=== PATIENT | male | born 1960 | race Caucasian/White ===

== ENCOUNTER → 2016-05-20 | Outpatient (CLI) | payer BC ==
[~2016-05-20] MED LIST: BUPIVACAINE HCL 0.25% 30 ML VIAL As Ordered ONE; ISOVUE-M 300 61% 15ML VIAL (Q9967) As Ordered ONE; LIDOCAINE 1% SDV INJ 30 ML VIAL As Ordered ONE; TRIAMCINOLONE ACETONIDE SUSP 40 MG/ML VIAL (J3301) As Ordered ONE; diazePAM 5 MG TAB As Ordered ONE; oxyCODONE 5MG TAB As Ordered ONE
--- NOTE | 2016-05-21 08:59 | REP ---
Partial SI joint series: Three views. History: Bilateral SI joint injection for pain. 50 seconds of fluoroscopy time is reported. Findings: A sequence of three fluoroscopically obtained intraprocedural spot radiographs of the SI joints document needle position and contrast injection associated with SI joint injection procedure. Signed by Waldo Merchant MD 05/21/2016 10:22 A
--- NOTE | 2016-05-24 23:37 | ECWPNPC ---
PATIENT NAME: MOON LUCAS : 1960 GENDER: MALE VISIT DATE: 05/20/2016 DISCHARGE DATE: 05/20/16 1614 VISIT LOCKED DATE TIME: PHYSICIAN: CHAIM RAI RESOURCE: CHAIM RAI REASON FOR APPOINTMENT 1. LFBT AND/OR SIJ HISTORY OF PRESENT ILLNESS HISTORY OF PRESENT ILLNESS: PAIN THE PATIENT DESCRIBES THE PAIN... FALL RISK SCREENING: SCREENING :NO FALLS IN THE PAST YEAR CURRENT MEDICATIONS TAKING LISINOPRIL 5 MG TABLET 1 TAB(S) ORALLY ONCE A DAY, NOTES: 05-19-162099 TAKING ATENOLOL 25 MG TABLET 1 TABLET ORALLY ONCE A DAY, NOTES: 05-19-162099 TAKING LIPITOR 20 MG TABLET 1 TABLET ORALLY ONCE A DAY, NOTES: 05-19-162099 TAKING ASPIRIN 81 MG TABLET 1 TABLET ORALLY ONCE A DAY, NOTES: 05-19-162099 TAKING FLONASE 50 MCG/ACT SUSPENSION 1 PUFF IN EACH NOSTRIL NASALLY ONCE A DAY, NOTES: 05-13-162099 TAKING VICODIN HP 10-300 MG TABLET 1 TABLET ORALLY DAILY NEEDED, NOTES: 05-20-16 11:30 TAKING DELSYM 30 MG/5ML LIQUID EXTENDED RELEASE 10 ML NEEDED ORALLY EVERY 12 HRS, NOTES: 2099 NOT-TAKING IBUPROFEN 800 MG TABLET 1 TABLET ORALLY TWO TIMES A DAY NOT-TAKING TESSALON 200 MG CAPSULE 1 CAPSULE ORALLY EVERY 8 HOURS NEEDED FOR FOR COUGH NOT-TAKING IBU-200 200 MG TABLET 2-3 TABS ORALLY EVERY 6 HRS NOT-TAKING AZITHROMYCIN 500 MG TABLET 1 TABLET ORALLY ONCE A DAY MEDICATION LIST REVIEWED AND RECONCILED WITH THE PATIENT PAST MEDICAL HISTORY 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 RADICULAR PAIN-JANUARY 2010 MRI MULTILEVEL DJD, GRADE 1 DEGENERATIVE ANTEROLISTHESIS L4/L5, 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 WITH LEFT GREATER THAN RIGHT NEUROFORAMINAL NARROWING HYPERTENSION 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 DECEMBER 2005 OBESITY, MORBID HYPERHOMOCYSTINEMIA, MILD-12/2003-12.6 (4.3-11.4) IMPAIRED FASTING GLUCOSE HYPERLIPIDEMIA 2B VENOUS INSUFFICIENCY BILATERAL LOWER EXTREMITIES ALLERGIES TETRACYCLINE HCL: NAUSEA/VOMITING: ALLERGY HORSE SERUM: NAUSEA/VOMITING: ALLERGY SURGICAL HISTORY RIGHT KNEE /MENISCUS 2014 SOCIAL HISTORY GENERAL: TOBACCO USE ARE YOU A:NONSMOKER LEARNING BARRIERS / SPECIAL NEEDS ORIENTED TO PLAN OF CARE: PATIENT, PAIN MANAGEMENT PATIENT, ORIENTED TO PLAN OF CARE: PATIENT, PAIN MANAGEMENT PATIENT. NEW PATIENT PAIN DIARY TODAY'S VISITNOTES FROM 0-10, WHAT LEVEL IS YOUR PAIN TODAY?0 PAIN CLINIC PFS, CLERGY, PUBLIC HEALTH REFERRALS PFS REFERRAL NEEDED?NO CLERGY REFERRAL NEEDED?NO PUBLIC HEALTH REFERRAL NEEDED?NO WAS THE PROVIDER NOTIFIED OF ANY PERTINENT INFO?NO PFS REFERRAL NEEDED?NO CLERGY REFERRAL NEEDED?NO PUBLIC HEALTH REFERRAL NEEDED?NO WAS THE PROVIDER NOTIFIED OF ANY PERTINENT INFO?NO REVIEW OF SYSTEMS CONSTITUTIONAL: ANY CHANGE IN YOUR MEDICAL CONDITION? NO . CHILLS NO . FEVER NO . INFECTION: DO YOU HAVE NEW INFECTIONS? NO . DO YOU HAVE HISTORY OF MRSA? NO . MUSCULOSKELETAL: ANY NEW PATTERNS OF PAIN OR NUMBNESS? NO . GASTROENTEROLOGY: ANY NEW CHANGE IN BOWEL CONTROL? NO . GENITOURINARY: ANY NEW CHANGE IN BLADDER CONTROL? NO . IS THERE A CHANCE YOU COULD BE ? NO . HEMATOLOGY/LYMPH: DO YOU TAKE ANY BLOOD THINNERS? (FOR EXAMPLE- COUMADIN, PLAVIX, AGGRENOX, PLATEL, PRADAXA, OR XARELTO) NO . WHEN WAS YOUR LAST DOSE? DATE: TIME: . NEUROLOGY: HAVE YOU FALLEN IN THE PAST 6 MONTHS? YES . ANY NEW EXTREMITY NUMBNESS OR WEAKNESS? NO . CARDIOLOGY: DO YOU HAVE A PACEMAKER OR DEFIBRILLATOR? NO . RESPIRATORY: HAVE YOU BEEN SICK IN THE PAST WEEK? NO . FEVER NO . FLU LIKE SYMPTOMS? NO . COUGH NO . INTEGUMENTARY: DO YOU HAVE ANY RASHES OR OPEN SORES? NO . ALLERGIC/IMMUNO: ARE YOU ALLERGIC TO SHELLFISH OR IV DYE? NO . ANY NEW ALLERGIES? NO . PSYCHIATRIC: DO YOU HAVE THOUGHTS OF HURTING YOURSELF OR SOMEONE ELSE? NO . ARE YOU ABUSED, NEGLECTED, OR IN AN UNSAFE ENVIRONMENT? NO . ENDOCRINOLOGY: ARE YOU DIABETIC? NO . OTHER: DO YOU NEED ANY PRESCRIPTIONS? NO . IF YES, PLEASE LIST: ____ . ANY NEW PROBLEMS WITH YOUR MEDICATIONS? NO . WHEN DID YOU LAST EAT? ____05-19-16=1900 . WHEN DID YOU LAST DRINK? ____1145 05-20-16 . WHAT DID YOU LAST DRINK? ____ . NAME OF PERSON DRIVING YOU HOME? ____ . DO YOU HAVE ANY OTHER QUESTIONS OR CONCERNS NO . REVIEWED BY: PROVIDER: . VITAL SIGNS WT 288 LBS, HT 68 IN, BMI 43.79 INDEX, BP 135/90 MM HG, HR 70 /MIN, RR 16 /MIN, TEMP 96.0 F, OXYGEN SAT % 94, NA INITIALS TL 1402, REVIEWED BY: KG. ASSESSMENTS SACROILIITIS, NOT ELSEWHERE CLASSIFIED - M46.1 (PRIMARY) TREATMENT OTHERS START HYDROCODONE-ACETAMINOPHEN TABLET, 10-325 MG, 1 TABLET NEEDED, ORALLY, EVERY 8 HRS PRN FOR PAIN MDD3, 15 DAYS, 42, REFILLS 0 PROCEDURES PN SI PRE PROCEDURE DIAGNOSIS SACROILIITIS, SACROILIAC JOINT DYSFUNCTION POST PROCEDURE DIAGNOSIS SACROILIITIS, SACROILIAC JOINT DYSFUNCTION PROCEDURE BILATERAL SACROILIAC JOINT BLOCK SURGEON DR. CHAIM RAI BOILER/CHILLER TECHNICIAN NONE ANESTHESIA LOCAL PRE PROCEDURE NOTE PATIENT WITH HISTORY OF CHRONIC LOW BACK PAIN. I EVALUATED THE PATIENT AND REVIEWED THE CHART. I WENT OVER THE RISKS, ALTERNATIVES, AND BENEFITS ASSOCIATED WITH THIS PROCEDURE. THE PATIENT WOULD LIKE TO PROCEED AND GAVE CONSENT TO PERFORM THE PROCEDURE. THE PATIENT DENIES UNEXPLAINABLE WEIGHT LOSS, FEVER, CHILLS, OR NEW CHANGES IN URINARY OR BOWEL CONTROL DESCRIPTION OF PROCEDURE THE PATIENT WAS BROUGHT TO THE PROCEDURE ROOM AND PLACED IN THE PRONE POSITION. THE LUMBOSACRAL AREA WAS CLEANED WITH CHLORAPREP SOLUTION AND DRAPED ASEPTICALLY. THE PROCEDURE WAS DONE UNDER STERILE CONDITIONS. I CHECKED LATERALITY AND THE LEVEL WHERE THE PROCEDURE WAS GOING TO BE PERFORMED WITH THE PATIENT AND THE SUPPORTING STAFF AT THE MOMENT OF THE TIME OUT IN THE PROCEDURE ROOM. UNDER FLUOROSCOPIC GUIDANCE, TARGET POINT WAS SELECTED AT THE LOWER BORDER OF THE RIGHT AND LEFT SACROILIAC JOINT. TARGET POINT WAS SELECTED AFTER MEDIAL ROTATION AND TILT OF THE MAGNIFIER OF THE C-ARM. LIDOCAINE WAS USED TO NUMB THE SKIN AND SUBCUTANEOUS TISSUE BELOW IT. A SPINAL NEEDLE, 22-GAUGE, WAS ADVANCED UNDER FLUOROSCOPIC GUIDANCE AND FOLLOWING PATIENT FEEDBACK UNTIL THE TARGET AREA WAS TOUCHED. THE POSITION OF THE NEEDLE WAS VERIFIED WITH AP AND LATERAL VIEWS. AFTER PROPER POSITION OF THE NEEDLE WAS ACHIEVED, ISOVUE M DYE 30%, 0.25 ML, WAS INJECTED SHOWING SPREAD OF THE DYE. THEN, A SOLUTION OF 20 MG OF KENALOG WAS INJECTED IN RIGHT JOINT WITH 3 ML OF BUPIVACAINE 0.125%. THERE WAS NO EVIDENCE OF BLOOD, PARESTHESIA OR CEREBROSPINAL FLUID DURING THE PROCEDURE. THE PATIENT WAS SENT TO THE RECOVERY ROOM. THE PATIENT WAS MOVING THE EXTREMITIES AND DOING WELL. THERE WAS NO COMPLICATION DURING THE PROCEDURE. FLUOROSCOPY TIME WAS 50 SECONDS POST PROCEDURE NOTE THE PATIENT WILL BE SEEN IN A FOLLOW UP IN THE NEXT FEW WEEKS. INSTRUCTIONS WERE GIVEN, QUESTIONS WERE ANSWERED, AND THE PATIENT EXPRESSED UNDERSTANDING AND AGREED WITH THE PLAN. I, ABUNDIO HERNANDEZ, DOCUMENTED THE ABOVE INFORMATION ACTING A SCRIBE FOR DR. RAI. I, DR. RAI, HAVE REVIEWED THE ABOVE DOCUMENT, SCRIBED BY ABUNDIO HERNANDEZ, AND I VERIFY THAT IT IS ACCURATE DIAGNOSTIC IMAGING [facility] FLUORO GUIDANCE (PAIN)[id number] PREVENTIVE MEDICINE PAIN CLINIC TEACHING: PROCEDURE TEACHING POST SACROILIAC JOINT INJECTIONS INSTRUCTIONS REVIEWED WITH PT. VERBALIZED UNDERSTANDING.. PROCEDURE CODES 18908 INJECT SACROILIAC JOINT 6045F RADXPS IN END [id number] PXD FOLLOW UP 3 WEEKS ELECTRONICALLY SIGNED BY CHAIM RAI MD ON 05/24/2016 AT 10:55 PM EST DISCLAIMER : THIS IS A VISIT SUMMARY EXTRACTED FROM THE [employer] CHART. IT IS NOT A COPY OF THE [employer] PROGRESS NOTE. MTDD
== END ==
LOC: M PAIN 14:00
PROVIDERS: ATTEND Anesthesiology
DX: G89.29 Other chronic pain (principal); M46.1 Sacroiliitis, not elsewhere classified; M53.88 Other specified dorsopathies, sacral and sacrococcygeal region; M51.36 Other intervertebral disc degeneration, lumbar region; I10 Essential (primary) hypertension; E66.9 Obesity, unspecified; Z68.41 Body mass index [BMI] 40.0-44.9, adult; R73.01 Impaired fasting glucose; E78.5 Hyperlipidemia, unspecified; Z88.1 Allergy status to other antibiotic agents; Z88.7 Allergy status to serum and vaccine; Z79.891 Long term (current) use of opiate analgesic; Z79.899 Other long term (current) drug therapy; Z79.82 Long term (current) use of aspirin
CPT/HCPCS: G0260; J3301; Q9967

== ENCOUNTER → 2016-06-15 | Outpatient (CLI) | payer BC ==
--- NOTE | 2016-06-17 00:32 | ECWPNPC ---
PATIENT NAME: MOON LUCAS : 1960 GENDER: MALE VISIT DATE: 06/15/2016 DISCHARGE DATE: 06/15/16 1637 VISIT LOCKED DATE TIME: PHYSICIAN: CHAIM RAI RESOURCE: CHAIM RAI REASON FOR APPOINTMENT 1. LOW BACK PAIN HISTORY OF PRESENT ILLNESS HISTORY OF PRESENT ILLNESS: PAIN THE PATIENT DESCRIBES THE PAIN... 55 YEAR OLD MALE PATIENT WITH HISTORY OF CHRONIC LOW BACK PAIN. PATIENT DESCRIBES THE PAIN ACHING, SORE WITH THE PAIN COMING AND GOING WITH A PAIN SCORE OF 3/10. PATIENT RECEIVED A SACROILIAC JOINT BLOCK ON 05/20/16 AND STATES THAT HIS PAIN WENT FROM A 8 TO A 3 FOR ROUGHLY 4 WEEKS AND STATES HE IS STILL GETTING PAIN RELIEF. PATIENT HAS USED 4 VICODIN'S IN THE LAST MONTH AND STATES HE PREFERS NOT TO USE THEM UNLESS THE PAIN IS VERY SEVERE. HOWEVER, PATIENT IS USING IBUPROFEN TO AID IN PAIN RELIEF. MR. LUCAS STATES THAT ANY ACTIVITY INCREASES THE PAIN IN HIS LOWER BACK AND AT THIS TIME THE INJECTIONS AND IBUPROFEN HELP TO RELIEVE THE PAIN. PATIENT DENIES UNEXPLAINABLE WEIGHT LOSS, FEVER, CHILLS, NEW CHANGES ON HIS URINARY OR BOWEL CONTROL. FALL RISK SCREENING: SCREENING :NO FALLS IN THE PAST YEAR CURRENT MEDICATIONS TAKING LISINOPRIL 5 MG TABLET 1 TAB(S) ORALLY ONCE A DAY TAKING ATENOLOL 25 MG TABLET 1 TABLET ORALLY ONCE A DAY TAKING LIPITOR 20 MG TABLET 1 TABLET ORALLY ONCE A DAY TAKING ASPIRIN 81 MG TABLET 1 TABLET ORALLY ONCE A DAY TAKING HYDROCODONE-ACETAMINOPHEN 10-325 MG TABLET 1 TABLET NEEDED ORALLY EVERY 8 HRS PRN FOR PAIN MDD3 NOT-TAKING FLONASE 50 MCG/ACT SUSPENSION 1 PUFF IN EACH NOSTRIL NASALLY ONCE A DAY, NOTES: 05-13-162099 NOT-TAKING VICODIN HP 10-300 MG TABLET 1 TABLET ORALLY DAILY NEEDED, NOTES: 05-20-16 11:30 NOT-TAKING DELSYM 30 MG/5ML LIQUID EXTENDED RELEASE 10 ML NEEDED ORALLY EVERY 12 HRS, NOTES: 2099 NOT-TAKING IBUPROFEN 800 MG TABLET 1 TABLET ORALLY TWO TIMES A DAY NOT-TAKING TESSALON 200 MG CAPSULE 1 CAPSULE ORALLY EVERY 8 HOURS NEEDED FOR FOR COUGH NOT-TAKING IBU-200 200 MG TABLET 2-3 TABS ORALLY EVERY 6 HRS NOT-TAKING AZITHROMYCIN 500 MG TABLET 1 TABLET ORALLY ONCE A DAY MEDICATION LIST REVIEWED AND RECONCILED WITH THE PATIENT PAST MEDICAL HISTORY 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 RADICULAR PAIN-JANUARY 2010 MRI MULTILEVEL DJD, GRADE 1 DEGENERATIVE ANTEROLISTHESIS L4/L5, 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 WITH LEFT GREATER THAN RIGHT NEUROFORAMINAL NARROWING HYPERTENSION 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 DECEMBER 2005 OBESITY, MORBID HYPERHOMOCYSTINEMIA, MILD-12/2003-12.6 (4.3-11.4) IMPAIRED FASTING GLUCOSE HYPERLIPIDEMIA 2B VENOUS INSUFFICIENCY BILATERAL LOWER EXTREMITIES ALLERGIES TETRACYCLINE HCL: NAUSEA/VOMITING: ALLERGY HORSE SERUM: NAUSEA/VOMITING: ALLERGY SURGICAL HISTORY RIGHT KNEE /MENISCUS 2015 TONSILLECTOMY 1972 REPAIR LEFT 2ND FINGER 05/1973 FAMILY HISTORY NO FAMILY HISTORY DOCUMENTED. SOCIAL HISTORY GENERAL: TOBACCO USE ARE YOU A:NONSMOKER ALCOHOL SCREENING DID YOU HAVE A DRINK CONTAINING ALCOHOL IN THE PAST YEAR?YES HOW OFTEN DID YOU HAVE SIX OR MORE DRINKS ON ONE OCCASION IN THE PAST YEAR?NEVER (0 POINTS) HOW MANY DRINKS DID YOU HAVE ON A TYPICAL DAY WHEN YOU WERE DRINKING IN THE PAST YEAR?1 OR 2 (0 POINTS) HOW OFTEN DID YOU HAVE A DRINK CONTAINING ALCOHOL IN THE PAST YEAR?TWO TO THREE TIMES PER WEEK (3 POINTS) POINTS3 INTERPRETATIONNEGATIVE RECREATIONAL DRUG USE DRUG USE?YES MARIJUANA HOW OFTEN AND HOW MUCH? 2 TO 3 TIMES A WEEK CAFFEINE CAFFEINE USE?YES HOW OFTEN AND HOW MUCH? 2 CUPS A DAY LEARNING BARRIERS / SPECIAL NEEDS ORIENTED TO PLAN OF CARE: PATIENT, PAIN MANAGEMENT PATIENT, ORIENTED TO PLAN OF CARE: PATIENT, PAIN MANAGEMENT PATIENT. PSYCHOLOGICAL HX TREATMENT NO . NEW PATIENT PAIN DIARY TODAY'S VISITNOTES FROM 0-10, WHAT LEVEL IS YOUR PAIN TODAY?0 PAIN CLINIC PFS, CLERGY, PUBLIC HEALTH REFERRALS PFS REFERRAL NEEDED?NO CLERGY REFERRAL NEEDED?NO PUBLIC HEALTH REFERRAL NEEDED?NO WAS THE PROVIDER NOTIFIED OF ANY PERTINENT INFO?NO PFS REFERRAL NEEDED?NO CLERGY REFERRAL NEEDED?NO PUBLIC HEALTH REFERRAL NEEDED?NO WAS THE PROVIDER NOTIFIED OF ANY PERTINENT INFO?NO PATIENT: ____. ADVANCED DIRECTIVES HEALTH CARE PROXY?YES JUAN LUCAS [phone] DO YOU HAVE A DNR?YES DOES NOT HAVE A COPY WITH LIVING WILL?YES SHARA LUCAS POWER OF COOKING SHOW HOST?NO SHARA LUCAS HOSPITALIZATION/MAJOR DIAGNOSTIC PROCEDURE SURGERY RELATED REVIEW OF SYSTEMS CONSTITUTIONAL: ANY CHANGE IN YOUR MEDICAL CONDITION? YES . CHILLS NO . FEVER NO . INFECTION: DO YOU HAVE NEW INFECTIONS? NO . DO YOU HAVE HISTORY OF MRSA? NO . MUSCULOSKELETAL: ANY NEW PATTERNS OF PAIN OR NUMBNESS? YES, INJECTION SITE PAIN WHEN HYPEREXTENDS BACK . GASTROENTEROLOGY: ANY NEW CHANGE IN BOWEL CONTROL? NO . GENITOURINARY: ANY NEW CHANGE IN BLADDER CONTROL? NO . IS THERE A CHANCE YOU COULD BE ? NO . HEMATOLOGY/LYMPH: DO YOU TAKE ANY BLOOD THINNERS? (FOR EXAMPLE- COUMADIN, PLAVIX, AGGRENOX, PLATEL, PRADAXA, OR XARELTO) YES . WHEN WAS YOUR LAST DOSE? DATE: TIME: . NEUROLOGY: HAVE YOU FALLEN IN THE PAST 6 MONTHS? NO . ANY NEW EXTREMITY NUMBNESS OR WEAKNESS? NO . CARDIOLOGY: DO YOU HAVE A PACEMAKER OR DEFIBRILLATOR? NO . RESPIRATORY: HAVE YOU BEEN SICK IN THE PAST WEEK? NO . FEVER NO . FLU LIKE SYMPTOMS? NO . COUGH NO . INTEGUMENTARY: DO YOU HAVE ANY RASHES OR OPEN SORES? NO . ALLERGIC/IMMUNO: ARE YOU ALLERGIC TO SHELLFISH OR IV DYE? NO . ANY NEW ALLERGIES? NO . PSYCHIATRIC: DO YOU HAVE THOUGHTS OF HURTING YOURSELF OR SOMEONE ELSE? NO . ARE YOU ABUSED, NEGLECTED, OR IN AN UNSAFE ENVIRONMENT? NO . ENDOCRINOLOGY: ARE YOU DIABETIC? NO . OTHER: DO YOU NEED ANY PRESCRIPTIONS? NO . IF YES, PLEASE LIST: ____ . ANY NEW PROBLEMS WITH YOUR MEDICATIONS? NO . WHEN DID YOU LAST EAT? ____ . WHEN DID YOU LAST DRINK? ____ . WHAT DID YOU LAST DRINK? ____ . NAME OF PERSON DRIVING YOU HOME? ____ . DO YOU HAVE ANY OTHER QUESTIONS OR CONCERNS NO . REVIEWED BY: PROVIDER: CHAIM RAI MD . VITAL SIGNS WT 287.9 LBS, HT 68 IN, BMI 43.77 INDEX, BP 150/93 MM HG, HR 94 /MIN, RR 16 /MIN, TEMP 97.8 F, OXYGEN SAT % 92%, NA INITIALS SC 15:26, REVIEWED BY: MARIO. EXAMINATION : PATIENT IS ALERT O X 3 AND COOPERATIVE. PATIENT AMBULATES WITH AN ANTALGIC GAIT. PATIENT HAS BALANCE PROBLEMS DUE TO THE HEEL. PATIENT IS ABLE TO EXTEND BACK AT 20 DEGREES AND FLEX BACK AT 50 DEGREES WITH DIFFICULTIES. PATIENT'S RIGHT LEG IS WEAKER AT EXTENSION AND FLEXION. MRI OF THE LUMBAR SPINE DONE ON 03-19-2016 SHOWS A DIFFUSE DISC BULGE AT L1-L2 WITH MINIMAL THECAL SAC COMPRESSION. SEVERE CENTRAL CANAL STENOSIS AT L4-L5, WITH A COMPRESSION OF THE RIGHT L4 NERVE IN THE NEURAL FORAMEN. DIFFUSE DISC BULGE AT L5-S1 WHICH ABUTS THE THECAL SAC AND S1 NERVES WITH A COMPRESSION OF THE L5 NERVES IN THE NEURAL FORAMINA. ASSESSMENTS SACROILIITIS, NOT ELSEWHERE CLASSIFIED - M46.1 (PRIMARY) SPONDYLOSIS WITHOUT MYELOPATHY OR RADICULOPATHY, LUMBAR REGION - M47.816 SPONDYLOSIS WITHOUT MYELOPATHY OR RADICULOPATHY, LUMBOSACRAL REGION - M47.817 TREATMENT SACROILIITIS, NOT ELSEWHERE CLASSIFIED NOTES: WE DISCUSSED SEVERAL ISSUES WITH MR. LUCAS'S PAIN MANAGEMENT CASE. PATIENT WILL CONTINUE WITH THE SAME MEDICATION REGIME BEFORE. PATIENT HAS BEEN USING THE VICODIN NEEDED AND I ENCOURAGED THE PATIENT TO KEEP USING NEEDED. PATIENT DENIES ABUSE OF ANY MEDICATION, DENIES USE OF ILLEGAL SUBSTANCES, AND IS USING THE MEDICATION FOR PAIN MANAGEMENT. PATIENT RECEIVED A SACROILIAC JOINT INJECTION WHICH HE REPORTS AN 80% REDUCTION IN PAIN SINCE THE INJECTION. AT THIS TIME THE PATIENT IS DOING VERY WELL AND STATES HE DOES NOT NEED INTERVENTIONS AT THIS TIME. PATIENT WAS ADVISED TO CALL NEEDED AND HE WOULD BE ACCOMMODATED IN 3 BUSINESS DAYS. INSTRUCTIONS WERE GIVEN, QUESTIONS WERE ANSWERED, PATIENT REPORTS UNDERSTANDING AND AGREES WITH THE PLAN. I, ABUNDIO HERNANDEZ, DOCUMENTED THE ABOVE INFORMATION ACTING A SCRIBE FOR DR. RAI. I HAVE REVIEWED THE ABOVE DOCUMENT, WRITTEN BY ABUNDIO SWARTZ AND I VERIFY THAT IT IS ACCURATE. PROCEDURE CODES FA211 ESTABILISHED PATIENT [facility] CHARGE [id number] DOC MEDS VERIFIED W/PT OR RE G8730 PAIN ASSESS POS TOOL F/U PLAN DOC FOLLOW UP CALL NEEDED ELECTRONICALLY SIGNED BY CHAIM RAI MD ON 06/16/2016 AT 09:41 AM EST DISCLAIMER : THIS IS A VISIT SUMMARY EXTRACTED FROM THE [employer] CHART. IT IS NOT A COPY OF THE [employer] PROGRESS NOTE. MTDD
== END ==
LOC: M PAIN 15:20
PROVIDERS: ATTEND Anesthesiology
DX: Z09 Encounter for follow-up examination after completed treatment for conditions other than malignant neoplasm (principal); G89.29 Other chronic pain; M46.1 Sacroiliitis, not elsewhere classified; M47.816 Spondylosis without myelopathy or radiculopathy, lumbar region; M47.817 Spondylosis without myelopathy or radiculopathy, lumbosacral region; M51.16 Intervertebral disc disorders with radiculopathy, lumbar region; M51.17 Intervertebral disc disorders with radiculopathy, lumbosacral region; I10 Essential (primary) hypertension; E66.9 Obesity, unspecified; Z68.41 Body mass index [BMI] 40.0-44.9, adult; E78.5 Hyperlipidemia, unspecified; Z88.1 Allergy status to other antibiotic agents; Z88.7 Allergy status to serum and vaccine; Z79.01 Long term (current) use of anticoagulants; Z79.82 Long term (current) use of aspirin; Z79.891 Long term (current) use of opiate analgesic; Z79.899 Other long term (current) drug therapy; Z86.79 Personal history of other diseases of the circulatory system

== ENCOUNTER → 2016-07-10 | Outpatient (CLI) | payer BC ==
--- NOTE | 2016-07-10 18:56 | REP ---
FLUOROSCOPIC GUIDANCE: REASON: Sacroiliac pain. Four images were obtained in absentia using a portable C-ARM device. There is a needle in the right and left sacroiliac joint with contrast material seen opacifying the joint region. Fluoroscopic time was 23 seconds. Signed by Capo Duncan DO 07/10/2016 07:05 P
--- NOTE | 2016-07-18 23:16 | ECWPNPC ---
PATIENT NAME: MOON LUCAS : 1960 GENDER: MALE VISIT DATE: 07/10/2016 DISCHARGE DATE: 07/10/161757 VISIT LOCKED DATE TIME: PHYSICIAN: CHAIM RAI RESOURCE: CHAIM RAI REASON FOR APPOINTMENT 1. SIJ HISTORY OF PRESENT ILLNESS HISTORY OF PRESENT ILLNESS: PAIN THE PATIENT DESCRIBES THE PAIN... FALL RISK SCREENING: SCREENING :NO FALLS IN THE PAST YEAR CURRENT MEDICATIONS TAKING LISINOPRIL 5 MG TABLET 1 TAB(S) ORALLY ONCE A DAY, NOTES: 07-09-162099 TAKING ATENOLOL 25 MG TABLET 1 TABLET ORALLY ONCE A DAY, NOTES: 07-09-162099 TAKING LIPITOR 20 MG TABLET 1 TABLET ORALLY ONCE A DAY, NOTES: 07-09-162099 TAKING ASPIRIN 81 MG TABLET 1 TABLET ORALLY ONCE A DAY, NOTES: 07-09-162099 TAKING HYDROCODONE-ACETAMINOPHEN 10-325 MG TABLET 1 TABLET NEEDED ORALLY EVERY 8 HRS PRN FOR PAIN MDD3, NOTES: 07-10-16 0800 NOT-TAKING FLONASE 50 MCG/ACT SUSPENSION 1 PUFF IN EACH NOSTRIL NASALLY ONCE A DAY, NOTES: 05-13-162099 NOT-TAKING VICODIN HP 10-300 MG TABLET 1 TABLET ORALLY DAILY NEEDED, NOTES: 05-20-16 11:30 NOT-TAKING DELSYM 30 MG/5ML LIQUID EXTENDED RELEASE 10 ML NEEDED ORALLY EVERY 12 HRS, NOTES: 2099 NOT-TAKING IBUPROFEN 800 MG TABLET 1 TABLET ORALLY TWO TIMES A DAY NOT-TAKING TESSALON 200 MG CAPSULE 1 CAPSULE ORALLY EVERY 8 HOURS NEEDED FOR FOR COUGH NOT-TAKING IBU-200 200 MG TABLET 2-3 TABS ORALLY EVERY 6 HRS NOT-TAKING AZITHROMYCIN 500 MG TABLET 1 TABLET ORALLY ONCE A DAY MEDICATION LIST REVIEWED AND RECONCILED WITH THE PATIENT PAST MEDICAL HISTORY 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 RADICULAR PAIN-JANUARY 2010 MRI MULTILEVEL DJD, GRADE 1 DEGENERATIVE ANTEROLISTHESIS L4/L5, 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 WITH LEFT GREATER THAN RIGHT NEUROFORAMINAL NARROWING HYPERTENSION 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 DECEMBER 2005 OBESITY, MORBID HYPERHOMOCYSTINEMIA, MILD-12/2003-12.6 (4.3-11.4) IMPAIRED FASTING GLUCOSE HYPERLIPIDEMIA 2B VENOUS INSUFFICIENCY BILATERAL LOWER EXTREMITIES ALLERGIES TETRACYCLINE HCL: NAUSEA/VOMITING: ALLERGY HORSE SERUM: NAUSEA/VOMITING: ALLERGY SURGICAL HISTORY RIGHT KNEE /MENISCUS 2015 TONSILLECTOMY 1972 REPAIR LEFT 2ND FINGER 05/1973 SOCIAL HISTORY GENERAL: TOBACCO USE ARE YOU A:NONSMOKER LEARNING BARRIERS / SPECIAL NEEDS ORIENTED TO PLAN OF CARE: PATIENT, PAIN MANAGEMENT PATIENT, ORIENTED TO PLAN OF CARE: PATIENT, PAIN MANAGEMENT PATIENT. NEW PATIENT PAIN DIARY TODAY'S VISITNOTES FROM 0-10, WHAT LEVEL IS YOUR PAIN TODAY?0 PAIN CLINIC PFS, CLERGY, PUBLIC HEALTH REFERRALS PFS REFERRAL NEEDED?NO CLERGY REFERRAL NEEDED?NO PUBLIC HEALTH REFERRAL NEEDED?NO WAS THE PROVIDER NOTIFIED OF ANY PERTINENT INFO?NO PFS REFERRAL NEEDED?NO CLERGY REFERRAL NEEDED?NO PUBLIC HEALTH REFERRAL NEEDED?NO WAS THE PROVIDER NOTIFIED OF ANY PERTINENT INFO?NO HOSPITALIZATION/MAJOR DIAGNOSTIC PROCEDURE SURGERY RELATED REVIEW OF SYSTEMS CONSTITUTIONAL: ANY CHANGE IN YOUR MEDICAL CONDITION? NO . CHILLS NO . FEVER NO . INFECTION: DO YOU HAVE NEW INFECTIONS? NO . DO YOU HAVE HISTORY OF MRSA? NO . MUSCULOSKELETAL: ANY NEW PATTERNS OF PAIN OR NUMBNESS? NO . GASTROENTEROLOGY: ANY NEW CHANGE IN BOWEL CONTROL? NO . GENITOURINARY: ANY NEW CHANGE IN BLADDER CONTROL? NO . IS THERE A CHANCE YOU COULD BE ? NO . HEMATOLOGY/LYMPH: DO YOU TAKE ANY BLOOD THINNERS? (FOR EXAMPLE- COUMADIN, PLAVIX, AGGRENOX, PLATEL, PRADAXA, OR XARELTO) NO . WHEN WAS YOUR LAST DOSE? DATE: TIME: . NEUROLOGY: HAVE YOU FALLEN IN THE PAST 6 MONTHS? NO . ANY NEW EXTREMITY NUMBNESS OR WEAKNESS? NO . CARDIOLOGY: DO YOU HAVE A PACEMAKER OR DEFIBRILLATOR? NO . RESPIRATORY: HAVE YOU BEEN SICK IN THE PAST WEEK? NO . FEVER NO . FLU LIKE SYMPTOMS? NO . COUGH NO . INTEGUMENTARY: DO YOU HAVE ANY RASHES OR OPEN SORES? NO . ALLERGIC/IMMUNO: ARE YOU ALLERGIC TO SHELLFISH OR IV DYE? NO . ANY NEW ALLERGIES? NO . PSYCHIATRIC: DO YOU HAVE THOUGHTS OF HURTING YOURSELF OR SOMEONE ELSE? NO . ARE YOU ABUSED, NEGLECTED, OR IN AN UNSAFE ENVIRONMENT? NO . ENDOCRINOLOGY: ARE YOU DIABETIC? NO . OTHER: DO YOU NEED ANY PRESCRIPTIONS? NO . IF YES, PLEASE LIST: ____ . ANY NEW PROBLEMS WITH YOUR MEDICATIONS? NO . WHEN DID YOU LAST EAT? ____1900 3-9-17 . WHEN DID YOU LAST DRINK? ____1300 TODAY 07-10-16 . WHAT DID YOU LAST DRINK? ____TEA . NAME OF PERSON DRIVING YOU HOME? ____JUAN LUCAS . DO YOU HAVE ANY OTHER QUESTIONS OR CONCERNS NO . REVIEWED BY: PROVIDER: . VITAL SIGNS WT 287.9 LBS, HT 68 IN, BMI 43.77 INDEX, BP 132/91 MM HG, HR 66 /MIN, RR 16 /MIN, TEMP 96.8 F, OXYGEN SAT % 95, SAFE IN ENV? (Y/N) YES, NA INITIALS TL 1605, REVIEWED BY: KG. ASSESSMENTS SACROILIITIS, NOT ELSEWHERE CLASSIFIED - M46.1 (PRIMARY) TREATMENT OTHERS REFILL HYDROCODONE-ACETAMINOPHEN TABLET, 10-325 MG, 1 TABLET NEEDED, ORALLY, EVERY 8 HRS PRN FOR PAIN MDD3, 30 DAY(S), 80, REFILLS 0, NOTES: 07-10-16 0800 PROCEDURES PN SI PRE PROCEDURE DIAGNOSIS SACROILIITIS, SACROILIAC JOINT DYSFUNCTION POST PROCEDURE DIAGNOSIS SACROILIITIS, SACROILIAC JOINT DYSFUNCTION PROCEDURE ., BILATERAL SACROILIAC JOINT BLOCK SURGEON DR. CHAIM RAI CRTS NONE ANESTHESIA LOCAL PRE PROCEDURE NOTE PATIENT WITH HISTORY OF CHRONIC LOW BACK PAIN. I EVALUATED THE PATIENT AND REVIEWED THE CHART. I WENT OVER THE RISKS, ALTERNATIVES, AND BENEFITS ASSOCIATED WITH THIS PROCEDURE. THE PATIENT WOULD LIKE TO PROCEED AND GAVE CONSENT TO PERFORM THE PROCEDURE. THE PATIENT DENIES UNEXPLAINABLE WEIGHT LOSS, FEVER, CHILLS, OR NEW CHANGES IN URINARY OR BOWEL CONTROL DESCRIPTION OF PROCEDURE THE PATIENT WAS BROUGHT TO THE PROCEDURE ROOM AND PLACED IN THE PRONE POSITION. THE LUMBOSACRAL AREA WAS CLEANED WITH CHLORAPREP SOLUTION AND DRAPED ASEPTICALLY. THE PROCEDURE WAS DONE UNDER STERILE CONDITIONS. I CHECKED LATERALITY AND THE LEVEL WHERE THE PROCEDURE WAS GOING TO BE PERFORMED WITH THE PATIENT AND THE SUPPORTING STAFF AT THE MOMENT OF THE TIME OUT IN THE PROCEDURE ROOM. UNDER FLUOROSCOPIC GUIDANCE, TARGET POINT WAS SELECTED AT THE LOWER BORDER OF THE RIGHT AND LEFT SACROILIAC JOINT. TARGET POINT WAS SELECTED AFTER MEDIAL ROTATION AND TILT OF THE MAGNIFIER OF THE C-ARM. LIDOCAINE WAS USED TO NUMB THE SKIN AND SUBCUTANEOUS TISSUE BELOW IT. A SPINAL NEEDLE, 22-GAUGE, WAS ADVANCED UNDER FLUOROSCOPIC GUIDANCE AND FOLLOWING PATIENT FEEDBACK UNTIL THE TARGET AREA WAS TOUCHED. THE POSITION OF THE NEEDLE WAS VERIFIED WITH AP AND LATERAL VIEWS. AFTER PROPER POSITION OF THE NEEDLE WAS ACHIEVED, ISOVUE M DYE 30%, 0.25 ML, WAS INJECTED SHOWING SPREAD OF THE DYE. THEN, A SOLUTION OF 20 MG OF KENALOG WAS INJECTED IN RIGHT JOINT WITH 3 ML OF BUPIVACAINE 0.125%. THERE WAS NO EVIDENCE OF BLOOD, PARESTHESIA OR CEREBROSPINAL FLUID DURING THE PROCEDURE. THE PATIENT WAS SENT TO THE RECOVERY ROOM. THE PATIENT WAS MOVING THE EXTREMITIES AND DOING WELL. THERE WAS NO COMPLICATION DURING THE PROCEDURE. FLUOROSCOPY TIME WAS 23 SECONDS POST PROCEDURE NOTE THE PATIENT WILL BE SEEN IN A FOLLOW UP IN THE NEXT FEW WEEKS. INSTRUCTIONS WERE GIVEN, QUESTIONS WERE ANSWERED, AND THE PATIENT EXPRESSED UNDERSTANDING AND AGREED WITH THE PLAN. INSTRUCTIONS WERE GIVEN, QUESTIONS WERE ANSWERED, PATIENT REPORTS UNDERSTANDING AND AGREES WITH THE PLAN. I, CHUNG GLOVER, DOCUMENTED THE ABOVE INFORMATION ACTING A SCRIBE FOR DR. RAI. I HAVE REVIEWED THE ABOVE DOCUMENT, WRITTEN BY CHUNG GLOVER SCRIBE AND I VERIFY THAT IT IS ACCURATE. [facility] FLUORO GUIDANCE (PAIN)[id number] PROCEDURE CODES 54747 INJECT SACROILIAC JOINT 6045F RADXPS IN END [id number] PXD DISPOSITION & COMMUNICATION FOLLOW UP 3 WEEKS ELECTRONICALLY SIGNED BY CHAIM RAI MD ON 07/18/2016 AT 08:48 PM EDT DISCLAIMER : THIS IS A VISIT SUMMARY EXTRACTED FROM THE [employer] CHART. IT IS NOT A COPY OF THE [employer] PROGRESS NOTE. MTDD
== END ==
LOC: M PAIN 15:00
PROVIDERS: ATTEND Anesthesiology
DX: G89.29 Other chronic pain (principal); M46.1 Sacroiliitis, not elsewhere classified; M54.5 Low back pain; Z79.891 Long term (current) use of opiate analgesic; Z79.899 Other long term (current) drug therapy; Z79.82 Long term (current) use of aspirin; I10 Essential (primary) hypertension; E78.5 Hyperlipidemia, unspecified; Z88.1 Allergy status to other antibiotic agents; Z88.8 Allergy status to other drugs, medicaments and biological substances
CPT/HCPCS: G0260; J3301; Q9967

== ENCOUNTER → 2016-09-14 | Outpatient (CLI) | payer BC ==
--- NOTE | 2016-09-22 00:58 | ECWPNPC ---
PATIENT NAME: MOON LUCAS : 1960 GENDER: MALE VISIT DATE: 09/14/2016 DISCHARGE DATE: 09/14/16 1621 VISIT LOCKED DATE TIME: PHYSICIAN: CHAIM RAI RESOURCE: CHAIM RAI REASON FOR APPOINTMENT 1. LOW BACK PAIN HISTORY OF PRESENT ILLNESS HISTORY OF PRESENT ILLNESS: PAIN THE PATIENT DESCRIBES THE PAIN... 55 YEAR OLD MALE PATIENT WITH HISTORY OF CHRONIC LOW BACK PAIN. PATIENT DESCRIBES THE PAIN ACHING, SORE WITH THE PAIN COMING AND GOING WITH A PAIN SCORE OF 5/10. PATIENT RECEIVED A SACROILIAC JOINT BLOCK ON 07/10/16 AND STATES THAT HIS PAIN DECREASED BUT IT SLOWLY STARTING TO RETURN. PATIENT HAS USED 4 VICODIN'S IN THE LAST MONTH AND STATES HE PREFERS NOT TO USE THEM UNLESS THE PAIN IS VERY SEVERE. HOWEVER, PATIENT IS USING IBUPROFEN TO AID IN PAIN RELIEF. MR. LUCAS STATES THAT ANY ACTIVITY INCREASES THE PAIN IN HIS LOWER BACK AND AT THIS TIME THE INJECTIONS AND IBUPROFEN HELP TO RELIEVE THE PAIN. PATIENT DENIES UNEXPLAINABLE WEIGHT LOSS, FEVER, CHILLS, NEW CHANGES ON HIS URINARY OR BOWEL CONTROL. FALL RISK SCREENING: SCREENING :NO FALLS IN THE PAST YEAR CURRENT MEDICATIONS TAKING LISINOPRIL 5 MG TABLET 1 TAB(S) ORALLY ONCE A DAY TAKING ATENOLOL 25 MG TABLET 1 TABLET ORALLY ONCE A DAY TAKING LIPITOR 20 MG TABLET 1 TABLET ORALLY ONCE A DAY TAKING ASPIRIN 81 MG TABLET 1 TABLET ORALLY ONCE A DAY TAKING HYDROCODONE-ACETAMINOPHEN 10-325 MG TABLET 1 TABLET NEEDED ORALLY EVERY 8 HRS PRN FOR PAIN MDD3 TAKING IBUPROFEN 200 MG TABLET 3 TABLET ORALLY TWO TO THREE TIMES A DAY NOT-TAKING FLONASE 50 MCG/ACT SUSPENSION 1 PUFF IN EACH NOSTRIL NASALLY ONCE A DAY, NOTES: 05-13-162099 NOT-TAKING VICODIN HP 10-300 MG TABLET 1 TABLET ORALLY DAILY NEEDED, NOTES: 05-20-16 11:30 NOT-TAKING DELSYM 30 MG/5ML LIQUID EXTENDED RELEASE 10 ML NEEDED ORALLY EVERY 12 HRS, NOTES: 2099 NOT-TAKING TESSALON 200 MG CAPSULE 1 CAPSULE ORALLY EVERY 8 HOURS NEEDED FOR FOR COUGH NOT-TAKING IBU-200 200 MG TABLET 2-3 TABS ORALLY EVERY 6 HRS NOT-TAKING AZITHROMYCIN 500 MG TABLET 1 TABLET ORALLY ONCE A DAY MEDICATION LIST REVIEWED AND RECONCILED WITH THE PATIENT PAST MEDICAL HISTORY 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 RADICULAR PAIN-JANUARY 2010 MRI MULTILEVEL DJD, GRADE 1 DEGENERATIVE ANTEROLISTHESIS L4/L5, 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 WITH LEFT GREATER THAN RIGHT NEUROFORAMINAL NARROWING HYPERTENSION 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 DECEMBER 2005 OBESITY, MORBID HYPERHOMOCYSTINEMIA, MILD-12/2003-12.6 (4.3-11.4) IMPAIRED FASTING GLUCOSE HYPERLIPIDEMIA 2B VENOUS INSUFFICIENCY BILATERAL LOWER EXTREMITIES ALLERGIES TETRACYCLINE HCL: NAUSEA/VOMITING: ALLERGY HORSE SERUM: NAUSEA/VOMITING: ALLERGY SURGICAL HISTORY RIGHT KNEE /MENISCUS 2014 TONSILLECTOMY 1972 REPAIR LEFT 2ND FINGER 05/1973 FAMILY HISTORY NO FAMILY HISTORY DOCUMENTED. SOCIAL HISTORY GENERAL: TOBACCO USE ARE YOU A:NONSMOKER LEARNING BARRIERS / SPECIAL NEEDS ORIENTED TO PLAN OF CARE: PATIENT, PAIN MANAGEMENT PATIENT, ORIENTED TO PLAN OF CARE: PATIENT, PAIN MANAGEMENT PATIENT. NEW PATIENT PAIN DIARY TODAY'S VISITNOTES FROM 0-10, WHAT LEVEL IS YOUR PAIN TODAY?0 PAIN CLINIC PFS, CLERGY, PUBLIC HEALTH REFERRALS PFS REFERRAL NEEDED?NO CLERGY REFERRAL NEEDED?NO PUBLIC HEALTH REFERRAL NEEDED?NO WAS THE PROVIDER NOTIFIED OF ANY PERTINENT INFO?NO PFS REFERRAL NEEDED?NO CLERGY REFERRAL NEEDED?NO PUBLIC HEALTH REFERRAL NEEDED?NO WAS THE PROVIDER NOTIFIED OF ANY PERTINENT INFO?NO HOSPITALIZATION/MAJOR DIAGNOSTIC PROCEDURE SURGERY RELATED REVIEW OF SYSTEMS CONSTITUTIONAL: ANY CHANGE IN YOUR MEDICAL CONDITION? YES, PAIN IS GETTING WORSE . CHILLS NO . FEVER NO . INFECTION: DO YOU HAVE NEW INFECTIONS? NO . DO YOU HAVE HISTORY OF MRSA? NO . MUSCULOSKELETAL: ANY NEW PATTERNS OF PAIN OR NUMBNESS? NO . GASTROENTEROLOGY: ANY NEW CHANGE IN BOWEL CONTROL? NO . GENITOURINARY: ANY NEW CHANGE IN BLADDER CONTROL? NO . IS THERE A CHANCE YOU COULD BE ? NO . HEMATOLOGY/LYMPH: DO YOU TAKE ANY BLOOD THINNERS? (FOR EXAMPLE- COUMADIN, PLAVIX, AGGRENOX, PLATEL, PRADAXA, OR XARELTO) NO . WHEN WAS YOUR LAST DOSE? DATE: TIME: . NEUROLOGY: HAVE YOU FALLEN IN THE PAST 6 MONTHS? NO . ANY NEW EXTREMITY NUMBNESS OR WEAKNESS? NO . CARDIOLOGY: DO YOU HAVE A PACEMAKER OR DEFIBRILLATOR? NO . RESPIRATORY: HAVE YOU BEEN SICK IN THE PAST WEEK? NO . FEVER NO . FLU LIKE SYMPTOMS? NO . COUGH NO . INTEGUMENTARY: DO YOU HAVE ANY RASHES OR OPEN SORES? NO . ALLERGIC/IMMUNO: ARE YOU ALLERGIC TO SHELLFISH OR IV DYE? NO . ANY NEW ALLERGIES? NO . PSYCHIATRIC: DO YOU HAVE THOUGHTS OF HURTING YOURSELF OR SOMEONE ELSE? NO . ARE YOU ABUSED, NEGLECTED, OR IN AN UNSAFE ENVIRONMENT? NO . ENDOCRINOLOGY: ARE YOU DIABETIC? NO . OTHER: DO YOU NEED ANY PRESCRIPTIONS? YES . IF YES, PLEASE LIST: PAIN MEDS . ANY NEW PROBLEMS WITH YOUR MEDICATIONS? NO . WHEN DID YOU LAST EAT? ____ . WHEN DID YOU LAST DRINK? ____ . WHAT DID YOU LAST DRINK? ____ . NAME OF PERSON DRIVING YOU HOME? ____ . DO YOU HAVE ANY OTHER QUESTIONS OR CONCERNS YES, MORE INJECTIONS DUE TO INCREASE IN PAIN . REVIEWED BY: PROVIDER: CHAIM RAI MD . VITAL SIGNS WT 299.2 LBS, HT 68 IN, BMI 45.49 INDEX, BP 152/92 MM HG, HR 65 /MIN, RR 20 /MIN, TEMP 96.0 F, OXYGEN SAT % 93%, NA INITIALS TL 1459, REVIEWED BY: CS. EXAMINATION : PATIENT IS ALERT O X 3 AND COOPERATIVE. PATIENT AMBULATES WITH AN ANTALGIC GAIT. PATIENT HAS BALANCE PROBLEMS DUE TO THE HEEL. PATIENT IS ABLE TO EXTEND BACK AT 20 DEGREES AND FLEX BACK AT 50 DEGREES WITH DIFFICULTIES. PATIENT'S RIGHT LEG IS WEAKER AT EXTENSION AND FLEXION. MRI OF THE LUMBAR SPINE DONE ON 03-19-2016 SHOWS A DIFFUSE DISC BULGE AT L1-L2 WITH MINIMAL THECAL SAC COMPRESSION. SEVERE CENTRAL CANAL STENOSIS AT L4-L5, WITH A COMPRESSION OF THE RIGHT L4 NERVE IN THE NEURAL FORAMEN. DIFFUSE DISC BULGE AT L5-S1 WHICH ABUTS THE THECAL SAC AND S1 NERVES WITH A COMPRESSION OF THE L5 NERVES IN THE NEURAL FORAMINA. ASSESSMENTS SACROILIITIS, NOT ELSEWHERE CLASSIFIED - M46.1 (PRIMARY) INTERVERTEBRAL DISC DISORDERS WITH RADICULOPATHY, LUMBAR REGION - M51.16 INTERVERTEBRAL DISC DISORDERS WITH RADICULOPATHY, LUMBOSACRAL REGION - M51.17 TREATMENT SACROILIITIS, NOT ELSEWHERE CLASSIFIED NOTES: WE DISCUSSED SEVERAL ISSUES WITH MR. LUCAS'S PAIN MANAGEMENT CASE. AT THIS TIME THE PATIENT WILL CONTINUE WITH THE SAME MEDICATION REGIME BEFORE BUT WILL START USING GABAPENTIN DAILY FOR THE PAIN HE FEELS DOWN THE LEGS. PATIENT RECEIVED A SACROILIAC JOINT INJECTION ON 07/10/2016 AND REPORTS HAVING RELIEF FROM PAIN FOR A FEW WEEKS BUT THE PREVIOUS INJECTION LASTED LONGER. WE DISCUSSED MOVING FORWARD WITH A LUMBAR EPIDURAL DUE TO THE PAIN THE PATIENT IS FEELING DOWN THE LEGS. WE DISCUSSED THE RISKS, BENENFITS, AND ALTNERATIVES OF THE INJECTION AND THE PATIENT WOULD LIKE TO PROCEED. INSTRUCTIONS WERE GIVEN, QUESTIONS WERE ANSWERED, PATIENT REPORTS UNDERSTANDING AND AGREES WITH THE PLAN. I, ABUNDIO HERNANDEZ, DOCUMENTED THE ABOVE INFORMATION ACTING A SCRIBE FOR DR. RAI. I HAVE REVIEWED THE ABOVE DOCUMENT, WRITTEN BY ABUNDIO SNYDERIBDavid AND I VERIFY THAT IT IS ACCURATE. OTHERS REFILL HYDROCODONE-ACETAMINOPHEN TABLET, 10-325 MG, 1 TABLET NEEDED, ORALLY, EVERY 8 HRS PRN FOR PAIN MDD3, 30 DAY(S), 80, REFILLS 0 START GABAPENTIN CAPSULE, 300 MG, 1 CAPSULE, ORALLY FOR PAIN, BEFORE BEDTIME, 30 DAY(S), 30, REFILLS 1 NOTES: LUMBAR EPIDURAL INJECTION: RECOVERY AT HOME MATERIAL WAS PRINTED,LUMBAR EPIDURAL INJECTION: YOUR PROCEDURE MATERIAL WAS PRINTED,WHAT IS LUMBAR EPIDURAL INJECTION? MATERIAL WAS PRINTED. PREVENTIVE MEDICINE PAIN CLINIC TEACHING: PROCEDURE TEACHING PRINTED INSTRUCTIONS GIVEN TO AND REVIEWED WITH PT. ALONG WITH PRE-PROCEDURE INSTRUCTIONS, PT VERBALIZED UNDERSTANDING OF BOTH. AD. PROCEDURE CODES FA211 ESTABILISHED PATIENT [facility] FACILITY CHARGE G8427 DOC MEDS VERIFIED W/PT OR RE G8730 PAIN ASSESS POS TOOL F/U PLAN DOC DISPOSITION & COMMUNICATION FOLLOW UP LESI AFTER APPROVAL ELECTRONICALLY SIGNED BY CHAIM RAI MD ON 09/21/2016 AT 06:59 PM EDT DISCLAIMER : THIS IS A VISIT SUMMARY EXTRACTED FROM THE [employer] CHART. IT IS NOT A COPY OF THE [employer] PROGRESS NOTE. MTDD
== END ==
LOC: M PAIN 15:00
PROVIDERS: ATTEND Anesthesiology
DX: M46.1 Sacroiliitis, not elsewhere classified (principal); M51.16 Intervertebral disc disorders with radiculopathy, lumbar region; M51.17 Intervertebral disc disorders with radiculopathy, lumbosacral region; M54.5 Low back pain; G89.29 Other chronic pain; Z79.82 Long term (current) use of aspirin; Z79.891 Long term (current) use of opiate analgesic; Z79.899 Other long term (current) drug therapy; I10 Essential (primary) hypertension; M47.816 Spondylosis without myelopathy or radiculopathy, lumbar region; M47.817 Spondylosis without myelopathy or radiculopathy, lumbosacral region; Z88.7 Allergy status to serum and vaccine; Z88.1 Allergy status to other antibiotic agents

== ENCOUNTER → 2016-09-23 | Outpatient (CLI) | payer BC ==
[~2016-09-23] MED LIST changes: -BUPIVACAINE HCL 0.25% 30 ML VIAL As Ordered ONE; -TRIAMCINOLONE ACETONIDE SUSP 40 MG/ML VIAL (J3301) As Ordered ONE; +methylPREDNISolone SUSP 40 MG/ML (DEPO-medrol) VIAL (J1030) As Ordered ONE
--- NOTE | 2016-09-23 16:43 | REP ---
Partial lumbar spine series: Two views: History: Lumbar epidural steroid injection for pain. 11 seconds of fluoroscopy time is reported. Findings: A sequence of 3 fluoroscopically obtained last image hold spot radiographs of the lumbar spine document needle position and contrast injection associated with lumbar spine injection procedure. Signed by Waldo Merchant MD 09/24/2016 08:59 A
--- NOTE | 2016-09-28 23:06 | ECWPNPC ---
PATIENT NAME: MOON LUCAS : 1960 GENDER: MALE VISIT DATE: 09/23/2016 DISCHARGE DATE: 09/23/16 1636 VISIT LOCKED DATE TIME: PHYSICIAN: CHAIM RAI RESOURCE: CHAIM RAI REASON FOR APPOINTMENT 1. LESI HISTORY OF PRESENT ILLNESS HISTORY OF PRESENT ILLNESS: PAIN THE PATIENT DESCRIBES THE PAIN... FALL RISK SCREENING: SCREENING :NO FALLS IN THE PAST YEAR CURRENT MEDICATIONS TAKING HYDROCODONE-ACETAMINOPHEN 10-325 MG TABLET 1 TABLET NEEDED ORALLY EVERY 8 HRS PRN FOR PAIN MDD3, NOTES: 09-22-16 2:30 PM TAKING LISINOPRIL 5 MG TABLET 1 TAB(S) ORALLY ONCE A DAY, NOTES: 09-22-162114 TAKING ATENOLOL 25 MG TABLET 1 TABLET ORALLY ONCE A DAY, NOTES: 09-22-162114 TAKING LIPITOR 20 MG TABLET 1 TABLET ORALLY ONCE A DAY, NOTES: 09-22-162114 TAKING ASPIRIN 81 MG TABLET 1 TABLET ORALLY ONCE A DAY, NOTES: 09-22-162114 TAKING IBUPROFEN 200 MG TABLET 3 TABLET ORALLY TWO TO THREE TIMES A DAY, NOTES: 09-22-16 4:35 NOT-TAKING GABAPENTIN 300 MG CAPSULE 1 CAPSULE ORALLY FOR PAIN BEFORE BEDTIME, NOTES: NOT TAKING DISCONTINUED FLONASE 50 MCG/ACT SUSPENSION 1 PUFF IN EACH NOSTRIL NASALLY ONCE A DAY, NOTES: 05-13-16 2100 DISCONTINUED VICODIN HP 10-300 MG TABLET 1 TABLET ORALLY DAILY NEEDED, NOTES: 05-20-16 11:30 DISCONTINUED DELSYM 30 MG/5ML LIQUID EXTENDED RELEASE 10 ML NEEDED ORALLY EVERY 12 HRS, NOTES: 2099 DISCONTINUED TESSALON 200 MG CAPSULE 1 CAPSULE ORALLY EVERY 8 HOURS NEEDED FOR FOR COUGH DISCONTINUED IBU-200 200 MG TABLET 2-3 TABS ORALLY EVERY 6 HRS DISCONTINUED AZITHROMYCIN 500 MG TABLET 1 TABLET ORALLY ONCE A DAY MEDICATION LIST REVIEWED AND RECONCILED WITH THE PATIENT PAST MEDICAL HISTORY 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 RADICULAR PAIN-JANUARY 2010 MRI MULTILEVEL DJD, GRADE 1 DEGENERATIVE ANTEROLISTHESIS L4/L5, 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 WITH LEFT GREATER THAN RIGHT NEUROFORAMINAL NARROWING HYPERTENSION 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 DECEMBER 2005 OBESITY, MORBID HYPERHOMOCYSTINEMIA, MILD-12/2003-12.6 (4.3-11.4) IMPAIRED FASTING GLUCOSE HYPERLIPIDEMIA 2B VENOUS INSUFFICIENCY BILATERAL LOWER EXTREMITIES ALLERGIES TETRACYCLINE HCL: NAUSEA/VOMITING: ALLERGY HORSE SERUM: NAUSEA/VOMITING: ALLERGY REVIEW OF SYSTEMS CONSTITUTIONAL: ANY CHANGE IN YOUR MEDICAL CONDITION? NO . CHILLS NO . FEVER NO . INFECTION: DO YOU HAVE NEW INFECTIONS? NO . DO YOU HAVE HISTORY OF MRSA? NO . MUSCULOSKELETAL: ANY NEW PATTERNS OF PAIN OR NUMBNESS? YES, MORE PAINFUL FOOT NERUOPATHY . GASTROENTEROLOGY: ANY NEW CHANGE IN BOWEL CONTROL? NO . GENITOURINARY: ANY NEW CHANGE IN BLADDER CONTROL? NO . IS THERE A CHANCE YOU COULD BE ? NO . HEMATOLOGY/LYMPH: DO YOU TAKE ANY BLOOD THINNERS? (FOR EXAMPLE- COUMADIN, PLAVIX, AGGRENOX, PLATEL, PRADAXA, OR XARELTO) NO . WHEN WAS YOUR LAST DOSE? DATE: TIME: . NEUROLOGY: HAVE YOU FALLEN IN THE PAST 6 MONTHS? NO . ANY NEW EXTREMITY NUMBNESS OR WEAKNESS? NO . CARDIOLOGY: DO YOU HAVE A PACEMAKER OR DEFIBRILLATOR? NO . RESPIRATORY: HAVE YOU BEEN SICK IN THE PAST WEEK? NO . FEVER NO . FLU LIKE SYMPTOMS? NO . COUGH NO . INTEGUMENTARY: DO YOU HAVE ANY RASHES OR OPEN SORES? NO . ALLERGIC/IMMUNO: ARE YOU ALLERGIC TO SHELLFISH OR IV DYE? NO . ANY NEW ALLERGIES? NO . PSYCHIATRIC: DO YOU HAVE THOUGHTS OF HURTING YOURSELF OR SOMEONE ELSE? NO . ARE YOU ABUSED, NEGLECTED, OR IN AN UNSAFE ENVIRONMENT? NO . ENDOCRINOLOGY: ARE YOU DIABETIC? NO . OTHER: DO YOU NEED ANY PRESCRIPTIONS? NO . IF YES, PLEASE LIST: ____ . ANY NEW PROBLEMS WITH YOUR MEDICATIONS? NO . WHEN DID YOU LAST EAT? 09-22-16 EVENING . WHEN DID YOU LAST DRINK? 09-23-16 1000 . WHAT DID YOU LAST DRINK? WATER . NAME OF PERSON DRIVING YOU HOME? SPOUSE . DO YOU HAVE ANY OTHER QUESTIONS OR CONCERNS YES, DID NOT START THE NEW MED- GABAPENTIN WAS CONCERNED ABOUT WARNINGS FOR MAY CAUSE IDEATIONS OF SUICIDE . REVIEWED BY: PROVIDER: . VITAL SIGNS WT 298.0 LBS, HT 68 IN, BMI 45.31 INDEX, BP 154/96 MM HG, HR 55 /MIN, RR 18 /MIN, TEMP 98.2 F, OXYGEN SAT % 95%, NA INITIALS TL 1150, REVIEWED BY: CM. ASSESSMENTS INTERVERTEBRAL DISC DISORDERS WITH RADICULOPATHY, LUMBOSACRAL REGION - M51.17 (PRIMARY) PROCEDURES PRE PROCEDURE DIAGNOSIS LUMBOSACRAL DISC DISORDER WITH RADICULOPATHY, LUMBOSACRAL RADICULOPATHY POST PROCEDURE DIAGNOSIS LUMBOSACRAL DISC DISORDER WITH RADICULOPATHY , LUMBOSACRAL RADICULOPATHY PROCEDURE L5-S1 LUMBAR EPIDURAL STEROID INJECTION UNDER FLUOROSCOPIC GUIDANCE SURGEON DR. CHAIM RAI HOSPITALITY INTERNSHIP NONE ANESTHESIA LOCAL PRE PROCEDURE NOTE THE PATIENT HAS A HISTORY OF CHRONIC LOW BACK PAIN. I EVALUATE THE PATIENT AND REVIEWED THE CHART. I WENT OVER THE RISKS, ALTERNATIVES, AND BENEFITS ASSOCIATED WITH THIS PROCEDURE. THE PATIENT WOULD LIKE TO PROCEED AND GIVE CONSENT TO PERFORMED THE PROCEDURE. THE PATIENT DENIES UNEXPLAINABLE WEIGHT LOSS, FEVER, CHILLS, OR NEW CHANGES IN URINARY OR BOWEL CONTROL. DESCRIPTION OF PROCEDURE THE PATIENT WAS BROUGHT TO THE PROCEDURE ROOM AND PLACED IN THE PRONE POSITION. THE LUMBOSACRAL AREA WAS CLEANED WITH BETADINE SOLUTION AND DRAPED ASEPTICALLY. THE PROCEDURE WAS DONE UNDER STERILE CONDITIONS. I CHECKED LATERALITY AND THE LEVEL WHERE THE PROCEDURE WAS GOING TO BE PERFORMED WITH THE PATIENT AND THE SUPPORTING STAFF AT THE MOMENT OF THE TIME OUT IN THE PROCEDURE ROOM. UNDER FLUOROSCOPIC GUIDANCE, THE TARGET POINT WAS SELECTED AT THE INTERLAMINAR LEVEL OF L5-S1. LIDOCAINE WAS USED TO NUMB THE SKIN AND THE SUBCUTANEOUS TISSUE BELOW IT. EPIDURAL TUOHY NEEDLE, 17-GAUGE, WAS ADVANCED UNDER FLUOROSCOPIC GUIDANCE AND FOLLOWING PATIENT FEEDBACK UNTIL THE EPIDURAL SPACE WAS REACHED, 7 CM DEEP INTO THE SKIN BY THE LOSS OF RESISTANCE TECHNIQUE. ISOVUE M DYE 30%, 0.25 ML, WAS INJECTED SHOWING ADEQUATE SPREAD OF THE DYE. THEN, A SOLUTION OF 3 ML OF NORMAL SALINE WITH DEPO-MEDROL 60 MG WAS INJECTED SLOWLY FOLLOWING PATIENT FEEDBACK. THERE WAS NO EVIDENCE OF BLOOD, PARESTHESIA OR CEREBROSPINAL FLUID DURING THE PROCEDURE. THE PATIENT WAS SENT TO THE RECOVERY ROOM. THE PATIENT WAS MOVING THE EXTREMITIES AND DOING WELL. THERE WAS NO COMPLICATION DURING THE PROCEDURE. FLUOROSCOPY TIME WAS 11 SECONDS. POST PROCEDURE NOTE THE PATIENT WILL BE SEEN IN A FOLLOW UP IN THE NEXT FEW WEEKS. INSTRUCTIONS WERE GIVEN, QUESTIONS WERE ANSWERED, AND THE PATIENT EXPRESSED UNDERSTANDING AND AGREES WITH THE PLAN. I, CHUNG GLOVER, DOCUMENTED THE ABOVE INFORMATION ACTING A SCRIBE FOR DR. RAI. I HAVE REVIEWED THE ABOVE DOCUMENT, WRITTEN BY CHUNG SWARTZ AND I VERIFY THAT IT IS ACCURATE DIAGNOSTIC IMAGING [facility] FLUORO GUIDE SPINE INJECTION (PAIN)[id number] PROCEDURE CODES 39611 LUMBAR/SACRAL W/ IMAGING 6045F RADXPS IN END [id number] PXD DISPOSITION & COMMUNICATION FOLLOW UP 3 WEEKS ELECTRONICALLY SIGNED BY CHAIM RAI MD ON 09/28/2016 AT 11:23 AM EDT DISCLAIMER : THIS IS A VISIT SUMMARY EXTRACTED FROM THE [employer] CHART. IT IS NOT A COPY OF THE [employer] PROGRESS NOTE. MTDD
== END ==
LOC: M PAIN 11:40
PROVIDERS: ATTEND Anesthesiology
DX: G89.29 Other chronic pain (principal); M51.17 Intervertebral disc disorders with radiculopathy, lumbosacral region; M54.5 Low back pain; Z79.891 Long term (current) use of opiate analgesic; Z79.899 Other long term (current) drug therapy; Z79.82 Long term (current) use of aspirin; Z88.1 Allergy status to other antibiotic agents; Z88.7 Allergy status to serum and vaccine
CPT/HCPCS: 62323; J1030; Q9967

== ENCOUNTER → 2016-10-21 | Outpatient (CLI) | payer BC ==
--- NOTE | 2016-11-03 23:41 | ECWPNPC ---
PATIENT NAME: MOON LUCAS : 1960 GENDER: MALE VISIT DATE: 10/21/2016 DISCHARGE DATE: 10/21/16 1623 VISIT LOCKED DATE TIME: PHYSICIAN: CHAIM RAI RESOURCE: CHAIM RAI REASON FOR APPOINTMENT 1. POST LE HISTORY OF PRESENT ILLNESS HISTORY OF PRESENT ILLNESS: PAIN THE PATIENT DESCRIBES THE PAIN... 55 YEAR OLD MALE PATIENT WITH HISTORY OF CHRONIC LOW BACK PAIN. PATIENT DESCRIBES THE PAIN ACHING, SORE, SHOOTING, AND IT COMES AND GOES WITH A PAIN SCORE OF 2/10 ON TODAY'S VISIT. PATIENT RECEIVED A L5-S1 LESI ON 09/23/2016 AND STATES THAT HE HAS OVER 50 PERCENT OF PAIN RELIEF WITH INCREASED FUNCTIONALITY AND MOBILITY. PATIENT REPORTS THAT HE IS ABLE TO SLEEP BETTER SINCE THE INJECTION, BUT HE IS STILL WAKING UP AT NIGHT DUE TO THE PAIN. PATIENT REPORT OF RADIATING PAIN DOWN HIS RIGHT LEG STOPPING AT THE RIGHT KNEE. PATIENT REPORTS THAT HE STOPPED TAKING GABAPENTIN HE DID NOT LIKE HOW IT MADE HIM FEEL. PATIENT DENIES UNEXPLAINABLE WEIGHT LOSS, FEVER, CHILLS, NEW CHANGES ON HIS URINARY OR BOWEL CONTROL. FALL RISK SCREENING: SCREENING :NO FALLS IN THE PAST YEAR CURRENT MEDICATIONS TAKING HYDROCODONE-ACETAMINOPHEN 10-325 MG TABLET 1 TABLET NEEDED ORALLY EVERY 8 HRS PRN FOR PAIN MDD3 TAKING LISINOPRIL 5 MG TABLET 1 TAB(S) ORALLY ONCE A DAY TAKING ATENOLOL 25 MG TABLET 1 TABLET ORALLY ONCE A DAY TAKING LIPITOR 20 MG TABLET 1 TABLET ORALLY ONCE A DAY TAKING ASPIRIN 81 MG TABLET 1 TABLET ORALLY ONCE A DAY TAKING IBUPROFEN 200 MG TABLET 3 TABLET ORALLY TWO TO THREE TIMES A DAY NOT-TAKING GABAPENTIN 300 MG CAPSULE 1 CAPSULE ORALLY FOR PAIN BEFORE BEDTIME, NOTES: NOT TAKING MEDICATION LIST REVIEWED AND RECONCILED WITH THE PATIENT PAST MEDICAL HISTORY 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 RADICULAR PAIN-JANUARY 2010 MRI MULTILEVEL DJD, GRADE 1 DEGENERATIVE ANTEROLISTHESIS L4/L5, 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 WITH LEFT GREATER THAN RIGHT NEUROFORAMINAL NARROWING HYPERTENSION 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 DECEMBER 2005 OBESITY, MORBID HYPERHOMOCYSTINEMIA, MILD-12/2003-12.6 (4.3-11.4) IMPAIRED FASTING GLUCOSE HYPERLIPIDEMIA 2B VENOUS INSUFFICIENCY BILATERAL LOWER EXTREMITIES ALLERGIES TETRACYCLINE HCL: NAUSEA/VOMITING: ALLERGY HORSE SERUM: NAUSEA/VOMITING: ALLERGY SURGICAL HISTORY NO SURGICAL HISTORY DOCUMENTED. FAMILY HISTORY NO FAMILY HISTORY DOCUMENTED. SOCIAL HISTORY GENERAL: TOBACCO USE ARE YOU A:NONSMOKER LEARNING BARRIERS / SPECIAL NEEDS ORIENTED TO PLAN OF CARE: PATIENT, PAIN MANAGEMENT PATIENT, ORIENTED TO PLAN OF CARE: PATIENT, PAIN MANAGEMENT PATIENT. NEW PATIENT PAIN DIARY TODAY'S VISITNOTES FROM 0-10, WHAT LEVEL IS YOUR PAIN TODAY?0 PAIN CLINIC PFS, CLERGY, PUBLIC HEALTH REFERRALS PFS REFERRAL NEEDED?NO CLERGY REFERRAL NEEDED?NO PUBLIC HEALTH REFERRAL NEEDED?NO WAS THE PROVIDER NOTIFIED OF ANY PERTINENT INFO?NO PFS REFERRAL NEEDED?NO CLERGY REFERRAL NEEDED?NO PUBLIC HEALTH REFERRAL NEEDED?NO WAS THE PROVIDER NOTIFIED OF ANY PERTINENT INFO?NO HOSPITALIZATION/MAJOR DIAGNOSTIC PROCEDURE SURGERY RELATED REVIEW OF SYSTEMS REVIEWED BY: PROVIDER: . CONSTITUTIONAL: ANY CHANGE IN YOUR MEDICAL CONDITION? NO . CHILLS NO . FEVER NO . INFECTION: DO YOU HAVE NEW INFECTIONS? NO . DO YOU HAVE HISTORY OF MRSA? NO . MUSCULOSKELETAL: ANY NEW PATTERNS OF PAIN OR NUMBNESS? NO . GASTROENTEROLOGY: ANY NEW CHANGE IN BOWEL CONTROL? NO . GENITOURINARY: ANY NEW CHANGE IN BLADDER CONTROL? NO . IS THERE A CHANCE YOU COULD BE ? NO . HEMATOLOGY/LYMPH: DO YOU TAKE ANY BLOOD THINNERS? (FOR EXAMPLE- COUMADIN, PLAVIX, AGGRENOX, PLATEL, PRADAXA, OR XARELTO) NO . WHEN WAS YOUR LAST DOSE? DATE: TIME: . NEUROLOGY: HAVE YOU FALLEN IN THE PAST 6 MONTHS? NO . ANY NEW EXTREMITY NUMBNESS OR WEAKNESS? NO . CARDIOLOGY: DO YOU HAVE A PACEMAKER OR DEFIBRILLATOR? NO . RESPIRATORY: HAVE YOU BEEN SICK IN THE PAST WEEK? NO . FEVER NO . FLU LIKE SYMPTOMS? NO . COUGH NO . INTEGUMENTARY: DO YOU HAVE ANY RASHES OR OPEN SORES? NO . ALLERGIC/IMMUNO: ARE YOU ALLERGIC TO SHELLFISH OR IV DYE? NO . ANY NEW ALLERGIES? NO . PSYCHIATRIC: DO YOU HAVE THOUGHTS OF HURTING YOURSELF OR SOMEONE ELSE? NO . ARE YOU ABUSED, NEGLECTED, OR IN AN UNSAFE ENVIRONMENT? NO . ENDOCRINOLOGY: ARE YOU DIABETIC? NO . OTHER: DO YOU NEED ANY PRESCRIPTIONS? NO . IF YES, PLEASE LIST: ____ . ANY NEW PROBLEMS WITH YOUR MEDICATIONS? NO . WHEN DID YOU LAST EAT? ____ . WHEN DID YOU LAST DRINK? ____ . WHAT DID YOU LAST DRINK? ____ . NAME OF PERSON DRIVING YOU HOME? ____ . DO YOU HAVE ANY OTHER QUESTIONS OR CONCERNS NO . VITAL SIGNS WT 296.8 LBS, HT 68 IN, BMI 45.12 INDEX, BP 145/89 MM HG, HR 70 /MIN, RR 18 /MIN, TEMP 98.8 F, OXYGEN SAT % 93%, NA INITIALS SC 14:54. EXAMINATION : PATIENT IS ALERT O X 3 AND COOPERATIVE. THERE IS SOME TENDERNESS IN THE LOW BACK. ASSESSMENTS LOW BACK PAIN - M54.5 (PRIMARY) TREATMENT LOW BACK PAIN NOTES: WE DISCUSSED SEVERAL ISSUES WITH MR. LUCAS'S PAIN MANAGEMENT CASE. AT THIS TIME I WILL HAVE THE PATIENT START ON ZANAFLEX FOR THE MUSCLE SPASMS. I DISCUSSED WITH THE PATIENT THAT I WOULD LIKE HIM TO TRY GABAPENTIN AGAIN BUT THIS TIME AT A LOWER DOSAGE. PATIENT WILL RECEIVED A REFILL OF IBUPROFEN TODAY. THE PATIENT AT THIS TIME IS DOING RELATIVELY WELL. I WILL HAVE THE PATIENT FOLLOW UP WITH ME IN ONE MONTH. , INSTRUCTIONS WERE GIVEN, QUESTIONS WERE ANSWERED, PATIENT REPORTS UNDERSTANDING AND AGREES WITH THE PLAN. I, CHUNG GLOVER, DOCUMENTED THE ABOVE INFORMATION ACTING A SCRIBE FOR DR. RAI. I HAVE REVIEWED THE ABOVE DOCUMENT, WRITTEN BY CHUNG GLOVER SCRIBDavid AND I VERIFY THAT IT IS ACCURATE. OTHERS START ZANAFLEX CAPSULE, 2 MG, 1 CAPSULE NEEDED, ORALLY, BEFORE BEDTIME MAY REPEAT IN 4 HRS MDD2, 30 DAY(S), 60, REFILLS 1 START GABAPENTIN CAPSULE, 100 MG, DIRECTED, ORALLY, THREE TIMES DAILY, 30 DAY(S), 50, REFILLS 1 CONTINUE HYDROCODONE-ACETAMINOPHEN TABLET, 10-325 MG, 1 TABLET NEEDED, ORALLY, EVERY 8 HRS PRN FOR PAIN MDD3, 30 DAY(S), 60, REFILLS 0 REFILL IBUPROFEN TABLET, 800 MG, 1 TAB, ORALLY, EVERY 6 HOURS NEEDED FOR PAIN MDD3, 30 DAY(S), 50, REFILLS 2 PROCEDURE CODES FA211 ESTABILISHED PATIENT [facility] CHARGE G8730 PAIN ASSESS POS TOOL F/U PLAN DOC G8427 DOC MEDS VERIFIED W/PT OR RE DISPOSITION & COMMUNICATION FOLLOW UP 4 WEEKS ELECTRONICALLY SIGNED BY CHAIM RAI MD ON 11/03/2016 AT 09:35 PM EDT DISCLAIMER : THIS IS A VISIT SUMMARY EXTRACTED FROM THE [employer] CHART. IT IS NOT A COPY OF THE [employer] PROGRESS NOTE. KAMILLA
== END ==
LOC: M PAIN 15:00
PROVIDERS: ATTEND Anesthesiology
DX: G89.29 Other chronic pain (principal); M51.16 Intervertebral disc disorders with radiculopathy, lumbar region; I10 Essential (primary) hypertension; E66.01 Morbid (severe) obesity due to excess calories; E78.5 Hyperlipidemia, unspecified; E72.11 Homocystinuria; R73.01 Impaired fasting glucose; I87.2 Venous insufficiency (chronic) (peripheral); Z79.891 Long term (current) use of opiate analgesic; Z79.899 Other long term (current) drug therapy; Z88.1 Allergy status to other antibiotic agents; Z91.048 Other nonmedicinal substance allergy status; Z68.42 Body mass index [BMI] 45.0-49.9, adult

== ENCOUNTER → 2016-11-24 | Outpatient (CLI) | payer BC ==
--- NOTE | 2016-12-10 00:39 | ECWPNPC ---
PATIENT NAME: MOON LUCAS : 1960 GENDER: MALE VISIT DATE: 11/24/2016 DISCHARGE DATE: 11/24/16 1522 VISIT LOCKED DATE TIME: PHYSICIAN: CHAIM RAI RESOURCE: CHAIM RAI REASON FOR APPOINTMENT 1. BACK PAIN HISTORY OF PRESENT ILLNESS HISTORY OF PRESENT ILLNESS: PAIN THE PATIENT DESCRIBES THE PAIN... 55 YEAR OLD MALE PATIENT WITH HISTORY OF CHRONIC LOW BACK PAIN. PATIENT DESCRIBES THE PAIN ACHING, SORE, SHOOTING, AND IT COMES AND GOES WITH A PAIN SCORE OF 6/10 ON TODAY'S VISIT. PATIENT RECEIVED A L5-S1 LESI ON 09/23/2016 AND STATES THAT HE HAS OVER 50 PERCENT OF PAIN RELIEF WITH INCREASED FUNCTIONALITY AND MOBILITY FOR EVER 6 WEEKS. PATIENT REPORTS OF RADIATING PAIN DOWN HIS RIGHT LEG STOPPING AT THE RIGHT KNEE. PATIENT REPORTS THAT HE STOPPED TAKING GABAPENTIN HE DID NOT LIKE HOW IT MADE HIM FEEL. CURRENTLY THE PATIENT IS USING OXYCODONE AND IBUPROFEN AND STATES THAT THE MEDICATION KEEPS HIM MOBILE AND FUNCTIONAL. PATIENT DENIES UNEXPLAINABLE WEIGHT LOSS, FEVER, CHILLS, NEW CHANGES ON HIS URINARY OR BOWEL CONTROL. FALL RISK SCREENING: SCREENING :NO FALLS IN THE PAST YEAR CURRENT MEDICATIONS TAKING ZANAFLEX 2 MG CAPSULE 1 CAPSULE NEEDED ORALLY BEFORE BEDTIME MAY REPEAT IN 4 HRS MDD2 TAKING GABAPENTIN 100 MG CAPSULE DIRECTED ORALLY THREE TIMES DAILY TAKING HYDROCODONE-ACETAMINOPHEN 10-325 MG TABLET 1 TABLET NEEDED ORALLY EVERY 8 HRS PRN FOR PAIN MDD3 TAKING IBUPROFEN 800 MG TABLET 1 TAB ORALLY EVERY 6 HOURS NEEDED FOR PAIN MDD3 TAKING LISINOPRIL 5 MG TABLET 1 TAB(S) ORALLY ONCE A DAY TAKING ATENOLOL 25 MG TABLET 1 TABLET ORALLY ONCE A DAY TAKING LIPITOR 20 MG TABLET 1 TABLET ORALLY ONCE A DAY TAKING ASPIRIN 81 MG TABLET 1 TABLET ORALLY ONCE A DAY NOT-TAKING GABAPENTIN 300 MG CAPSULE 1 CAPSULE ORALLY FOR PAIN BEFORE BEDTIME, NOTES: NOT TAKING MEDICATION LIST REVIEWED AND RECONCILED WITH THE PATIENT PAST MEDICAL HISTORY 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 RADICULAR PAIN-JANUARY 2010 MRI MULTILEVEL DJD, GRADE 1 DEGENERATIVE ANTEROLISTHESIS L4/L5, 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 WITH LEFT GREATER THAN RIGHT NEUROFORAMINAL NARROWING HYPERTENSION 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 DECEMBER 2005 OBESITY, MORBID HYPERHOMOCYSTINEMIA, MILD-12/2003-12.6 (4.3-11.4) IMPAIRED FASTING GLUCOSE HYPERLIPIDEMIA 2B VENOUS INSUFFICIENCY BILATERAL LOWER EXTREMITIES ALLERGIES TETRACYCLINE HCL: NAUSEA/VOMITING: ALLERGY HORSE SERUM: NAUSEA/VOMITING: ALLERGY SURGICAL HISTORY NO SURGICAL HISTORY DOCUMENTED. FAMILY HISTORY NO FAMILY HISTORY DOCUMENTED. SOCIAL HISTORY GENERAL: TOBACCO USE ARE YOU A:NONSMOKER LEARNING BARRIERS / SPECIAL NEEDS ORIENTED TO PLAN OF CARE: PATIENT, PAIN MANAGEMENT PATIENT, ORIENTED TO PLAN OF CARE: PATIENT, PAIN MANAGEMENT PATIENT. NEW PATIENT PAIN DIARY TODAY'S VISITNOTES FROM 0-10, WHAT LEVEL IS YOUR PAIN TODAY?0 PAIN CLINIC PFS, CLERGY, PUBLIC HEALTH REFERRALS PFS REFERRAL NEEDED?NO CLERGY REFERRAL NEEDED?NO PUBLIC HEALTH REFERRAL NEEDED?NO WAS THE PROVIDER NOTIFIED OF ANY PERTINENT INFO?NO PFS REFERRAL NEEDED?NO CLERGY REFERRAL NEEDED?NO PUBLIC HEALTH REFERRAL NEEDED?NO WAS THE PROVIDER NOTIFIED OF ANY PERTINENT INFO?NO HOSPITALIZATION/MAJOR DIAGNOSTIC PROCEDURE SURGERY RELATED REVIEW OF SYSTEMS REVIEWED BY: PROVIDER: CHAIM RAI MD . CONSTITUTIONAL: ANY CHANGE IN YOUR MEDICAL CONDITION? NO . CHILLS NO . FEVER NO . INFECTION: DO YOU HAVE NEW INFECTIONS? NO . DO YOU HAVE HISTORY OF MRSA? NO . MUSCULOSKELETAL: ANY NEW PATTERNS OF PAIN OR NUMBNESS? NO . GASTROENTEROLOGY: ANY NEW CHANGE IN BOWEL CONTROL? NO . GENITOURINARY: ANY NEW CHANGE IN BLADDER CONTROL? NO . IS THERE A CHANCE YOU COULD BE ? NO . HEMATOLOGY/LYMPH: DO YOU TAKE ANY BLOOD THINNERS? (FOR EXAMPLE- COUMADIN, PLAVIX, AGGRENOX, PLATEL, PRADAXA, OR XARELTO) NO . WHEN WAS YOUR LAST DOSE? DATE: TIME: . NEUROLOGY: HAVE YOU FALLEN IN THE PAST 6 MONTHS? NO . ANY NEW EXTREMITY NUMBNESS OR WEAKNESS? NO . CARDIOLOGY: DO YOU HAVE A PACEMAKER OR DEFIBRILLATOR? NO . RESPIRATORY: HAVE YOU BEEN SICK IN THE PAST WEEK? NO . FEVER NO . FLU LIKE SYMPTOMS? NO . COUGH NO . INTEGUMENTARY: DO YOU HAVE ANY RASHES OR OPEN SORES? NO . ALLERGIC/IMMUNO: ARE YOU ALLERGIC TO SHELLFISH OR IV DYE? NO . ANY NEW ALLERGIES? NO . PSYCHIATRIC: DO YOU HAVE THOUGHTS OF HURTING YOURSELF OR SOMEONE ELSE? NO . ARE YOU ABUSED, NEGLECTED, OR IN AN UNSAFE ENVIRONMENT? NO . ENDOCRINOLOGY: ARE YOU DIABETIC? NO . OTHER: DO YOU NEED ANY PRESCRIPTIONS? YES . IF YES, PLEASE LIST: HYDROCODONE . ANY NEW PROBLEMS WITH YOUR MEDICATIONS? NO . WHEN DID YOU LAST EAT? ____ . WHEN DID YOU LAST DRINK? ____ . WHAT DID YOU LAST DRINK? ____ . NAME OF PERSON DRIVING YOU HOME? ____ . DO YOU HAVE ANY OTHER QUESTIONS OR CONCERNS NO . VITAL SIGNS WT 293 LBS, HT 68 IN, BMI 44.55 INDEX, BP 142/57 MM HG, HR 62 /MIN, RR 20 /MIN, OXYGEN SAT % 94, REVIEWED BY: NL. EXAMINATION : PATIENT IS ALERT O X 3 AND COOPERATIVE. THERE IS SOME TENDERNESS IN THE LOW BACK. MRI DONE ON 03/19/16 SHOWS MULTIPLE DISC BULGES, CANAL STENOSIS, AND FACET ATROPHY. ASSESSMENTS SACROILIITIS, NOT ELSEWHERE CLASSIFIED - M46.1 (PRIMARY) INTERVERTEBRAL DISC DISORDERS WITH RADICULOPATHY, LUMBAR REGION - M51.16 INTERVERTEBRAL DISC DISORDERS WITH RADICULOPATHY, LUMBOSACRAL REGION - M51.17 TREATMENT SACROILIITIS, NOT ELSEWHERE CLASSIFIED NOTES: WE DISCUSSED SEVERAL ISSUES WITH MR. LUCAS'S PAIN MANAGEMENT CASE. AT THIS TIME THE PATIENT WILL CONTINUE WITH THE SAME MEDICATION REGIME BEFORE. PATIENT IS USING ZANAFLEX FOR BOBBY MUSCLE SPASMS, GABAPENTIN FOR THE NEUROPATHIC PAIN, HYDROCODONE FOR THE SOMATIC PAIN AND IBUPROFEN FOR THE INFLAMMATION. PATIENT DENIES ABUSE OF ANY MEDICATION, DENIES USE OF ILLEGAL SUBSTANCES, AND STATES HE IS ONLY USING THE MEDICATION FOR PAIN MANAGEMENT. PATIENT REPORTS DOING WELL FROM THE PREVIOUS LUMBAR EPIDURAL WITH OVER 6 WEEKS OF OVER 50% RELIEF OF PAIN AND INCREASED MOBILITY AND FUNCTIONALITY. HOWEVER, THE PAIN IS STARTING TO RETURN AND THE PATIENT WOULD LIKE TO PROCEED WITH ANOTHER INJECTION. WE DISCUSSED THE RISKS, BENENFITS, AND ALTNERATIVES OF THE LUMBAR EPIDURAL AND THE PATIENT WOULD LIKE TO PROCEED AT THIS TIME. INSTRUCTIONS WERE GIVEN, QUESTIONS WERE ANSWERED, PATIENT REPORTS UNDERSTANDING AND AGREES WITH THE PLAN. I, ABUNDIO HERNANDEZ, DOCUMENTED THE ABOVE INFORMATION ACTING A SCRIBE FOR DR. RAI. I HAVE REVIEWED THE ABOVE DOCUMENT, WRITTEN BY ABUNDIO SWARTZ AND I VERIFY THAT IT IS ACCURATE. OTHERS REFILL ZANAFLEX CAPSULE, 2 MG, 1 CAPSULE NEEDED, ORALLY, BEFORE BEDTIME MAY REPEAT IN 4 HRS MDD2, 30 DAY(S), 60, REFILLS 1 REFILL GABAPENTIN CAPSULE, 100 MG, DIRECTED, ORALLY, THREE TIMES DAILY, 30 DAY(S), 50, REFILLS 1 REFILL HYDROCODONE-ACETAMINOPHEN TABLET, 10-325 MG, 1 TABLET NEEDED, ORALLY, EVERY 8 HRS PRN FOR PAIN MDD3, 30 DAY(S), 90, REFILLS 0 REFILL IBUPROFEN TABLET, 800 MG, 1 TAB, ORALLY, EVERY 6 HOURS NEEDED FOR PAIN MDD3, 30 DAY(S), 50, REFILLS 2 PREVENTIVE MEDICINE DISCUSSED PREPROCEDURE CARE AND PT VERBALIZED UNDERSTANDING OF THIS. PROCEDURE CODES FA211 ESTABILISHED PATIENT [facility] CHARGE G8427 DOC MEDS VERIFIED W/PT OR RE G8730 PAIN ASSESS POS TOOL F/U PLAN DOC DISPOSITION & COMMUNICATION FOLLOW UP LESI AFTER APPROVAL ELECTRONICALLY SIGNED BY CHAIM RAI MD ON 12/08/2016 AT 11:14 PM EDT DISCLAIMER : THIS IS A VISIT SUMMARY EXTRACTED FROM THE [employer] CHART. IT IS NOT A COPY OF THE [employer] PROGRESS NOTE. JEROMED
== END ==
LOC: M PAIN 14:40
PROVIDERS: ATTEND Anesthesiology
DX: G89.29 Other chronic pain (principal); M46.1 Sacroiliitis, not elsewhere classified; M51.16 Intervertebral disc disorders with radiculopathy, lumbar region; M51.17 Intervertebral disc disorders with radiculopathy, lumbosacral region; I10 Essential (primary) hypertension; Z88.1 Allergy status to other antibiotic agents; Z88.7 Allergy status to serum and vaccine; Z79.82 Long term (current) use of aspirin; Z79.899 Other long term (current) drug therapy

== ENCOUNTER → 2016-12-10 | Outpatient (CLI) | payer BC ==
--- NOTE | 2016-12-10 19:22 | REP ---
FLUOROSCOPIC GUIDED SPINAL INJECTION: The films were reviewed with Dr. Tanner. The patient has a history of lumbar spondylolisthesis and low back pain. The portable C-Arm is provided in the OR for Dr. Mabry for fluoroscopic guidance. One intraoperative fluoroscopic spot film was obtained for needle placement verification for lumbar epidural injection. The film is on the PACs system and is available for review. 10 seconds of fluoroscopy time was utilized for this procedure. Reviewed by GILLIAN Coles 12/11/2016 05:14 PEdited and Signed by Zeeshan Tanner MD 12/11/2016 05:19 P
--- NOTE | 2016-12-20 23:59 | ECWPNPC ---
PATIENT NAME: MOON LUCAS : 1960 GENDER: MALE VISIT DATE: 12/10/2016 DISCHARGE DATE: 12/10/16 0000 VISIT LOCKED DATE TIME: PHYSICIAN: CHAIM RAI RESOURCE: CHAIM RAI REASON FOR APPOINTMENT 1. LESI HISTORY OF PRESENT ILLNESS HISTORY OF PRESENT ILLNESS: PAIN THE PATIENT DESCRIBES THE PAIN... FALL RISK SCREENING: SCREENING :NO FALLS IN THE PAST YEAR CURRENT MEDICATIONS TAKING ZANAFLEX 2 MG CAPSULE 1 CAPSULE NEEDED ORALLY BEFORE BEDTIME MAY REPEAT IN 4 HRS MDD2, NOTES: 12-09-162029 TAKING GABAPENTIN 100 MG CAPSULE DIRECTED ORALLY THREE TIMES DAILY, NOTES: 12-09-162029 TAKING HYDROCODONE-ACETAMINOPHEN 10-325 MG TABLET 1 TABLET NEEDED ORALLY EVERY 8 HRS PRN FOR PAIN MDD3, NOTES: 12-09-162029 TAKING IBUPROFEN 800 MG TABLET 1 TAB ORALLY EVERY 6 HOURS NEEDED FOR PAIN MDD3, NOTES: 12-10-16699 TAKING LISINOPRIL 5 MG TABLET 1 TAB(S) ORALLY ONCE A DAY, NOTES: 12-09-161999 TAKING ATENOLOL 25 MG TABLET 1 TABLET ORALLY ONCE A DAY, NOTES: 12-09-161999 TAKING LIPITOR 20 MG TABLET 1 TABLET ORALLY ONCE A DAY, NOTES: 12-09-161999 TAKING ASPIRIN 81 MG TABLET 1 TABLET ORALLY ONCE A DAY, NOTES: 12-09-161999 NOT-TAKING GABAPENTIN 300 MG CAPSULE 1 CAPSULE ORALLY FOR PAIN BEFORE BEDTIME, NOTES: NOT TAKING MEDICATION LIST REVIEWED AND RECONCILED WITH THE PATIENT PAST MEDICAL HISTORY 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 RADICULAR PAIN-JANUARY 2010 MRI MULTILEVEL DJD, GRADE 1 DEGENERATIVE ANTEROLISTHESIS L4/L5, 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 WITH LEFT GREATER THAN RIGHT NEUROFORAMINAL NARROWING HYPERTENSION 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 DECEMBER 2005 OBESITY, MORBID HYPERHOMOCYSTINEMIA, MILD-12/2003-12.6 (4.3-11.4) IMPAIRED FASTING GLUCOSE HYPERLIPIDEMIA 2B VENOUS INSUFFICIENCY BILATERAL LOWER EXTREMITIES ALLERGIES TETRACYCLINE HCL: NAUSEA/VOMITING: ALLERGY HORSE SERUM: NAUSEA/VOMITING: ALLERGY SURGICAL HISTORY NO SURGICAL HISTORY DOCUMENTED. HOSPITALIZATION/MAJOR DIAGNOSTIC PROCEDURE SURGERY RELATED REVIEW OF SYSTEMS REVIEWED BY: PROVIDER: . CONSTITUTIONAL: ANY CHANGE IN YOUR MEDICAL CONDITION? NO . CHILLS NO . FEVER NO . INFECTION: DO YOU HAVE NEW INFECTIONS? NO . DO YOU HAVE HISTORY OF MRSA? NO . MUSCULOSKELETAL: ANY NEW PATTERNS OF PAIN OR NUMBNESS? YES, RIGHT KNEE . GASTROENTEROLOGY: ANY NEW CHANGE IN BOWEL CONTROL? NO . GENITOURINARY: ANY NEW CHANGE IN BLADDER CONTROL? NO . IS THERE A CHANCE YOU COULD BE ? NO . HEMATOLOGY/LYMPH: DO YOU TAKE ANY BLOOD THINNERS? (FOR EXAMPLE- COUMADIN, PLAVIX, AGGRENOX, PLATEL, PRADAXA, OR XARELTO) NO . WHEN WAS YOUR LAST DOSE? DATE: TIME: . NEUROLOGY: HAVE YOU FALLEN IN THE PAST 6 MONTHS? NO . ANY NEW EXTREMITY NUMBNESS OR WEAKNESS? NO . CARDIOLOGY: DO YOU HAVE A PACEMAKER OR DEFIBRILLATOR? NO . RESPIRATORY: HAVE YOU BEEN SICK IN THE PAST WEEK? NO . FEVER NO . FLU LIKE SYMPTOMS? NO . COUGH NO . INTEGUMENTARY: DO YOU HAVE ANY RASHES OR OPEN SORES? NO . ALLERGIC/IMMUNO: ARE YOU ALLERGIC TO SHELLFISH OR IV DYE? NO . ANY NEW ALLERGIES? NO . PSYCHIATRIC: DO YOU HAVE THOUGHTS OF HURTING YOURSELF OR SOMEONE ELSE? NO . ARE YOU ABUSED, NEGLECTED, OR IN AN UNSAFE ENVIRONMENT? NO . ENDOCRINOLOGY: ARE YOU DIABETIC? NO . OTHER: DO YOU NEED ANY PRESCRIPTIONS? NO . IF YES, PLEASE LIST: ____ . ANY NEW PROBLEMS WITH YOUR MEDICATIONS? NO . WHEN DID YOU LAST EAT? 12-09-16 7:30 PM . WHEN DID YOU LAST DRINK? 12-10-16 0300 . WHAT DID YOU LAST DRINK? WATER . NAME OF PERSON DRIVING YOU HOME? JUAN LUCAS . DO YOU HAVE ANY OTHER QUESTIONS OR CONCERNS NO . VITAL SIGNS WT 284 LBS, HT 68 IN, BMI 43.18 INDEX, BP 151/92 MM HG, HR 63 /MIN, RR 18 /MIN, TEMP 98.4 F, OXYGEN SAT % 92%, NA INITIALS AW 0841, REVIEWED BY: CM. ASSESSMENTS INTERVERTEBRAL DISC DISORDERS WITH RADICULOPATHY, LUMBAR REGION - M51.16 (PRIMARY) PROCEDURES PRE PROCEDURE DIAGNOSIS LUMBAR DISC DISORDER WITH RADICULOPATHY POST PROCEDURE DIAGNOSIS LUMBAR DISC DISORDER WITH RADICULOPATHY PROCEDURE LUMBAR EPIDURAL STEROID INJECTION UNDER FLUOROSCOPIC GUIDANCE SURGEON DR. CHAIM RAI BROADBAND ENGINEER NONE ANESTHESIA LOCAL PRE PROCEDURE NOTE THE PATIENT HAS A HISTORY OF CHRONIC LOW BACK PAIN. I EVALUATE THE PATIENT AND REVIEWED THE CHART. I WENT OVER THE RISKS, ALTERNATIVES, AND BENEFITS ASSOCIATED WITH THIS PROCEDURE. THE PATIENT WOULD LIKE TO PROCEED AND GIVE CONSENT TO PERFORMED THE PROCEDURE. THE PATIENT DENIES UNEXPLAINABLE WEIGHT LOSS, FEVER, CHILLS, OR NEW CHANGES IN URINARY OR BOWEL CONTROL. DESCRIPTION OF PROCEDURE THE PATIENT WAS BROUGHT TO THE PROCEDURE ROOM AND PLACED IN THE PRONE POSITION. THE LUMBOSACRAL AREA WAS CLEANED WITH BETADINE SOLUTION AND DRAPED ASEPTICALLY. THE PROCEDURE WAS DONE UNDER STERILE CONDITIONS. I CHECKED LATERALITY AND THE LEVEL WHERE THE PROCEDURE WAS GOING TO BE PERFORMED WITH THE PATIENT AND THE SUPPORTING STAFF AT THE MOMENT OF THE TIME OUT IN THE PROCEDURE ROOM. UNDER FLUOROSCOPIC GUIDANCE, THE TARGET POINT WAS SELECTED AT THE INTERLAMINAR LEVEL OF L4-L5. LIDOCAINE WAS USED TO NUMB THE SKIN AND THE SUBCUTANEOUS TISSUE BELOW IT. EPIDURAL TUOHY NEEDLE, 17-GAUGE, WAS ADVANCED UNDER FLUOROSCOPIC GUIDANCE AND FOLLOWING PATIENT FEEDBACK UNTIL THE EPIDURAL SPACE WAS REACHED, 7 CM DEEP INTO THE SKIN BY THE LOSS OF RESISTANCE TECHNIQUE. ISOVUE M DYE 30%, 0.25 ML, WAS INJECTED SHOWING ADEQUATE SPREAD OF THE DYE. THEN, A SOLUTION OF 3 ML OF NORMAL SALINE WITH DEPO-MEDROL 60 MG WAS INJECTED SLOWLY FOLLOWING PATIENT FEEDBACK. THERE WAS NO EVIDENCE OF BLOOD, PARESTHESIA OR CEREBROSPINAL FLUID DURING THE PROCEDURE. THE PATIENT WAS SENT TO THE RECOVERY ROOM. THE PATIENT WAS MOVING THE EXTREMITIES AND DOING WELL. THERE WAS NO COMPLICATION DURING THE PROCEDURE. FLUOROSCOPY TIME WAS 10 SECONDS. POST PROCEDURE NOTE THE PATIENT WILL BE SEEN IN A FOLLOW UP IN THE NEXT FEW WEEKS. INSTRUCTIONS WERE GIVEN, QUESTIONS WERE ANSWERED, AND THE PATIENT EXPRESSED UNDERSTANDING AND AGREES WITH THE PLAN. I, ABUNDIO HERNANDEZ, DOCUMENTED THE ABOVE INFORMATION ACTING A SCRIBE FOR DR. RAI. I HAVE REVIEWED THE ABOVE DOCUMENT, WRITTEN BY ABUNDIO SNYDERIBDavid AND I VERIFY THAT IT IS ACCURATE DIAGNOSTIC IMAGING [facility] FLUORO GUIDE SPINE INJECTION (PAIN)[id number] PROCEDURE CODES 69659 LUMBAR/SACRAL W/ IMAGING 6045F RADXPS IN END [id number] PXD DISPOSITION & COMMUNICATION FOLLOW UP 3 WEEKS ELECTRONICALLY SIGNED BY CHAIM RAI MD ON 12/20/2016 AT 07:11 PM EDT DISCLAIMER : THIS IS A VISIT SUMMARY EXTRACTED FROM THE [employer] CHART. IT IS NOT A COPY OF THE [employer] PROGRESS NOTE. MTDD
== END ==
LOC: M PAIN 08:30
PROVIDERS: ATTEND Anesthesiology
DX: G89.29 Other chronic pain (principal); M51.16 Intervertebral disc disorders with radiculopathy, lumbar region; M54.5 Low back pain; I10 Essential (primary) hypertension; E78.5 Hyperlipidemia, unspecified; Z88.1 Allergy status to other antibiotic agents; Z88.7 Allergy status to serum and vaccine; Z79.899 Other long term (current) drug therapy
CPT/HCPCS: 62323; J1030; Q9967

== ENCOUNTER → 2017-01-29 | Outpatient (CLI) | payer BC ==
--- NOTE | 2017-02-10 01:49 | ECWPNPC ---
PATIENT NAME: MOON LUCAS : 1960 GENDER: MALE VISIT DATE: 01/29/2017 DISCHARGE DATE: 01/29/17 1020 VISIT LOCKED DATE TIME: PHYSICIAN: CHAIM RAI RESOURCE: CHAIM RAI REASON FOR APPOINTMENT 1. LOW BACK HISTORY OF PRESENT ILLNESS HISTORY OF PRESENT ILLNESS: PAIN THE PATIENT DESCRIBES THE PAIN... 55 YEAR OLD MALE PATIENT WITH HISTORY OF CHRONIC LOW BACK PAIN. PATIENT DESCRIBES THE PAIN ACHING, SORE, SHOOTING, AND IT COMES AND GOES WITH A PAIN SCORE OF 4/10 ON TODAY'S VISIT. PATIENT RECEIVED A L5-S1 LESI ON 09/23/2016 AND STATES THAT HE STILL RECEIVING A BENENFITS FROM THE INJECTION AT THIS TIME. PATIENT REPORTS OF RADIATING PAIN DOWN HIS RIGHT LEG STOPPING AT THE RIGHT KNEE. PATIENT REPORTS THAT HE STOPPED TAKING GABAPENTIN HE DID NOT LIKE HOW IT MADE HIM FEEL. CURRENTLY THE PATIENT IS USING OXYCODONE AND IBUPROFEN AND STATES THAT THE MEDICATION KEEPS HIM MOBILE AND FUNCTIONAL. PATIENT DENIES UNEXPLAINABLE WEIGHT LOSS, FEVER, CHILLS, NEW CHANGES ON HIS URINARY OR BOWEL CONTROL. FALL RISK SCREENING: SCREENING :NO FALLS IN THE PAST YEAR CURRENT MEDICATIONS TAKING ZANAFLEX 2 MG CAPSULE 1 CAPSULE NEEDED ORALLY BEFORE BEDTIME MAY REPEAT IN 4 HRS MDD2 TAKING GABAPENTIN 100 MG CAPSULE DIRECTED ORALLY THREE TIMES DAILY TAKING HYDROCODONE-ACETAMINOPHEN 10-325 MG TABLET 1 TABLET NEEDED ORALLY EVERY 8 HRS PRN FOR PAIN MDD3 TAKING IBUPROFEN 800 MG TABLET 1 TAB ORALLY EVERY 6 HOURS NEEDED FOR PAIN MDD3 TAKING LISINOPRIL 5 MG TABLET 1 TAB(S) ORALLY ONCE A DAY TAKING ATENOLOL 25 MG TABLET 1 TABLET ORALLY ONCE A DAY TAKING LIPITOR 20 MG TABLET 1 TABLET ORALLY ONCE A DAY TAKING ASPIRIN 81 MG TABLET 1 TABLET ORALLY ONCE A DAY UNKNOWN GABAPENTIN 300 MG CAPSULE 1 CAPSULE ORALLY FOR PAIN BEFORE BEDTIME, NOTES: NOT TAKING MEDICATION LIST REVIEWED AND RECONCILED WITH THE PATIENT PAST MEDICAL HISTORY 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 RADICULAR PAIN-JANUARY 2010 MRI MULTILEVEL DJD, GRADE 1 DEGENERATIVE ANTEROLISTHESIS L4/L5, 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 WITH LEFT GREATER THAN RIGHT NEUROFORAMINAL NARROWING HYPERTENSION 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 DECEMBER 2005 OBESITY, MORBID HYPERHOMOCYSTINEMIA, MILD-12/2003-12.6 (4.3-11.4) IMPAIRED FASTING GLUCOSE HYPERLIPIDEMIA 2B VENOUS INSUFFICIENCY BILATERAL LOWER EXTREMITIES ALLERGIES TETRACYCLINE HCL: NAUSEA/VOMITING: ALLERGY HORSE SERUM: NAUSEA/VOMITING: ALLERGY SURGICAL HISTORY RIGHT MENISCUS REPAIR TONSILLECTOMY SOCIAL HISTORY GENERAL: TOBACCO USE ARE YOU A:NONSMOKER LEARNING BARRIERS / SPECIAL NEEDS ORIENTED TO PLAN OF CARE: PATIENT, PAIN MANAGEMENT PATIENT, ORIENTED TO PLAN OF CARE: PATIENT, PAIN MANAGEMENT PATIENT. NEW PATIENT PAIN DIARY TODAY'S VISITNOTES FROM 0-10, WHAT LEVEL IS YOUR PAIN TODAY?0 PAIN CLINIC PFS, CLERGY, PUBLIC HEALTH REFERRALS PFS REFERRAL NEEDED?NO CLERGY REFERRAL NEEDED?NO PUBLIC HEALTH REFERRAL NEEDED?NO WAS THE PROVIDER NOTIFIED OF ANY PERTINENT INFO?NO HAS THE PATIENT BEEN EDUCATED REGARDING HIS/HER PLAN OF CARE?YES HAS THE PATIENT BEEN EDUCATED REGARDING PAIN, THE RISK FOR PAIN, THE IMPORTANCE OF EFFECTIVE PAIN MANAGEMENT, AND THE PAIN ASSESSMENT PROCESS?YES HOSPITALIZATION/MAJOR DIAGNOSTIC PROCEDURE SURGERY RELATED REVIEW OF SYSTEMS REVIEWED BY: PROVIDER: CHAIM RAI MD . CONSTITUTIONAL: ANY CHANGE IN YOUR MEDICAL CONDITION? NO . CHILLS NO . FEVER NO . INFECTION: DO YOU HAVE NEW INFECTIONS? NO . DO YOU HAVE HISTORY OF MRSA? NO . MUSCULOSKELETAL: ANY NEW PATTERNS OF PAIN OR NUMBNESS? NO . GASTROENTEROLOGY: ANY NEW CHANGE IN BOWEL CONTROL? NO . GENITOURINARY: ANY NEW CHANGE IN BLADDER CONTROL? NO . IS THERE A CHANCE YOU COULD BE ? NO . HEMATOLOGY/LYMPH: DO YOU TAKE ANY BLOOD THINNERS? (FOR EXAMPLE- COUMADIN, PLAVIX, AGGRENOX, PLATEL, PRADAXA, OR XARELTO) NO . WHEN WAS YOUR LAST DOSE? DATE: TIME: . NEUROLOGY: HAVE YOU FALLEN IN THE PAST 6 MONTHS? NO . ANY NEW EXTREMITY NUMBNESS OR WEAKNESS? NO . CARDIOLOGY: DO YOU HAVE A PACEMAKER OR DEFIBRILLATOR? NO . RESPIRATORY: HAVE YOU BEEN SICK IN THE PAST WEEK? NO . FEVER NO . FLU LIKE SYMPTOMS? NO . COUGH NO . INTEGUMENTARY: DO YOU HAVE ANY RASHES OR OPEN SORES? NO . ALLERGIC/IMMUNO: ARE YOU ALLERGIC TO SHELLFISH OR IV DYE? YES, SHELLFISH, LIMPETS . ANY NEW ALLERGIES? NO . PSYCHIATRIC: DO YOU HAVE THOUGHTS OF HURTING YOURSELF OR SOMEONE ELSE? NO . ARE YOU ABUSED, NEGLECTED, OR IN AN UNSAFE ENVIRONMENT? NO . ENDOCRINOLOGY: ARE YOU DIABETIC? NO . OTHER: DO YOU NEED ANY PRESCRIPTIONS? NO . IF YES, PLEASE LIST: ____ . ANY NEW PROBLEMS WITH YOUR MEDICATIONS? NO . WHEN DID YOU LAST EAT? ____ . WHEN DID YOU LAST DRINK? ____ . WHAT DID YOU LAST DRINK? ____ . NAME OF PERSON DRIVING YOU HOME? ____ . DO YOU HAVE ANY OTHER QUESTIONS OR CONCERNS NO . VITAL SIGNS WT 295 LBS, HT 68 IN, BMI 44.85 INDEX, BP 137/91 MM HG, HR 83 /MIN, RR 16 /MIN, TEMP 97.3 F, OXYGEN SAT % 92, REVIEWED BY: EM. EXAMINATION : PATIENT IS ALERT O X 3 AND COOPERATIVE. THERE IS SOME TENDERNESS IN THE LOW BACK. MRI DONE ON 03/19/16 SHOWS MULTIPLE DISC BULGES, CANAL STENOSIS, AND FACET ATROPHY. 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 LUCAS'S PAIN MANAGEMENT CASE. AT THIS TIME THE PATIENT WILL CONTINUE WITH THE SAME MEDICATION REGIME BEFORE. PATIENT IS USING ZANAFLEX FOR THE MUSCLE SPASMS, GABAPENTIN FOR THE NEUROPATHIC PAIN, HYDROCODONE FOR THE SOMATIC PAIN AND IBUPROFEN FOR THE INFLAMMATION. MR. LUCAS WILL USE THE GABAPENTIN AT NIGHT ONLY DUE TO IT MAKE HIM FEEL SLEEPY. PATIENT DENIES ABUSE OF ANY MEDICATION, DENIES USE OF ILLEGAL SUBSTANCES, AND STATES HE IS ONLY USING THE MEDICATION FOR PAIN MANAGEMENT. MR. LUCAS REPORTS USING LESS MEDICATION DUE TO THE INJECTION DONE ON 09/23/16. PATIENT REPORTS WALKING A LOT TO STAY LIMBER. AT THIS TIME THE PATIENT REPORTS NOT NEEDING ANY INTERVENTIONS AND WILL FOLLOW UP IN 2 MONTHS. INSTRUCTIONS WERE GIVEN, QUESTIONS WERE ANSWERED, PATIENT REPORTS UNDERSTANDING AND AGREES WITH THE PLAN. I, ABUNDIO HERNANDEZ, DOCUMENTED THE ABOVE INFORMATION ACTING A SCRIBE FOR DR. RAI. I HAVE REVIEWED THE ABOVE DOCUMENT, WRITTEN BY ABUNDIO SWARTZ AND I VERIFY THAT IT IS ACCURATE. PROCEDURE CODES FA211 ESTABILISHED PATIENT [facility] FACILITY CHARGE Z0131 DOC MEDS VERIFIED W/PT OR RE B1066 PAIN ASSESS POS TOOL F/U PLAN DOC DISPOSITION & COMMUNICATION FOLLOW UP 2 MONTHS ELECTRONICALLY SIGNED BY CHAIM RAI MD ON 02/08/2017 AT 05:19 PM EDT DISCLAIMER : THIS IS A VISIT SUMMARY EXTRACTED FROM THE [employer] CHART. IT IS NOT A COPY OF THE [employer] PROGRESS NOTE. KAMILLA
== END ==
LOC: M PAIN 09:00
PROVIDERS: ATTEND Anesthesiology
DX: M96.1 Postlaminectomy syndrome, not elsewhere classified (principal); M51.16 Intervertebral disc disorders with radiculopathy, lumbar region; M51.17 Intervertebral disc disorders with radiculopathy, lumbosacral region; G89.29 Other chronic pain; I10 Essential (primary) hypertension; E78.5 Hyperlipidemia, unspecified; Z79.82 Long term (current) use of aspirin; Z79.891 Long term (current) use of opiate analgesic; Z79.899 Other long term (current) drug therapy; Z88.1 Allergy status to other antibiotic agents; Z88.7 Allergy status to serum and vaccine

== ENCOUNTER → 2017-02-26 | Outpatient (CLI) | payer BC ==
--- NOTE | 2017-03-15 00:01 | ECWPNPC ---
PATIENT NAME: MOON LUCAS : 1960 GENDER: MALE VISIT DATE: 02/26/2017 DISCHARGE DATE: 02/26/17 1037 VISIT LOCKED DATE TIME: PHYSICIAN: CHAIM RAI RESOURCE: CHAIM RAI REASON FOR APPOINTMENT 1. LOW BACK PAIN HISTORY OF PRESENT ILLNESS HISTORY OF PRESENT ILLNESS: PAIN THE PATIENT DESCRIBES THE PAIN... 55 YEAR OLD MALE PATIENT WITH HISTORY OF CHRONIC LOW BACK PAIN. PATIENT DESCRIBES THE PAIN ACHING, SORE, SHOOTING, AND IT COMES AND GOES WITH A PAIN SCORE OF 4/10 ON TODAY'S VISIT. PATIENT RECEIVED A L5-S1 LESI ON 12/10/16 AND STATES THAT THE PAIN IS STARTING TO RETURN. PATIENT REPORTS OF RADIATING PAIN DOWN HIS RIGHT LEG STOPPING AT THE RIGHT KNEE. CURRENTLY THE PATIENT IS USING OXYCODONE AND IBUPROFEN AND STATES THAT THE MEDICATION KEEPS HIM MOBILE AND FUNCTIONAL. PATIENT DENIES UNEXPLAINABLE WEIGHT LOSS, FEVER, CHILLS, NEW CHANGES ON HIS URINARY OR BOWEL CONTROL. FALL RISK SCREENING: SCREENING :NO FALLS IN THE PAST YEAR CURRENT MEDICATIONS TAKING ZANAFLEX 2 MG CAPSULE 1 CAPSULE NEEDED ORALLY BEFORE BEDTIME MAY REPEAT IN 4 HRS MDD2, NOTES: DOESNT TAKE MUCH TAKING GABAPENTIN 100 MG CAPSULE DIRECTED ORALLY THREE TIMES DAILY TAKING HYDROCODONE-ACETAMINOPHEN 10-325 MG TABLET 1 TABLET NEEDED ORALLY EVERY 8 HRS PRN FOR PAIN MDD3 TAKING IBUPROFEN 800 MG TABLET 1 TAB ORALLY EVERY 6 HOURS NEEDED FOR PAIN MDD3 TAKING LISINOPRIL 5 MG TABLET 1 TAB(S) ORALLY ONCE A DAY TAKING ATENOLOL 25 MG TABLET 1 TABLET ORALLY ONCE A DAY TAKING LIPITOR 20 MG TABLET 1 TABLET ORALLY ONCE A DAY TAKING ASPIRIN 81 MG TABLET 1 TABLET ORALLY ONCE A DAY UNKNOWN GABAPENTIN 300 MG CAPSULE 1 CAPSULE ORALLY FOR PAIN BEFORE BEDTIME, NOTES: NOT TAKING MEDICATION LIST REVIEWED AND RECONCILED WITH THE PATIENT PAST MEDICAL HISTORY 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 RADICULAR PAIN-JANUARY 2010 MRI MULTILEVEL DJD, GRADE 1 DEGENERATIVE ANTEROLISTHESIS L4/L5, 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 WITH LEFT GREATER THAN RIGHT NEUROFORAMINAL NARROWING HYPERTENSION 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 DECEMBER 2005 OBESITY, MORBID HYPERHOMOCYSTINEMIA, MILD-12/2003-12.6 (4.3-11.4) IMPAIRED FASTING GLUCOSE HYPERLIPIDEMIA 2B VENOUS INSUFFICIENCY BILATERAL LOWER EXTREMITIES ALLERGIES TETRACYCLINE HCL: NAUSEA/VOMITING: ALLERGY HORSE SERUM: NAUSEA/VOMITING: ALLERGY REVIEW OF SYSTEMS REVIEWED BY: PROVIDER: CHAIM RAI MD . CONSTITUTIONAL: ANY CHANGE IN YOUR MEDICAL CONDITION? NO . CHILLS NO . FEVER NO . INFECTION: DO YOU HAVE NEW INFECTIONS? NO . DO YOU HAVE HISTORY OF MRSA? NO . MUSCULOSKELETAL: ANY NEW PATTERNS OF PAIN OR NUMBNESS? NO . GASTROENTEROLOGY: ANY NEW CHANGE IN BOWEL CONTROL? NO . GENITOURINARY: ANY NEW CHANGE IN BLADDER CONTROL? NO . IS THERE A CHANCE YOU COULD BE ? NO . HEMATOLOGY/LYMPH: DO YOU TAKE ANY BLOOD THINNERS? (FOR EXAMPLE- COUMADIN, PLAVIX, AGGRENOX, PLATEL, PRADAXA, OR XARELTO) NO . WHEN WAS YOUR LAST DOSE? DATE: TIME: . NEUROLOGY: HAVE YOU FALLEN IN THE PAST 6 MONTHS? NO . ANY NEW EXTREMITY NUMBNESS OR WEAKNESS? NO . CARDIOLOGY: DO YOU HAVE A PACEMAKER OR DEFIBRILLATOR? NO . RESPIRATORY: HAVE YOU BEEN SICK IN THE PAST WEEK? NO . FEVER NO . FLU LIKE SYMPTOMS? NO . COUGH NO . INTEGUMENTARY: DO YOU HAVE ANY RASHES OR OPEN SORES? NO . ALLERGIC/IMMUNO: ARE YOU ALLERGIC TO SHELLFISH OR IV DYE? NO . ANY NEW ALLERGIES? NO . PSYCHIATRIC: DO YOU HAVE THOUGHTS OF HURTING YOURSELF OR SOMEONE ELSE? NO . ARE YOU ABUSED, NEGLECTED, OR IN AN UNSAFE ENVIRONMENT? NO . ENDOCRINOLOGY: ARE YOU DIABETIC? NO . OTHER: DO YOU NEED ANY PRESCRIPTIONS? YES . IF YES, PLEASE LIST: ____ . ANY NEW PROBLEMS WITH YOUR MEDICATIONS? NO . WHEN DID YOU LAST EAT? ____ . WHEN DID YOU LAST DRINK? ____ . WHAT DID YOU LAST DRINK? ____ . NAME OF PERSON DRIVING YOU HOME? ____ . DO YOU HAVE ANY OTHER QUESTIONS OR CONCERNS NO . VITAL SIGNS WT 290 LBS, HT 68 IN, BMI 44.09 INDEX, BP 116/69 MM HG, HR 72 /MIN, RR 18 /MIN, TEMP 97.1 F, OXYGEN SAT % 92%, NA INITIALS SC 09:28, REVIEWED BY: RAMOS. EXAMINATION : PATIENT IS ALERT O X 3 AND COOPERATIVE. THERE IS SOME TENDERNESS IN THE LOW BACK. MRI DONE ON 03/19/16 SHOWS MULTIPLE DISC BULGES, CANAL STENOSIS, AND FACET ATROPHY. ASSESSMENTS INTERVERTEBRAL DISC DISORDER WITH RADICULOPATHY OF LUMBAR REGION - M51.16 (PRIMARY) INTERVERTEBRAL DISC DISORDER WITH RADICULOPATHY OF LUMBOSACRAL REGION - M51.17 SACROILIITIS, NOT ELSEWHERE CLASSIFIED - M46.1 TREATMENT INTERVERTEBRAL DISC DISORDER WITH RADICULOPATHY OF LUMBAR REGION NOTES: WE DISCUSSED SEVERAL ISSUES WITH MR. LUCAS'S PAIN MANAGEMENT CASE. AT THIS TIME THE PATIENT WILL CONTINUE WITH THE SAME MEDICATION REGIME BEFORE. PATIENT IS USING ZANAFLEX FOR THE MUSCLE SPASMS, HYDROCODONE FOR THE SOMATIC PAIN AND IBUPROFEN FOR THE INFLAMMATION. MR. LUCAS WILL USE THE GABAPENTIN AT NIGHT ONLY DUE TO IT MAKE HIM FEEL SLEEPY. PATIENT DENIES ABUSE OF ANY MEDICATION, DENIES USE OF ILLEGAL SUBSTANCES, AND STATES HE IS ONLY USING THE MEDICATION FOR PAIN MANAGEMENT. AFTER VIEWING THE MRI AND DUE TO THE RADICULAR PAIN I WOULD LIKE TO PROCEED WITH A LUMBAR EPIDURAL. WE DISCUSSED THE RISKS, BENENFITS, AND ALTNERATIVES OF THE INJECTION AND THE PATIENT WOULD LIKE TO PROCEED AT THIS TIME. I, ABUNDIO HERNANDEZ, DOCUMENTED THE ABOVE INFORMATION ACTING A SCRIBE FOR DR. RAI. I HAVE REVIEWED THE ABOVE DOCUMENT, WRITTEN BY ABUNDIO SNYDERIBDavid AND I VERIFY THAT IT IS ACCURATE. PROCEDURE CODES FA211 ESTABILISHED PATIENT [facility] FACILITY CHARGE G8427 DOC MEDS VERIFIED W/PT OR RE G8730 PAIN ASSESS POS TOOL F/U PLAN DOC DISPOSITION & COMMUNICATION FOLLOW UP LESI AFTER APPROVAL ELECTRONICALLY SIGNED BY CHAIM RAI MD ON 03/14/2017 AT 09:11 PM EST DISCLAIMER : THIS IS A VISIT SUMMARY EXTRACTED FROM THE [employer] CHART. IT IS NOT A COPY OF THE [employer] PROGRESS NOTE. MTDD
== END ==
LOC: M PAIN 09:30
PROVIDERS: ATTEND Anesthesiology
DX: M51.16 Intervertebral disc disorders with radiculopathy, lumbar region (principal); M51.17 Intervertebral disc disorders with radiculopathy, lumbosacral region; M46.1 Sacroiliitis, not elsewhere classified; M54.5 Low back pain; G89.29 Other chronic pain; I10 Essential (primary) hypertension; E78.5 Hyperlipidemia, unspecified; Z79.82 Long term (current) use of aspirin; Z79.891 Long term (current) use of opiate analgesic; Z79.899 Other long term (current) drug therapy; Z88.1 Allergy status to other antibiotic agents; Z88.7 Allergy status to serum and vaccine

== ENCOUNTER → 2017-03-15 | Outpatient (CLI) | payer BC ==
--- NOTE | 2017-03-15 17:30 | REP ---
C-ARM VIEWS: LUMBAR SPINE: CLINICAL HISTORY: Pain. Four C-ARM views lumbosacral region are performed during injection by Dr. Mabry. Needle was seen at the L5 level. 21 seconds of fluoroscopy time was utilized. Signed by Zeeshan Tanner MD 03/16/2017 01:20 P
--- NOTE | 2017-03-31 01:00 | ECWPNPC ---
PATIENT NAME: MOON LUCAS : 1960 GENDER: MALE VISIT DATE: 03/15/2017 DISCHARGE DATE: 03/15/17 1020 VISIT LOCKED DATE TIME: PHYSICIAN: CHAIM RAI RESOURCE: CHAIM RAI REASON FOR APPOINTMENT 1. LESI HISTORY OF PRESENT ILLNESS HISTORY OF PRESENT ILLNESS: PAIN THE PATIENT DESCRIBES THE PAIN... FALL RISK SCREENING: SCREENING :NO FALLS IN THE PAST YEAR CURRENT MEDICATIONS TAKING ZANAFLEX 2 MG CAPSULE 1 CAPSULE NEEDED ORALLY BEFORE BEDTIME MAY REPEAT IN 4 HRS MDD2, NOTES: DOESNT TAKE MUCH TAKING GABAPENTIN 100 MG CAPSULE DIRECTED ORALLY THREE TIMES DAILY, NOTES: 03-14-172099 TAKING HYDROCODONE-ACETAMINOPHEN 10-325 MG TABLET 1 TABLET NEEDED ORALLY EVERY 8 HRS PRN FOR PAIN MDD3, NOTES: 03-15-17 0700 TAKING IBUPROFEN 800 MG TABLET 1 TAB ORALLY EVERY 6 HOURS NEEDED FOR PAIN MDD3, NOTES: 03-14-172099 TAKING LISINOPRIL 5 MG TABLET 1 TAB(S) ORALLY ONCE A DAY, NOTES: 03-14-172099 TAKING ATENOLOL 25 MG TABLET 1 TABLET ORALLY ONCE A DAY, NOTES: 03-14-172099 TAKING LIPITOR 20 MG TABLET 1 TABLET ORALLY ONCE A DAY, NOTES: 03-14-172099 TAKING ASPIRIN 81 MG TABLET 1 TABLET ORALLY ONCE A DAY, NOTES: 03-14-172099 UNKNOWN GABAPENTIN 300 MG CAPSULE 1 CAPSULE ORALLY FOR PAIN BEFORE BEDTIME, NOTES: NOT TAKING MEDICATION LIST REVIEWED AND RECONCILED WITH THE PATIENT PAST MEDICAL HISTORY 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 RADICULAR PAIN-JANUARY 2010 MRI MULTILEVEL DJD, GRADE 1 DEGENERATIVE ANTEROLISTHESIS L4/L5, 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 WITH LEFT GREATER THAN RIGHT NEUROFORAMINAL NARROWING HYPERTENSION 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 DECEMBER 2005 OBESITY, MORBID HYPERHOMOCYSTINEMIA, MILD-12/2003-12.6 (4.3-11.4) IMPAIRED FASTING GLUCOSE HYPERLIPIDEMIA 2B VENOUS INSUFFICIENCY BILATERAL LOWER EXTREMITIES ALLERGIES TETRACYCLINE HCL: NAUSEA/VOMITING: ALLERGY HORSE SERUM: NAUSEA/VOMITING: ALLERGY REVIEW OF SYSTEMS REVIEWED BY: PROVIDER: . CONSTITUTIONAL: ANY CHANGE IN YOUR MEDICAL CONDITION? NO . CHILLS NO . FEVER NO . INFECTION: DO YOU HAVE NEW INFECTIONS? NO . DO YOU HAVE HISTORY OF MRSA? NO . MUSCULOSKELETAL: ANY NEW PATTERNS OF PAIN OR NUMBNESS? NO . GASTROENTEROLOGY: ANY NEW CHANGE IN BOWEL CONTROL? NO . GENITOURINARY: ANY NEW CHANGE IN BLADDER CONTROL? NO . IS THERE A CHANCE YOU COULD BE ? NO . HEMATOLOGY/LYMPH: DO YOU TAKE ANY BLOOD THINNERS? (FOR EXAMPLE- COUMADIN, PLAVIX, AGGRENOX, PLATEL, PRADAXA, OR XARELTO) NO . WHEN WAS YOUR LAST DOSE? DATE: TIME: . NEUROLOGY: HAVE YOU FALLEN IN THE PAST 6 MONTHS? NO . ANY NEW EXTREMITY NUMBNESS OR WEAKNESS? NO . CARDIOLOGY: DO YOU HAVE A PACEMAKER OR DEFIBRILLATOR? NO . RESPIRATORY: HAVE YOU BEEN SICK IN THE PAST WEEK? NO . FEVER NO . FLU LIKE SYMPTOMS? NO . COUGH NO . INTEGUMENTARY: DO YOU HAVE ANY RASHES OR OPEN SORES? NO . ALLERGIC/IMMUNO: ARE YOU ALLERGIC TO SHELLFISH OR IV DYE? NO . ANY NEW ALLERGIES? NO . PSYCHIATRIC: DO YOU HAVE THOUGHTS OF HURTING YOURSELF OR SOMEONE ELSE? NO . ARE YOU ABUSED, NEGLECTED, OR IN AN UNSAFE ENVIRONMENT? NO . ENDOCRINOLOGY: ARE YOU DIABETIC? NO . OTHER: DO YOU NEED ANY PRESCRIPTIONS? YES HYUDROCODONE . IF YES, PLEASE LIST: ____ . ANY NEW PROBLEMS WITH YOUR MEDICATIONS? NO . WHEN DID YOU LAST EAT? ____7 PM LAST NIGHT . WHEN DID YOU LAST DRINK? ____ . WHAT DID YOU LAST DRINK? ____TEA, . NAME OF PERSON DRIVING YOU HOME? ____ . DO YOU HAVE ANY OTHER QUESTIONS OR CONCERNS NO . VITAL SIGNS WT 294.0 LBS, HT 68 IN, BMI 44.70 INDEX, BP 127/89 MM HG, HR 68 /MIN, RR 18 /MIN, TEMP 96.0 F, OXYGEN SAT % 94%, NA INITIALS TL 0850. ASSESSMENTS INTERVERTEBRAL DISC DISORDER WITH RADICULOPATHY OF LUMBAR REGION - M51.16 (PRIMARY) PROCEDURES PRE PROCEDURE DIAGNOSIS LUMBAR DISC DISORDER WITH RADICULOPATHY POST PROCEDURE DIAGNOSIS LUMBAR DISC DISORDER WITH RADICULOPATHY PROCEDURE LUMBAR EPIDURAL STEROID INJECTION UNDER FLUOROSCOPIC GUIDANCE SURGEON DR. CHAIM RAI MANAGER [employer] NONE ANESTHESIA LOCAL PRE PROCEDURE NOTE THE PATIENT HAS A HISTORY OF CHRONIC LOW BACK PAIN. I EVALUATE THE PATIENT AND REVIEWED THE CHART. I WENT OVER THE RISKS, ALTERNATIVES, AND BENEFITS ASSOCIATED WITH THIS PROCEDURE. THE PATIENT WOULD LIKE TO PROCEED AND GIVE CONSENT TO PERFORMED THE PROCEDURE. THE PATIENT DENIES UNEXPLAINABLE WEIGHT LOSS, FEVER, CHILLS, OR NEW CHANGES IN URINARY OR BOWEL CONTROL. DESCRIPTION OF PROCEDURE THE PATIENT WAS BROUGHT TO THE PROCEDURE ROOM AND PLACED IN THE PRONE POSITION. THE LUMBOSACRAL AREA WAS CLEANED WITH BETADINE SOLUTION AND DRAPED ASEPTICALLY. THE PROCEDURE WAS DONE UNDER STERILE CONDITIONS. I CHECKED LATERALITY AND THE LEVEL WHERE THE PROCEDURE WAS GOING TO BE PERFORMED WITH THE PATIENT AND THE SUPPORTING STAFF AT THE MOMENT OF THE TIME OUT IN THE PROCEDURE ROOM. UNDER FLUOROSCOPIC GUIDANCE, THE TARGET POINT WAS SELECTED AT THE INTERLAMINAR LEVEL OF L4-L5. LIDOCAINE WAS USED TO NUMB THE SKIN AND THE SUBCUTANEOUS TISSUE BELOW IT. EPIDURAL TUOHY NEEDLE, 17-GAUGE, WAS ADVANCED UNDER FLUOROSCOPIC GUIDANCE AND FOLLOWING PATIENT FEEDBACK UNTIL THE EPIDURAL SPACE WAS REACHED, 7 CM DEEP INTO THE SKIN BY THE LOSS OF RESISTANCE TECHNIQUE. ISOVUE M DYE 30%, 0.25 ML, WAS INJECTED SHOWING ADEQUATE SPREAD OF THE DYE. THEN, A SOLUTION OF 3 ML OF NORMAL SALINE WITH DEPO-MEDROL 60 MG WAS INJECTED SLOWLY FOLLOWING PATIENT FEEDBACK. THERE WAS NO EVIDENCE OF BLOOD, PARESTHESIA OR CEREBROSPINAL FLUID DURING THE PROCEDURE. THE PATIENT WAS SENT TO THE RECOVERY ROOM. THE PATIENT WAS MOVING THE EXTREMITIES AND DOING WELL. THERE WAS NO COMPLICATION DURING THE PROCEDURE. FLUOROSCOPY TIME WAS 21 SECONDS. POST PROCEDURE NOTE THE PATIENT WILL BE SEEN IN A FOLLOW UP IN THE NEXT FEW WEEKS. INSTRUCTIONS WERE GIVEN, QUESTIONS WERE ANSWERED, AND THE PATIENT EXPRESSED UNDERSTANDING AND AGREES WITH THE PLAN. I, ABUNDIO HERNANDEZ, DOCUMENTED THE ABOVE INFORMATION ACTING A SCRIBE FOR DR. RAI. I HAVE REVIEWED THE ABOVE DOCUMENT, WRITTEN BY ABUNDIO SWARTZ AND I VERIFY THAT IT IS ACCURATE DIAGNOSTIC IMAGING [facility] FLUORO GUIDE SPINE INJECTION (PAIN)[id number] PROCEDURE CODES 75850 LUMBAR/SACRAL W/ IMAGING 6045F RADXPS IN END [id number] PXD DISPOSITION & COMMUNICATION FOLLOW UP 2 WEEKS ELECTRONICALLY SIGNED BY CHAIM RAI MD ON 03/29/2017 AT 11:03 AM EST DISCLAIMER : THIS IS A VISIT SUMMARY EXTRACTED FROM THE [employer] CHART. IT IS NOT A COPY OF THE [employer] PROGRESS NOTE. KAMILLA
== END ==
LOC: M PAIN 08:30
PROVIDERS: ATTEND Anesthesiology
DX: G89.29 Other chronic pain (principal); M51.16 Intervertebral disc disorders with radiculopathy, lumbar region; I10 Essential (primary) hypertension; E66.01 Morbid (severe) obesity due to excess calories; R73.01 Impaired fasting glucose; E78.5 Hyperlipidemia, unspecified; I87.2 Venous insufficiency (chronic) (peripheral); Z79.891 Long term (current) use of opiate analgesic; Z79.82 Long term (current) use of aspirin; Z79.899 Other long term (current) drug therapy; Z88.8 Allergy status to other drugs, medicaments and biological substances; Z91.048 Other nonmedicinal substance allergy status; Z68.41 Body mass index [BMI] 40.0-44.9, adult
CPT/HCPCS: 62323; J1030; Q9967

== ENCOUNTER → 2017-05-11 | Outpatient (CLI) | payer BC | LOC: M PAIN 11:30 | DX: M51.16 Intervertebral disc disorders with radiculopathy, lumbar region (principal); G89.29 Other chronic pain; I10 Essential (primary) hypertension; E78.5 Hyperlipidemia, unspecified; Z79.891 Long term (current) use of opiate analgesic; Z79.82 Long term (current) use of aspirin; Z79.899 Other long term (current) drug therapy; Z88.8 Allergy status to other drugs, medicaments and biological substances | CPT/HCPCS: G0463 ==

== ENCOUNTER → 2017-05-12 | Outpatient (CLI) | payer BC ==
[~2017-05-12] MED LIST changes: +ISOVUE-M 300 61% 15ML VIAL (Q9967) As Ordered; -ISOVUE-M 300 61% 15ML VIAL (Q9967) As Ordered ONE; +LIDOCAINE 1% SDV INJ 30 ML VIAL As Ordered; -LIDOCAINE 1% SDV INJ 30 ML VIAL As Ordered ONE; +diazePAM 5 MG TAB As Ordered; -diazePAM 5 MG TAB As Ordered ONE; +methylPREDNISolone SUSP 40 MG/ML (DEPO-medrol) VIAL (J1030) As Ordered; -methylPREDNISolone SUSP 40 MG/ML (DEPO-medrol) VIAL (J1030) As Ordered ONE; +oxyCODONE 5MG TAB As Ordered; -oxyCODONE 5MG TAB As Ordered ONE
== END ==
LOC: M PAIN 14:45
DX: G89.29 Other chronic pain (principal); M51.16 Intervertebral disc disorders with radiculopathy, lumbar region; I10 Essential (primary) hypertension; E66.01 Morbid (severe) obesity due to excess calories; Z68.41 Body mass index [BMI] 40.0-44.9, adult; E72.11 Homocystinuria; E78.5 Hyperlipidemia, unspecified; Z88.1 Allergy status to other antibiotic agents; Z88.7 Allergy status to serum and vaccine; Z79.82 Long term (current) use of aspirin; Z79.899 Other long term (current) drug therapy; Z86.79 Personal history of other diseases of the circulatory system
CPT/HCPCS: J1030

== ENCOUNTER → 2017-08-12 | Outpatient (CLI) | payer BC | LOC: M PAIN 08:30 | DX: G89.29 Other chronic pain (principal); M51.16 Intervertebral disc disorders with radiculopathy, lumbar region; I10 Essential (primary) hypertension; E66.01 Morbid (severe) obesity due to excess calories; R73.01 Impaired fasting glucose; E78.5 Hyperlipidemia, unspecified; Z79.82 Long term (current) use of aspirin; Z79.899 Other long term (current) drug therapy; Z88.1 Allergy status to other antibiotic agents; Z88.7 Allergy status to serum and vaccine; Z86.718 Personal history of other venous thrombosis and embolism | CPT/HCPCS: J1030 ==

== ENCOUNTER → 2017-08-30 | Outpatient (CLI) | payer BC | LOC: M PAIN 10:15 | DX: M51.16 Intervertebral disc disorders with radiculopathy, lumbar region (principal); I10 Essential (primary) hypertension; G93.89 Other specified disorders of brain; E72.11 Homocystinuria; R73.01 Impaired fasting glucose; I87.9 Disorder of vein, unspecified; E66.01 Morbid (severe) obesity due to excess calories; Z68.41 Body mass index [BMI] 40.0-44.9, adult; Z79.82 Long term (current) use of aspirin; Z79.899 Other long term (current) drug therapy; Z88.1 Allergy status to other antibiotic agents; Z88.7 Allergy status to serum and vaccine | CPT/HCPCS: G0463 ==

== ENCOUNTER → 2017-10-20 | Outpatient (CLI) | payer BC | LOC: M PAIN 09:15 | DX: G89.29 Other chronic pain (principal); M51.16 Intervertebral disc disorders with radiculopathy, lumbar region; I10 Essential (primary) hypertension; E66.01 Morbid (severe) obesity due to excess calories; R73.01 Impaired fasting glucose; E78.5 Hyperlipidemia, unspecified; I87.2 Venous insufficiency (chronic) (peripheral); Z79.82 Long term (current) use of aspirin; Z79.891 Long term (current) use of opiate analgesic; Z79.899 Other long term (current) drug therapy; Z88.1 Allergy status to other antibiotic agents; Z91.048 Other nonmedicinal substance allergy status; Z68.43 Body mass index [BMI] 50.0-59.9, adult | CPT/HCPCS: G0463 ==

== ENCOUNTER → 2017-11-11 | Outpatient (CLI) | payer BC | LOC: M PAIN 08:30 | DX: G89.29 Other chronic pain (principal); M51.16 Intervertebral disc disorders with radiculopathy, lumbar region; I10 Essential (primary) hypertension; E66.01 Morbid (severe) obesity due to excess calories; R73.01 Impaired fasting glucose; E78.5 Hyperlipidemia, unspecified; I87.2 Venous insufficiency (chronic) (peripheral); Z79.82 Long term (current) use of aspirin; Z79.891 Long term (current) use of opiate analgesic; Z79.899 Other long term (current) drug therapy; Z88.1 Allergy status to other antibiotic agents; Z88.8 Allergy status to other drugs, medicaments and biological substances | CPT/HCPCS: J1030 ==

== ENCOUNTER → 2017-12-10 | Outpatient (CLI) | payer BC | LOC: M PAIN 14:30 | DX: M51.16 Intervertebral disc disorders with radiculopathy, lumbar region (principal); I10 Essential (primary) hypertension; R73.01 Impaired fasting glucose; E78.5 Hyperlipidemia, unspecified; I87.2 Venous insufficiency (chronic) (peripheral); Z79.82 Long term (current) use of aspirin; Z79.891 Long term (current) use of opiate analgesic; Z79.899 Other long term (current) drug therapy; Z88.1 Allergy status to other antibiotic agents; Z88.8 Allergy status to other drugs, medicaments and biological substances | CPT/HCPCS: G0463 ==

== ENCOUNTER → 2017-12-20 | Outpatient (CLI) | payer BC | LOC: M WUC 13:57 | DX: K42.9 Umbilical hernia without obstruction or gangrene (principal); R10.84 Generalized abdominal pain; R19.7 Diarrhea, unspecified ==

== ENCOUNTER → 2017-12-20 | Outpatient (CLI) | payer BC ==
[~2017-12-20] MED LIST changes: +GASTROGRAFIN SOLUTION 30ML (Q9963) As Ordered; +ISOVUE-370 76% 100ML VIAL (Q9967) As Ordered; -ISOVUE-M 300 61% 15ML VIAL (Q9967) As Ordered; -LIDOCAINE 1% SDV INJ 30 ML VIAL As Ordered; -diazePAM 5 MG TAB As Ordered; -methylPREDNISolone SUSP 40 MG/ML (DEPO-medrol) VIAL (J1030) As Ordered; -oxyCODONE 5MG TAB As Ordered
[2017-12-20 15:46] LABS: BASO % 0.4 % (0.0-1.0); EOS # 0.1 10^3/uL (0.0-0.50); EOS % 1.8 % (0.0-3.0); HEMATOCRIT 50.5 % (42.0-52.0); HEMOGLOBIN 16.3 g/dl (13.5-17.5); IMMATURE GRANULOCYTE % 0.6 % (0-3.0); LYMPH # 1.8 10^3/uL (1.5-4.5); LYMPH % 22.7 % (24.0-44.0); MEAN CORPUSCULAR HEMOGLOBIN 30.4 pg (27.0-33.0); MEAN CORPUSCULAR HGB CONC 32.3 g/dl (32.0-36.5); MONO # 0.7 10^3/uL (0.0-0.8); MONO % 9.2 % (0.0-5.0); NEUTROPHILS % 65.3 % (36.0-66.0); PLATELET COUNT, AUTOMATED 197 10^3/uL (150-450); RED BLOOD COUNT 5.37 10^6/uL (4.30-6.10); RED CELL DISTRIBUTION WIDTH 13.2 % (11.5-14.5); WHITE BLOOD COUNT 7.7 10^3/uL (4.0-10.0)
[2017-12-20 16:08] LABS: ALBUMIN 3.6 GM/DL (3.2-5.2); ALBUMIN/GLOBULIN RATIO 1.06 (1.00-1.93); ALKALINE PHOSPHATASE 77 U/L (45-117); ALT/SGPT 43 U/L (12-78); ANION GAP 8 MEQ/L (8-16); AST/SGOT 24 U/L (7-37); BILIRUBIN,TOTAL 0.4 MG/DL (0.2-1.0); BLOOD UREA NITROGEN 25 MG/DL (7-18); CARBON DIOXIDE LEVEL 30 MEQ/L (21-32); CHLORIDE LEVEL 103 MEQ/L (98-107); CREATININE FOR GFR 1.09 MG/DL (0.70-1.30); GLOMERULAR FILTRATION RATE > 60.0 (>56); GLUCOSE, FASTING 87 MG/DL (70-100); LIPASE 188 U/L (73-393); POTASSIUM SERUM 4.6 MEQ/L (3.5-5.1); SODIUM LEVEL 141 MEQ/L (136-145)
== END ==
LOC: M LAB 15:14
DX: K42.9 Umbilical hernia without obstruction or gangrene (principal); R10.84 Generalized abdominal pain; R19.7 Diarrhea, unspecified
CPT/HCPCS: Q9963

== ENCOUNTER → 2017-12-22 | Outpatient (REF) | payer BC | LOC: M LAB REF 08:00 | DX: R19.7 Diarrhea, unspecified (principal) ==

== ENCOUNTER → 2018-01-14 | Outpatient (CLI) | payer BC | LOC: M PAIN 10:00 | DX: M51.16 Intervertebral disc disorders with radiculopathy, lumbar region (principal); I10 Essential (primary) hypertension; R73.01 Impaired fasting glucose; E78.5 Hyperlipidemia, unspecified; Z79.82 Long term (current) use of aspirin; Z79.899 Other long term (current) drug therapy; Z88.1 Allergy status to other antibiotic agents; Z88.7 Allergy status to serum and vaccine; Z86.79 Personal history of other diseases of the circulatory system | CPT/HCPCS: G0463 ==

== ENCOUNTER → 2018-02-21 | Outpatient (CLI) | payer BC ==
[~2018-02-21] MED LIST changes: -GASTROGRAFIN SOLUTION 30ML (Q9963) As Ordered; -ISOVUE-370 76% 100ML VIAL (Q9967) As Ordered; +ISOVUE-M 300 61% 15ML VIAL (Q9967) As Ordered; +LIDOCAINE 1% SDV INJ 30 ML VIAL As Ordered; +diazePAM 5 MG TAB As Ordered; +methylPREDNISolone SUSP 40 MG/ML (DEPO-medrol) VIAL (J1030) As Ordered; +oxyCODONE 5MG TAB As Ordered
== END ==
LOC: M PAIN 08:30
DX: G89.29 Other chronic pain (principal); M51.16 Intervertebral disc disorders with radiculopathy, lumbar region; M48.061 Spinal stenosis, lumbar region without neurogenic claudication; I10 Essential (primary) hypertension; R73.01 Impaired fasting glucose; E78.5 Hyperlipidemia, unspecified; E66.01 Morbid (severe) obesity due to excess calories; Z68.41 Body mass index [BMI] 40.0-44.9, adult; Z79.82 Long term (current) use of aspirin; Z79.899 Other long term (current) drug therapy; Z88.1 Allergy status to other antibiotic agents; Z88.7 Allergy status to serum and vaccine; Z86.79 Personal history of other diseases of the circulatory system
CPT/HCPCS: J1030

== ENCOUNTER 2018-03-28 17:34 | Emergency (ER) | payer SELFPAY, BC ==
[2018-03-28 18:40] LABS: BASO % 0.3 % (0.0-1.0); EOS # 0.1 10^3/uL (0.0-0.50); EOS % 1.1 % (0.0-3.0); HEMATOCRIT 50.4 % (42.0-52.0); HEMOGLOBIN 16.6 g/dl (13.5-17.5); IMMATURE GRANULOCYTE % 0.6 % (0-3.0); LYMPH # 1.6 10^3/uL (1.5-4.5); MEAN CORPUSCULAR HEMOGLOBIN 30.8 pg (27.0-33.0); MEAN CORPUSCULAR HGB CONC 32.9 g/dl (32.0-36.5); MEAN CORPUSCULAR VOLUME 93.5 fl (80.0-96.0); MONO # 0.7 10^3/uL (0.0-0.8); MONO % 7.4 % (0.0-5.0); NEUTROPHILS # 6.4 10^3/uL (1.8-7.7); NEUTROPHILS % 72.6 % (36.0-66.0); PLATELET COUNT, AUTOMATED 223 10^3/uL (150-450); RED BLOOD COUNT 5.39 10^6/uL (4.30-6.10); RED CELL DISTRIBUTION WIDTH 13.1 % (11.5-14.5); WHITE BLOOD COUNT 8.9 10^3/uL (4.0-10.0)
[2018-03-28 18:50] LABS: INR 0.87; PROTHROMBIN TIME 11.9 SECONDS (12.1-14.4)
[2018-03-28 19:09] LABS: ANION GAP 5 MEQ/L (8-16); BLOOD UREA NITROGEN 25 MG/DL (7-18); C REACTIVE PROTEIN QUANTITATIV 0.85 MG/DL (0.00-0.30); CALCIUM LEVEL 8.5 MG/DL (8.5-10.1); CARBON DIOXIDE LEVEL 30 MEQ/L (21-32); CHLORIDE LEVEL 105 MEQ/L (98-107); CREATININE FOR GFR 1.02 MG/DL (0.70-1.30); GLOMERULAR FILTRATION RATE > 60.0 (>56); GLUCOSE, FASTING 85 MG/DL (70-100); POTASSIUM SERUM 4.5 MEQ/L (3.5-5.1); SODIUM LEVEL 140 MEQ/L (136-145)
[2018-03-28 19:10] LABS: ERYTHROCYTE SEDIMENTATION RATE 6 mm/hr (0-20)
== END 2018-03-28 21:58 | disposition home or self-care (01) ==
LOC: M ED 17:34
DX: S51.001A Unspecified open wound of right elbow, initial encounter (principal); X58.XXXA Exposure to other specified factors, initial encounter; Y92.89 Other specified places as the place of occurrence of the external cause; I10 Essential (primary) hypertension; Z79.899 Other long term (current) drug therapy; Z79.82 Long term (current) use of aspirin; Z88.1 Allergy status to other antibiotic agents
CPT/HCPCS: 73070

== ENCOUNTER → 2018-03-30 | Outpatient (REF) | payer BC ==
[2018-03-30 17:49] LABS: BASO % 0.5 % (0.0-1.0); EOS # 0.2 10^3/uL (0.0-0.50); EOS % 1.7 % (0.0-3.0); HEMATOCRIT 49.8 % (42.0-52.0); HEMOGLOBIN 15.9 g/dl (13.5-17.5); IMMATURE GRANULOCYTE % 0.6 % (0-3.0); LYMPH # 1.7 10^3/uL (1.5-4.5); MEAN CORPUSCULAR HEMOGLOBIN 30.2 pg (27.0-33.0); MEAN CORPUSCULAR HGB CONC 31.9 g/dl (32.0-36.5); MEAN CORPUSCULAR VOLUME 94.7 fl (80.0-96.0); MONO # 0.8 10^3/uL (0.0-0.8); MONO % 8.8 % (0.0-5.0); NEUTROPHILS # 5.9 10^3/uL (1.8-7.7); NEUTROPHILS % 68.4 % (36.0-66.0); PLATELET COUNT, AUTOMATED 233 10^3/uL (150-450); RED BLOOD COUNT 5.26 10^6/uL (4.30-6.10); WHITE BLOOD COUNT 8.7 10^3/uL (4.0-10.0)
[2018-03-30 17:54] LABS: C REACTIVE PROTEIN QUANTITATIV 0.48 MG/DL (0.00-0.30)
[2018-03-30 19:26] LABS: ERYTHROCYTE SEDIMENTATION RATE 2 mm/hr (0-20)
== END ==
LOC: M LABDRAW1 17:08
DX: M70.21 Olecranon bursitis, right elbow (principal)
CPT/HCPCS: 86140

== ENCOUNTER → 2018-05-05 | Outpatient (CLI) | payer BC ==
[~2018-05-05] MED LIST changes: +ASPI1TAB15 PO; +ATEN25TA PO; +ATOR1TAB21 PO; +GABA-1171 PO; +HYDR-4517 PO; +IBUP1TAB7 PO; -ISOVUE-M 300 61% 15ML VIAL (Q9967) As Ordered; -LIDOCAINE 1% SDV INJ 30 ML VIAL As Ordered; +LISI-542 PO; -diazePAM 5 MG TAB As Ordered; -methylPREDNISolone SUSP 40 MG/ML (DEPO-medrol) VIAL (J1030) As Ordered; -oxyCODONE 5MG TAB As Ordered
--- NOTE | 2018-05-25 02:14 | ECWPNPC ---
PATIENT NAME: MOON LUCAS : 1960 GENDER: MALE VISIT DATE: 05/05/2018 DISCHARGE DATE: 05/05/18 1202 VISIT LOCKED DATE TIME: PHYSICIAN: SWETHA LAWSON RESOURCE: SWETHA LAWSON REASON FOR APPOINTMENT 1. BACK HISTORY OF PRESENT ILLNESS HISTORY OF PRESENT ILLNESS: HERE FOR POST PROCEDURE F/U.HAD LESI L4/5 ON 02/21/18.STATES HE WAS DOING WELL .FELL ONE MONTH AGO AND PAIN BEGAN TO RETURN.RATING PAIN VAS 3-5/10.PAIN IS CENTRAL LOW BACK WITH RADIATION INTO THIGHS BILAT. PAIN THE PATIENT DESCRIBES THE PAIN... FALL RISK SCREENING: SCREENING :NO FALLS IN THE PAST YEAR CURRENT MEDICATIONS TAKING LISINOPRIL 5 MG TABLET 1 TAB(S) ORALLY ONCE A DAY, NOTES: 02/20/18 TAKING ATENOLOL 25 MG TABLET 1 TABLET ORALLY ONCE A DAY, NOTES: 02/20/18 TAKING LIPITOR 20 MG TABLET 1 TABLET ORALLY ONCE A DAY, NOTES: 02/20/18 TAKING ASPIRIN 81 MG TABLET 1 TABLET ORALLY ONCE A DAY, NOTES: 02/20/18 TAKING HYDROCODONE-ACETAMINOPHEN 10-325 MG TABLET 1 TABLET NEEDED ORALLY EVERY 8 HRS PRN FOR PAIN MDD3, NOTES: 1 1/2 TABS 11/11 0630 TAKING VITAMIN D (ERGOCALCIFEROL) 68237 UNIT CAPSULE 1 CAPSULE ORALLY MONTHLY, NOTES: 3 WEEKS TAKING IBUPROFEN 800 MG TABLET 1 TAB ORALLY Q6H PRN, NOTES: 0630 TAKING GABAPENTIN 100 MG CAPSULE DIRECTED ORALLY THREE TIMES DAILY, NOTES: 0630 MEDICATION LIST REVIEWED AND RECONCILED WITH THE PATIENT PAST MEDICAL HISTORY 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 RADICULAR PAIN-JANUARY 2010 MRI MULTILEVEL DJD, GRADE 1 DEGENERATIVE ANTEROLISTHESIS L4/L5, 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 WITH LEFT GREATER THAN RIGHT NEUROFORAMINAL NARROWING HYPERTENSION 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 DECEMBER 2005 OBESITY, MORBID HYPERHOMOCYSTINEMIA, MILD-12/2003-12.6 (4.3-11.4) IMPAIRED FASTING GLUCOSE HYPERLIPIDEMIA 2B VENOUS INSUFFICIENCY BILATERAL LOWER EXTREMITIES ALLERGIES TETRACYCLINE HCL: NAUSEA/VOMITING: ALLERGY HORSE SERUM: NAUSEA/VOMITING: ALLERGY SURGICAL HISTORY RIGHT MENISCUS REPAIR TONSILLECTOMY HERNIATED UMBILICAL SURGERY JAN 2018 FAMILY HISTORY FATHER: , DIAGNOSED WITH HEART DISEASE, STROKE MOTHER: , DIAGNOSED WITH CANCER 3 SON(S) , 1 DAUGHTER(S) - HEALTHY. MOM--UTERINE CA. SOCIAL HISTORY GENERAL: TOBACCO USE ARE YOU A: NONSMOKER . ALCOHOL SCREENING DID YOU HAVE A DRINK CONTAINING ALCOHOL IN THE PAST YEAR?YES HOW OFTEN DID YOU HAVE A DRINK CONTAINING ALCOHOL IN THE PAST YEAR?TWO TO FOUR TIMES A MONTH (2 POINTS) HOW MANY DRINKS DID YOU HAVE ON A TYPICAL DAY WHEN YOU WERE DRINKING IN THE PAST YEAR?1 OR 2 (0 POINTS) HOW OFTEN DID YOU HAVE SIX OR MORE DRINKS ON ONE OCCASION IN THE PAST YEAR?NEVER (0 POINTS) POINTS2 INTERPRETATIONNEGATIVE RECREATIONAL DRUG USE DRUG USE?YES HOW OFTEN AND HOW MUCH? OCC. MARIJUANA CAFFEINE CAFFEINE USE?YES HOW OFTEN AND HOW MUCH? 2 CUPS/DAY ISLAM [id number] EVANGELICAL LANGUAGE LANGUAGES SPOKEN:DIVEHI LEARNING BARRIERS / SPECIAL NEEDS BARRIERS TO LEARNING?NO HEARING IMPAIRED?NO NO HEARING AIDS. 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 DIET: REGULAR. EXERCISE: WALKS. MARITAL STATUS: . OTHERS AT HOME: SPOUSE. FEMALE 6 MONTH RISK ASSESSMENT FOR STD SPOUSE. NEW PATIENT PAIN DIARY FROM 0-10, WHAT LEVEL IS YOUR PAIN TODAY?7 PAIN CLINIC PFS, CLERGY, PUBLIC HEALTH REFERRALS PFS REFERRAL NEEDED?NO CLERGY REFERRAL NEEDED?NO PUBLIC HEALTH REFERRAL NEEDED?NO WAS THE PROVIDER NOTIFIED OF ANY PERTINENT INFO?NO N/A HAS THE PATIENT BEEN EDUCATED REGARDING HIS/HER PLAN OF CARE?YES HAS THE PATIENT BEEN EDUCATED REGARDING PAIN, THE RISK FOR PAIN, THE IMPORTANCE OF EFFECTIVE PAIN MANAGEMENT, AND THE PAIN ASSESSMENT PROCESS?YES HOUSING: OWNS HOME. ADVANCE DIRECTIVE ADVANCE DIRECTIVE DISCUSSED WITH PATIENT:YES 11/11/17 PT STATES HE HAS HCP. POA, AND LIVING WILL [id number] [phone] REVIEWED 05/05/18 1135 LAS. HOSPITALIZATION/MAJOR DIAGNOSTIC PROCEDURE SURGERY RELATED REVIEW OF SYSTEMS REVIEWED BY: PROVIDER: SWETHA JENSEN . CONSTITUTIONAL: ANY CHANGE IN YOUR MEDICAL CONDITION? YES PT BEING TREATED FOR A MICRO FRACTURE OF RIGHT HUMERUS. . CHILLS NO . FEVER NO . INFECTION: DO YOU HAVE NEW INFECTIONS? NO . DO YOU HAVE HISTORY OF MRSA? NO . MUSCULOSKELETAL: ANY NEW PATTERNS OF PAIN OR NUMBNESS? PT REPORTS IF HE HOLDS HIS HEAD IN A CERTAIN WAY, HE GET NUMBNESS/TINGLING ON LEFT SIDE OF NECK/ LEFT CLAVICULAR AREA. THIS IS A REPRODUCABLE EVENT. . GASTROENTEROLOGY: ANY NEW CHANGE IN BOWEL CONTROL? NO . GENITOURINARY: ANY NEW CHANGE IN BLADDER CONTROL? NO . IS THERE A CHANCE YOU COULD BE ? NO . HEMATOLOGY/LYMPH: DO YOU TAKE ANY BLOOD THINNERS? (FOR EXAMPLE- COUMADIN, PLAVIX, AGGRENOX, PLATEL, PRADAXA, OR XARELTO) NO . WHEN WAS YOUR LAST DOSE? DATE: TIME: . NEUROLOGY: HAVE YOU FALLEN IN THE PAST 6 MONTHS? YES PT FELL OFF THE BACK OF A TRAILER, SLIPPED IN THE RAIN AND SUSTAINED A MICRO FRACTURE OF RIGHT ARM. FEELS THAT THIS MADE HIS LESI L4-L5 LESS EFFECTIVE . ANY NEW EXTREMITY NUMBNESS OR WEAKNESS? NO . CARDIOLOGY: DO YOU HAVE A PACEMAKER OR DEFIBRILLATOR? NO . RESPIRATORY: HAVE YOU BEEN SICK IN THE PAST WEEK? NO . FEVER NO . FLU LIKE SYMPTOMS? NO . COUGH NO . INTEGUMENTARY: DO YOU HAVE ANY RASHES OR OPEN SORES? NO . ALLERGIC/IMMUNO: ARE YOU ALLERGIC TO SHELLFISH OR IV DYE? NO . ANY NEW ALLERGIES? NO . PSYCHIATRIC: DO YOU HAVE THOUGHTS OF HURTING YOURSELF OR SOMEONE ELSE? NO . ARE YOU ABUSED, NEGLECTED, OR IN AN UNSAFE ENVIRONMENT? NO . ENDOCRINOLOGY: ARE YOU DIABETIC? NO . OTHER: DO YOU NEED ANY PRESCRIPTIONS? NO . IF YES, PLEASE LIST: ____ . ANY NEW PROBLEMS WITH YOUR MEDICATIONS? NO . WHEN DID YOU LAST EAT? ____ . WHEN DID YOU LAST DRINK? ____ . WHAT DID YOU LAST DRINK? ____ . NAME OF PERSON DRIVING YOU HOME? ____ . DO YOU HAVE ANY OTHER QUESTIONS OR CONCERNS NO . VITAL SIGNS WT 291.2 LBS, HT 68 IN, BMI 44.27 INDEX, BP 148/94 MM HG, HR 67 /MIN, RR 18 /MIN, TEMP 97.1 F, OXYGEN SAT % 95%, SAFE IN ENV? (Y/N) YES, NA INITIALS SC 11:17, REVIEWED BY: LATISHA. EXAMINATION GENERAL EXAMINATION: GENERAL APPEARANCE:AWAKE,ALERT ,PLEAASANT . PSYCHAFFECT NORMAL . LUNGS:LUNG HEBERT ARE CLEAR TO AUSCULTATION BILATERALLY. GOOD MOVEMENT OF AIR . HEART:S1, S2 IN A REGULAR RATE AND RHYTHM. NO SIGNIFICANT MURMURS, RUBS OR GALLOPS NOTED . LUMBAR SACRAL SPINEPALPATION: + FOR PAIN OVER L/S SPINE. + FOR PAIN OVER L/S PARASPINALS . NEUROLOGIC EXAM:NORMAL SENSATION LIGHT TOUCH BILAT. LOWER EXTREMITIES . ASSESSMENTS INTERVERTEBRAL LUMBAR DISC DISORDER WITH MYELOPATHY, LUMBAR REGION - 722.73 (PRIMARY) SPONDYLOSIS WITHOUT MYELOPATHY OR RADICULOPATHY, LUMBOSACRAL REGION - M47.817 TREATMENT INTERVERTEBRAL LUMBAR DISC DISORDER WITH MYELOPATHY, LUMBAR REGION NOTES: L4/5 INTRALAMINAR LESI. PROCEDURE CODES FA211 ESTABILISHED PATIENT [facility] CHARGE DISPOSITION & COMMUNICATION FOLLOW UP POST (REASON: L4/5 INTRALAMINAR LESI) ELECTRONICALLY SIGNED BY MIKEY TELLO ON 05/24/2018 AT 04:19 PM EST DISCLAIMER : THIS IS A VISIT SUMMARY EXTRACTED FROM THE [facility] CHART. IT IS NOT A COPY OF THE [facility] PROGRESS NOTE. KAMILLA
== END ==
LOC: M PAIN 08:30
PROVIDERS: ATTEND Nurse Practitioner Family
DX: M47.817 Spondylosis without myelopathy or radiculopathy, lumbosacral region (principal); I10 Essential (primary) hypertension; E66.01 Morbid (severe) obesity due to excess calories; Z68.41 Body mass index [BMI] 40.0-44.9, adult; Z79.82 Long term (current) use of aspirin; Z79.899 Other long term (current) drug therapy; Z88.1 Allergy status to other antibiotic agents; Z88.7 Allergy status to serum and vaccine; Z86.39 Personal history of other endocrine, nutritional and metabolic disease; Z86.79 Personal history of other diseases of the circulatory system

== ENCOUNTER → 2018-05-12 | Outpatient (CLI) | payer BC ==
[~2018-05-12] MED LIST changes: +ISOVUE-M 300 61% 15ML VIAL (Q9967) As Ordered ONE; +LIDOCAINE 1% SDV INJ 30 ML VIAL As Ordered ONE; +diazePAM 5 MG TAB As Ordered ONE; +methylPREDNISolone SUSP 40 MG/ML (DEPO-medrol) VIAL (J1030) As Ordered ONE; +oxyCODONE 5MG TAB As Ordered ONE
--- NOTE | 2018-05-12 10:57 | REP ---
Partial lumbar spine series: Two views . History: Injection procedure for pain. 10 seconds of fluoroscopy time is reported. Findings: A sequence of two fluoroscopically obtained last image hold procedural spot radiographs of the lumbar spine document needle position and contrast injection associated with injection procedure. Electronically Signed by Waldo Merchant MD 05/12/2018 10:49 A
--- NOTE | 2018-05-31 00:58 | ECWPNPC ---
PATIENT NAME: MOON LUCAS : 1960 GENDER: MALE VISIT DATE: 05/12/2018 DISCHARGE DATE: 05/12/18 1119 VISIT LOCKED DATE TIME: PHYSICIAN: CHAIM RAI MD RESOURCE: CHAIM RAI MD REASON FOR APPOINTMENT 1. LESI BOOKED PER DR Olsen HISTORY OF PRESENT ILLNESS HISTORY OF PRESENT ILLNESS: PAIN THE PATIENT DESCRIBES THE PAIN... FALL RISK SCREENING: SCREENING :NO FALLS IN THE PAST YEAR CURRENT MEDICATIONS TAKING LISINOPRIL 5 MG TABLET 1 TAB(S) ORALLY ONCE A DAY, NOTES: 05/11/172099 TAKING ATENOLOL 25 MG TABLET 1 TABLET ORALLY ONCE A DAY, NOTES: 05/11/172099 TAKING LIPITOR 20 MG TABLET 1 TABLET ORALLY ONCE A DAY, NOTES: 05/11/172099 TAKING ASPIRIN 81 MG TABLET 1 TABLET ORALLY ONCE A DAY, NOTES: 05/11/172099 TAKING HYDROCODONE-ACETAMINOPHEN 10-325 MG TABLET 1 TABLET NEEDED ORALLY EVERY 8 HRS PRN FOR PAIN MDD3, NOTES: 05/11/17 190 TAKING VITAMIN D (ERGOCALCIFEROL) 54387 UNIT CAPSULE 1 CAPSULE ORALLY MONTHLY, NOTES: 05/01/18 TAKING IBUPROFEN 800 MG TABLET 1 TAB ORALLY Q6H PRN, NOTES: 06 TAKING GABAPENTIN 100 MG CAPSULE DIRECTED ORALLY THREE TIMES DAILY, NOTES: 629 TAKING SALONPAS 4% 1 PATCH DAILY NEEDED MEDICATION LIST REVIEWED AND RECONCILED WITH THE PATIENT PAST MEDICAL HISTORY 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 RADICULAR PAIN-JANUARY 2010 MRI MULTILEVEL DJD, GRADE 1 DEGENERATIVE ANTEROLISTHESIS L4/L5, 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 WITH LEFT GREATER THAN RIGHT NEUROFORAMINAL NARROWING HYPERTENSION 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 DECEMBER 2005 OBESITY, MORBID HYPERHOMOCYSTINEMIA, MILD-12/2003-12.6 (4.3-11.4) IMPAIRED FASTING GLUCOSE HYPERLIPIDEMIA 2B VENOUS INSUFFICIENCY BILATERAL LOWER EXTREMITIES TORN ROTATOR CUFF ALLERGIES TETRACYCLINE HCL: NAUSEA/VOMITING: ALLERGY HORSE SERUM: NAUSEA/VOMITING: ALLERGY SURGICAL HISTORY RIGHT MENISCUS REPAIR TONSILLECTOMY HERNIATED UMBILICAL SURGERY JAN 2018 FAMILY HISTORY FATHER: , DIAGNOSED WITH HEART DISEASE, STROKE MOTHER: , DIAGNOSED WITH CANCER 3 SON(S) , 1 DAUGHTER(S) - HEALTHY. MOM--UTERINE CA. SOCIAL HISTORY GENERAL: TOBACCO USE ARE YOU A: NONSMOKER . ALCOHOL SCREENING DID YOU HAVE A DRINK CONTAINING ALCOHOL IN THE PAST YEAR?YES HOW OFTEN DID YOU HAVE A DRINK CONTAINING ALCOHOL IN THE PAST YEAR?TWO TO FOUR TIMES A MONTH (2 POINTS) HOW MANY DRINKS DID YOU HAVE ON A TYPICAL DAY WHEN YOU WERE DRINKING IN THE PAST YEAR?1 OR 2 (0 POINTS) HOW OFTEN DID YOU HAVE SIX OR MORE DRINKS ON ONE OCCASION IN THE PAST YEAR?NEVER (0 POINTS) POINTS2 INTERPRETATIONNEGATIVE RECREATIONAL DRUG USE DRUG USE?YES HOW OFTEN AND HOW MUCH? OCC. MARIJUANA CAFFEINE CAFFEINE USE?YES HOW OFTEN AND HOW MUCH? 2 CUPS/DAY CONFUCIANISM [id number] YAZIDI LANGUAGE LANGUAGES SPOKEN:MOHAWK LEARNING BARRIERS / SPECIAL NEEDS BARRIERS TO LEARNING?NO HEARING IMPAIRED?NO NO HEARING AIDS. 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 DIET: REGULAR. EXERCISE: WALKS. MARITAL STATUS: . OTHERS AT HOME: SPOUSE. FEMALE 6 MONTH RISK ASSESSMENT FOR STD SPOUSE. NEW PATIENT PAIN DIARY FROM 0-10, WHAT LEVEL IS YOUR PAIN TODAY?7 PAIN CLINIC PFS, CLERGY, PUBLIC HEALTH REFERRALS PFS REFERRAL NEEDED?NO CLERGY REFERRAL NEEDED?NO PUBLIC HEALTH REFERRAL NEEDED?NO WAS THE PROVIDER NOTIFIED OF ANY PERTINENT INFO?NO N/A HAS THE PATIENT BEEN EDUCATED REGARDING HIS/HER PLAN OF CARE?YES HAS THE PATIENT BEEN EDUCATED REGARDING PAIN, THE RISK FOR PAIN, THE IMPORTANCE OF EFFECTIVE PAIN MANAGEMENT, AND THE PAIN ASSESSMENT PROCESS?YES HOUSING: OWNS HOME. ADVANCE DIRECTIVE ADVANCE DIRECTIVE DISCUSSED WITH PATIENT:YES 11/11/17 PT STATES HE HAS HCP. POA, AND LIVING WILL [id number] [phone] REVIEWED 05/05/18 1135 LASREVIEWED WITH PATIENT 05/12 18 8610 JS. HOSPITALIZATION/MAJOR DIAGNOSTIC PROCEDURE SURGERY RELATED REVIEW OF SYSTEMS REVIEWED BY: PROVIDER: . CONSTITUTIONAL: ANY CHANGE IN YOUR MEDICAL CONDITION? NO . CHILLS NO . FEVER NO . INFECTION: DO YOU HAVE NEW INFECTIONS? NO . DO YOU HAVE HISTORY OF MRSA? NO . MUSCULOSKELETAL: ANY NEW PATTERNS OF PAIN OR NUMBNESS? NO . GASTROENTEROLOGY: ANY NEW CHANGE IN BOWEL CONTROL? NO . GENITOURINARY: ANY NEW CHANGE IN BLADDER CONTROL? NO . IS THERE A CHANCE YOU COULD BE ? NO . HEMATOLOGY/LYMPH: DO YOU TAKE ANY BLOOD THINNERS? (FOR EXAMPLE- COUMADIN, PLAVIX, AGGRENOX, PLATEL, PRADAXA, OR XARELTO) NO . WHEN WAS YOUR LAST DOSE? DATE: TIME: . NEUROLOGY: HAVE YOU FALLEN IN THE PAST 6 MONTHS? NO . ANY NEW EXTREMITY NUMBNESS OR WEAKNESS? NO . CARDIOLOGY: DO YOU HAVE A PACEMAKER OR DEFIBRILLATOR? NO . RESPIRATORY: HAVE YOU BEEN SICK IN THE PAST WEEK? NO . FEVER NO . FLU LIKE SYMPTOMS? NO . COUGH NO . INTEGUMENTARY: DO YOU HAVE ANY RASHES OR OPEN SORES? NO . ALLERGIC/IMMUNO: ARE YOU ALLERGIC TO SHELLFISH OR IV DYE? NO . ANY NEW ALLERGIES? NO . PSYCHIATRIC: DO YOU HAVE THOUGHTS OF HURTING YOURSELF OR SOMEONE ELSE? NO . ARE YOU ABUSED, NEGLECTED, OR IN AN UNSAFE ENVIRONMENT? NO . ENDOCRINOLOGY: ARE YOU DIABETIC? NO . OTHER: DO YOU NEED ANY PRESCRIPTIONS? NO . IF YES, PLEASE LIST: ____ . ANY NEW PROBLEMS WITH YOUR MEDICATIONS? NO . WHEN DID YOU LAST EAT? ____05/11/18 2030 . WHEN DID YOU LAST DRINK? ____05/12/18 0630 . WHAT DID YOU LAST DRINK? ____WATER . NAME OF PERSON DRIVING YOU HOME? ____JUAN LUCAS . DO YOU HAVE ANY OTHER QUESTIONS OR CONCERNS NO . VITAL SIGNS WT 298 LBS, HT 68 IN, BMI 45.31 INDEX, BP 147/94 MM HG, HR 64 /MIN, RR 18 /MIN, TEMP 96.8 F, OXYGEN SAT % 95%, SAFE IN ENV? (Y/N) YES, NA INITIALS SC 09:00, REVIEWED BY: JS. ASSESSMENTS SPINAL STENOSIS OF LUMBAR REGION, UNSPECIFIED WHETHER NEUROGENIC CLAUDICATION PRESENT - M48.061 (PRIMARY) INTERVERTEBRAL DISC DISORDER WITH RADICULOPATHY OF LUMBAR REGION - M51.16 PROCEDURES PRE PROCEDURE DIAGNOSIS LUMBAR DISC DISORDER WITH RADICULOPATHY, LUMBAR SPINAL STENOSIS POST PROCEDURE DIAGNOSIS LUMBAR DISC DISORDER WITH RADICULOPATHY , LUMBAR SPINAL STENOSIS PROCEDURE LUMBAR EPIDURAL STEROID INJECTION UNDER FLUOROSCOPIC GUIDANCE SURGEON DR. CHAIM RAI PLYWOOD FACTORY WORKER NONE ANESTHESIA LOCAL PRE PROCEDURE NOTE THE PATIENT HAS A HISTORY OF CHRONIC LOW BACK PAIN. I EVALUATE THE PATIENT AND REVIEWED THE CHART. I WENT OVER THE RISKS, ALTERNATIVES, AND BENEFITS ASSOCIATED WITH THIS PROCEDURE. THE PATIENT WOULD LIKE TO PROCEED AND GIVE CONSENT TO PERFORMED THE PROCEDURE. THE PATIENT DENIES UNEXPLAINABLE WEIGHT LOSS, FEVER, CHILLS, OR NEW CHANGES IN URINARY OR BOWEL CONTROL. DESCRIPTION OF PROCEDURE THE PATIENT WAS BROUGHT TO THE PROCEDURE ROOM AND PLACED IN THE PRONE POSITION. THE LUMBOSACRAL AREA WAS CLEANED WITH BETADINE SOLUTION AND DRAPED ASEPTICALLY. THE PROCEDURE WAS DONE UNDER STERILE CONDITIONS. I CHECKED LATERALITY AND THE LEVEL WHERE THE PROCEDURE WAS GOING TO BE PERFORMED WITH THE PATIENT AND THE SUPPORTING STAFF AT THE MOMENT OF THE TIME OUT IN THE PROCEDURE ROOM. UNDER FLUOROSCOPIC GUIDANCE, THE TARGET POINT WAS SELECTED AT THE INTERLAMINAR LEVEL OF L4-L5. LIDOCAINE WAS USED TO NUMB THE SKIN AND THE SUBCUTANEOUS TISSUE BELOW IT. EPIDURAL TUOHY NEEDLE, 17-GAUGE, WAS ADVANCED UNDER FLUOROSCOPIC GUIDANCE AND FOLLOWING PATIENT FEEDBACK UNTIL THE EPIDURAL SPACE WAS REACHED, 7 CM DEEP INTO THE SKIN BY THE LOSS OF RESISTANCE TECHNIQUE. ISOVUE M DYE 30%, 0.25 ML, WAS INJECTED SHOWING ADEQUATE SPREAD OF THE DYE. THEN, A SOLUTION OF 3 ML OF NORMAL SALINE WITH DEPO-MEDROL 60 MG WAS INJECTED SLOWLY FOLLOWING PATIENT FEEDBACK. THERE WAS NO EVIDENCE OF BLOOD, PARESTHESIA OR CEREBROSPINAL FLUID DURING THE PROCEDURE. THE PATIENT WAS SENT TO THE RECOVERY ROOM. THE PATIENT WAS MOVING THE EXTREMITIES AND DOING WELL. THERE WAS NO COMPLICATION DURING THE PROCEDURE. FLUOROSCOPY TIME WAS 10 SECONDS. POST PROCEDURE NOTE THE PATIENT WILL BE SEEN IN A FOLLOW UP IN THE NEXT FEW WEEKS. INSTRUCTIONS WERE GIVEN, QUESTIONS WERE ANSWERED, AND THE PATIENT EXPRESSED UNDERSTANDING AND AGREES WITH THE PLAN. I, RALPH HERNDON, DOCUMENTED THE ABOVE INFORMATION ACTING A SCRIBE FOR DR. RAI. I HAVE REVIEWED THE ABOVE DOCUMENT, WRITTEN BY RALPH SNYDERIBDavid AND I VERIFY THAT IT IS ACCURATE. DIAGNOSTIC IMAGING [facility] FLUORO GUIDE SPINE INJECTION (PAIN)[id number] PROCEDURE CODES 6045F RADXPS IN END [id number] PXD [id number] LUMBAR/SACRAL W/ IMAGING DISPOSITION & COMMUNICATION FOLLOW UP 2 WEEKS ELECTRONICALLY SIGNED BY CHAIM RAI MD, MD ON 05/30/2018 AT 11:32 AM EST DISCLAIMER : THIS IS A VISIT SUMMARY EXTRACTED FROM THE [facility] CHART. IT IS NOT A COPY OF THE [facility] PROGRESS NOTE. MTDD
== END ==
LOC: M PAIN 08:45
PROVIDERS: ATTEND Anesthesiology
DX: G89.29 Other chronic pain (principal); M48.061 Spinal stenosis, lumbar region without neurogenic claudication; M51.16 Intervertebral disc disorders with radiculopathy, lumbar region; I10 Essential (primary) hypertension; E78.5 Hyperlipidemia, unspecified; E66.01 Morbid (severe) obesity due to excess calories; Z68.42 Body mass index [BMI] 45.0-49.9, adult; Z79.82 Long term (current) use of aspirin; Z79.899 Other long term (current) drug therapy; Z88.1 Allergy status to other antibiotic agents; Z88.7 Allergy status to serum and vaccine; Z86.79 Personal history of other diseases of the circulatory system
CPT/HCPCS: 62323; J1030; Q9967

== ENCOUNTER → 2018-08-08 | Outpatient (CLI) | payer BC ==
[~2018-08-08] MED LIST changes: -ISOVUE-M 300 61% 15ML VIAL (Q9967) As Ordered ONE; -LIDOCAINE 1% SDV INJ 30 ML VIAL As Ordered ONE; -diazePAM 5 MG TAB As Ordered ONE; -methylPREDNISolone SUSP 40 MG/ML (DEPO-medrol) VIAL (J1030) As Ordered ONE; -oxyCODONE 5MG TAB As Ordered ONE
--- NOTE | 2018-08-13 00:37 | ECWPNPC ---
PATIENT NAME: MOON LUCAS : 1960 GENDER: MALE VISIT DATE: 08/08/2018 DISCHARGE DATE: 08/08/18 1019 VISIT LOCKED DATE TIME: PHYSICIAN: SWETHA LAWSON RESOURCE: WSETHA LAWSON REASON FOR APPOINTMENT 1. POST PROC HISTORY OF PRESENT ILLNESS HISTORY OF PRESENT ILLNESS: HERE FOR POST PROCEDURE F/U.HAD LESI L4/5 ON 05/12/18.STATES HE DID WELL POST PROCEDURE WITH MARKED REDUCTION IN PAIN AND IMPROVED ABILITY TO FUNTION.PAIN HAS GRADUALLY RETURNED TO BASELINE.RATING PAIN VAS 3/10.PAIN IS CENTRAL LOW BACK WITH RADIATION INTO THIGHS BILAT. PAIN THE PATIENT DESCRIBES THE PAIN... THE PATIENT DESCRIBES THE PAIN... FALL RISK SCREENING: SCREENING :NO FALLS REPORTED IN THE LAST YEAR CURRENT MEDICATIONS TAKING LISINOPRIL 5 MG TABLET 1 TAB(S) ORALLY ONCE A DAY TAKING ATENOLOL 25 MG TABLET 1 TABLET ORALLY ONCE A DAY TAKING LIPITOR 20 MG TABLET 1 TABLET ORALLY ONCE A DAY TAKING ASPIRIN 81 MG TABLET 1 TABLET ORALLY ONCE A DAY TAKING HYDROCODONE-ACETAMINOPHEN 10-325 MG TABLET 1 TABLET NEEDED ORALLY EVERY 8 HRS PRN FOR PAIN MDD3 TAKING VITAMIN D (ERGOCALCIFEROL) 38627 UNIT CAPSULE 1 CAPSULE ORALLY MONTHLY TAKING IBUPROFEN 800 MG TABLET 1 TAB ORALLY Q6H PRN TAKING GABAPENTIN 100 MG CAPSULE DIRECTED ORALLY THREE TIMES DAILY TAKING SALONPAS 4% 1 PATCH DAILY NEEDED MEDICATION LIST REVIEWED AND RECONCILED WITH THE PATIENT PAST MEDICAL HISTORY 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 RADICULAR PAIN-JANUARY 2010 MRI MULTILEVEL DJD, GRADE 1 DEGENERATIVE ANTEROLISTHESIS L4/L5, 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 WITH LEFT GREATER THAN RIGHT NEUROFORAMINAL NARROWING HYPERTENSION 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 MOM--UTERINE CA. SOCIAL HISTORY GENERAL: TOBACCO USE ARE YOU A: NONSMOKER . LATEX QUESTIONNAIRE LATEX ALLERGY : HAVE YOU EVER DEVELOPED ANY TYPE OF REACTION AFTER HANDLING LATEX PRODUCTS SUCH RUBBER GLOVES, CONDOMS, DIAPHRAGMS, BALLOONS, SOCKS, OR UNDERWEAR?NO LATEX ALLERGY : HAVE YOU EVER DEVELOPED ANY TYPE OF REACTION DURING OR AFTER DENTAL APPOINTMENT, VAGINAL/RECTAL EXAMINATION, SURGICAL PROCEDURE, OR ANY OTHER EXPOSURE?NO LATEX RISK : HAVE YOU EVER HAD ANY DIFFICULTY BREATHING OR HIVES AFTER EATING OR HANDLING ANY FRUITS, OR VEGETABLES; SUCH KIWI, BANANAS, STONE FRUITS, OR CHESTNUTSNO LATEX RISK : DO YOU HAVE A PREVIOUS PERSONAL HISTORY OF MORE THAN NINE SURGERIES, SPINA BIFIDA, OR REPEATED CATHERTIZATIONS? NO LATEX RISK : ARE YOU FREQUENTLY EXPOSED TO LATEX PRODUCTS IN YOUR OCCUPATION?NO DATE ASKED : 08/08/2018 ALCOHOL SCREENING DID YOU HAVE A DRINK CONTAINING ALCOHOL IN THE PAST YEAR?YES HOW OFTEN DID YOU HAVE A DRINK CONTAINING ALCOHOL IN THE PAST YEAR?TWO TO FOUR TIMES A MONTH (2 POINTS) HOW MANY DRINKS DID YOU HAVE ON A TYPICAL DAY WHEN YOU WERE DRINKING IN THE PAST YEAR?1 OR 2 (0 POINTS) HOW OFTEN DID YOU HAVE SIX OR MORE DRINKS ON ONE OCCASION IN THE PAST YEAR?NEVER (0 POINTS) POINTS2 INTERPRETATIONNEGATIVE RECREATIONAL DRUG USE DRUG USE?YES HOW OFTEN AND HOW MUCH? OCC. MARIJUANA CAFFEINE CAFFEINE USE?YES HOW OFTEN AND HOW MUCH? 2 CUPS/DAY MUSLIM [id number] ORTHODOXY LANGUAGE LANGUAGES SPOKEN:SERBIAN LEARNING BARRIERS / SPECIAL NEEDS BARRIERS TO LEARNING?NO HEARING IMPAIRED?NO NO HEARING AIDS. 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 DIET: REGULAR. EXERCISE: WALKS. MARITAL STATUS: . OTHERS AT HOME: SPOUSE. FEMALE 6 MONTH RISK ASSESSMENT FOR STD SPOUSE. NEW PATIENT PAIN DIARY FROM 0-10, WHAT LEVEL IS YOUR PAIN TODAY?7 PAIN CLINIC PFS, CLERGY, PUBLIC HEALTH REFERRALS PFS REFERRAL NEEDED?NO CLERGY REFERRAL NEEDED?NO PUBLIC HEALTH REFERRAL NEEDED?NO WAS THE PROVIDER NOTIFIED OF ANY PERTINENT INFO?NO N/A HAS THE PATIENT BEEN EDUCATED REGARDING HIS/HER PLAN OF CARE?YES HAS THE PATIENT BEEN EDUCATED REGARDING PAIN, THE RISK FOR PAIN, THE IMPORTANCE OF EFFECTIVE PAIN MANAGEMENT, AND THE PAIN ASSESSMENT PROCESS?YES HOUSING: OWNS HOME. ADVANCE DIRECTIVE ADVANCE DIRECTIVE DISCUSSED WITH PATIENT:YES 11/11/17 PT STATES HE HAS HCP. POA, AND LIVING WILL [id number] [phone] REVIEWED 05/05/18 3296 LASREVIEWED WITH PATIENT 05/12 18 1167 JS. HOSPITALIZATION/MAJOR DIAGNOSTIC PROCEDURE SURGERY RELATED REVIEW OF SYSTEMS REVIEWED BY: PROVIDER: SWETHA JENSEN . CONSTITUTIONAL: ANY CHANGE IN YOUR MEDICAL CONDITION? NO . CHILLS NO . FEVER NO . INFECTION: DO YOU HAVE NEW INFECTIONS? NO . DO YOU HAVE HISTORY OF MRSA? NO . MUSCULOSKELETAL: ANY NEW PATTERNS OF PAIN OR NUMBNESS? YES, LIFTED SUITCASE IN [place] READY FOR SHOTS NOW . GASTROENTEROLOGY: ANY NEW CHANGE IN BOWEL CONTROL? NO . GENITOURINARY: ANY NEW CHANGE IN BLADDER CONTROL? NO . IS THERE A CHANCE YOU COULD BE ? NO . HEMATOLOGY/LYMPH: DO YOU TAKE ANY BLOOD THINNERS? (FOR EXAMPLE- COUMADIN, PLAVIX, AGGRENOX, PLATEL, PRADAXA, OR XARELTO) NO . WHEN WAS YOUR LAST DOSE? DATE: TIME: . NEUROLOGY: HAVE YOU FALLEN IN THE PAST 12 MONTHS? NO . ANY NEW EXTREMITY NUMBNESS OR WEAKNESS? NO . CARDIOLOGY: DO YOU HAVE A PACEMAKER OR DEFIBRILLATOR? NO . RESPIRATORY: HAVE YOU BEEN SICK IN THE PAST WEEK? NO . FEVER NO . FLU LIKE SYMPTOMS? NO . COUGH NO . INTEGUMENTARY: DO YOU HAVE ANY RASHES OR OPEN SORES? NO . ALLERGIC/IMMUNO: ARE YOU ALLERGIC TO IV DYE? NO . ANY NEW ALLERGIES? NO . PSYCHIATRIC: DO YOU HAVE THOUGHTS OF HURTING YOURSELF OR SOMEONE ELSE? NO . ARE YOU ABUSED, NEGLECTED, OR IN AN UNSAFE ENVIRONMENT? NO . ENDOCRINOLOGY: ARE YOU DIABETIC? NO . OTHER: DO YOU NEED ANY PRESCRIPTIONS? NO . IF YES, PLEASE LIST: ____ . ANY NEW PROBLEMS WITH YOUR MEDICATIONS? NO . WHEN DID YOU LAST EAT? ____ . WHEN DID YOU LAST DRINK? ____ . WHAT DID YOU LAST DRINK? ____ . NAME OF PERSON DRIVING YOU HOME? ____ . DO YOU HAVE ANY OTHER QUESTIONS OR CONCERNS NO . VITAL SIGNS WT 299.2 LBS, HT 68 IN, BMI 45.49 INDEX, BP 160/85 MM HG, HR 67 /MIN, RR 18 /MIN, TEMP 98.2 F, OXYGEN SAT % 98%, NA INITIALS SC 09:24, REVIEWED BY: NL. EXAMINATION GENERAL EXAMINATION: GENERAL APPEARANCE: AWAKE,ALERT ,PLEAASANT . PSYCH AFFECT NORMAL . LUNGS: LUNG HEBERT ARE CLEAR TO AUSCULTATION BILATERALLY. GOOD MOVEMENT OF AIR . HEART: S1, S2 IN A REGULAR RATE AND RHYTHM. NO SIGNIFICANT MURMURS, RUBS OR GALLOPS NOTED . LUMBAR SACRAL SPINE PALPATION: + FOR PAIN OVER L/S SPINE. + FOR PAIN OVER L/S PARASPINALS SLE +45 DEGREES BILAT . NEUROLOGIC EXAM: NORMAL SENSATION LIGHT TOUCH BILAT. LOWER EXTREMITIES . DIAGNOSTIC TESTS REVIEWED MRI L/S SPINE-2016. ASSESSMENTS INTERVERTEBRAL LUMBAR DISC DISORDER WITH MYELOPATHY, LUMBAR REGION - 722.73 (PRIMARY) SPONDYLOSIS WITHOUT MYELOPATHY OR RADICULOPATHY, LUMBOSACRAL REGION - M47.817 TREATMENT INTERVERTEBRAL LUMBAR DISC DISORDER WITH MYELOPATHY, LUMBAR REGION NOTES: L4/5 INTRALAMINAR LESI. PREVENTIVE MEDICINE PAIN CLINIC TEACHING: THE PATIENT HAS BEEN EDUCATED REGARDING HIS/HER PLAN OF CARE :YES (PLEASE DOCUMENT ADDTIONAL DETAILS IN THE FREE TEXT NOTES SECTION) THE PATIENT HAS BEEN EDUCATED REGARDING PAIN, THE RISK FOR PAIN, THE IMPORTANCE OF EFFECTIVE PAIN MANAGEMENT, AND THE PAIN ASSESSMENT PROCESS. :YES (PLEASE DOCUMENT ADDITIONAL DETAILS UNDER THE FREE TEXT NOTES SECTION) REVIEWED PRE PROCEDURE CARE WITH PT EXPRESSING UNDERSTANDING OF ALL. PROCEDURE CODES FA211 ESTABILISHED PATIENT [facility] CHARGE DISPOSITION & COMMUNICATION FOLLOW UP POST (REASON: L4/5 INTRALAMINAR LESI) ELECTRONICALLY SIGNED BY MIKEY TELLO ON 08/12/2018 AT 03:48 PM EDT DISCLAIMER : THIS IS A VISIT SUMMARY EXTRACTED FROM THE [employer] CHART. IT IS NOT A COPY OF THE [employer] PROGRESS NOTE. KAMILLA
== END ==
LOC: M PAIN 09:00
PROVIDERS: ATTEND Nurse Practitioner Family
DX: M47.817 Spondylosis without myelopathy or radiculopathy, lumbosacral region (principal); I10 Essential (primary) hypertension; R73.01 Impaired fasting glucose; E78.5 Hyperlipidemia, unspecified; E66.01 Morbid (severe) obesity due to excess calories; Z68.42 Body mass index [BMI] 45.0-49.9, adult; Z79.82 Long term (current) use of aspirin; Z88.6 Allergy status to analgesic agent; Z79.899 Other long term (current) drug therapy; Z88.7 Allergy status to serum and vaccine; Z88.1 Allergy status to other antibiotic agents; Z86.79 Personal history of other diseases of the circulatory system

== ENCOUNTER → 2018-09-13 | Outpatient (CLI) | payer BC ==
[~2018-09-13] MED LIST changes: +ISOVUE-M 300 61% 15ML VIAL (Q9967) As Ordered ONE; +LIDOCAINE 1% SDV INJ 30 ML VIAL As Ordered ONE; +diazePAM 5 MG TAB As Ordered ONE; +methylPREDNISolone SUSP 40 MG/ML (DEPO-medrol) VIAL (J1030) As Ordered ONE; +oxyCODONE 5MG TAB As Ordered ONE
--- NOTE | 2018-09-13 12:34 | REP ---
Partial lumbar spine series: Two views . History: Injection procedure for pain. 14 seconds of fluoroscopy time is reported. Findings: A sequence of two fluoroscopically obtained last image hold procedural spot radiographs of the lumbar spine document needle position and contrast injection associated with injection procedure. Electronically Signed by Waldo Merchant MD 09/13/2018 12:25 P
--- NOTE | 2018-09-24 23:30 | ECWPNPC ---
PATIENT NAME: MOON LUCAS : 1960 GENDER: MALE VISIT DATE: 09/13/2018 DISCHARGE DATE: 09/13/18 1128 VISIT LOCKED DATE TIME: PHYSICIAN: CHAIM RAI MD RESOURCE: CHAIM RAI MD REASON FOR APPOINTMENT 1. LESI HISTORY OF PRESENT ILLNESS HISTORY OF PRESENT ILLNESS: PAIN THE PATIENT DESCRIBES THE PAIN... FALL RISK SCREENING: SCREENING :NO FALLS REPORTED IN THE LAST YEAR CURRENT MEDICATIONS TAKING LISINOPRIL 5 MG TABLET 1 TAB(S) ORALLY ONCE A DAY, NOTES: 09/12/18@2100 TAKING ATENOLOL 25 MG TABLET 1 TABLET ORALLY ONCE A DAY, NOTES: 09/12/18@2099 TAKING LIPITOR 20 MG TABLET 1 TABLET ORALLY ONCE A DAY, NOTES: 09/12/18@2099 TAKING ASPIRIN 81 MG TABLET 1 TABLET ORALLY ONCE A DAY, NOTES: 09/12/18@2099 TAKING HYDROCODONE-ACETAMINOPHEN 10-325 MG TABLET 1 TABLET NEEDED ORALLY EVERY 8 HRS PRN FOR PAIN MDD3, NOTES: 0630 TAKING IBUPROFEN 800 MG TABLET 1 TAB ORALLY Q6H PRN, NOTES: 0630 TAKING GABAPENTIN 100 MG CAPSULE DIRECTED ORALLY THREE TIMES DAILY, NOTES: 09/06/18@2100 TAKING SALONPAS 4% 1 PATCH DAILY NEEDED, NOTES: 09/12/18@1100 NOT-TAKING VITAMIN D (ERGOCALCIFEROL) 81540 UNIT CAPSULE 1 CAPSULE ORALLY MONTHLY MEDICATION LIST REVIEWED AND RECONCILED WITH THE PATIENT PAST MEDICAL HISTORY 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 RADICULAR PAIN-JANUARY 2010 MRI MULTILEVEL DJD, GRADE 1 DEGENERATIVE ANTEROLISTHESIS L4/L5, 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 WITH LEFT GREATER THAN RIGHT NEUROFORAMINAL NARROWING HYPERTENSION 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 MOM--UTERINE CA. SOCIAL HISTORY GENERAL: TOBACCO USE ARE YOU A: NONSMOKER. OTHERS AT HOME: SPOUSE. HOUSING: OWNS HOME. DIET: REGULAR. LANGUAGE LANGUAGES SPOKEN:PASHTO DOMESTIC VIOLENCE DO YOU FEEL SAFE IN YOUR ENVIRONMENT?YES NEW PATIENT PAIN DIARY FROM 0-10, WHAT LEVEL IS YOUR PAIN TODAY?7 RECREATIONAL DRUG USE DRUG USE?YES HOW OFTEN AND HOW MUCH? OCC. MARIJUANA EXERCISE: WALKS. LEARNING BARRIERS / SPECIAL NEEDS BARRIERS TO LEARNING?NO HEARING IMPAIRED?NO NO HEARING AIDS. CAN'T HEAR HIGH FREQUENCY TONES VISION IMPAIRED?YES :CORRECTIVE LENSES COGNITIVELY IMPAIRED?NO READINESS TO LEARN?YES LEARNING PREFERENCES?NO LEARNING CAPABILITIES PRESENT?YES EMOTIONAL BARRIERS?NO SPECIAL DEVICES?YES :CANE OCCASSIONALLY GAS DESULFURIZER NEEDED?NO PAIN CLINIC PFS, CLERGY, PUBLIC HEALTH REFERRALS PFS REFERRAL NEEDED?NO CLERGY REFERRAL NEEDED?NO PUBLIC HEALTH REFERRAL NEEDED?NO WAS THE PROVIDER NOTIFIED OF ANY PERTINENT INFO?NO N/A HAS THE PATIENT BEEN EDUCATED REGARDING HIS/HER PLAN OF CARE?YES HAS THE PATIENT BEEN EDUCATED REGARDING PAIN, THE RISK FOR PAIN, THE IMPORTANCE OF EFFECTIVE PAIN MANAGEMENT, AND THE PAIN ASSESSMENT PROCESS?YES LATEX QUESTIONNAIRE LATEX ALLERGY : HAVE YOU EVER DEVELOPED ANY TYPE OF REACTION AFTER HANDLING LATEX PRODUCTS SUCH RUBBER GLOVES, CONDOMS, DIAPHRAGMS, BALLOONS, SOCKS, OR UNDERWEAR?NO LATEX ALLERGY : HAVE YOU EVER DEVELOPED ANY TYPE OF REACTION DURING OR AFTER DENTAL APPOINTMENT, VAGINAL/RECTAL EXAMINATION, SURGICAL PROCEDURE, OR ANY OTHER EXPOSURE?NO LATEX RISK : HAVE YOU EVER HAD ANY DIFFICULTY BREATHING OR HIVES AFTER EATING OR HANDLING ANY FRUITS, OR VEGETABLES; SUCH KIWI, BANANAS, STONE FRUITS, OR CHESTNUTSNO LATEX RISK : DO YOU HAVE A PREVIOUS PERSONAL HISTORY OF MORE THAN NINE SURGERIES, SPINA BIFIDA, OR REPEATED CATHERTIZATIONS? NO LATEX RISK : ARE YOU FREQUENTLY EXPOSED TO LATEX PRODUCTS IN YOUR OCCUPATION?NO DATE ASKED : 09/13/2018 CAFFEINE CAFFEINE USE?YES HOW OFTEN AND HOW MUCH? 2 CUPS/DAY ADVANCE DIRECTIVE ADVANCE DIRECTIVE DISCUSSED WITH PATIENT:YES 11/11/17 PT STATES HE HAS HCP. POA, AND LIVING WILL [id number] [phone] HOAHAOISM [id number] JAIN MARITAL STATUS: . FEMALE 6 MONTH RISK ASSESSMENT FOR STD SPOUSE. ALCOHOL SCREENING DID YOU HAVE A DRINK CONTAINING ALCOHOL IN THE PAST YEAR?YES HOW OFTEN DID YOU HAVE A DRINK CONTAINING ALCOHOL IN THE PAST YEAR?TWO TO FOUR TIMES A MONTH (2 POINTS) HOW MANY DRINKS DID YOU HAVE ON A TYPICAL DAY WHEN YOU WERE DRINKING IN THE PAST YEAR?1 OR 2 (0 POINTS) HOW OFTEN DID YOU HAVE SIX OR MORE DRINKS ON ONE OCCASION IN THE PAST YEAR?NEVER (0 POINTS) POINTS2 INTERPRETATIONNEGATIVE OCCUPATION: RETIRED. REVIEWED 05/05/18 1139 LASREVIEWED WITH PATIENT 05/12 18 8439 JS. HOSPITALIZATION/MAJOR DIAGNOSTIC PROCEDURE SURGERY RELATED REVIEW OF SYSTEMS REVIEWED BY: PROVIDER: . CONSTITUTIONAL: ANY CHANGE IN YOUR MEDICAL CONDITION? NO . CHILLS NO . FEVER NO . INFECTION: DO YOU HAVE NEW INFECTIONS? NO . DO YOU HAVE HISTORY OF MRSA? NO . MUSCULOSKELETAL: ANY NEW PATTERNS OF PAIN OR NUMBNESS? NO . GASTROENTEROLOGY: ANY NEW CHANGE IN BOWEL CONTROL? NO . GENITOURINARY: ANY NEW CHANGE IN BLADDER CONTROL? NO . IS THERE A CHANCE YOU COULD BE ? NO . HEMATOLOGY/LYMPH: DO YOU TAKE ANY BLOOD THINNERS? (FOR EXAMPLE- COUMADIN, PLAVIX, AGGRENOX, PLATEL, PRADAXA, OR XARELTO) NO . WHEN WAS YOUR LAST DOSE? DATE: TIME: . NEUROLOGY: HAVE YOU FALLEN IN THE PAST 12 MONTHS? YES . ANY NEW EXTREMITY NUMBNESS OR WEAKNESS? NO . CARDIOLOGY: DO YOU HAVE A PACEMAKER OR DEFIBRILLATOR? NO . RESPIRATORY: HAVE YOU BEEN SICK IN THE PAST WEEK? NO . FEVER NO . FLU LIKE SYMPTOMS? NO . COUGH NO . INTEGUMENTARY: DO YOU HAVE ANY RASHES OR OPEN SORES? NO . ALLERGIC/IMMUNO: ARE YOU ALLERGIC TO IV DYE? NO . ANY NEW ALLERGIES? NO . PSYCHIATRIC: DO YOU HAVE THOUGHTS OF HURTING YOURSELF OR SOMEONE ELSE? NO . ARE YOU ABUSED, NEGLECTED, OR IN AN UNSAFE ENVIRONMENT? NO . ENDOCRINOLOGY: ARE YOU DIABETIC? NO . OTHER: DO YOU NEED ANY PRESCRIPTIONS? NO . IF YES, PLEASE LIST: ____ . ANY NEW PROBLEMS WITH YOUR MEDICATIONS? NO . WHEN DID YOU LAST EAT? ____09/14/18 . WHEN DID YOU LAST DRINK? ____09/14/18 . WHAT DID YOU LAST DRINK? ____WATER . NAME OF PERSON DRIVING YOU HOME? ____CYNTHIA . DO YOU HAVE ANY OTHER QUESTIONS OR CONCERNS NO . VITAL SIGNS WT 300.0 LBS, HT 68 IN, BMI 45.61 INDEX, BP 145/92 MM HG, HR 60 /MIN, RR 18 /MIN, TEMP 97.4 F, OXYGEN SAT % 92%, SAFE IN ENV? (Y/N) YES, NA INITIALS TX 08:48, REVIEWED BY: JUAN. 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 CHAIM RAI LABEL STITCHER NONE ANESTHESIA LOCAL PRE PROCEDURE NOTE THE PATIENT HAS A HISTORY OF CHRONIC LOW BACK PAIN. I EVALUATE THE PATIENT AND REVIEWED THE CHART. I WENT OVER THE RISKS, ALTERNATIVES, AND BENEFITS ASSOCIATED WITH THIS PROCEDURE. THE PATIENT WOULD LIKE TO PROCEED AND GIVE CONSENT TO PERFORMED THE PROCEDURE. THE PATIENT DENIES UNEXPLAINABLE WEIGHT LOSS, FEVER, CHILLS, OR NEW CHANGES IN URINARY OR BOWEL CONTROL. DESCRIPTION OF PROCEDURE THE PATIENT WAS BROUGHT TO THE PROCEDURE ROOM AND PLACED IN THE PRONE POSITION. THE LUMBOSACRAL AREA WAS CLEANED WITH BETADINE SOLUTION AND DRAPED ASEPTICALLY. THE PROCEDURE WAS DONE UNDER STERILE CONDITIONS. I CHECKED LATERALITY AND THE LEVEL WHERE THE PROCEDURE WAS GOING TO BE PERFORMED WITH THE PATIENT AND THE SUPPORTING STAFF AT THE MOMENT OF THE TIME OUT IN THE PROCEDURE ROOM. UNDER FLUOROSCOPIC GUIDANCE, THE TARGET POINT WAS SELECTED AT THE INTERLAMINAR LEVEL OF L4-L5. LIDOCAINE WAS USED TO NUMB THE SKIN AND THE SUBCUTANEOUS TISSUE BELOW IT. EPIDURAL TUOHY NEEDLE, 17-GAUGE, WAS ADVANCED UNDER FLUOROSCOPIC GUIDANCE AND FOLLOWING PATIENT FEEDBACK UNTIL THE EPIDURAL SPACE WAS REACHED, 7 CM DEEP INTO THE SKIN BY THE LOSS OF RESISTANCE TECHNIQUE. ISOVUE M DYE 30%, 0.25 ML, WAS INJECTED SHOWING ADEQUATE SPREAD OF THE DYE. THEN, A SOLUTION OF 3 ML OF NORMAL SALINE WITH DEPO-MEDROL 60 MG WAS INJECTED SLOWLY FOLLOWING PATIENT FEEDBACK. THERE WAS NO EVIDENCE OF BLOOD, PARESTHESIA OR CEREBROSPINAL FLUID DURING THE PROCEDURE. THE PATIENT WAS SENT TO THE RECOVERY ROOM. THE PATIENT WAS MOVING THE EXTREMITIES AND DOING WELL. THERE WAS NO COMPLICATION DURING THE PROCEDURE. FLUOROSCOPY TIME WAS 14 SECONDS. POST PROCEDURE NOTE THE PATIENT WILL BE SEEN IN A FOLLOW UP IN THE NEXT FEW WEEKS. INSTRUCTIONS WERE GIVEN, QUESTIONS WERE ANSWERED, AND THE PATIENT EXPRESSED UNDERSTANDING AND AGREES WITH THE PLAN. I, RALPH HERNDON, DOCUMENTED THE ABOVE INFORMATION ACTING A SCRIBE FOR DR. RAI. I HAVE REVIEWED THE ABOVE DOCUMENT, WRITTEN BY RALPH SNYDERIBDavid AND I VERIFY THAT IT IS ACCURATE. DIAGNOSTIC IMAGING [facility] FLUORO GUIDE SPINE INJECTION (PAIN)[id number] PROCEDURE CODES 6045F RADXPS IN END [id number] PXD [id number] LUMBAR/SACRAL W/ IMAGING DISPOSITION & COMMUNICATION FOLLOW UP 2 WEEKS ELECTRONICALLY SIGNED BY CHAIM RAI MD, MD ON 09/24/2018 AT 05:08 PM EDT DISCLAIMER : THIS IS A VISIT SUMMARY EXTRACTED FROM THE [employer] CHART. IT IS NOT A COPY OF THE [employer] PROGRESS NOTE. KAMILLA
== END ==
LOC: M PAIN 08:30
PROVIDERS: ATTEND Anesthesiology
DX: G89.29 Other chronic pain (principal); M51.16 Intervertebral disc disorders with radiculopathy, lumbar region; M48.061 Spinal stenosis, lumbar region without neurogenic claudication; I10 Essential (primary) hypertension; R73.01 Impaired fasting glucose; E78.5 Hyperlipidemia, unspecified; E66.01 Morbid (severe) obesity due to excess calories; Z68.42 Body mass index [BMI] 45.0-49.9, adult; Z79.82 Long term (current) use of aspirin; Z79.899 Other long term (current) drug therapy; Z88.7 Allergy status to serum and vaccine; Z88.8 Allergy status to other drugs, medicaments and biological substances; Z86.79 Personal history of other diseases of the circulatory system
CPT/HCPCS: 62323; J1030; Q9967

== ENCOUNTER → 2018-10-05 | Outpatient (CLI) | payer BC ==
[~2018-10-05] MED LIST changes: -ISOVUE-M 300 61% 15ML VIAL (Q9967) As Ordered ONE; -LIDOCAINE 1% SDV INJ 30 ML VIAL As Ordered ONE; -diazePAM 5 MG TAB As Ordered ONE; -methylPREDNISolone SUSP 40 MG/ML (DEPO-medrol) VIAL (J1030) As Ordered ONE; -oxyCODONE 5MG TAB As Ordered ONE
--- NOTE | 2018-10-06 00:37 | ECWPNPC ---
PATIENT NAME: MOON LUCAS : 1960 GENDER: MALE VISIT DATE: 10/05/2018 DISCHARGE DATE: 10/05/18 1012 VISIT LOCKED DATE TIME: PHYSICIAN: SWETHA LAWSON RESOURCE: SWETHA LAWSON REASON FOR APPOINTMENT 1. POST PROC HISTORY OF PRESENT ILLNESS HISTORY OF PRESENT ILLNESS: HERE FOR POST PROCEDURE F/U.HAD LESI L4/5 ON 09/13/18.STATES HE DID WELL POST PROCEDURE WITH MARKED REDUCTION IN RIGHT LBP BUT LEFT LBP HAS PERSISTED. COMPLAINING OF INCREASE IN PAIN GOING UP AND DOWN STAIRS.RATING PAIN VAS 3/10. PAIN THE PATIENT DESCRIBES THE PAIN... THE PATIENT DESCRIBES THE PAIN... THE PATIENT DESCRIBES THE PAIN... FALL RISK SCREENING: SCREENING :NO FALLS REPORTED IN THE LAST YEAR CURRENT MEDICATIONS TAKING LISINOPRIL 5 MG TABLET 1 TAB(S) ORALLY ONCE A DAY TAKING ATENOLOL 25 MG TABLET 1 TABLET ORALLY ONCE A DAY TAKING LIPITOR 20 MG TABLET 1 TABLET ORALLY ONCE A DAY TAKING ASPIRIN 81 MG TABLET 1 TABLET ORALLY ONCE A DAY TAKING HYDROCODONE-ACETAMINOPHEN 10-325 MG TABLET 1 TABLET NEEDED ORALLY EVERY 8 HRS PRN FOR PAIN MDD3 TAKING IBUPROFEN 800 MG TABLET 1 TAB ORALLY Q6H PRN TAKING GABAPENTIN 100 MG CAPSULE DIRECTED ORALLY THREE TIMES DAILY TAKING SALONPAS 4% 1 PATCH DAILY NEEDED NOT-TAKING VITAMIN D (ERGOCALCIFEROL) 41926 UNIT CAPSULE 1 CAPSULE ORALLY MONTHLY MEDICATION LIST REVIEWED AND RECONCILED WITH THE PATIENT PAST MEDICAL HISTORY 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 RADICULAR PAIN-JANUARY 2010 MRI MULTILEVEL DJD, GRADE 1 DEGENERATIVE ANTEROLISTHESIS L4/L5, 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 WITH LEFT GREATER THAN RIGHT NEUROFORAMINAL NARROWING HYPERTENSION 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 MOM--UTERINE CA. SOCIAL HISTORY GENERAL: TOBACCO USE ARE YOU A: NONSMOKER. OTHERS AT HOME: SPOUSE. HOUSING: OWNS HOME. DIET: REGULAR. LANGUAGE LANGUAGES SPOKEN:LIBYAN DOMESTIC VIOLENCE DO YOU FEEL SAFE IN YOUR ENVIRONMENT?YES NEW PATIENT PAIN DIARY FROM 0-10, WHAT LEVEL IS YOUR PAIN TODAY?7 RECREATIONAL DRUG USE DRUG USE?YES HOW OFTEN AND HOW MUCH? OCC. MARIJUANA EXERCISE: WALKS. LEARNING BARRIERS / SPECIAL NEEDS BARRIERS TO LEARNING?NO HEARING IMPAIRED?NO NO HEARING AIDS. 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 NEEDED?NO PAIN CLINIC PFS, CLERGY, PUBLIC HEALTH REFERRALS PFS REFERRAL NEEDED?NO CLERGY REFERRAL NEEDED?NO PUBLIC HEALTH REFERRAL NEEDED?NO WAS THE PROVIDER NOTIFIED OF ANY PERTINENT INFO?NO N/A HAS THE PATIENT BEEN EDUCATED REGARDING HIS/HER PLAN OF CARE?YES HAS THE PATIENT BEEN EDUCATED REGARDING PAIN, THE RISK FOR PAIN, THE IMPORTANCE OF EFFECTIVE PAIN MANAGEMENT, AND THE PAIN ASSESSMENT PROCESS?YES LATEX QUESTIONNAIRE LATEX ALLERGY : HAVE YOU EVER DEVELOPED ANY TYPE OF REACTION AFTER HANDLING LATEX PRODUCTS SUCH RUBBER GLOVES, CONDOMS, DIAPHRAGMS, BALLOONS, SOCKS, OR UNDERWEAR?NO LATEX ALLERGY : HAVE YOU EVER DEVELOPED ANY TYPE OF REACTION DURING OR AFTER DENTAL APPOINTMENT, VAGINAL/RECTAL EXAMINATION, SURGICAL PROCEDURE, OR ANY OTHER EXPOSURE?NO LATEX RISK : HAVE YOU EVER HAD ANY DIFFICULTY BREATHING OR HIVES AFTER EATING OR HANDLING ANY FRUITS, OR VEGETABLES; SUCH KIWI, BANANAS, STONE FRUITS, OR CHESTNUTSNO LATEX RISK : DO YOU HAVE A PREVIOUS PERSONAL HISTORY OF MORE THAN NINE SURGERIES, SPINA BIFIDA, OR REPEATED CATHERTIZATIONS? NO LATEX RISK : ARE YOU FREQUENTLY EXPOSED TO LATEX PRODUCTS IN YOUR OCCUPATION?NO DATE ASKED : 09/13/2018 CAFFEINE CAFFEINE USE?YES HOW OFTEN AND HOW MUCH? 2 CUPS/DAY ADVANCE DIRECTIVE ADVANCE DIRECTIVE DISCUSSED WITH PATIENT:YES 10/05/18 PT STATES HE HAS HCP. POA, AND LIVING WILL [id number] [phone] GNOSTICIST [id number] YAZDANISM MARITAL STATUS: . FEMALE 6 MONTH RISK ASSESSMENT FOR STD SPOUSE. ALCOHOL SCREENING DID YOU HAVE A DRINK CONTAINING ALCOHOL IN THE PAST YEAR?YES HOW OFTEN DID YOU HAVE A DRINK CONTAINING ALCOHOL IN THE PAST YEAR?TWO TO FOUR TIMES A MONTH (2 POINTS) HOW MANY DRINKS DID YOU HAVE ON A TYPICAL DAY WHEN YOU WERE DRINKING IN THE PAST YEAR?1 OR 2 (0 POINTS) HOW OFTEN DID YOU HAVE SIX OR MORE DRINKS ON ONE OCCASION IN THE PAST YEAR?NEVER (0 POINTS) POINTS2 INTERPRETATIONNEGATIVE OCCUPATION: RETIRED. REVIEWED 05/05/18 1135 LASREVIEWED WITH PATIENT 05/1244 JS REVIEWED WITH PT 10/05/18 1040 BV. HOSPITALIZATION/MAJOR DIAGNOSTIC PROCEDURE SURGERY RELATED REVIEW OF SYSTEMS REVIEWED BY: PROVIDER: SWETHA JENSEN . CONSTITUTIONAL: ANY CHANGE IN YOUR MEDICAL CONDITION? NO . CHILLS NO . FEVER NO . INFECTION: DO YOU HAVE NEW INFECTIONS? NO . DO YOU HAVE HISTORY OF MRSA? NO . MUSCULOSKELETAL: ANY NEW PATTERNS OF PAIN OR NUMBNESS? NO . GASTROENTEROLOGY: ANY NEW CHANGE IN BOWEL CONTROL? NO . GENITOURINARY: ANY NEW CHANGE IN BLADDER CONTROL? NO . IS THERE A CHANCE YOU COULD BE ? NO . HEMATOLOGY/LYMPH: DO YOU TAKE ANY BLOOD THINNERS? (FOR EXAMPLE- COUMADIN, PLAVIX, AGGRENOX, PLATEL, PRADAXA, OR XARELTO) NO . WHEN WAS YOUR LAST DOSE? DATE: TIME: . NEUROLOGY: HAVE YOU FALLEN IN THE PAST 12 MONTHS? NO . ANY NEW EXTREMITY NUMBNESS OR WEAKNESS? NO . CARDIOLOGY: DO YOU HAVE A PACEMAKER OR DEFIBRILLATOR? NO . RESPIRATORY: HAVE YOU BEEN SICK IN THE PAST WEEK? NO . FEVER NO . FLU LIKE SYMPTOMS? NO . COUGH NO . INTEGUMENTARY: DO YOU HAVE ANY RASHES OR OPEN SORES? NO . ALLERGIC/IMMUNO: ARE YOU ALLERGIC TO IV DYE? NO . ANY NEW ALLERGIES? NO . PSYCHIATRIC: DO YOU HAVE THOUGHTS OF HURTING YOURSELF OR SOMEONE ELSE? NO . ARE YOU ABUSED, NEGLECTED, OR IN AN UNSAFE ENVIRONMENT? NO . ENDOCRINOLOGY: ARE YOU DIABETIC? NO . OTHER: DO YOU NEED ANY PRESCRIPTIONS? NO . IF YES, PLEASE LIST: ____ . ANY NEW PROBLEMS WITH YOUR MEDICATIONS? NO . WHEN DID YOU LAST EAT? ____ . WHEN DID YOU LAST DRINK? ____ . WHAT DID YOU LAST DRINK? ____ . NAME OF PERSON DRIVING YOU HOME? ____ . DO YOU HAVE ANY OTHER QUESTIONS OR CONCERNS NO . VITAL SIGNS WT 296.4 LBS, HT 68 IN, BMI 45.06 INDEX, BP 106/58 MM HG, HR 66 /MIN, RR 18 /MIN, TEMP 97.7 F, OXYGEN SAT % 95, NA INITIALS MP 0927, REVIEWED BY: BV. EXAMINATION GENERAL EXAMINATION: GENERAL APPEARANCE: ALERT,NO DISTRESS . PSYCH AFFECT NORMAL . LUNGS: LUNG SOUNDS ARE CLEAR . HEART: HEART RATE REGULAR . MUSCULOSKELETAL: MST 5/5 BILAT. LOWER EXTREMITIES . LUMBAR SACRAL SPINETENDERNESS LEFT SIJ =POSITIVE COMPRESSION TEST.POSITIVE JENNIFER TESTING LEFT LEG ,PALPATION: + FOR PAIN OVER L/S SPINE. + FOR PAIN OVER L/S PARSPINALS. DIAGNOSTIC TESTS REVIEWEDMRI L/S SPINE-03/2016. ASSESSMENTS SACROILIITIS, NOT ELSEWHERE CLASSIFIED - M46.1 (PRIMARY) INTERVERTEBRAL DISC DISORDERS WITH RADICULOPATHY, LUMBOSACRAL REGION - M51.17 TREATMENT SACROILIITIS, NOT ELSEWHERE CLASSIFIED NOTES: LEFT SIJ EUSEBIO/L4/5 LESI MID DECEMBER. PROCEDURE CODES FA211 ESTABILISHED PATIENT [facility] CHARGE DISPOSITION & COMMUNICATION FOLLOW UP POST AFTER BOTH (REASON: LEFT SIJ EUSEBIO/L4/5 LESI MID DECEMBER) ELECTRONICALLY SIGNED BY MIKEY TELLO ON 10/05/2018 AT 11:43 AM EDT DISCLAIMER : THIS IS A VISIT SUMMARY EXTRACTED FROM THE [employer] CHART. IT IS NOT A COPY OF THE [employer] PROGRESS NOTE. KAMILLA
== END ==
LOC: M PAIN 09:15
PROVIDERS: ATTEND Nurse Practitioner Family
DX: M46.1 Sacroiliitis, not elsewhere classified (principal); M51.17 Intervertebral disc disorders with radiculopathy, lumbosacral region; I10 Essential (primary) hypertension; R73.02 Impaired glucose tolerance (oral); E78.5 Hyperlipidemia, unspecified; Z88.1 Allergy status to other antibiotic agents; Z88.7 Allergy status to serum and vaccine; E66.01 Morbid (severe) obesity due to excess calories; Z68.42 Body mass index [BMI] 45.0-49.9, adult; Z79.82 Long term (current) use of aspirin; Z79.899 Other long term (current) drug therapy

== ENCOUNTER → 2018-10-06 | Outpatient (CLI) | payer BC ==
[~2018-10-06] MED LIST changes: +BUPIVACAINE HCL 0.25% 30 ML VIAL As Ordered ONE; +ISOVUE-M 300 61% 15ML VIAL (Q9967) As Ordered ONE; +LIDOCAINE 1% SDV INJ 30 ML VIAL As Ordered ONE; +TRIAMCINOLONE ACETONIDE SUSP 40 MG/ML VIAL (J3301) As Ordered ONE; +diazePAM 5 MG TAB As Ordered ONE; +oxyCODONE 5MG TAB As Ordered ONE
--- NOTE | 2018-10-07 09:05 | REP ---
Fluoro guidance The images were reviewed with Dr. tanner. The patient has a history of pain. The portable C-arm was provided in the OR for Dr. Antwan Corona for fluoroscopic guidance. Three intraoperative last image hold fluoro spot films were obtained for needle placement verification for left SI joint injection. The films are on the PACS system and are available for review. 7 seconds of fluoroscopy time was utilized for this procedure. Reviewed by GILLIAN Coles 10/06/2018 04:14 P Electronically Signed by Zeeshan Tanner MD 10/07/2018 08:57 A
--- NOTE | 2018-10-16 23:17 | ECWPNPC ---
PATIENT NAME: MOON LUCAS : 1960 GENDER: MALE VISIT DATE: 10/06/2018 DISCHARGE DATE: 10/06/18 1105 VISIT LOCKED DATE TIME: PHYSICIAN: CHAIM RAI MD RESOURCE: CHAIM RAI MD REASON FOR APPOINTMENT 1. LEFT SIJ HISTORY OF PRESENT ILLNESS HISTORY OF PRESENT ILLNESS: PAIN THE PATIENT DESCRIBES THE PAIN... FALL RISK SCREENING: SCREENING :NO FALLS REPORTED IN THE LAST YEAR CURRENT MEDICATIONS TAKING LISINOPRIL 5 MG TABLET 1 TAB(S) ORALLY ONCE A DAY, NOTES: 10/05/182099 TAKING ATENOLOL 25 MG TABLET 1 TABLET ORALLY ONCE A DAY, NOTES: 10/05/182099 TAKING LIPITOR 20 MG TABLET 1 TABLET ORALLY ONCE A DAY, NOTES: 10/05/182099 TAKING ASPIRIN 81 MG TABLET 1 TABLET ORALLY ONCE A DAY, NOTES: 10/05/182099 TAKING HYDROCODONE-ACETAMINOPHEN 10-325 MG TABLET 1 TABLET NEEDED ORALLY EVERY 8 HRS PRN FOR PAIN MDD3, NOTES: 10/03/18 PM TAKING IBUPROFEN 800 MG TABLET 1 TAB ORALLY Q6H PRN, NOTES: 10/06/18 0700 TAKING GABAPENTIN 100 MG CAPSULE DIRECTED ORALLY THREE TIMES DAILY, NOTES: 10/05/182099 TAKING SALONPAS 4% 1 PATCH DAILY NEEDED, NOTES: 10/05/18 NOT-TAKING VITAMIN D (ERGOCALCIFEROL) 97305 UNIT CAPSULE 1 CAPSULE ORALLY MONTHLY MEDICATION LIST REVIEWED AND RECONCILED WITH THE PATIENT PAST MEDICAL HISTORY 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 RADICULAR PAIN-JANUARY 2010 MRI MULTILEVEL DJD, GRADE 1 DEGENERATIVE ANTEROLISTHESIS L4/L5, 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 WITH LEFT GREATER THAN RIGHT NEUROFORAMINAL NARROWING HYPERTENSION 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 MOM--UTERINE CA. SOCIAL HISTORY GENERAL: TOBACCO USE ARE YOU A: NONSMOKER. OTHERS AT HOME: SPOUSE. HOUSING: OWNS HOME. DIET: REGULAR. LANGUAGE LANGUAGES SPOKEN:UPPER [place]BIAN DOMESTIC VIOLENCE DO YOU FEEL SAFE IN YOUR ENVIRONMENT?YES NEW PATIENT PAIN DIARY FROM 0-10, WHAT LEVEL IS YOUR PAIN TODAY?7 RECREATIONAL DRUG USE DRUG USE?YES HOW OFTEN AND HOW MUCH? OCC. MARIJUANA EXERCISE: WALKS. LEARNING BARRIERS / SPECIAL NEEDS BARRIERS TO LEARNING?NO HEARING IMPAIRED?NO NO HEARING AIDS. 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 NEEDED?NO PAIN CLINIC PFS, CLERGY, PUBLIC HEALTH REFERRALS PFS REFERRAL NEEDED?NO CLERGY REFERRAL NEEDED?NO PUBLIC HEALTH REFERRAL NEEDED?NO WAS THE PROVIDER NOTIFIED OF ANY PERTINENT INFO?NO N/A HAS THE PATIENT BEEN EDUCATED REGARDING HIS/HER PLAN OF CARE?YES HAS THE PATIENT BEEN EDUCATED REGARDING PAIN, THE RISK FOR PAIN, THE IMPORTANCE OF EFFECTIVE PAIN MANAGEMENT, AND THE PAIN ASSESSMENT PROCESS?YES LATEX QUESTIONNAIRE LATEX ALLERGY : HAVE YOU EVER DEVELOPED ANY TYPE OF REACTION AFTER HANDLING LATEX PRODUCTS SUCH RUBBER GLOVES, CONDOMS, DIAPHRAGMS, BALLOONS, SOCKS, OR UNDERWEAR?NO LATEX ALLERGY : HAVE YOU EVER DEVELOPED ANY TYPE OF REACTION DURING OR AFTER DENTAL APPOINTMENT, VAGINAL/RECTAL EXAMINATION, SURGICAL PROCEDURE, OR ANY OTHER EXPOSURE?NO LATEX RISK : HAVE YOU EVER HAD ANY DIFFICULTY BREATHING OR HIVES AFTER EATING OR HANDLING ANY FRUITS, OR VEGETABLES; SUCH KIWI, BANANAS, STONE FRUITS, OR CHESTNUTSNO LATEX RISK : DO YOU HAVE A PREVIOUS PERSONAL HISTORY OF MORE THAN NINE SURGERIES, SPINA BIFIDA, OR REPEATED CATHERTIZATIONS? NO LATEX RISK : ARE YOU FREQUENTLY EXPOSED TO LATEX PRODUCTS IN YOUR OCCUPATION?NO DATE ASKED : 09/13/2018 CAFFEINE CAFFEINE USE?YES HOW OFTEN AND HOW MUCH? 2 CUPS/DAY ADVANCE DIRECTIVE ADVANCE DIRECTIVE DISCUSSED WITH PATIENT:YES 10/05/18 PT STATES HE HAS HCP. POA, AND LIVING WILL [id number] [phone] [employer] [id number] CHRISTIANITY MARITAL STATUS: . FEMALE 5 MONTH RISK ASSESSMENT FOR STD SPOUSE. ALCOHOL SCREENING DID YOU HAVE A DRINK CONTAINING ALCOHOL IN THE PAST YEAR?YES HOW OFTEN DID YOU HAVE A DRINK CONTAINING ALCOHOL IN THE PAST YEAR?TWO TO FOUR TIMES A MONTH (2 POINTS) HOW MANY DRINKS DID YOU HAVE ON A TYPICAL DAY WHEN YOU WERE DRINKING IN THE PAST YEAR?1 OR 2 (0 POINTS) HOW OFTEN DID YOU HAVE SIX OR MORE DRINKS ON ONE OCCASION IN THE PAST YEAR?NEVER (0 POINTS) POINTS2 INTERPRETATIONNEGATIVE OCCUPATION: RETIRED. REVIEWED 05/05/18 1135 LASREVIEWED WITH PATIENT 05/1215 JS REVIEWED WITH PT 10/05/18 0945 BVREVIEWED WITH PT 10/06/18 0951 BV. HOSPITALIZATION/MAJOR DIAGNOSTIC PROCEDURE SURGERY RELATED REVIEW OF SYSTEMS REVIEWED BY: PROVIDER: . CONSTITUTIONAL: ANY CHANGE IN YOUR MEDICAL CONDITION? NO . CHILLS NO . FEVER NO . INFECTION: DO YOU HAVE NEW INFECTIONS? NO . DO YOU HAVE HISTORY OF MRSA? NO . MUSCULOSKELETAL: ANY NEW PATTERNS OF PAIN OR NUMBNESS? NO . GASTROENTEROLOGY: ANY NEW CHANGE IN BOWEL CONTROL? NO . GENITOURINARY: ANY NEW CHANGE IN BLADDER CONTROL? NO . IS THERE A CHANCE YOU COULD BE ? NO . HEMATOLOGY/LYMPH: DO YOU TAKE ANY BLOOD THINNERS? (FOR EXAMPLE- COUMADIN, PLAVIX, AGGRENOX, PLATEL, PRADAXA, OR XARELTO) NO . WHEN WAS YOUR LAST DOSE? DATE: TIME: . NEUROLOGY: HAVE YOU FALLEN IN THE PAST 12 MONTHS? NO . ANY NEW EXTREMITY NUMBNESS OR WEAKNESS? NO . CARDIOLOGY: DO YOU HAVE A PACEMAKER OR DEFIBRILLATOR? NO . RESPIRATORY: HAVE YOU BEEN SICK IN THE PAST WEEK? NO . FEVER NO . FLU LIKE SYMPTOMS? NO . COUGH NO . INTEGUMENTARY: DO YOU HAVE ANY RASHES OR OPEN SORES? NO . ALLERGIC/IMMUNO: ARE YOU ALLERGIC TO IV DYE? NO . ANY NEW ALLERGIES? NO . PSYCHIATRIC: DO YOU HAVE THOUGHTS OF HURTING YOURSELF OR SOMEONE ELSE? NO . ARE YOU ABUSED, NEGLECTED, OR IN AN UNSAFE ENVIRONMENT? NO . ENDOCRINOLOGY: ARE YOU DIABETIC? NO . OTHER: DO YOU NEED ANY PRESCRIPTIONS? NO . IF YES, PLEASE LIST: ____ . ANY NEW PROBLEMS WITH YOUR MEDICATIONS? NO . WHEN DID YOU LAST EAT? 10/05/181914 . WHEN DID YOU LAST DRINK? 10/05/18 2100 . WHAT DID YOU LAST DRINK? WATER . NAME OF PERSON DRIVING YOU HOME? JUAN LUCAS . DO YOU HAVE ANY OTHER QUESTIONS OR CONCERNS NO . VITAL SIGNS WT 294.6 LBS, HT 68 IN, BMI 44.79 INDEX, BP 148/91 MM HG, HR 61 /MIN, RR 18 /MIN, TEMP 97.8 F, OXYGEN SAT % 90%, NA INITIALS SC 09:29, REVIEWED BY: BV. ASSESSMENTS SACROILIITIS, NOT ELSEWHERE CLASSIFIED - M46.1 (PRIMARY) PROCEDURES PN SI PRE PROCEDURE DIAGNOSIS SACROILIITIS, SACROILIAC JOINT DYSFUNCTION POST PROCEDURE DIAGNOSIS SACROILIITIS, SACROILIAC JOINT DYSFUNCTION PROCEDURE LEFT SACROILIAC JOINT BLOCK SURGEON DR. CHAIM RAI CIGAR BRANDER NONE ANESTHESIA LOCAL PRE PROCEDURE NOTE PATIENT WITH HISTORY OF CHRONIC LOW BACK PAIN. I EVALUATED THE PATIENT AND REVIEWED THE CHART. I WENT OVER THE RISKS, ALTERNATIVES, AND BENEFITS ASSOCIATED WITH THIS PROCEDURE. THE PATIENT WOULD LIKE TO PROCEED AND GAVE CONSENT TO PERFORM THE PROCEDURE. THE PATIENT DENIES UNEXPLAINABLE WEIGHT LOSS, FEVER, CHILLS, OR NEW CHANGES IN URINARY OR BOWEL CONTROL DESCRIPTION OF PROCEDURE THE PATIENT WAS BROUGHT TO THE PROCEDURE ROOM AND PLACED IN THE PRONE POSITION. THE LUMBOSACRAL AREA WAS CLEANED WITH CHLORAPREP SOLUTION AND DRAPED ASEPTICALLY. THE PROCEDURE WAS DONE UNDER STERILE CONDITIONS. I CHECKED LATERALITY AND THE LEVEL WHERE THE PROCEDURE WAS GOING TO BE PERFORMED WITH THE PATIENT AND THE SUPPORTING STAFF AT THE MOMENT OF THE TIME OUT IN THE PROCEDURE ROOM. UNDER FLUOROSCOPIC GUIDANCE, TARGET POINT WAS SELECTED AT THE LOWER BORDER OF THE LEFT SACROILIAC JOINT. TARGET POINT WAS SELECTED AFTER MEDIAL ROTATION AND TILT OF THE MAGNIFIER OF THE C-ARM. LIDOCAINE WAS USED TO NUMB THE SKIN AND SUBCUTANEOUS TISSUE BELOW IT. A SPINAL NEEDLE, 22-GAUGE, WAS ADVANCED UNDER FLUOROSCOPIC GUIDANCE AND FOLLOWING PATIENT FEEDBACK UNTIL THE TARGET AREA WAS TOUCHED. THE POSITION OF THE NEEDLE WAS VERIFIED WITH AP AND LATERAL VIEWS. AFTER PROPER POSITION OF THE NEEDLE WAS ACHIEVED, ISOVUE M DYE 30%, 0.25 ML, WAS INJECTED SHOWING SPREAD OF THE DYE. THEN, A SOLUTION OF 20 MG OF KENALOG WAS INJECTED IN LEFT JOINT WITH 3 ML OF BUPIVACAINE 0.125%. THERE WAS NO EVIDENCE OF BLOOD, PARESTHESIA OR CEREBROSPINAL FLUID DURING THE PROCEDURE. THE PATIENT WAS SENT TO THE RECOVERY ROOM. THE PATIENT WAS MOVING THE EXTREMITIES AND DOING WELL. THERE WAS NO COMPLICATION DURING THE PROCEDURE. FLUOROSCOPY TIME WAS 7 SECONDS POST PROCEDURE NOTE THE PATIENT WILL BE SEEN IN A FOLLOW UP IN THE NEXT FEW WEEKS. INSTRUCTIONS WERE GIVEN, QUESTIONS WERE ANSWERED, AND THE PATIENT EXPRESSED UNDERSTANDING AND AGREED WITH THE PLAN. I, RALPH HERNDON, DOCUMENTED THE ABOVE INFORMATION ACTING A SCRIBE FOR DR. RAI. I HAVE REVIEWED THE ABOVE DOCUMENT, WRITTEN BY RALPH SWARTZ AND I VERIFY THAT IT IS ACCURATE. DIAGNOSTIC IMAGING [facility] FLUORO GUIDANCE (PAIN)[id number] PROCEDURE CODES 6045F RADXPS IN END [id number] PXD [id number] INJECT SACROILIAC JOINT, MODIFIERS: LT DISPOSITION & COMMUNICATION FOLLOW UP 3 WEEKS ELECTRONICALLY SIGNED BY CHAIM RAI MD, MD ON 10/16/2018 AT 01:53 PM EDT DISCLAIMER : THIS IS A VISIT SUMMARY EXTRACTED FROM THE [employer] CHART. IT IS NOT A COPY OF THE [employer] PROGRESS NOTE. KAMILLA
== END ==
LOC: M PAIN 09:15
PROVIDERS: ATTEND Anesthesiology
DX: M46.1 Sacroiliitis, not elsewhere classified (principal); M51.16 Intervertebral disc disorders with radiculopathy, lumbar region; I10 Essential (primary) hypertension; E66.01 Morbid (severe) obesity due to excess calories; R73.01 Impaired fasting glucose; E78.5 Hyperlipidemia, unspecified; I87.1 Compression of vein; Z79.82 Long term (current) use of aspirin; Z79.891 Long term (current) use of opiate analgesic; Z79.899 Other long term (current) drug therapy; Z88.8 Allergy status to other drugs, medicaments and biological substances; Z68.41 Body mass index [BMI] 40.0-44.9, adult
CPT/HCPCS: G0260; J3301; Q9967

== ENCOUNTER → 2018-11-21 | Outpatient (CLI) | payer BC ==
[~2018-11-21] MED LIST changes: -BUPIVACAINE HCL 0.25% 30 ML VIAL As Ordered ONE; -ISOVUE-M 300 61% 15ML VIAL (Q9967) As Ordered ONE; -LIDOCAINE 1% SDV INJ 30 ML VIAL As Ordered ONE; -TRIAMCINOLONE ACETONIDE SUSP 40 MG/ML VIAL (J3301) As Ordered ONE; -diazePAM 5 MG TAB As Ordered ONE; -oxyCODONE 5MG TAB As Ordered ONE
--- NOTE | 2018-12-02 23:47 | ECWPNPC ---
PATIENT NAME: MOON LUCAS : 1960 GENDER: MALE VISIT DATE: 11/21/2018 DISCHARGE DATE: 11/21/18 1432 VISIT LOCKED DATE TIME: PHYSICIAN: SWETHA LAWSON RESOURCE: SWETHA LAWSON REASON FOR APPOINTMENT 1. POST PROCEDURE- ORDER LESI HISTORY OF PRESENT ILLNESS HISTORY OF PRESENT ILLNESS: HERE FOR POST PROCEDURE F/U.HAD LEFT SIJ ON 09/13/18.STATES HE DID WELL POST PROCEDURE WITH MARKED REDUCTION IN PAIN AND IMPROVED ABILITY TO FUNTION.RATING PAIN VAS 2/10.PAIN IS CENTRAL LOW BACK WITH RADIATION INTO THIGHS BILAT. PAIN THE PATIENT DESCRIBES THE PAIN... THE PATIENT DESCRIBES THE PAIN... THE PATIENT DESCRIBES THE PAIN... FALL RISK SCREENING: SCREENING :NO FALLS REPORTED IN THE LAST YEAR CURRENT MEDICATIONS TAKING LISINOPRIL 5 MG TABLET 1 TAB(S) ORALLY ONCE A DAY TAKING ATENOLOL 25 MG TABLET 1 TABLET ORALLY ONCE A DAY TAKING LIPITOR 20 MG TABLET 1 TABLET ORALLY ONCE A DAY TAKING ASPIRIN 81 MG TABLET 1 TABLET ORALLY ONCE A DAY TAKING HYDROCODONE-ACETAMINOPHEN 10-325 MG TABLET 1 TABLET NEEDED ORALLY EVERY 8 HRS PRN FOR PAIN MDD3 TAKING IBUPROFEN 800 MG TABLET 1 TAB ORALLY Q6H PRN TAKING GABAPENTIN 100 MG CAPSULE DIRECTED ORALLY THREE TIMES DAILY TAKING SALONPAS 4% 1 PATCH DAILY NEEDED NOT-TAKING VITAMIN D (ERGOCALCIFEROL) 27788 UNIT CAPSULE 1 CAPSULE ORALLY MONTHLY MEDICATION LIST REVIEWED AND RECONCILED WITH THE PATIENT PAST MEDICAL HISTORY 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 RADICULAR PAIN-JANUARY 2010 MRI MULTILEVEL DJD, GRADE 1 DEGENERATIVE ANTEROLISTHESIS L4/L5, 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 WITH LEFT GREATER THAN RIGHT NEUROFORAMINAL NARROWING HYPERTENSION 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 MOM--UTERINE CA. SOCIAL HISTORY GENERAL: TOBACCO USE ARE YOU A: NONSMOKER. OTHERS AT HOME: SPOUSE. HOUSING: OWNS HOME. DIET: REGULAR. LANGUAGE LANGUAGES SPOKEN:CROATIAN DOMESTIC VIOLENCE DO YOU FEEL SAFE IN YOUR ENVIRONMENT?YES NEW PATIENT PAIN DIARY FROM 0-10, WHAT LEVEL IS YOUR PAIN TODAY?7 RECREATIONAL DRUG USE DRUG USE?YES HOW OFTEN AND HOW MUCH? OCC. MARIJUANA EXERCISE: WALKS. LEARNING BARRIERS / SPECIAL NEEDS BARRIERS TO LEARNING?NO HEARING IMPAIRED?NO NO HEARING AIDS. CAN'T HEAR HIGH FREQUENCY TONES VISION IMPAIRED?YES :CORRECTIVE LENSES COGNITIVELY IMPAIRED?NO READINESS TO LEARN?YES LEARNING PREFERENCES?NO LEARNING CAPABILITIES PRESENT?YES EMOTIONAL BARRIERS?NO SPECIAL DEVICES?YES :CANE OCCASSIONALLY FLOWER BUNCHER OR PICKER NEEDED?NO PAIN CLINIC PFS, CLERGY, PUBLIC HEALTH REFERRALS PFS REFERRAL NEEDED?NO CLERGY REFERRAL NEEDED?NO PUBLIC HEALTH REFERRAL NEEDED?NO WAS THE PROVIDER NOTIFIED OF ANY PERTINENT INFO?YES N/A HAS THE PATIENT BEEN EDUCATED REGARDING HIS/HER PLAN OF CARE?YES HAS THE PATIENT BEEN EDUCATED REGARDING PAIN, THE RISK FOR PAIN, THE IMPORTANCE OF EFFECTIVE PAIN MANAGEMENT, AND THE PAIN ASSESSMENT PROCESS?YES LATEX QUESTIONNAIRE LATEX ALLERGY : HAVE YOU EVER DEVELOPED ANY TYPE OF REACTION AFTER HANDLING LATEX PRODUCTS SUCH RUBBER GLOVES, CONDOMS, DIAPHRAGMS, BALLOONS, SOCKS, OR UNDERWEAR?NO LATEX ALLERGY : HAVE YOU EVER DEVELOPED ANY TYPE OF REACTION DURING OR AFTER DENTAL APPOINTMENT, VAGINAL/RECTAL EXAMINATION, SURGICAL PROCEDURE, OR ANY OTHER EXPOSURE?NO LATEX RISK : HAVE YOU EVER HAD ANY DIFFICULTY BREATHING OR HIVES AFTER EATING OR HANDLING ANY FRUITS, OR VEGETABLES; SUCH KIWI, BANANAS, STONE FRUITS, OR CHESTNUTSNO LATEX RISK : DO YOU HAVE A PREVIOUS PERSONAL HISTORY OF MORE THAN NINE SURGERIES, SPINA BIFIDA, OR REPEATED CATHERIZATIONS? NO LATEX RISK : ARE YOU FREQUENTLY EXPOSED TO LATEX PRODUCTS IN YOUR OCCUPATION?NO DATE ASKED : 11/21/2018 CAFFEINE CAFFEINE USE?YES HOW OFTEN AND HOW MUCH? 2 CUPS/DAY ADVANCE DIRECTIVE ADVANCE DIRECTIVE DISCUSSED WITH PATIENT:YES PT STATES HE HAS HCP. POA, AND LIVING WILL [id number] [phone] HOLINESS [id number] TENRIISM MARITAL STATUS: . FEMALE 6 MONTH RISK ASSESSMENT FOR STD SPOUSE. ALCOHOL SCREENING DID YOU HAVE A DRINK CONTAINING ALCOHOL IN THE PAST YEAR?YES HOW OFTEN DID YOU HAVE A DRINK CONTAINING ALCOHOL IN THE PAST YEAR?TWO TO FOUR TIMES A MONTH (2 POINTS) HOW MANY DRINKS DID YOU HAVE ON A TYPICAL DAY WHEN YOU WERE DRINKING IN THE PAST YEAR?1 OR 2 (0 POINTS) HOW OFTEN DID YOU HAVE SIX OR MORE DRINKS ON ONE OCCASION IN THE PAST YEAR?NEVER (0 POINTS) POINTS2 INTERPRETATIONNEGATIVE OCCUPATION: RETIRED. REVIEWED 05/05/18 1135 LASREVIEWED WITH PATIENT 05/1215 JS REVIEWED WITH PT 10/05/18 0945 BVREVIEWED WITH PT 10/06/18 0951 BV. HOSPITALIZATION/MAJOR DIAGNOSTIC PROCEDURE SURGERY RELATED REVIEW OF SYSTEMS REVIEWED BY: PROVIDER: SWETHA JENSEN . CONSTITUTIONAL: ANY CHANGE IN YOUR MEDICAL CONDITION? NO . CHILLS NO . FEVER NO . INFECTION: DO YOU HAVE NEW INFECTIONS? NO . DO YOU HAVE HISTORY OF MRSA? NO . MUSCULOSKELETAL: ANY NEW PATTERNS OF PAIN OR NUMBNESS? NO . GASTROENTEROLOGY: ANY NEW CHANGE IN BOWEL CONTROL? NO . GENITOURINARY: ANY NEW CHANGE IN BLADDER CONTROL? NO . IS THERE A CHANCE YOU COULD BE ? NO . HEMATOLOGY/LYMPH: DO YOU TAKE ANY BLOOD THINNERS? (FOR EXAMPLE- COUMADIN, PLAVIX, AGGRENOX, PLATEL, PRADAXA, OR XARELTO) NO . WHEN WAS YOUR LAST DOSE? DATE: TIME: . NEUROLOGY: HAVE YOU FALLEN IN THE PAST 12 MONTHS? NO . ANY NEW EXTREMITY NUMBNESS OR WEAKNESS? NO . CARDIOLOGY: DO YOU HAVE A PACEMAKER OR DEFIBRILLATOR? NO . RESPIRATORY: HAVE YOU BEEN SICK IN THE PAST WEEK? NO . FEVER NO . FLU LIKE SYMPTOMS? NO . COUGH NO . INTEGUMENTARY: DO YOU HAVE ANY RASHES OR OPEN SORES? NO . ALLERGIC/IMMUNO: ARE YOU ALLERGIC TO IV DYE? NO . ANY NEW ALLERGIES? NO . PSYCHIATRIC: DO YOU HAVE THOUGHTS OF HURTING YOURSELF OR SOMEONE ELSE? NO . ARE YOU ABUSED, NEGLECTED, OR IN AN UNSAFE ENVIRONMENT? NO . ENDOCRINOLOGY: ARE YOU DIABETIC? NO . OTHER: DO YOU NEED ANY PRESCRIPTIONS? NO . IF YES, PLEASE LIST: ____ . ANY NEW PROBLEMS WITH YOUR MEDICATIONS? NO . WHEN DID YOU LAST EAT? ____ . WHEN DID YOU LAST DRINK? ____ . WHAT DID YOU LAST DRINK? ____ . NAME OF PERSON DRIVING YOU HOME? ____ . DO YOU HAVE ANY OTHER QUESTIONS OR CONCERNS NO . VITAL SIGNS WT 302.2 LBS, HT 68 IN, BMI 45.94 INDEX, BP 138/89 MM HG, HR 74 /MIN, RR 18 /MIN, TEMP 96.7 F, OXYGEN SAT % 91%, SAFE IN ENV? (Y/N) Y, NA INITIALS NV 13:58, REVIEWED BY: HERMANN. EXAMINATION GENERAL EXAMINATION: GENERALAWAKE,ALERT ,PLEAASANT . PSYCHAFFECT NORMAL . LUNGS:LUNG HEBERT ARE CLEAR TO AUSCULTATION BILATERALLY. GOOD MOVEMENT OF AIR . HEART:S1, S2 IN A REGULAR RATE AND RHYTHM. NO SIGNIFICANT MURMURS, RUBS OR GALLOPS NOTED . ASSESSMENTS SACROILIITIS, NOT ELSEWHERE CLASSIFIED - M46.1 (PRIMARY) INTERVERTEBRAL DISC DISORDERS WITH RADICULOPATHY, LUMBOSACRAL REGION - M51.17 TREATMENT SACROILIITIS, NOT ELSEWHERE CLASSIFIED NOTES: CONTINUE HOME EXCERSISE. PROCEDURE CODES FA211 ESTABILISHED PATIENT [facility] CHARGE DISPOSITION & COMMUNICATION FOLLOW UP 4-6 WKS (REASON: LBP) ELECTRONICALLY SIGNED BY MIKEY TELLO ON 12/02/2018 AT 03:42 PM EDT DISCLAIMER : THIS IS A VISIT SUMMARY EXTRACTED FROM THE [employer] CHART. IT IS NOT A COPY OF THE [employer] PROGRESS NOTE. KAMILLA
== END ==
LOC: M PAIN 13:45
PROVIDERS: ATTEND Nurse Practitioner Family
DX: M46.1 Sacroiliitis, not elsewhere classified (principal); M51.17 Intervertebral disc disorders with radiculopathy, lumbosacral region; M48.061 Spinal stenosis, lumbar region without neurogenic claudication; I10 Essential (primary) hypertension; E66.01 Morbid (severe) obesity due to excess calories; R73.01 Impaired fasting glucose; E78.5 Hyperlipidemia, unspecified; I87.2 Venous insufficiency (chronic) (peripheral); E72.11 Homocystinuria; Z68.42 Body mass index [BMI] 45.0-49.9, adult; Z79.82 Long term (current) use of aspirin; Z79.891 Long term (current) use of opiate analgesic; Z79.899 Other long term (current) drug therapy; Z88.8 Allergy status to other drugs, medicaments and biological substances; Z91.048 Other nonmedicinal substance allergy status

== ENCOUNTER → 2018-12-29 | Outpatient (CLI) | payer BC ==
--- NOTE | 2019-01-19 01:09 | ECWPNPC ---
PATIENT NAME: MOON LUCAS : 1960 GENDER: MALE VISIT DATE: 12/29/2018 DISCHARGE DATE: 12/29/18 1515 VISIT LOCKED DATE TIME: PHYSICIAN: SWETHA LAWSON RESOURCE: SWETHA LAWSON REASON FOR APPOINTMENT 1. LOW BACK-LESI DENIED HISTORY OF PRESENT ILLNESS HISTORY OF PRESENT ILLNESS: HERE FOR F/U OF CHRONIC LBP WITH LEFT LEG RADICULAR SYMPTOMS.PAIN HAS ESCALATED OVER THE PAST MONTH.RATING PAIN VAS 5/10.HAS RESPONDED WELL TO LESI IN PAST. PAIN THE PATIENT DESCRIBES THE PAIN... FALL RISK SCREENING: SCREENING :NO FALLS REPORTED IN THE LAST YEAR CURRENT MEDICATIONS TAKING LISINOPRIL 5 MG TABLET 1 TAB(S) ORALLY ONCE A DAY TAKING ATENOLOL 25 MG TABLET 1 TABLET ORALLY ONCE A DAY TAKING LIPITOR 20 MG TABLET 1 TABLET ORALLY ONCE A DAY TAKING ASPIRIN 81 MG TABLET 1 TABLET ORALLY ONCE A DAY TAKING HYDROCODONE-ACETAMINOPHEN 10-325 MG TABLET 1 TABLET NEEDED ORALLY EVERY 8 HRS PRN FOR PAIN MDD3 TAKING IBUPROFEN 800 MG TABLET 1 TAB ORALLY Q6H PRN TAKING GABAPENTIN 100 MG CAPSULE DIRECTED ORALLY THREE TIMES DAILY TAKING SALONPAS 4% 1 PATCH DAILY NEEDED NOT-TAKING VITAMIN D (ERGOCALCIFEROL) 82118 UNIT CAPSULE 1 CAPSULE ORALLY MONTHLY MEDICATION LIST REVIEWED AND RECONCILED WITH THE PATIENT PAST MEDICAL HISTORY 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 RADICULAR PAIN-JANUARY 2010 MRI MULTILEVEL DJD, GRADE 1 DEGENERATIVE ANTEROLISTHESIS L4/L5, 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 WITH LEFT GREATER THAN RIGHT NEUROFORAMINAL NARROWING HYPERTENSION 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 DECEMBER 2005 OBESITY, MORBID HYPERHOMOCYSTINEMIA, MILD-12/2003-12.6 (4.3-11.4) IMPAIRED FASTING GLUCOSE HYPERLIPIDEMIA 2B VENOUS INSUFFICIENCY BILATERAL LOWER EXTREMITIES TORN ROTATOR CUFF ALLERGIES TETRACYCLINE HCL: NAUSEA/VOMITING - ALLERGY HORSE SERUM: NAUSEA/VOMITING - ALLERGY SURGICAL HISTORY RIGHT MENISCUS REPAIR TONSILLECTOMY HERNIATED UMBILICAL SURGERY JAN 2018 FAMILY HISTORY FATHER: , DIAGNOSED WITH UNSPECIFIED HEART DISEASE, UNSPECIFIED CEREBRAL ARTERY OCCLUSION WITH CEREBRAL INFARCTION MOTHER: , OTHER MALIGNANT NEOPLASM OF UNSPECIFIED SITE 3 SON(S) , 1 DAUGHTER(S) - HEALTHY. MOM--UTERINE CA. SOCIAL HISTORY GENERAL: TOBACCO USE ARE YOU A: NONSMOKER. OTHERS AT HOME: SPOUSE. HOUSING: OWNS HOME. DIET: REGULAR. LANGUAGE LANGUAGES SPOKEN:MICRONESIAN DOMESTIC VIOLENCE DO YOU FEEL SAFE IN YOUR ENVIRONMENT?YES NEW PATIENT PAIN DIARY FROM 0-10, WHAT LEVEL IS YOUR PAIN TODAY?7 RECREATIONAL DRUG USE DRUG USE?YES HOW OFTEN AND HOW MUCH? OCC. MARIJUANA EXERCISE: WALKS. LEARNING BARRIERS / SPECIAL NEEDS BARRIERS TO LEARNING?NO HEARING IMPAIRED?NO NO HEARING AIDS. CAN'T HEAR HIGH FREQUENCY TONES VISION IMPAIRED?YES COGNITIVELY IMPAIRED?NO :CORRECTIVE LENSES READINESS TO LEARN?YES LEARNING PREFERENCES?NO LEARNING CAPABILITIES PRESENT?YES EMOTIONAL BARRIERS?NO SPECIAL DEVICES?YES :CANE OCCASSIONALLY ADVERTISEMENT COMPOSITOR NEEDED?NO PAIN CLINIC PFS, CLERGY, PUBLIC HEALTH REFERRALS PFS REFERRAL NEEDED?NO CLERGY REFERRAL NEEDED?NO PUBLIC HEALTH REFERRAL NEEDED?NO WAS THE PROVIDER NOTIFIED OF ANY PERTINENT INFO?YES N/A HAS THE PATIENT BEEN EDUCATED REGARDING HIS/HER PLAN OF CARE?YES HAS THE PATIENT BEEN EDUCATED REGARDING PAIN, THE RISK FOR PAIN, THE IMPORTANCE OF EFFECTIVE PAIN MANAGEMENT, AND THE PAIN ASSESSMENT PROCESS?YES LATEX QUESTIONNAIRE LATEX ALLERGY : HAVE YOU EVER DEVELOPED ANY TYPE OF REACTION AFTER HANDLING LATEX PRODUCTS SUCH RUBBER GLOVES, CONDOMS, DIAPHRAGMS, BALLOONS, SOCKS, OR UNDERWEAR?NO LATEX ALLERGY : HAVE YOU EVER DEVELOPED ANY TYPE OF REACTION DURING OR AFTER DENTAL APPOINTMENT, VAGINAL/RECTAL EXAMINATION, SURGICAL PROCEDURE, OR ANY OTHER EXPOSURE?NO DATE ASKED : 11/21/2018 LATEX RISK : HAVE YOU EVER HAD ANY DIFFICULTY BREATHING OR HIVES AFTER EATING OR HANDLING ANY FRUITS, OR VEGETABLES; SUCH KIWI, BANANAS, STONE FRUITS, OR CHESTNUTSNO LATEX RISK : DO YOU HAVE A PREVIOUS PERSONAL HISTORY OF MORE THAN NINE SURGERIES, SPINA BIFIDA, OR REPEATED CATHERIZATIONS? NO LATEX RISK : ARE YOU FREQUENTLY EXPOSED TO LATEX PRODUCTS IN YOUR OCCUPATION?NO CAFFEINE CAFFEINE USE?YES HOW OFTEN AND HOW MUCH? 2 CUPS/DAY ADVANCE DIRECTIVE ADVANCE DIRECTIVE DISCUSSED WITH PATIENT:YES PT STATES HE HAS HCP. POA, AND LIVING WILL [id number] [phone] [employer] [id number] BAPTISM MARITAL STATUS: . FEMALE 6 MONTH RISK ASSESSMENT FOR STD SPOUSE. ALCOHOL SCREENING DID YOU HAVE A DRINK CONTAINING ALCOHOL IN THE PAST YEAR?YES HOW OFTEN DID YOU HAVE SIX OR MORE DRINKS ON ONE OCCASION IN THE PAST YEAR?NEVER (0 POINTS) HOW MANY DRINKS DID YOU HAVE ON A TYPICAL DAY WHEN YOU WERE DRINKING IN THE PAST YEAR?1 OR 2 (0 POINTS) HOW OFTEN DID YOU HAVE A DRINK CONTAINING ALCOHOL IN THE PAST YEAR?TWO TO FOUR TIMES A MONTH (2 POINTS) POINTS2 INTERPRETATIONNEGATIVE OCCUPATION: RETIRED. REVIEWED 05/05/18 1135 LASREVIEWED WITH PATIENT 05/12 JS REVIEWED WITH PT 10/05/18 0945 BVREVIEWED WITH PT 10/06/18 0951 BV. HOSPITALIZATION/MAJOR DIAGNOSTIC PROCEDURE SURGERY RELATED REVIEW OF SYSTEMS REVIEWED BY: PROVIDER: SWETHA JENSEN . CONSTITUTIONAL: ANY CHANGE IN YOUR MEDICAL CONDITION? NO . CHILLS NO . FEVER NO . INFECTION: DO YOU HAVE NEW INFECTIONS? NO . DO YOU HAVE HISTORY OF MRSA? NO . MUSCULOSKELETAL: ANY NEW PATTERNS OF PAIN OR NUMBNESS? NO . GASTROENTEROLOGY: ANY NEW CHANGE IN BOWEL CONTROL? NO . GENITOURINARY: ANY NEW CHANGE IN BLADDER CONTROL? NO . IS THERE A CHANCE YOU COULD BE ? NO . HEMATOLOGY/LYMPH: DO YOU TAKE ANY BLOOD THINNERS? (FOR EXAMPLE- COUMADIN, PLAVIX, AGGRENOX, PLATEL, PRADAXA, OR XARELTO) NO . WHEN WAS YOUR LAST DOSE? DATE: TIME: . NEUROLOGY: HAVE YOU FALLEN IN THE PAST 12 MONTHS? NO . ANY NEW EXTREMITY NUMBNESS OR WEAKNESS? NO . CARDIOLOGY: DO YOU HAVE A PACEMAKER OR DEFIBRILLATOR? NO . RESPIRATORY: HAVE YOU BEEN SICK IN THE PAST WEEK? NO . FEVER NO . FLU LIKE SYMPTOMS? NO . COUGH NO . INTEGUMENTARY: DO YOU HAVE ANY RASHES OR OPEN SORES? NO . ALLERGIC/IMMUNO: ARE YOU ALLERGIC TO IV DYE? NO . ANY NEW ALLERGIES? NO . PSYCHIATRIC: DO YOU HAVE THOUGHTS OF HURTING YOURSELF OR SOMEONE ELSE? NO . ARE YOU ABUSED, NEGLECTED, OR IN AN UNSAFE ENVIRONMENT? NO . ENDOCRINOLOGY: ARE YOU DIABETIC? NO . OTHER: DO YOU NEED ANY PRESCRIPTIONS? NO . IF YES, PLEASE LIST: ____ . ANY NEW PROBLEMS WITH YOUR MEDICATIONS? NO . WHEN DID YOU LAST EAT? ____ . WHEN DID YOU LAST DRINK? ____ . WHAT DID YOU LAST DRINK? ____ . NAME OF PERSON DRIVING YOU HOME? ____ . DO YOU HAVE ANY OTHER QUESTIONS OR CONCERNS NO . VITAL SIGNS WT 303 LBS, HT 68 IN, BMI 46.07 INDEX, BP 138/91 MM HG, HR 75 /MIN, RR 18 /MIN, TEMP 97.0 F, OXYGEN SAT % 92%, NA INITIALS AW 1433, REVIEWED BY: EM. EXAMINATION GENERAL EXAMINATION: GENERAL AWAKE,ALERT ,PLEAASANT . PSYCH AFFECT NORMAL . LUNGS: LUNG HEBERT ARE CLEAR TO AUSCULTATION BILATERALLY. GOOD MOVEMENT OF AIR . HEART: S1, S2 IN A REGULAR RATE AND RHYTHM. NO SIGNIFICANT MURMURS, RUBS OR GALLOPS NOTED . MUSCULOSKELETAL:MST 5/5 BILAT. LOWER EXTREMITIES SLE + FOR LEFT LBP AT 45 DEGREES. LUMBAR SACRAL SPINE PALPATION: + FOR PAIN OVER L/S SPINE. + FOR PAIN OVER L/S PARASPINALS. DIAGNOSTIC TESTS REVIEWED MRI L/S SPINE-03/19/16-SPONDYLOLISTHESIS L4/5 PRODUCING SEVERE SPINAL STENOSIS. 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 PROCEDURE CODES FA211 ESTABILISHED PATIENT [facility] CHARGE DISPOSITION & COMMUNICATION FOLLOW UP POST (REASON: L4/5 LESI) ELECTRONICALLY SIGNED BY MIKEY TELLO ON 01/18/2019 AT 10:06 AM EDT DISCLAIMER : THIS IS A VISIT SUMMARY EXTRACTED FROM THE [employer] CHART. IT IS NOT A COPY OF THE [employer] PROGRESS NOTE. KAMILLA
== END ==
LOC: M PAIN 14:30
PROVIDERS: ATTEND Nurse Practitioner Family
DX: M51.17 Intervertebral disc disorders with radiculopathy, lumbosacral region (principal); M43.16 Spondylolisthesis, lumbar region; G89.29 Other chronic pain; I10 Essential (primary) hypertension; R73.01 Impaired fasting glucose; E78.5 Hyperlipidemia, unspecified; Z88.1 Allergy status to other antibiotic agents; Z91.09 Other allergy status, other than to drugs and biological substances; E66.01 Morbid (severe) obesity due to excess calories; Z68.42 Body mass index [BMI] 45.0-49.9, adult; Z79.82 Long term (current) use of aspirin; Z79.899 Other long term (current) drug therapy

== ENCOUNTER → 2019-02-09 | Outpatient (CLI) | payer BC ==
[~2019-02-09] MED LIST changes: +ISOVUE-M 300 61% 15ML VIAL (Q9967) As Ordered ONE; +LIDOCAINE 1% SDV INJ 30 ML VIAL As Ordered ONE; +diazePAM 5 MG TAB As Ordered ONE; +methylPREDNISolone SUSP 40 MG/ML (DEPO-medrol) VIAL (J1030) As Ordered ONE; +oxyCODONE 5MG TAB As Ordered ONE
--- NOTE | 2019-02-09 14:48 | REP ---
Partial lumbar spine series: Three views . History: Injection procedure for pain. 12 seconds of fluoroscopy time is reported. Findings: A sequence of three fluoroscopically obtained last image hold procedural spot radiographs of the lumbar spine document needle position and contrast injection associated with injection procedure. Electronically Signed by Waldo Merchant MD 02/09/2019 02:39 P
--- NOTE | 2019-02-23 01:16 | ECWPNPC ---
PATIENT NAME: MOON LUCAS : 1960 GENDER: MALE VISIT DATE: 02/09/2019 DISCHARGE DATE: 02/09/19 1424 VISIT LOCKED DATE TIME: PHYSICIAN: CHAIM RAI MD RESOURCE: CHAIM RAI MD REASON FOR APPOINTMENT 1. LESI HISTORY OF PRESENT ILLNESS HISTORY OF PRESENT ILLNESS: PAIN THE PATIENT DESCRIBES THE PAIN... FALL RISK SCREENING: SCREENING :NO FALLS REPORTED IN THE LAST YEAR CURRENT MEDICATIONS TAKING LISINOPRIL 5 MG TABLET 1 TAB(S) ORALLY ONCE A DAY, NOTES: 02/08/19 TAKING ATENOLOL 25 MG TABLET 1 TABLET ORALLY ONCE A DAY, NOTES: 02/08/19 TAKING LIPITOR 20 MG TABLET 1 TABLET ORALLY ONCE A DAY, NOTES: 02/08/19 TAKING ASPIRIN 81 MG TABLET 1 TABLET ORALLY ONCE A DAY, NOTES: 02/08/19 TAKING HYDROCODONE-ACETAMINOPHEN 10-325 MG TABLET 1 TABLET NEEDED ORALLY EVERY 8 HRS PRN FOR PAIN MDD3, NOTES: 02/08/19 TAKING IBUPROFEN 800 MG TABLET 1 TAB ORALLY Q6H PRN, NOTES: 02/08/19 TAKING GABAPENTIN 100 MG CAPSULE DIRECTED ORALLY THREE TIMES DAILY, NOTES: 02/08/19 TAKING SALONPAS 4% 1 PATCH DAILY NEEDED, NOTES: 2-3 DAYS AGO TAKING VITAMIN D (ERGOCALCIFEROL) 90787 UNIT CAPSULE 1 CAPSULE ORALLY MONTHLY, NOTES: NONE RECENTLY MEDICATION LIST REVIEWED AND RECONCILED WITH THE PATIENT PAST MEDICAL HISTORY 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 RADICULAR PAIN-JANUARY 2010 MRI MULTILEVEL DJD, GRADE 1 DEGENERATIVE ANTEROLISTHESIS L4/L5, 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 WITH LEFT GREATER THAN RIGHT NEUROFORAMINAL NARROWING HYPERTENSION 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 DECEMBER 2005 OBESITY, MORBID HYPERHOMOCYSTINEMIA, MILD-12/2003-12.6 (4.3-11.4) IMPAIRED FASTING GLUCOSE HYPERLIPIDEMIA 2B VENOUS INSUFFICIENCY BILATERAL LOWER EXTREMITIES TORN ROTATOR CUFF ALLERGIES TETRACYCLINE HCL: NAUSEA/VOMITING - ALLERGY HORSE SERUM: NAUSEA/VOMITING - ALLERGY SURGICAL HISTORY RIGHT MENISCUS REPAIR TONSILLECTOMY HERNIATED UMBILICAL SURGERY JAN 2018 FAMILY HISTORY FATHER: , DIAGNOSED WITH UNSPECIFIED HEART DISEASE, UNSPECIFIED CEREBRAL ARTERY OCCLUSION WITH CEREBRAL INFARCTION MOTHER: , OTHER MALIGNANT NEOPLASM OF UNSPECIFIED SITE 3 SON(S) , 1 DAUGHTER(S) - HEALTHY. MOM--UTERINE CA. SOCIAL HISTORY GENERAL: TOBACCO USE ARE YOU A: NONSMOKER. OTHERS AT HOME: SPOUSE. HOUSING: OWNS HOME. DIET: REGULAR. LANGUAGE LANGUAGES SPOKEN:[place]ORE[place] DOMESTIC VIOLENCE DO YOU FEEL SAFE IN YOUR ENVIRONMENT?YES NEW PATIENT PAIN DIARY FROM 0-10, WHAT LEVEL IS YOUR PAIN TODAY?7 RECREATIONAL DRUG USE DRUG USE?YES HOW OFTEN AND HOW MUCH? OCC. MARIJUANA EXERCISE: WALKS. LEARNING BARRIERS / SPECIAL NEEDS BARRIERS TO LEARNING?NO HEARING IMPAIRED?NO NO HEARING AIDS. 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 NEEDED?NO PAIN CLINIC PFS, CLERGY, PUBLIC HEALTH REFERRALS PFS REFERRAL NEEDED?NO CLERGY REFERRAL NEEDED?NO PUBLIC HEALTH REFERRAL NEEDED?NO WAS THE PROVIDER NOTIFIED OF ANY PERTINENT INFO?YES N/A HAS THE PATIENT BEEN EDUCATED REGARDING HIS/HER PLAN OF CARE?YES HAS THE PATIENT BEEN EDUCATED REGARDING PAIN, THE RISK FOR PAIN, THE IMPORTANCE OF EFFECTIVE PAIN MANAGEMENT, AND THE PAIN ASSESSMENT PROCESS?YES LATEX QUESTIONNAIRE LATEX ALLERGY : HAVE YOU EVER DEVELOPED ANY TYPE OF REACTION AFTER HANDLING LATEX PRODUCTS SUCH RUBBER GLOVES, CONDOMS, DIAPHRAGMS, BALLOONS, SOCKS, OR UNDERWEAR?NO LATEX ALLERGY : HAVE YOU EVER DEVELOPED ANY TYPE OF REACTION DURING OR AFTER DENTAL APPOINTMENT, VAGINAL/RECTAL EXAMINATION, SURGICAL PROCEDURE, OR ANY OTHER EXPOSURE?NO LATEX RISK : HAVE YOU EVER HAD ANY DIFFICULTY BREATHING OR HIVES AFTER EATING OR HANDLING ANY FRUITS, OR VEGETABLES; SUCH KIWI, BANANAS, STONE FRUITS, OR CHESTNUTSNO LATEX RISK : DO YOU HAVE A PREVIOUS PERSONAL HISTORY OF MORE THAN NINE SURGERIES, SPINA BIFIDA, OR REPEATED CATHERIZATIONS? NO LATEX RISK : ARE YOU FREQUENTLY EXPOSED TO LATEX PRODUCTS IN YOUR OCCUPATION?NO DATE ASKED : 02/09/2019 CAFFEINE CAFFEINE USE?YES HOW OFTEN AND HOW MUCH? 2 CUPS/DAY ADVANCE DIRECTIVE ADVANCE DIRECTIVE DISCUSSED WITH PATIENT:YES PT STATES HE HAS HCP. POA, AND LIVING WILL [id number] [phone] JUDAISM [id number] SIKH MARITAL STATUS: . FEMALE 6 MONTH RISK ASSESSMENT FOR STD SPOUSE. ALCOHOL SCREENING DID YOU HAVE A DRINK CONTAINING ALCOHOL IN THE PAST YEAR?YES HOW OFTEN DID YOU HAVE SIX OR MORE DRINKS ON ONE OCCASION IN THE PAST YEAR?NEVER (0 POINTS) HOW MANY DRINKS DID YOU HAVE ON A TYPICAL DAY WHEN YOU WERE DRINKING IN THE PAST YEAR?1 OR 2 (0 POINTS) HOW OFTEN DID YOU HAVE A DRINK CONTAINING ALCOHOL IN THE PAST YEAR?TWO TO FOUR TIMES A MONTH (2 POINTS) POINTS2 INTERPRETATIONNEGATIVE OCCUPATION: RETIRED. REVIEWED 05/05/18 1135 LASREVIEWED WITH PATIENT 05/1215 JS REVIEWED WITH PT 10/05/18 0945 BVREVIEWED WITH PT 10/06/18 0951 BV. HOSPITALIZATION/MAJOR DIAGNOSTIC PROCEDURE SURGERY RELATED REVIEW OF SYSTEMS REVIEWED BY: PROVIDER: . CONSTITUTIONAL: ANY CHANGE IN YOUR MEDICAL CONDITION? NO . CHILLS NO . FEVER NO . INFECTION: DO YOU HAVE NEW INFECTIONS? NO . DO YOU HAVE HISTORY OF MRSA? NO . MUSCULOSKELETAL: ANY NEW PATTERNS OF PAIN OR NUMBNESS? NO . GASTROENTEROLOGY: ANY NEW CHANGE IN BOWEL CONTROL? NO . GENITOURINARY: ANY NEW CHANGE IN BLADDER CONTROL? NO . IS THERE A CHANCE YOU COULD BE ? NO . HEMATOLOGY/LYMPH: DO YOU TAKE ANY BLOOD THINNERS? (FOR EXAMPLE- COUMADIN, PLAVIX, AGGRENOX, PLATEL, PRADAXA, OR XARELTO) NO . WHEN WAS YOUR LAST DOSE? DATE: TIME: . NEUROLOGY: HAVE YOU FALLEN IN THE PAST 12 MONTHS? NO . ANY NEW EXTREMITY NUMBNESS OR WEAKNESS? NO . CARDIOLOGY: DO YOU HAVE A PACEMAKER OR DEFIBRILLATOR? NO . RESPIRATORY: HAVE YOU BEEN SICK IN THE PAST WEEK? NO . FEVER NO . FLU LIKE SYMPTOMS? NO . COUGH NO . INTEGUMENTARY: DO YOU HAVE ANY RASHES OR OPEN SORES? NO . ALLERGIC/IMMUNO: ARE YOU ALLERGIC TO IV DYE? NO . ANY NEW ALLERGIES? NO . PSYCHIATRIC: DO YOU HAVE THOUGHTS OF HURTING YOURSELF OR SOMEONE ELSE? NO . ARE YOU ABUSED, NEGLECTED, OR IN AN UNSAFE ENVIRONMENT? NO . ENDOCRINOLOGY: ARE YOU DIABETIC? NO . OTHER: DO YOU NEED ANY PRESCRIPTIONS? NO . IF YES, PLEASE LIST: ____ . ANY NEW PROBLEMS WITH YOUR MEDICATIONS? NO . WHEN DID YOU LAST EAT? ____02/08/19 . WHEN DID YOU LAST DRINK? ____729 . WHAT DID YOU LAST DRINK? ____WATER . NAME OF PERSON DRIVING YOU HOME? ____JUAN LUCAS . DO YOU HAVE ANY OTHER QUESTIONS OR CONCERNS NO . VITAL SIGNS WT 296.8 LBS, HT 68 IN, BMI 45.12 INDEX, BP 139/84 MM HG, HR 65 /MIN, RR 18 /MIN, TEMP 97.1 F, OXYGEN SAT % 91%, NA INITIALS SC 11:15. ASSESSMENTS INTERVERTEBRAL DISC DISORDERS WITH RADICULOPATHY, LUMBAR REGION - M51.16 (PRIMARY) PROCEDURES PRE PROCEDURE DIAGNOSIS LUMBAR SPINAL STENOSIS, LUMBAR DISC DISORDER WITH RADICULOPATHY POST PROCEDURE DIAGNOSIS LUMBAR SPINAL STENOSIS, LUMBAR DISC DISORDER WITH RADICULOPATHY PROCEDURE LUMBAR EPIDURAL STEROID INJECTION UNDER FLUOROSCOPIC GUIDANCE SURGEON DR. CHAIM RAI CASING MATERIAL WEIGHER NONE ANESTHESIA LOCAL PRE PROCEDURE NOTE THE PATIENT HAS A HISTORY OF CHRONIC LOW BACK PAIN. I EVALUATED THE PATIENT AND REVIEWED THE CHART. I WENT OVER THE RISKS, ALTERNATIVES, AND BENEFITS ASSOCIATED WITH THIS PROCEDURE. THE PATIENT WOULD LIKE TO PROCEED AND GIVES CONSENT TO PERFORM THE PROCEDURE. THE PATIENT DENIES UNEXPLAINABLE WEIGHT LOSS, FEVER, CHILLS, OR NEW CHANGES IN URINARY OR BOWEL CONTROL. DESCRIPTION OF PROCEDURE THE PATIENT WAS BROUGHT TO THE PROCEDURE ROOM AND PLACED IN THE PRONE POSITION. THE LUMBOSACRAL AREA WAS CLEANED WITH BETADINE SOLUTION AND DRAPED ASEPTICALLY. THE PROCEDURE WAS DONE UNDER STERILE CONDITIONS. I CHECKED LATERALITY AND THE LEVEL WHERE THE PROCEDURE WAS GOING TO BE PERFORMED WITH THE PATIENT AND THE SUPPORTING STAFF AT THE MOMENT OF THE TIME OUT IN THE PROCEDURE ROOM. UNDER FLUOROSCOPIC GUIDANCE, THE TARGET POINT WAS SELECTED AT THE INTERLAMINAR LEVEL OF L4-L5. LIDOCAINE WAS USED TO NUMB THE SKIN AND THE SUBCUTANEOUS TISSUE BELOW IT. EPIDURAL TUOHY NEEDLE, 17-GAUGE, WAS ADVANCED UNDER FLUOROSCOPIC GUIDANCE AND FOLLOWING PATIENT FEEDBACK UNTIL THE EPIDURAL SPACE WAS REACHED, 7 CM DEEP INTO THE SKIN BY THE LOSS OF RESISTANCE TECHNIQUE. ISOVUE M DYE 30%, 0.25 ML, WAS INJECTED SHOWING ADEQUATE SPREAD OF THE DYE. THEN, A SOLUTION OF 3 ML OF NORMAL SALINE WITH DEPO-MEDROL 60 MG WAS INJECTED SLOWLY FOLLOWING PATIENT FEEDBACK. THERE WAS NO EVIDENCE OF BLOOD, PARESTHESIA OR CEREBROSPINAL FLUID DURING THE PROCEDURE. THE PATIENT WAS SENT TO THE RECOVERY ROOM. THE PATIENT WAS MOVING THE EXTREMITIES AND DOING WELL. THERE WAS NO COMPLICATION DURING THE PROCEDURE. FLUOROSCOPY TIME WAS 12 SECONDS. POST PROCEDURE NOTE THE PATIENT WILL BE SEEN IN A FOLLOW UP IN THE NEXT FEW WEEKS. INSTRUCTIONS WERE GIVEN, QUESTIONS WERE ANSWERED, AND THE PATIENT EXPRESSED UNDERSTANDING AND AGREES WITH THE PLAN. I, ESTELLA OCASIO, DOCUMENTED THE ABOVE INFORMATION ACTING A SCRIBE FOR DR. RAI. I HAVE REVIEWED THE ABOVE DOCUMENT, WRITTEN BY ESTELLA OCASIO SCRIBE AND I VERIFY THAT IT IS ACCURATE. DIAGNOSTIC IMAGING [facility] FLUORO GUIDE SPINE INJECTION (PAIN)[id number] PROCEDURE CODES 30965 LUMBAR/SACRAL W/ IMAGING 6045F RADXPS IN END [id number] PXD DISPOSITION & COMMUNICATION FOLLOW UP 2 WEEKS ELECTRONICALLY SIGNED BY CHAIM RAI MD, MD ON 02/22/2019 AT 03:05 PM EDT DISCLAIMER : THIS IS A VISIT SUMMARY EXTRACTED FROM THE [employer] CHART. IT IS NOT A COPY OF THE [employer] PROGRESS NOTE. KAMILLA
== END ==
LOC: M PAIN 11:30
PROVIDERS: ATTEND Anesthesiology
DX: M51.16 Intervertebral disc disorders with radiculopathy, lumbar region (principal); I10 Essential (primary) hypertension; E66.01 Morbid (severe) obesity due to excess calories; R73.01 Impaired fasting glucose; E78.5 Hyperlipidemia, unspecified; I87.2 Venous insufficiency (chronic) (peripheral); E72.11 Homocystinuria; Z68.42 Body mass index [BMI] 45.0-49.9, adult; Z79.82 Long term (current) use of aspirin; Z79.891 Long term (current) use of opiate analgesic; Z79.1 Long term (current) use of non-steroidal anti-inflammatories (NSAID); Z88.1 Allergy status to other antibiotic agents; Z91.048 Other nonmedicinal substance allergy status
CPT/HCPCS: 62323; J1030; Q9967

== ENCOUNTER → 2019-02-28 | Outpatient (CLI) | payer BC ==
[~2019-02-28] MED LIST changes: -ISOVUE-M 300 61% 15ML VIAL (Q9967) As Ordered ONE; -LIDOCAINE 1% SDV INJ 30 ML VIAL As Ordered ONE; -diazePAM 5 MG TAB As Ordered ONE; -methylPREDNISolone SUSP 40 MG/ML (DEPO-medrol) VIAL (J1030) As Ordered ONE; -oxyCODONE 5MG TAB As Ordered ONE
--- NOTE | 2019-03-11 02:08 | ECWPNPC ---
PATIENT NAME: MOON LUCAS : 1960 GENDER: MALE VISIT DATE: 02/28/2019 DISCHARGE DATE: 02/28/19 0958 VISIT LOCKED DATE TIME: PHYSICIAN: SWETHA LAWSON RESOURCE: SWETHA LAWSON REASON FOR APPOINTMENT 1. POST PROC HISTORY OF PRESENT ILLNESS HISTORY OF PRESENT ILLNESS: HERE FOR POST PROCEDURE F/U.HAD LESI L4/5 ON 02/09/19.STATES HE DID WELL POST PROCEDURE WITH MARKED REDUCTION IN PAIN AND IMPROVED ABILITY TO FUNTION.RATING PAIN VAS 2/10.PAIN IS CENTRAL LOW BACK WITH RADIATION INTO THIGHS BILAT. PAIN THE PATIENT DESCRIBES THE PAIN... THE PATIENT DESCRIBES THE PAIN... THE PATIENT DESCRIBES THE PAIN... THE PATIENT DESCRIBES THE PAIN... PAIN THE PATIENT DESCRIBES THE PAIN... THE PATIENT DESCRIBES THE PAIN... THE PATIENT DESCRIBES THE PAIN... THE PATIENT DESCRIBES THE PAIN... FALL RISK SCREENING: SCREENING :NO FALLS REPORTED IN THE LAST YEAR CURRENT MEDICATIONS TAKING LISINOPRIL 5 MG TABLET 1 TAB(S) ORALLY ONCE A DAY TAKING ATENOLOL 25 MG TABLET 1 TABLET ORALLY ONCE A DAY TAKING ASPIRIN 81 MG TABLET 1 TABLET ORALLY ONCE A DAY TAKING LIPITOR 20 MG TABLET 1 TABLET ORALLY ONCE A DAY TAKING HYDROCODONE-ACETAMINOPHEN 10-325 MG TABLET 1 TABLET NEEDED ORALLY EVERY 8 HRS PRN FOR PAIN MDD3 TAKING IBUPROFEN 800 MG TABLET 1 TAB ORALLY Q6H PRN TAKING GABAPENTIN 100 MG CAPSULE DIRECTED ORALLY THREE TIMES DAILY TAKING SALONPAS 4% 1 PATCH DAILY NEEDED TAKING VITAMIN D (ERGOCALCIFEROL) 35168 UNIT CAPSULE 1 CAPSULE ORALLY MONTHLY MEDICATION LIST REVIEWED AND RECONCILED WITH THE PATIENT PAST MEDICAL HISTORY 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 RADICULAR PAIN-JANUARY 2010 MRI MULTILEVEL DJD, GRADE 1 DEGENERATIVE ANTEROLISTHESIS L4/L5, 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 WITH LEFT GREATER THAN RIGHT NEUROFORAMINAL NARROWING HYPERTENSION 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 DECEMBER 2005 OBESITY, MORBID HYPERHOMOCYSTINEMIA, MILD-12/2003-12.6 (4.3-11.4) IMPAIRED FASTING GLUCOSE HYPERLIPIDEMIA 2B VENOUS INSUFFICIENCY BILATERAL LOWER EXTREMITIES TORN ROTATOR CUFF RIGHT RIGHT KNEE TORN MENISCUS ALLERGIES TETRACYCLINE HCL: NAUSEA/VOMITING - ALLERGY HORSE SERUM: NAUSEA/VOMITING - ALLERGY FIJIAN LIMPETS: ANAPHYLAXIS - ALLERGY SURGICAL HISTORY RIGHT MENISCUS REPAIR TONSILLECTOMY HERNIATED UMBILICAL SURGERY JAN 2018 FAMILY HISTORY FATHER: , DIAGNOSED WITH UNSPECIFIED CEREBRAL ARTERY OCCLUSION WITH CEREBRAL INFARCTION, UNSPECIFIED HEART DISEASE MOTHER: , OTHER MALIGNANT NEOPLASM OF UNSPECIFIED SITE 3 SON(S) , 1 DAUGHTER(S) - HEALTHY. MOM--UTERINE CA. SOCIAL HISTORY GENERAL: TOBACCO USE ARE YOU A: NONSMOKER. OTHERS AT HOME: SPOUSE. HOUSING: OWNS HOME. DIET: REGULAR. LANGUAGE LANGUAGES SPOKEN:[place]YANESE DOMESTIC VIOLENCE DO YOU FEEL SAFE IN YOUR ENVIRONMENT?YES NEW PATIENT PAIN DIARY FROM 0-10, WHAT LEVEL IS YOUR PAIN TODAY?2 RECREATIONAL DRUG USE DRUG USE?YES HOW OFTEN AND HOW MUCH? OCC. MARIJUANA EXERCISE: WALKS. LEARNING BARRIERS / SPECIAL NEEDS BARRIERS TO LEARNING?NO HEARING IMPAIRED?NO NO HEARING AIDS. 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 NEEDED?NO PAIN CLINIC PFS, CLERGY, PUBLIC HEALTH REFERRALS PFS REFERRAL NEEDED?NO CLERGY REFERRAL NEEDED?NO PUBLIC HEALTH REFERRAL NEEDED?NO WAS THE PROVIDER NOTIFIED OF ANY PERTINENT INFO?YES N/A HAS THE PATIENT BEEN EDUCATED REGARDING HIS/HER PLAN OF CARE?YES HAS THE PATIENT BEEN EDUCATED REGARDING PAIN, THE RISK FOR PAIN, THE IMPORTANCE OF EFFECTIVE PAIN MANAGEMENT, AND THE PAIN ASSESSMENT PROCESS?YES LATEX QUESTIONNAIRE LATEX ALLERGY : HAVE YOU EVER DEVELOPED ANY TYPE OF REACTION AFTER HANDLING LATEX PRODUCTS SUCH RUBBER GLOVES, CONDOMS, DIAPHRAGMS, BALLOONS, SOCKS, OR UNDERWEAR?NO LATEX ALLERGY : HAVE YOU EVER DEVELOPED ANY TYPE OF REACTION DURING OR AFTER DENTAL APPOINTMENT, VAGINAL/RECTAL EXAMINATION, SURGICAL PROCEDURE, OR ANY OTHER EXPOSURE?NO LATEX RISK : HAVE YOU EVER HAD ANY DIFFICULTY BREATHING OR HIVES AFTER EATING OR HANDLING ANY FRUITS, OR VEGETABLES; SUCH KIWI, BANANAS, STONE FRUITS, OR CHESTNUTSNO LATEX RISK : DO YOU HAVE A PREVIOUS PERSONAL HISTORY OF MORE THAN NINE SURGERIES, SPINA BIFIDA, OR REPEATED CATHERIZATIONS? NO LATEX RISK : ARE YOU FREQUENTLY EXPOSED TO LATEX PRODUCTS IN YOUR OCCUPATION?YES DATE ASKED : 02/28/2019 CAFFEINE CAFFEINE USE?YES HOW OFTEN AND HOW MUCH? 3 CUPS/DAY ADVANCE DIRECTIVE ADVANCE DIRECTIVE DISCUSSED WITH PATIENT:YES PT STATES HE HAS HCP. POA, AND LIVING WILL [id number] [phone] [employer] [id number] NONDENOMINATIONAL MARITAL STATUS: . FEMALE 6 MONTH RISK ASSESSMENT FOR STD SPOUSE. ALCOHOL SCREENING DID YOU HAVE A DRINK CONTAINING ALCOHOL IN THE PAST YEAR?YES HOW OFTEN DID YOU HAVE A DRINK CONTAINING ALCOHOL IN THE PAST YEAR?TWO TO FOUR TIMES A MONTH (2 POINTS) HOW MANY DRINKS DID YOU HAVE ON A TYPICAL DAY WHEN YOU WERE DRINKING IN THE PAST YEAR?1 OR 2 (0 POINTS) HOW OFTEN DID YOU HAVE SIX OR MORE DRINKS ON ONE OCCASION IN THE PAST YEAR?NEVER (0 POINTS) POINTS2 INTERPRETATIONNEGATIVE OCCUPATION: SEMI-RETIRED. REVIEWED 05/05/18 1135 LASREVIEWED WITH PATIENT 05/12 18 0915 JS REVIEWED WITH PT 10/05/18 0945 BVREVIEWED WITH PT 10/06/18 0951 BV. HOSPITALIZATION/MAJOR DIAGNOSTIC PROCEDURE SURGERY RELATED REVIEW OF SYSTEMS REVIEWED BY: PROVIDER: SWETHA JENSEN . CONSTITUTIONAL: ANY CHANGE IN YOUR MEDICAL CONDITION? NO . CHILLS NO . FEVER NO . INFECTION: DO YOU HAVE NEW INFECTIONS? NO . DO YOU HAVE HISTORY OF MRSA? NO . MUSCULOSKELETAL: ANY NEW PATTERNS OF PAIN OR NUMBNESS? NO . GASTROENTEROLOGY: ANY NEW CHANGE IN BOWEL CONTROL? NO . GENITOURINARY: ANY NEW CHANGE IN BLADDER CONTROL? NO . IS THERE A CHANCE YOU COULD BE ? NO . HEMATOLOGY/LYMPH: DO YOU TAKE ANY BLOOD THINNERS? (FOR EXAMPLE- COUMADIN, PLAVIX, AGGRENOX, PLATEL, PRADAXA, OR XARELTO) NO . WHEN WAS YOUR LAST DOSE? DATE: TIME: . NEUROLOGY: HAVE YOU FALLEN IN THE PAST 12 MONTHS? NO . ANY NEW EXTREMITY NUMBNESS OR WEAKNESS? NO . CARDIOLOGY: DO YOU HAVE A PACEMAKER OR DEFIBRILLATOR? NO . RESPIRATORY: HAVE YOU BEEN SICK IN THE PAST WEEK? NO . FEVER NO . FLU LIKE SYMPTOMS? NO . COUGH NO . INTEGUMENTARY: DO YOU HAVE ANY RASHES OR OPEN SORES? NO . ALLERGIC/IMMUNO: ARE YOU ALLERGIC TO IV DYE? NO . ANY NEW ALLERGIES? NO . PSYCHIATRIC: DO YOU HAVE THOUGHTS OF HURTING YOURSELF OR SOMEONE ELSE? NO . ARE YOU ABUSED, NEGLECTED, OR IN AN UNSAFE ENVIRONMENT? NO . ENDOCRINOLOGY: ARE YOU DIABETIC? NO . OTHER: DO YOU NEED ANY PRESCRIPTIONS? NO . IF YES, PLEASE LIST: ____ . ANY NEW PROBLEMS WITH YOUR MEDICATIONS? NO . WHEN DID YOU LAST EAT? ____ . WHEN DID YOU LAST DRINK? ____ . WHAT DID YOU LAST DRINK? ____ . NAME OF PERSON DRIVING YOU HOME? ____ . DO YOU HAVE ANY OTHER QUESTIONS OR CONCERNS NO . VITAL SIGNS WT 296 LBS, HT 68 IN, BMI 45.00 INDEX, BP 145/81 MM HG, HR 70 /MIN, RR 18 /MIN, TEMP 97.3 F, OXYGEN SAT % 90%, NA INITIALS SC 09:07, REVIEWED BY: MARIO. EXAMINATION GENERAL EXAMINATION: GENERALAWAKE,ALERT ,PLEAASANT . PSYCHAFFECT NORMAL . LUNGS:LUNG HEBERT ARE CLEAR TO AUSCULTATION BILATERALLY. GOOD MOVEMENT OF AIR . HEART:S1, S2 IN A REGULAR RATE AND RHYTHM. NO SIGNIFICANT MURMURS, RUBS OR GALLOPS NOTED . 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 PROCEDURE CODES FA211 ESTABILISHED PATIENT [facility] CHARGE DISPOSITION & COMMUNICATION FOLLOW UP MID APRIL F/U SWETHA ELECTRONICALLY SIGNED BY MIKEY TELLO ON 03/10/2019 AT 09:24 AM EST DISCLAIMER : THIS IS A VISIT SUMMARY EXTRACTED FROM THE [employer] CHART. IT IS NOT A COPY OF THE [employer] PROGRESS NOTE. KAMILLA
== END ==
LOC: M PAIN 09:00
PROVIDERS: ATTEND Nurse Practitioner Family
DX: M51.17 Intervertebral disc disorders with radiculopathy, lumbosacral region (principal); M43.16 Spondylolisthesis, lumbar region; I10 Essential (primary) hypertension; R73.01 Impaired fasting glucose; E78.5 Hyperlipidemia, unspecified; Z88.1 Allergy status to other antibiotic agents; Z88.7 Allergy status to serum and vaccine; E66.01 Morbid (severe) obesity due to excess calories; Z68.42 Body mass index [BMI] 45.0-49.9, adult; Z79.82 Long term (current) use of aspirin; Z79.899 Other long term (current) drug therapy

== ENCOUNTER → 2019-04-19 | Outpatient (CLI) | payer BC ==
--- NOTE | 2019-05-02 01:51 | ECWPNPC ---
PATIENT NAME: MOON LUCAS : 1960 GENDER: MALE VISIT DATE: 04/19/2019 DISCHARGE DATE: 04/19/19 0951 VISIT LOCKED DATE TIME: PHYSICIAN: SWETHA LAWSON RESOURCE: SWETHA LAWSON REASON FOR APPOINTMENT 1. LOW BACK HISTORY OF PRESENT ILLNESS HISTORY OF PRESENT ILLNESS: HERE FOR F/U OF CHRONIC LBP WITH RADIATION INTO LEFT BUTTOCKS.RATING PAIN VAS 2-5/10.WAS DOING WELL AFTER LESI UNTIL OVER THE PAST 2 WEEKS.CURRENTLY USING GABAPENTIN MORE FREQUENTLY DUE TO INCREASE IN LEFT LBP WITH RADIATION INTO LEFT THIGH.RATING PAIN VAS 2-5/10. PAIN THE PATIENT DESCRIBES THE PAIN... FALL RISK SCREENING: SCREENING :NO FALLS REPORTED IN THE LAST YEAR CURRENT MEDICATIONS TAKING LISINOPRIL 5 MG TABLET 1 TAB(S) ORALLY ONCE A DAY TAKING ATENOLOL 25 MG TABLET 1 TABLET ORALLY ONCE A DAY TAKING ASPIRIN 81 MG TABLET 1 TABLET ORALLY ONCE A DAY TAKING LIPITOR 20 MG TABLET 1 TABLET ORALLY ONCE A DAY TAKING HYDROCODONE-ACETAMINOPHEN 5-325 MG TABLET 1 TABLET NEEDED ORALLY EVERY 8 HRS PRN FOR PAIN MDD4 TAKING IBUPROFEN 800 MG TABLET 1 TAB ORALLY Q6H PRN TAKING GABAPENTIN 100 MG CAPSULE DIRECTED ORALLY THREE TIMES DAILY, NOTES: TAKES 1-2 TIMES A DAY TAKING SALONPAS 4% 1 PATCH DAILY NEEDED TAKING VITAMIN D (ERGOCALCIFEROL) 49752 UNIT CAPSULE 1 CAPSULE ORALLY MONTHLY MEDICATION LIST REVIEWED AND RECONCILED WITH THE PATIENT PAST MEDICAL HISTORY 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 RADICULAR PAIN-JANUARY 2010 MRI MULTILEVEL DJD, GRADE 1 DEGENERATIVE ANTEROLISTHESIS L4/L5, 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 WITH LEFT GREATER THAN RIGHT NEUROFORAMINAL NARROWING HYPERTENSION 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 DECEMBER 2005 OBESITY, MORBID HYPERHOMOCYSTINEMIA, MILD-12/2003-12.6 (4.3-11.4) IMPAIRED FASTING GLUCOSE HYPERLIPIDEMIA 2B VENOUS INSUFFICIENCY BILATERAL LOWER EXTREMITIES TORN ROTATOR CUFF RIGHT RIGHT KNEE TORN MENISCUS ALLERGIES TETRACYCLINE HCL: NAUSEA/VOMITING - ALLERGY HORSE SERUM: NAUSEA/VOMITING - ALLERGY TANZANIAN LIMPETS: ANAPHYLAXIS - ALLERGY SURGICAL HISTORY RIGHT MENISCUS REPAIR TONSILLECTOMY HERNIATED UMBILICAL SURGERY JAN 2018 FAMILY HISTORY FATHER: , DIAGNOSED WITH UNSPECIFIED HEART DISEASE, UNSPECIFIED CEREBRAL ARTERY OCCLUSION WITH CEREBRAL INFARCTION MOTHER: , OTHER MALIGNANT NEOPLASM OF UNSPECIFIED SITE 3 SON(S) , 1 DAUGHTER(S) - HEALTHY. MOM--UTERINE CA. SOCIAL HISTORY GENERAL: TOBACCO USE ARE YOU A: NONSMOKER. OTHERS AT HOME: SPOUSE. HOUSING: OWNS HOME. DIET: REGULAR. LANGUAGE LANGUAGES SPOKEN:INDONESIAN DOMESTIC VIOLENCE DO YOU FEEL SAFE IN YOUR ENVIRONMENT?YES NEW PATIENT PAIN DIARY FROM 0-10, WHAT LEVEL IS YOUR PAIN TODAY?2 RECREATIONAL DRUG USE DRUG USE?YES HOW OFTEN AND HOW MUCH? OCC. MARIJUANA EXERCISE: WALKS. LEARNING BARRIERS / SPECIAL NEEDS BARRIERS TO LEARNING?NO HEARING IMPAIRED?NO NO HEARING AIDS. 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 NEEDED?NO PAIN CLINIC PFS, CLERGY, PUBLIC HEALTH REFERRALS PFS REFERRAL NEEDED?NO CLERGY REFERRAL NEEDED?NO PUBLIC HEALTH REFERRAL NEEDED?NO WAS THE PROVIDER NOTIFIED OF ANY PERTINENT INFO?YES N/A HAS THE PATIENT BEEN EDUCATED REGARDING HIS/HER PLAN OF CARE?YES HAS THE PATIENT BEEN EDUCATED REGARDING PAIN, THE RISK FOR PAIN, THE IMPORTANCE OF EFFECTIVE PAIN MANAGEMENT, AND THE PAIN ASSESSMENT PROCESS?YES LATEX QUESTIONNAIRE LATEX ALLERGY : HAVE YOU EVER DEVELOPED ANY TYPE OF REACTION AFTER HANDLING LATEX PRODUCTS SUCH RUBBER GLOVES, CONDOMS, DIAPHRAGMS, BALLOONS, SOCKS, OR UNDERWEAR?NO LATEX ALLERGY : HAVE YOU EVER DEVELOPED ANY TYPE OF REACTION DURING OR AFTER DENTAL APPOINTMENT, VAGINAL/RECTAL EXAMINATION, SURGICAL PROCEDURE, OR ANY OTHER EXPOSURE?NO LATEX RISK : HAVE YOU EVER HAD ANY DIFFICULTY BREATHING OR HIVES AFTER EATING OR HANDLING ANY FRUITS, OR VEGETABLES; SUCH KIWI, BANANAS, STONE FRUITS, OR CHESTNUTSNO LATEX RISK : DO YOU HAVE A PREVIOUS PERSONAL HISTORY OF MORE THAN NINE SURGERIES, SPINA BIFIDA, OR REPEATED CATHERIZATIONS? NO LATEX RISK : ARE YOU FREQUENTLY EXPOSED TO LATEX PRODUCTS IN YOUR OCCUPATION?YES DATE ASKED : 04/19/2019 CAFFEINE CAFFEINE USE?YES HOW OFTEN AND HOW MUCH? 3 CUPS/DAY ADVANCE DIRECTIVE ADVANCE DIRECTIVE DISCUSSED WITH PATIENT:YES PT STATES HE HAS HCP. POA, AND LIVING WILL [id number] [phone] BUDDHIST [id number] BUDDHISM MARITAL STATUS: . FEMALE 6 MONTH RISK ASSESSMENT FOR STD SPOUSE. 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 REVIEWED 05/05/18 1135 LASREVIEWED WITH PATIENT 05/1215 JS REVIEWED WITH PT 10/05/18 0945 BVREVIEWED WITH PT 10/06/18 0951 BV REVIEWED WITH PATIENT 04/19/19 0915 BV. HOSPITALIZATION/MAJOR DIAGNOSTIC PROCEDURE SURGERY RELATED REVIEW OF SYSTEMS REVIEWED BY: PROVIDER: SWETHA JENSEN . CONSTITUTIONAL: ANY CHANGE IN YOUR MEDICAL CONDITION? YES, HAD RIGHT KNEE CORTISONE INJECTION RECENTLY AND IS SCHEDULED FOR RIGHT KNEE FLEXERIL INJECTION AT [facility] ON 04/21/19 . CHILLS NO . FEVER NO . INFECTION: DO YOU HAVE NEW INFECTIONS? NO . DO YOU HAVE HISTORY OF MRSA? NO . MUSCULOSKELETAL: ANY NEW PATTERNS OF PAIN OR NUMBNESS? NO . GASTROENTEROLOGY: ANY NEW CHANGE IN BOWEL CONTROL? NO . GENITOURINARY: ANY NEW CHANGE IN BLADDER CONTROL? NO . IS THERE A CHANCE YOU COULD BE ? NO . HEMATOLOGY/LYMPH: DO YOU TAKE ANY BLOOD THINNERS? (FOR EXAMPLE- COUMADIN, PLAVIX, AGGRENOX, PLATEL, PRADAXA, OR XARELTO) NO . WHEN WAS YOUR LAST DOSE? DATE: TIME: . NEUROLOGY: HAVE YOU FALLEN IN THE PAST 12 MONTHS? NO . ANY NEW EXTREMITY NUMBNESS OR WEAKNESS? NO . CARDIOLOGY: DO YOU HAVE A PACEMAKER OR DEFIBRILLATOR? NO . RESPIRATORY: HAVE YOU BEEN SICK IN THE PAST WEEK? NO . FEVER NO . FLU LIKE SYMPTOMS? NO . COUGH NO . INTEGUMENTARY: DO YOU HAVE ANY RASHES OR OPEN SORES? NO . ALLERGIC/IMMUNO: ARE YOU ALLERGIC TO IV DYE? NO . ANY NEW ALLERGIES? NO . PSYCHIATRIC: DO YOU HAVE THOUGHTS OF HURTING YOURSELF OR SOMEONE ELSE? NO . ARE YOU ABUSED, NEGLECTED, OR IN AN UNSAFE ENVIRONMENT? NO . ENDOCRINOLOGY: ARE YOU DIABETIC? NO . OTHER: DO YOU NEED ANY PRESCRIPTIONS? NO . IF YES, PLEASE LIST: ____ . ANY NEW PROBLEMS WITH YOUR MEDICATIONS? NO . WHEN DID YOU LAST EAT? ____ . WHEN DID YOU LAST DRINK? ____ . WHAT DID YOU LAST DRINK? ____ . NAME OF PERSON DRIVING YOU HOME? ____ . DO YOU HAVE ANY OTHER QUESTIONS OR CONCERNS YES, PT STATES HE IS READY FOR INJECTION. HE IS LEAVING FOR [place] THE 3RD WEEK IN MAY AND WOULD LIKE TO SCHEDULE INJECTION BEFORE THEN. . VITAL SIGNS WT 297.6 LBS, HT 68 IN, BMI 45.24 INDEX, BP 144/86 MM HG, HR 63 /MIN, RR 18 /MIN, TEMP 97.4 F, OXYGEN SAT % 91%, NA INITIALS SC 09:16, REVIEWED BY: BV. EXAMINATION GENERAL EXAMINATION: GENERAL AWAKE,ALERT ,PLEAASANT . PSYCH AFFECT NORMAL . LUNGS: LUNG HEBERT ARE CLEAR TO AUSCULTATION BILATERALLY. GOOD MOVEMENT OF AIR . HEART: S1, S2 IN A REGULAR RATE AND RHYTHM. NO SIGNIFICANT MURMURS, RUBS OR GALLOPS NOTED . MUSCULOSKELETAL:MST 5/5 BILAT. LOWER EXTREMITIES SLE + FOR LEFT LBP AT 45 DEGREES. FOR BILAT. SIJ PALPATION: + FOR PAIN OVER L/S SPINE. + FOR PAIN OVER L/S PARASPINALS. DIAGNOSTIC TESTS REVIEWED MRI L/S SPINE-03/19/16-SPONDYLOLISTHESIS L4/5 PRODUCING SEVERE SPINAL STENOSIS. 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 PREVENTIVE MEDICINE PAIN CLINIC TEACHING: PROCEDURE TEACHING PT GIVEN WRITTEN AND VERBAL PRE PROCEDURE INSTRUCTIONS. PT VERBALIZES UNDERSTANDING OF ALL INSTRUCTIONS ,STATING HE HAS HAD LUMBAR EPIDURAL BEFORE AND IS FAMILIAR WITH INSTRUCTIONS. VÍCTOR ROSENTHAL 04/19/2019 9:49:25 AM > . PROCEDURE CODES FA211 ESTABILISHED PATIENT [facility] FACILITY CHARGE DISPOSITION & COMMUNICATION FOLLOW UP POST (REASON: L4/5 LESI) ELECTRONICALLY SIGNED BY MIKEY TELLO ON 05/01/2019 AT 02:36 PM EST DISCLAIMER : THIS IS A VISIT SUMMARY EXTRACTED FROM THE [employer] CHART. IT IS NOT A COPY OF THE [employer] PROGRESS NOTE. KAMILLA
== END ==
LOC: M PAIN 09:00
PROVIDERS: ATTEND Nurse Practitioner Family
DX: M51.17 Intervertebral disc disorders with radiculopathy, lumbosacral region (principal); M43.16 Spondylolisthesis, lumbar region

== ENCOUNTER → 2019-05-15 | Outpatient (CLI) | payer BC ==
[~2019-05-15] MED LIST changes: +ISOVUE-M 300 61% 15ML VIAL (Q9967) As Ordered ONE; +LIDOCAINE 1% SDV INJ 30 ML VIAL As Ordered ONE; +diazePAM 5 MG TAB As Ordered ONE; +methylPREDNISolone SUSP 40 MG/ML (DEPO-medrol) VIAL (J1030) As Ordered ONE; +oxyCODONE 5MG TAB As Ordered ONE
--- NOTE | 2019-05-15 12:33 | REP ---
Lumbar spine: Single view. History: Pain. 12 seconds of fluoroscopy time is reported. Findings: A single last image hold fluoroscopically obtained spot radiograph of the lumbar spine documents needle position and contrast injection associated with injection procedure. Electronically Signed by Waldo Merchant MD 05/15/2019 12:26 P
--- NOTE | 2019-05-25 02:11 | ECWPNPC ---
PATIENT NAME: MOON LUCAS : 1960 GENDER: MALE VISIT DATE: 05/15/2019 DISCHARGE DATE: 05/15/19 1022 VISIT LOCKED DATE TIME: PHYSICIAN: CHAIM RAI MD RESOURCE: CHAIM RAI MD REASON FOR APPOINTMENT 1. L4/5 LESI HISTORY OF PRESENT ILLNESS HISTORY OF PRESENT ILLNESS: PAIN THE PATIENT DESCRIBES THE PAIN... FALL RISK SCREENING: SCREENING :NO FALLS REPORTED IN THE LAST YEAR CURRENT MEDICATIONS TAKING LISINOPRIL 5 MG TABLET 1 TAB(S) ORALLY ONCE A DAY, NOTES: 05/14/19@1949 TAKING ATENOLOL 25 MG TABLET 1 TABLET ORALLY ONCE A DAY, NOTES: 05/14/19 TAKING ASPIRIN 81 MG TABLET 1 TABLET ORALLY ONCE A DAY, NOTES: 05/14/19 TAKING LIPITOR 20 MG TABLET 1 TABLET ORALLY ONCE A DAY, NOTES: 05/14/19 TAKING HYDROCODONE-ACETAMINOPHEN 5-325 MG TABLET 1 TABLET NEEDED ORALLY EVERY 8 HRS PRN FOR PAIN MDD4, NOTES: 05/14/19@0830 TAKING IBUPROFEN 800 MG TABLET 1 TAB ORALLY Q6H PRN, NOTES: 05/14/19@1949 TAKING SALONPAS 4% 1 PATCH DAILY NEEDED, NOTES: 05/14/19@1200 TAKING VITAMIN D (ERGOCALCIFEROL) 45518 UNIT CAPSULE 1 CAPSULE ORALLY WEEKLY, NOTES: 05/14/19@1950 UNKNOWN GABAPENTIN 100 MG CAPSULE DIRECTED ORALLY THREE TIMES DAILY, NOTES: 05/14/19@1930 MEDICATION LIST REVIEWED AND RECONCILED WITH THE PATIENT PAST MEDICAL HISTORY 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 RADICULAR PAIN-JANUARY 2010 MRI MULTILEVEL DJD, GRADE 1 DEGENERATIVE ANTEROLISTHESIS L4/L5, 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 WITH LEFT GREATER THAN RIGHT NEUROFORAMINAL NARROWING HYPERTENSION 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 DECEMBER 2005 OBESITY, MORBID HYPERHOMOCYSTINEMIA, MILD-12/2003-12.6 (4.3-11.4) IMPAIRED FASTING GLUCOSE HYPERLIPIDEMIA 2B VENOUS INSUFFICIENCY BILATERAL LOWER EXTREMITIES TORN ROTATOR CUFF RIGHT RIGHT KNEE TORN MENISCUS ALLERGIES TETRACYCLINE HCL: NAUSEA/VOMITING - ALLERGY HORSE SERUM: NAUSEA/VOMITING - ALLERGY AUSTRIAN LIMPETS: ANAPHYLAXIS - ALLERGY SURGICAL HISTORY RIGHT MENISCUS REPAIR TONSILLECTOMY HERNIATED UMBILICAL SURGERY JAN 2018 FAMILY HISTORY FATHER: , DIAGNOSED WITH UNSPECIFIED HEART DISEASE, UNSPECIFIED CEREBRAL ARTERY OCCLUSION WITH CEREBRAL INFARCTION MOTHER: , OTHER MALIGNANT NEOPLASM OF UNSPECIFIED SITE 3 SON(S) , 1 DAUGHTER(S) - HEALTHY. MOM--UTERINE CA. SOCIAL HISTORY GENERAL: TOBACCO USE ARE YOU A: NONSMOKER. OTHERS AT HOME: SPOUSE. HOUSING: OWNS HOME. DIET: REGULAR. LANGUAGE LANGUAGES SPOKEN:AZERI DOMESTIC VIOLENCE DO YOU FEEL SAFE IN YOUR ENVIRONMENT?YES NEW PATIENT PAIN DIARY FROM 0-10, WHAT LEVEL IS YOUR PAIN TODAY?2 RECREATIONAL DRUG USE DRUG USE?YES HOW OFTEN AND HOW MUCH? OCC. MARIJUANA EXERCISE: WALKS. LEARNING BARRIERS / SPECIAL NEEDS BARRIERS TO LEARNING?NO HEARING IMPAIRED?NO NO HEARING AIDS. CAN'T HEAR HIGH FREQUENCY TONES VISION IMPAIRED?YES COGNITIVELY IMPAIRED?NO :CORRECTIVE LENSES READINESS TO LEARN?YES LEARNING PREFERENCES?NO LEARNING CAPABILITIES PRESENT?YES EMOTIONAL BARRIERS?NO SPECIAL DEVICES?YES :CANE OCCASSIONALLY WINDOWS PHONE DEVELOPER NEEDED?NO PAIN CLINIC PFS, CLERGY, PUBLIC HEALTH REFERRALS PFS REFERRAL NEEDED?NO CLERGY REFERRAL NEEDED?NO PUBLIC HEALTH REFERRAL NEEDED?NO WAS THE PROVIDER NOTIFIED OF ANY PERTINENT INFO?YES N/A HAS THE PATIENT BEEN EDUCATED REGARDING HIS/HER PLAN OF CARE?YES HAS THE PATIENT BEEN EDUCATED REGARDING PAIN, THE RISK FOR PAIN, THE IMPORTANCE OF EFFECTIVE PAIN MANAGEMENT, AND THE PAIN ASSESSMENT PROCESS?YES LATEX QUESTIONNAIRE LATEX ALLERGY : HAVE YOU EVER DEVELOPED ANY TYPE OF REACTION AFTER HANDLING LATEX PRODUCTS SUCH RUBBER GLOVES, CONDOMS, DIAPHRAGMS, BALLOONS, SOCKS, OR UNDERWEAR?NO LATEX ALLERGY : HAVE YOU EVER DEVELOPED ANY TYPE OF REACTION DURING OR AFTER DENTAL APPOINTMENT, VAGINAL/RECTAL EXAMINATION, SURGICAL PROCEDURE, OR ANY OTHER EXPOSURE?NO DATE ASKED : 04/19/2019 LATEX RISK : HAVE YOU EVER HAD ANY DIFFICULTY BREATHING OR HIVES AFTER EATING OR HANDLING ANY FRUITS, OR VEGETABLES; SUCH KIWI, BANANAS, STONE FRUITS, OR CHESTNUTSNO LATEX RISK : DO YOU HAVE A PREVIOUS PERSONAL HISTORY OF MORE THAN NINE SURGERIES, SPINA BIFIDA, OR REPEATED CATHERIZATIONS? NO LATEX RISK : ARE YOU FREQUENTLY EXPOSED TO LATEX PRODUCTS IN YOUR OCCUPATION?YES CAFFEINE CAFFEINE USE?YES HOW OFTEN AND HOW MUCH? 3 CUPS/DAY ADVANCE DIRECTIVE ADVANCE DIRECTIVE DISCUSSED WITH PATIENT:YES PT STATES HE HAS HCP. POA, AND LIVING WILL [id number] [phone] SYNAGOGUE [id number] EPISCOPALIAN MARITAL STATUS: . FEMALE 6 MONTH RISK ASSESSMENT FOR STD SPOUSE. 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 REVIEWED 05/05/18 1135 LASREVIEWED WITH PATIENT 05/12 18 0915 JS REVIEWED WITH PT 10/05/18 0945 BVREVIEWED WITH PT 10/06/18 0951 BV REVIEWED WITH PATIENT 04/19/19 0915 BVPRE PROCEDURE PHONE CALL COMPLETED 05/11/19 4407 NLJ. HOSPITALIZATION/MAJOR DIAGNOSTIC PROCEDURE SURGERY RELATED REVIEW OF SYSTEMS REVIEWED BY: PROVIDER: . CONSTITUTIONAL: ANY CHANGE IN YOUR MEDICAL CONDITION? NO . CHILLS NO . FEVER NO . INFECTION: DO YOU HAVE NEW INFECTIONS? NO . DO YOU HAVE HISTORY OF MRSA? NO . MUSCULOSKELETAL: ANY NEW PATTERNS OF PAIN OR NUMBNESS? NO . GASTROENTEROLOGY: ANY NEW CHANGE IN BOWEL CONTROL? NO . GENITOURINARY: ANY NEW CHANGE IN BLADDER CONTROL? NO . IS THERE A CHANCE YOU COULD BE ? NO . HEMATOLOGY/LYMPH: DO YOU TAKE ANY BLOOD THINNERS? (FOR EXAMPLE- COUMADIN, PLAVIX, AGGRENOX, PLATEL, PRADAXA, OR XARELTO) NO . WHEN WAS YOUR LAST DOSE? DATE: TIME: . NEUROLOGY: HAVE YOU FALLEN IN THE PAST 12 MONTHS? NO . ANY NEW EXTREMITY NUMBNESS OR WEAKNESS? NO . CARDIOLOGY: DO YOU HAVE A PACEMAKER OR DEFIBRILLATOR? NO . RESPIRATORY: HAVE YOU BEEN SICK IN THE PAST WEEK? NO . FEVER NO . FLU LIKE SYMPTOMS? NO . COUGH NO . INTEGUMENTARY: DO YOU HAVE ANY RASHES OR OPEN SORES? NO . ALLERGIC/IMMUNO: ARE YOU ALLERGIC TO IV DYE? NO . ANY NEW ALLERGIES? NO . PSYCHIATRIC: DO YOU HAVE THOUGHTS OF HURTING YOURSELF OR SOMEONE ELSE? NO . ARE YOU ABUSED, NEGLECTED, OR IN AN UNSAFE ENVIRONMENT? NO . ENDOCRINOLOGY: ARE YOU DIABETIC? NO . OTHER: DO YOU NEED ANY PRESCRIPTIONS? NO . IF YES, PLEASE LIST: ____ . ANY NEW PROBLEMS WITH YOUR MEDICATIONS? NO . WHEN DID YOU LAST EAT? ____05/14/19 . WHEN DID YOU LAST DRINK? ____05/14/19 . WHAT DID YOU LAST DRINK? ____WATER . NAME OF PERSON DRIVING YOU HOME? ____JUAN LUCAS . DO YOU HAVE ANY OTHER QUESTIONS OR CONCERNS NO . VITAL SIGNS WT 302 LBS, HT 68 IN, BMI 45.91 INDEX, BP 134/81 MM HG, HR 59 /MIN, RR 18 /MIN, TEMP 96.1 F, OXYGEN SAT % 92%, SAFE IN ENV? (Y/N) YES, NA INITIALS [place] 08:47, REVIEWED BY: VD. ASSESSMENTS INTERVERTEBRAL DISC DISORDERS WITH RADICULOPATHY, LUMBAR REGION - M51.16 (PRIMARY) PROCEDURES PRE PROCEDURE DIAGNOSIS LUMBAR DISC DISORDER WITH RADICULOPATHY, LUMBAR SPINAL STENOSIS POST PROCEDURE DIAGNOSIS LUMBAR DISC DISORDER WITH RADICULOPATHY, LUMBAR SPINAL STENOSIS PROCEDURE LUMBAR EPIDURAL STEROID INJECTION UNDER FLUOROSCOPIC GUIDANCE SURGEON DR. CHAIM RAI SMUTTER NONE ANESTHESIA LOCAL PRE PROCEDURE NOTE THE PATIENT HAS A HISTORY OF CHRONIC LOW BACK PAIN. I EVALUATED THE PATIENT AND REVIEWED THE CHART. I WENT OVER THE RISKS, ALTERNATIVES, AND BENEFITS ASSOCIATED WITH THIS PROCEDURE. THE PATIENT WOULD LIKE TO PROCEED AND GAVE CONSENT TO PERFORM THE PROCEDURE. THE PATIENT DENIES UNEXPLAINABLE WEIGHT LOSS, FEVER, CHILLS, OR NEW CHANGES IN URINARY OR BOWEL CONTROL. DESCRIPTION OF PROCEDURE THE PATIENT WAS BROUGHT TO THE PROCEDURE ROOM AND PLACED IN THE PRONE POSITION. THE LUMBOSACRAL AREA WAS CLEANED WITH BETADINE SOLUTION AND DRAPED ASEPTICALLY. THE PROCEDURE WAS DONE UNDER STERILE CONDITIONS. I CHECKED LATERALITY AND THE LEVEL WHERE THE PROCEDURE WAS GOING TO BE PERFORMED WITH THE PATIENT AND THE SUPPORTING STAFF AT THE MOMENT OF THE TIME OUT IN THE PROCEDURE ROOM. UNDER FLUOROSCOPIC GUIDANCE, THE TARGET POINT WAS SELECTED AT THE INTERLAMINAR LEVEL OF L4-L5. LIDOCAINE WAS USED TO NUMB THE SKIN AND THE SUBCUTANEOUS TISSUE BELOW IT. EPIDURAL TUOHY NEEDLE, 17-GAUGE, WAS ADVANCED UNDER FLUOROSCOPIC GUIDANCE AND FOLLOWING PATIENT FEEDBACK UNTIL THE EPIDURAL SPACE WAS REACHED, 7 CM DEEP INTO THE SKIN BY THE LOSS OF RESISTANCE TECHNIQUE. ISOVUE M DYE 30%, 0.25 ML, WAS INJECTED SHOWING ADEQUATE SPREAD OF THE DYE. THEN, A SOLUTION OF 3 ML OF NORMAL SALINE WITH DEPO-MEDROL 60 MG WAS INJECTED SLOWLY FOLLOWING PATIENT FEEDBACK. THERE WAS NO EVIDENCE OF BLOOD, PARESTHESIA OR CEREBROSPINAL FLUID DURING THE PROCEDURE. THE PATIENT WAS SENT TO THE RECOVERY ROOM. THE PATIENT WAS MOVING THE EXTREMITIES AND DOING WELL. THERE WAS NO COMPLICATION DURING THE PROCEDURE. FLUOROSCOPY TIME WAS 6 SECONDS. POST PROCEDURE NOTE THE PATIENT WILL BE SEEN IN A FOLLOWUP IN THE NEXT FEW WEEKS. I AM LOOKING FOR LONG-LASTING PAIN RELIEF WITH THIS PROCEDURE. DEPENDING ON THE RESULT OF THIS PROCEDURE, WE WILL CONSIDER A THERAPEUTIC LUMBAR FACET BLOCK IN THE FUTURE. INSTRUCTIONS WERE GIVEN, QUESTIONS WERE ANSWERED, AND THE PATIENT EXPRESSED UNDERSTANDING AND AGREES WITH THE PLAN. I, COURTNEY CEJA, DOCUMENTED THE ABOVE INFORMATION ACTING A SCRIBE FOR DR. RAI. I HAVE REVIEWED THE ABOVE DOCUMENT, WRITTEN BY MAXIME BUENO, AND I VERIFY THAT IT IS ACCURATE DIAGNOSTIC IMAGING [facility] FLUORO GUIDE SPINE INJECTION (PAIN)[id number] PROCEDURE CODES 84877 LUMBAR/SACRAL W/ IMAGING 6045F RADXPS IN END [id number] PXD DISPOSITION & COMMUNICATION FOLLOW UP 2 WEEKS ELECTRONICALLY SIGNED BY CHAIM RAI MD, MD ON 05/24/2019 AT 03:49 PM EST DISCLAIMER : THIS IS A VISIT SUMMARY EXTRACTED FROM THE [employer] CHART. IT IS NOT A COPY OF THE [employer] PROGRESS NOTE. KAMILLA
== END ==
LOC: M PAIN 08:30
PROVIDERS: ATTEND Anesthesiology
DX: M51.16 Intervertebral disc disorders with radiculopathy, lumbar region (principal); I10 Essential (primary) hypertension; R73.01 Impaired fasting glucose; E78.5 Hyperlipidemia, unspecified; Z88.1 Allergy status to other antibiotic agents; E66.01 Morbid (severe) obesity due to excess calories; Z68.42 Body mass index [BMI] 45.0-49.9, adult; Z79.82 Long term (current) use of aspirin; Z79.899 Other long term (current) drug therapy
CPT/HCPCS: 62323; J1030; Q9967

== ENCOUNTER → 2019-08-21 | Outpatient (CLI) | payer BC ==
[~2019-08-21] MED LIST changes: -ISOVUE-M 300 61% 15ML VIAL (Q9967) As Ordered ONE; -LIDOCAINE 1% SDV INJ 30 ML VIAL As Ordered ONE; +LIPI20TA PO; +VITA500045 PO; -diazePAM 5 MG TAB As Ordered ONE; -methylPREDNISolone SUSP 40 MG/ML (DEPO-medrol) VIAL (J1030) As Ordered ONE; -oxyCODONE 5MG TAB As Ordered ONE
--- NOTE | 2019-08-23 02:50 | ECWPNPC ---
PATIENT NAME: MOON LUCAS : 1960 GENDER: MALE VISIT DATE: 08/21/2019 DISCHARGE DATE: 08/21/19 1143 VISIT LOCKED DATE TIME: PHYSICIAN: SWETHA LAWSON RESOURCE: SWETHA LAWSON REASON FOR APPOINTMENT 1. POST [phone] HISTORY OF PRESENT ILLNESS HISTORY OF PRESENT ILLNESS: PATIENT HAS AGREED TO VIRTUAL VISIT VIA ZOOM TODAY. HAD LUMBAR EPIDURAL STEROID INJECTION AT [facility] ON 05/15/2019. CONTINUES TO BENEFIT FROM INJECTION, ALTHOUGH HE FEELS PAIN MAY BE BEGINNING TO RETURN. RATING PAIN LEVEL A 2/10 VAS. USING GABAPENTIN AND HYDROCODONE PRESCRIBED BY PRIMARY CARE PERIODICALLY FOR SEVERE PAIN EPISODES. DISCUSSED MEDICATION AND TREATMENT OPTIONS. PAIN THE PATIENT DESCRIBES THE PAIN... FALL RISK SCREENING: SCREENING :NO FALLS REPORTED IN THE LAST YEAR CURRENT MEDICATIONS TAKING LISINOPRIL 5 MG TABLET 1 TAB(S) ORALLY ONCE A DAY TAKING ATENOLOL 25 MG TABLET 1 TABLET ORALLY ONCE A DAY TAKING ASPIRIN 81 MG TABLET 1 TABLET ORALLY ONCE A DAY TAKING LIPITOR 20 MG TABLET 1 TABLET ORALLY ONCE A DAY TAKING HYDROCODONE-ACETAMINOPHEN 5-325 MG TABLET 1 TABLET NEEDED ORALLY EVERY 8 HRS PRN FOR PAIN MDD4 TAKING SALONPAS 4% 1 PATCH DAILY NEEDED TAKING VITAMIN D (ERGOCALCIFEROL) 22051 UNIT CAPSULE 1 CAPSULE ORALLY WEEKLY TAKING IBUPROFEN 800 MG TABLET 1 TAB ORALLY Q6H PRN TAKING GABAPENTIN 100 MG CAPSULE DIRECTED ORALLY THREE TIMES DAILY, NOTES: 05/14/19@1930 MEDICATION LIST REVIEWED AND RECONCILED WITH THE PATIENT PAST MEDICAL HISTORY 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 RADICULAR PAIN-JANUARY 2010 MRI MULTILEVEL DJD, GRADE 1 DEGENERATIVE ANTEROLISTHESIS L4/L5, 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 WITH LEFT GREATER THAN RIGHT NEUROFORAMINAL NARROWING HYPERTENSION 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 DECEMBER 2005 OBESITY, MORBID HYPERHOMOCYSTINEMIA, MILD-12/2003-12.6 (4.3-11.4) IMPAIRED FASTING GLUCOSE HYPERLIPIDEMIA 2B VENOUS INSUFFICIENCY BILATERAL LOWER EXTREMITIES TORN ROTATOR CUFF RIGHT RIGHT KNEE TORN MENISCUS ALLERGIES TETRACYCLINE HCL: NAUSEA/VOMITING - ALLERGY HORSE SERUM: NAUSEA/VOMITING - ALLERGY EMIRATI LIMPETS: ANAPHYLAXIS - ALLERGY SURGICAL HISTORY RIGHT MENISCUS REPAIR TONSILLECTOMY HERNIATED UMBILICAL SURGERY JAN 2018 FAMILY HISTORY FATHER: , DIAGNOSED WITH UNSPECIFIED HEART DISEASE, UNSPECIFIED CEREBRAL ARTERY OCCLUSION WITH CEREBRAL INFARCTION MOTHER: , OTHER MALIGNANT NEOPLASM OF UNSPECIFIED SITE 3 SON(S) , 1 DAUGHTER(S) - HEALTHY. MOM--UTERINE CA. SOCIAL HISTORY GENERAL: TOBACCO USE ARE YOU A: NONSMOKER. LATEX QUESTIONNAIRE LATEX ALLERGY : HAVE YOU EVER DEVELOPED ANY TYPE OF REACTION AFTER HANDLING LATEX PRODUCTS SUCH RUBBER GLOVES, CONDOMS, DIAPHRAGMS, BALLOONS, SOCKS, OR UNDERWEAR?NO LATEX ALLERGY : HAVE YOU EVER DEVELOPED ANY TYPE OF REACTION DURING OR AFTER DENTAL APPOINTMENT, VAGINAL/RECTAL EXAMINATION, SURGICAL PROCEDURE, OR ANY OTHER EXPOSURE?NO LATEX RISK : HAVE YOU EVER HAD ANY DIFFICULTY BREATHING OR HIVES AFTER EATING OR HANDLING ANY FRUITS, OR VEGETABLES; SUCH KIWI, BANANAS, STONE FRUITS, OR CHESTNUTSNO LATEX RISK : DO YOU HAVE A PREVIOUS PERSONAL HISTORY OF MORE THAN NINE SURGERIES, SPINA BIFIDA, OR REPEATED CATHERIZATIONS? NO LATEX RISK : ARE YOU FREQUENTLY EXPOSED TO LATEX PRODUCTS IN YOUR OCCUPATION?YES DATE ASKED : 08/21/2019 ALCOHOL SCREENING DID YOU HAVE A DRINK CONTAINING ALCOHOL IN THE PAST YEAR?YES HOW OFTEN DID YOU HAVE SIX OR MORE DRINKS ON ONE OCCASION IN THE PAST YEAR?NEVER (0 POINTS) HOW MANY DRINKS DID YOU HAVE ON A TYPICAL DAY WHEN YOU WERE DRINKING IN THE PAST YEAR?1 OR 2 (0 POINTS) HOW OFTEN DID YOU HAVE A DRINK CONTAINING ALCOHOL IN THE PAST YEAR?TWO TO FOUR TIMES A MONTH (2 POINTS) POINTS2 INTERPRETATIONNEGATIVE RECREATIONAL DRUG USE DRUG USE?YES HOW OFTEN AND HOW MUCH? OCC. MARIJUANA CAFFEINE CAFFEINE USE?YES HOW OFTEN AND HOW MUCH? 3 CUPS/DAY SCIENTOLOGIST [id number] [employer]ARITAN LANGUAGE LANGUAGES SPOKEN:JAPANESE LEARNING BARRIERS / SPECIAL NEEDS BARRIERS TO LEARNING?NO HEARING IMPAIRED?NO NO HEARING AIDS. 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 DIET: REGULAR. EXERCISE: WALKS. MARITAL STATUS: . OTHERS AT HOME: SPOUSE. FEMALE 6 MONTH RISK ASSESSMENT FOR STD SPOUSE. NEW PATIENT PAIN DIARY TODAY'S VISIT 08/21/2019 PATIENT DESCRIBES PAIN :ACHING, BURNING, IT COMES AND GOES, STABBING, SORE, SHOOTING FROM 0-10, WHAT LEVEL IS YOUR PAIN TODAY?2 IS THERE A CHANCE YOU COULD BE ?NO HAVE YOU BEEN SICK IN THE LAST WEEK (COLD, COUGH, FEVER, FLU, ETC)NO DO YOU TAKE ANY BLOOD THINNERS?NO DO YOU HAVE ANY RASHES OR OPEN SORES?NO ANY CHANGE IN BOWEL OR BLADDER CONTROL?NO ARE YOU ALLERGIC TO SHELLFISH OR IV DYE?NO ARE YOU DIABETIC?NO DO YOU HAVE A PACEMAKER OR DEFIBRILLATOR?NO ANY NEW PROBLEMS WITH MEDICINES OR NEW ALLERGIESNO ANY NEW PATTERNS OF PAIN OR NUMBNESS?NO ANY CHANGE IN YOUR MEDICAL CONDITION?NO HAVE YOU FALLEN IN THE LAST 6 MONTHS?NO DO YOU USE ANY TYPE OF TOBACCO (SMOKE, SMOKELESS, CHEW, ETC.)NO ARE YOU ABUSED, NEGLECTED, OR IN AN UNSAFE ENVIRONMENT?NO DO YOU HAVE THOUGHTS OF HURTING YOURSELF OR SOMEONE ELSE?NO DO YOU NEED ANY PRESCRIPTIONS?NO DO YOU HAVE ANY OTHER QUESTIONS OR CONCERNS?NO INTENSITY SCALE REVIEWEDNUMBER PAIN CLINIC PFS, CLERGY, PUBLIC HEALTH REFERRALS PFS REFERRAL NEEDED?NO CLERGY REFERRAL NEEDED?NO PUBLIC HEALTH REFERRAL NEEDED?NO WAS THE PROVIDER NOTIFIED OF ANY PERTINENT INFO?YES N/A HAS THE PATIENT BEEN EDUCATED REGARDING HIS/HER PLAN OF CARE?YES HAS THE PATIENT BEEN EDUCATED REGARDING PAIN, THE RISK FOR PAIN, THE IMPORTANCE OF EFFECTIVE PAIN MANAGEMENT, AND THE PAIN ASSESSMENT PROCESS?YES HOUSING: OWNS HOME. ADVANCE DIRECTIVE ADVANCE DIRECTIVE DISCUSSED WITH PATIENT:YES PT STATES HE HAS HCP. POA, AND LIVING WILL [id number] [phone] HOSPITALIZATION/MAJOR DIAGNOSTIC PROCEDURE SURGERY RELATED REVIEW OF SYSTEMS REVIEWED BY: PROVIDER: SWETHA JENSEN . CONSTITUTIONAL: ANY CHANGE IN YOUR MEDICAL CONDITION? NO . CHILLS NO . FEVER NO . INFECTION: DO YOU HAVE NEW INFECTIONS? NO . DO YOU HAVE HISTORY OF MRSA? NO . MUSCULOSKELETAL: ANY NEW PATTERNS OF PAIN OR NUMBNESS? NO . GASTROENTEROLOGY: ANY NEW CHANGE IN BOWEL CONTROL? NO . GENITOURINARY: ANY NEW CHANGE IN BLADDER CONTROL? NO . IS THERE A CHANCE YOU COULD BE ? NO . HEMATOLOGY/LYMPH: DO YOU TAKE ANY BLOOD THINNERS? (FOR EXAMPLE- COUMADIN, PLAVIX, AGGRENOX, PLATEL, PRADAXA, OR XARELTO) NO . WHEN WAS YOUR LAST DOSE? DATE: TIME: . NEUROLOGY: HAVE YOU FALLEN IN THE PAST 12 MONTHS? NO . ANY NEW EXTREMITY NUMBNESS OR WEAKNESS? NO . CARDIOLOGY: DO YOU HAVE A PACEMAKER OR DEFIBRILLATOR? NO . RESPIRATORY: HAVE YOU BEEN SICK IN THE PAST WEEK? NO . FEVER NO . FLU LIKE SYMPTOMS? NO . COUGH NO . INTEGUMENTARY: DO YOU HAVE ANY RASHES OR OPEN SORES? NO . ALLERGIC/IMMUNO: ARE YOU ALLERGIC TO IV DYE? NO . ANY NEW ALLERGIES? NO . PSYCHIATRIC: DO YOU HAVE THOUGHTS OF HURTING YOURSELF OR SOMEONE ELSE? NO . ARE YOU ABUSED, NEGLECTED, OR IN AN UNSAFE ENVIRONMENT? NO . ENDOCRINOLOGY: ARE YOU DIABETIC? NO . OTHER: DO YOU NEED ANY PRESCRIPTIONS? NO . IF YES, PLEASE LIST: ____ . ANY NEW PROBLEMS WITH YOUR MEDICATIONS? NO . WHEN DID YOU LAST EAT? ____ . WHEN DID YOU LAST DRINK? ____ . WHAT DID YOU LAST DRINK? ____ . NAME OF PERSON DRIVING YOU HOME? ____ . DO YOU HAVE ANY OTHER QUESTIONS OR CONCERNS PT STATES THAT HE HAS BEEN INTERMITTENT FASTING AND HAVING SUCCESS WITH WEIGHT LOSS. DS . EXAMINATION GENERAL EXAMINATION: GENERALNO ACUTE DISTRESS, WELL NOURISHED AND HYDRATED. PSYCHAPPROPRIATE MOOD AND AFFECT . FACE:UNREMARKABLE. ASSESSMENTS INTERVERTEBRAL DISC DISORDER WITH RADICULOPATHY OF LUMBAR REGION - M51.16 (PRIMARY) TREATMENT INTERVERTEBRAL DISC DISORDER WITH RADICULOPATHY OF LUMBAR REGION NOTES: PATIENT WILL BE SEEN IN 4-6 WEEKS FOR A PREPROCEDURE EVALUATION. TOTAL TIME SPENT DURING VIRTUAL VISIT WAS APPROXIMATELY 11 MINUTES. OTHERS NOTES: UNABLE TO OBTAIN VITAL SIGNS DUE TO VIRTUAL VISIT, PT STATES THAT HE HAS LOST 22 LBS DUE TO INTERMITTENT FASTING. PT HAS GIVEN VERBAL PERMISSION TO CONDUCT PHONE/VIRTUAL VISIT TODAY. DS . PREVENTIVE MEDICINE PAIN CLINIC TEACHING: THE PATIENT HAS BEEN EDUCATED REGARDING PAIN, THE RISK FOR PAIN, THE IMPORTANCE OF EFFECTIVE PAIN MANAGEMENT, AND THE PAIN ASSESSMENT PROCESS. : EDUCATED PT REGARDING VIRTUAL VISIT PROCESS, PT ACKNOWLEDGED UNDERSTANDING, DS DISPOSITION & COMMUNICATION FOLLOW UP PREPROCEDURE VISIT 4-6 WEEKS (REASON: LOW BACK PAIN) ELECTRONICALLY SIGNED BY MIKEY TELLO ON 08/22/2019 AT 08:37 AM EDT DISCLAIMER : THIS IS A VISIT SUMMARY EXTRACTED FROM THE [employer] CHART. IT IS NOT A COPY OF THE [employer] PROGRESS NOTE. KAMILLA
== END ==
LOC: M PAIN 10:30 → M TMPAIN 10:30
PROVIDERS: ATTEND Nurse Practitioner Family
DX: M51.16 Intervertebral disc disorders with radiculopathy, lumbar region (principal); Z79.82 Long term (current) use of aspirin; Z79.891 Long term (current) use of opiate analgesic; Z79.899 Other long term (current) drug therapy; Z88.7 Allergy status to serum and vaccine; Z88.8 Allergy status to other drugs, medicaments and biological substances

== ENCOUNTER → 2019-08-28 | Outpatient (CLI) | payer BC | LOC: M LABSMTC 10:46 | PROVIDERS: ATTEND Anesthesiology | DX: Z01.818 Encounter for other preprocedural examination (principal); Z11.59 Encounter for screening for other viral diseases ==

== ENCOUNTER 2019-08-31 06:45 | Day surgery (SDC) | payer BC ==
[~2019-08-31] VITALS: Ht 172.7 cm; Wt 124.7 kg
[2019-08-31] MEDS ORDERED: NS 1,000 ML IV ONE (07:00)
[2019-08-31] MEDS ORDERED: propofoL 200 MG/20 ML VIAL As Ordered ONE (07:11)
[2019-08-31] MEDS ORDERED: LIDOCAINE 2% 100MG/5ML SDV (FOR ANES.) As Ordered ONE (07:12)
--- NOTE | 2019-08-31 08:10 | ROOR ---
Patient Name: Hunter Agosto Procedure Date: 08/31/2019 7:31 AM Date of : 1960 Age: 58 Room: [facility] Gender: Male Note Status: Finalized Procedure: Colonoscopy Indications: Screening for colorectal malignant neoplasm Providers: Moshe Johnson MD Referring MD: Gavin Simmons MD Requesting Provider: Medicines: Monitored Anesthesia Care Complications: No immediate complications. Procedure: Pre-Anesthesia Assessment: - Prior to the procedure, a History and Physical was performed, and patient medications and allergies were reviewed. The patient is competent. The risks and benefits of the procedure and the sedation options and risks were discussed with the patient. All questions were answered and informed consent was obtained. Patient identification and proposed procedure were verified by the physician, the nurse and the coil winder repair in the endoscopy suite. Mental Status Examination: alert and oriented. Airway Examination: normal oropharyngeal airway and neck mobility. Respiratory Examination: clear to auscultation. CV Examination: normal. Prophylactic Antibiotics: The patient does not require prophylactic antibiotics. Prior Anticoagulants: The patient has taken no previous anticoagulant or antiplatelet agents except for aspirin. ASA Grade Assessment: III - A patient with severe systemic disease. After reviewing the risks and benefits, the patient was deemed in satisfactory condition to undergo the procedure. The anesthesia plan was to use monitored anesthesia care (MAC). Immediately prior to administration of medications, the patient was re-assessed for adequacy to receive sedatives. The heart rate, respiratory rate, oxygen saturations, blood pressure, adequacy of pulmonary ventilation, and response to care were monitored throughout the procedure. The physical status of the patient was re-assessed after the procedure. The Colonoscope was introduced through the anus and advanced to the cecum, identified by appendiceal orifice and ileocecal valve. The colonoscopy was somewhat difficult due to the patient's body habitus. The patient tolerated the procedure well. The quality of the bowel preparation was adequate to identify polyps. Findings: The perianal and digital rectal examinations were normal. Two sessile polyps were found in the sigmoid colon and descending colon. The polyps were 2 to 4 mm in size. These polyps were removed with a cold snare. Resection and retrieval were complete. Estimated blood loss was minimal. Multiple medium-mouthed diverticula were found in the sigmoid colon, descending colon, transverse colon and hepatic flexure. There was no evidence of diverticular bleeding. The retroflexed view of the distal rectum and anal verge was normal and showed no anal or rectal abnormalities. Impression: - Two 2 to 4 mm polyps in the sigmoid colon and in the descending colon, removed with a cold snare. Resected and retrieved. - Moderate diverticulosis in the sigmoid colon, in the descending colon, in the transverse colon and at the hepatic flexure. There was no evidence of diverticular bleeding. - The distal rectum and anal verge are normal on retroflexion view. Recommendation: - Discharge patient to home (ambulatory). - High fiber diet indefinitely. - Repeat colonoscopy in 5 years for surveillance of multiple polyps. - Await pathology results. Moshe Johnson MD Moshe Johnson MD 08/31/2019 8:09:35 AM Electronically signed by Moshe Johnson MD Number of Addenda: 0 Note Initiated On: 08/31/2019 7:31 AM Estimated Blood Loss: Estimated blood loss was minimal.
[2019-08-31 08:30] VITALS: BP 129/74
== END 2019-08-31 08:51 | disposition home or self-care (01) ==
LOC: M OPP 06:45
PROVIDERS: ATTEND Surgery
DX: Z12.11 Encounter for screening for malignant neoplasm of colon (principal); K63.5 Polyp of colon; K57.30 Diverticulosis of large intestine without perforation or abscess without bleeding; I10 Essential (primary) hypertension; Z79.82 Long term (current) use of aspirin; Z79.891 Long term (current) use of opiate analgesic; Z79.899 Other long term (current) drug therapy; Z88.1 Allergy status to other antibiotic agents; Z87.891 Personal history of nicotine dependence

== ENCOUNTER → 2019-09-19 | Outpatient (CLI) | payer BC ==
--- NOTE | 2019-09-27 05:15 | ECWPNPC ---
PATIENT NAME: MOON LUCAS : 1960 GENDER: MALE VISIT DATE: 09/19/2019 DISCHARGE DATE: 09/19/19 0000 VISIT LOCKED DATE TIME: PHYSICIAN: SWETHA LAWSON RESOURCE: SWETHA LAWSON REASON FOR APPOINTMENT 1. LOW BACK PAIN-PRE PROCEDURE PAT DONE HISTORY OF PRESENT ILLNESS HISTORY OF PRESENT ILLNESS: HERE FOR FOLLOW-UP OF CHRONIC LOW BACK PAIN. PAIN HAS INCREASED OVER THE PAST MONTH. PAIN IS AGGRAVATED BY BENDING OR LIFTING. PAIN IS LOCATED ACROSS LOWER BACK, LEFT GREATER THAN RIGHT. HAS RESPONDED WELL TO SACROILIAC JOINT BLOCK AND LUMBAR EPIDURAL STEROID INJECTIONS IN THE PAST. DISCUSSED TREATMENT OPTIONS. FALL RISK SCREENING: SCREENING :NO FALLS REPORTED IN THE LAST YEAR CURRENT MEDICATIONS TAKING LISINOPRIL 5 MG TABLET 1 TAB(S) ORALLY ONCE A DAY TAKING ATENOLOL 25 MG TABLET 1 TABLET ORALLY ONCE A DAY TAKING ASPIRIN 81 MG TABLET 1 TABLET ORALLY ONCE A DAY TAKING LIPITOR 20 MG TABLET 1 TABLET ORALLY ONCE A DAY TAKING HYDROCODONE-ACETAMINOPHEN 5-325 MG TABLET 1 TABLET NEEDED ORALLY EVERY 8 HRS PRN FOR PAIN MDD4 TAKING SALONPAS 4% 1 PATCH DAILY NEEDED TAKING VITAMIN D (ERGOCALCIFEROL) 83293 UNIT CAPSULE 1 CAPSULE ORALLY WEEKLY TAKING IBUPROFEN 800 MG TABLET 1 TAB ORALLY Q6H PRN TAKING GABAPENTIN 100 MG CAPSULE DIRECTED ORALLY THREE TIMES DAILY, NOTES: PRN MEDICATION LIST REVIEWED AND RECONCILED WITH THE PATIENT PAST MEDICAL HISTORY 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 RADICULAR PAIN-JANUARY 2010 MRI MULTILEVEL DJD, GRADE 1 DEGENERATIVE ANTEROLISTHESIS L4/L5, 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 WITH LEFT GREATER THAN RIGHT NEUROFORAMINAL NARROWING HYPERTENSION 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 DECEMBER 2005 OBESITY, MORBID HYPERHOMOCYSTINEMIA, MILD-12/2003-12.6 (4.3-11.4) IMPAIRED FASTING GLUCOSE HYPERLIPIDEMIA 2B VENOUS INSUFFICIENCY BILATERAL LOWER EXTREMITIES TORN ROTATOR CUFF RIGHT RIGHT KNEE TORN MENISCUS ALLERGIES TETRACYCLINE HCL: NAUSEA/VOMITING - ALLERGY HORSE SERUM: NAUSEA/VOMITING - ALLERGY COLOMBIAN LIMPETS: ANAPHYLAXIS - ALLERGY SURGICAL HISTORY RIGHT MENISCUS REPAIR TONSILLECTOMY HERNIATED UMBILICAL SURGERY JAN 2018 COLONOSCOPY AUGUST 2019 FAMILY HISTORY FATHER: , DIAGNOSED WITH UNSPECIFIED HEART DISEASE, UNSPECIFIED CEREBRAL ARTERY OCCLUSION WITH CEREBRAL INFARCTION MOTHER: , OTHER MALIGNANT NEOPLASM OF UNSPECIFIED SITE 3 SON(S) , 1 DAUGHTER(S) - HEALTHY. MOM--UTERINE CA. SOCIAL HISTORY GENERAL: TOBACCO USE ARE YOU A:NONSMOKER 09/19/2019 LATEX QUESTIONNAIRE LATEX ALLERGY : HAVE YOU EVER DEVELOPED ANY TYPE OF REACTION AFTER HANDLING LATEX PRODUCTS SUCH RUBBER GLOVES, CONDOMS, DIAPHRAGMS, BALLOONS, SOCKS, OR UNDERWEAR?NO LATEX ALLERGY : HAVE YOU EVER DEVELOPED ANY TYPE OF REACTION DURING OR AFTER DENTAL APPOINTMENT, VAGINAL/RECTAL EXAMINATION, SURGICAL PROCEDURE, OR ANY OTHER EXPOSURE?NO LATEX RISK : HAVE YOU EVER HAD ANY DIFFICULTY BREATHING OR HIVES AFTER EATING OR HANDLING ANY FRUITS, OR VEGETABLES; SUCH KIWI, BANANAS, STONE FRUITS, OR CHESTNUTSNO LATEX RISK : DO YOU HAVE A PREVIOUS PERSONAL HISTORY OF MORE THAN NINE SURGERIES, SPINA BIFIDA, OR REPEATED CATHERIZATIONS? NO LATEX RISK : ARE YOU FREQUENTLY EXPOSED TO LATEX PRODUCTS IN YOUR OCCUPATION?YES DATE ASKED : 09/19/2019 LUNG CANCER SCREENING SMOKING STATUS:NON SMOKER ALCOHOL SCREENING DID YOU HAVE A DRINK CONTAINING ALCOHOL IN THE PAST YEAR?YES HOW OFTEN DID YOU HAVE SIX OR MORE DRINKS ON ONE OCCASION IN THE PAST YEAR?NEVER (0 POINTS) HOW MANY DRINKS DID YOU HAVE ON A TYPICAL DAY WHEN YOU WERE DRINKING IN THE PAST YEAR?1 OR 2 (0 POINTS) HOW OFTEN DID YOU HAVE A DRINK CONTAINING ALCOHOL IN THE PAST YEAR?TWO TO FOUR TIMES A MONTH (2 POINTS) POINTS2 INTERPRETATIONNEGATIVE RECREATIONAL DRUG USE DRUG USE?YES HOW OFTEN AND HOW MUCH? OCC. MARIJUANA CAFFEINE CAFFEINE USE?YES HOW OFTEN AND HOW MUCH? 3 CUPS/DAY ORTHODOX [id number] [employer] LANGUAGE LANGUAGES SPOKEN:[place]ONT[place]GRIN LEARNING BARRIERS / SPECIAL NEEDS BARRIERS TO LEARNING?NO HEARING IMPAIRED?NO NO HEARING AIDS. 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 DIET: REGULAR. EXERCISE: WALKS. MARITAL STATUS: . OTHERS AT HOME: SPOUSE. FEMALE 6 MONTH RISK ASSESSMENT FOR STD SPOUSE. NEW PATIENT PAIN DIARY TODAY'S VISIT 09/19/2019 PATIENT DESCRIBES PAIN :ACHING, BURNING, IT COMES AND GOES, STABBING, SORE, SHOOTING LEFT SIDE SCIATICA, BELT LINE VERY SORE FROM 0-10, WHAT LEVEL IS YOUR PAIN TODAY?5 IS THERE A CHANCE YOU COULD BE ?NO DO YOU TAKE ANY BLOOD THINNERS?NO DO YOU HAVE ANY RASHES OR OPEN SORES?NO ANY CHANGE IN BOWEL OR BLADDER CONTROL?NO ARE YOU ALLERGIC TO SHELLFISH OR IV DYE?NO ARE YOU DIABETIC?NO DO YOU HAVE A PACEMAKER OR DEFIBRILLATOR?NO ANY NEW PROBLEMS WITH MEDICINES OR NEW ALLERGIESNO ANY NEW PATTERNS OF PAIN OR NUMBNESS?NO ANY CHANGE IN YOUR MEDICAL CONDITION?NO HAVE YOU FALLEN IN THE LAST 6 MONTHS?NO DO YOU USE ANY TYPE OF TOBACCO (SMOKE, SMOKELESS, CHEW, ETC.)NO ARE YOU ABUSED, NEGLECTED, OR IN AN UNSAFE ENVIRONMENT?NO DO YOU HAVE THOUGHTS OF HURTING YOURSELF OR SOMEONE ELSE?NO DO YOU NEED ANY PRESCRIPTIONS?NO DO YOU HAVE ANY OTHER QUESTIONS OR CONCERNS?NO INTENSITY SCALE REVIEWEDNUMBER PAIN CLINIC PFS, CLERGY, PUBLIC HEALTH REFERRALS PFS REFERRAL NEEDED?NO CLERGY REFERRAL NEEDED?NO PUBLIC HEALTH REFERRAL NEEDED?NO WAS THE PROVIDER NOTIFIED OF ANY PERTINENT INFO?YES N/A HAS THE PATIENT BEEN EDUCATED REGARDING HIS/HER PLAN OF CARE?YES HAS THE PATIENT BEEN EDUCATED REGARDING PAIN, THE RISK FOR PAIN, THE IMPORTANCE OF EFFECTIVE PAIN MANAGEMENT, AND THE PAIN ASSESSMENT PROCESS?YES HOUSING: OWNS HOME. ADVANCE DIRECTIVE ADVANCE DIRECTIVE DISCUSSED WITH PATIENT:YES PT STATES HE HAS HCP. POA, AND LIVING WILL [id number] [phone] HOSPITALIZATION/MAJOR DIAGNOSTIC PROCEDURE SURGERY RELATED REVIEW OF SYSTEMS REVIEWED BY: PROVIDER: SWETHA JENSEN . CONSTITUTIONAL: ANY CHANGE IN YOUR MEDICAL CONDITION? YES BACK PAIN INCREASED . CHILLS NO . FEVER NO . INFECTION: DO YOU HAVE NEW INFECTIONS? NO . DO YOU HAVE HISTORY OF MRSA? NO . MUSCULOSKELETAL: ANY NEW PATTERNS OF PAIN OR NUMBNESS? NO . GASTROENTEROLOGY: ANY NEW CHANGE IN BOWEL CONTROL? NO . GENITOURINARY: ANY NEW CHANGE IN BLADDER CONTROL? NO . IS THERE A CHANCE YOU COULD BE ? NO . HEMATOLOGY/LYMPH: DO YOU TAKE ANY BLOOD THINNERS? (FOR EXAMPLE- COUMADIN, PLAVIX, AGGRENOX, PLATEL, PRADAXA, OR XARELTO) NO . WHEN WAS YOUR LAST DOSE? DATE: TIME: . NEUROLOGY: HAVE YOU FALLEN IN THE PAST 12 MONTHS? NO . ANY NEW EXTREMITY NUMBNESS OR WEAKNESS? NO . CARDIOLOGY: DO YOU HAVE A PACEMAKER OR DEFIBRILLATOR? NO . RESPIRATORY: HAVE YOU BEEN SICK IN THE PAST WEEK? NO . FEVER NO . FLU LIKE SYMPTOMS? NO . COUGH NO . INTEGUMENTARY: DO YOU HAVE ANY RASHES OR OPEN SORES? NO . ALLERGIC/IMMUNO: ARE YOU ALLERGIC TO IV DYE? NO . ANY NEW ALLERGIES? NO . PSYCHIATRIC: DO YOU HAVE THOUGHTS OF HURTING YOURSELF OR SOMEONE ELSE? NO . ARE YOU ABUSED, NEGLECTED, OR IN AN UNSAFE ENVIRONMENT? NO . ENDOCRINOLOGY: ARE YOU DIABETIC? NO . OTHER: DO YOU NEED ANY PRESCRIPTIONS? NO . IF YES, PLEASE LIST: ____ . ANY NEW PROBLEMS WITH YOUR MEDICATIONS? NO . WHEN DID YOU LAST EAT? ____ . WHEN DID YOU LAST DRINK? ____ . WHAT DID YOU LAST DRINK? ____ . NAME OF PERSON DRIVING YOU HOME? ____ . DO YOU HAVE ANY OTHER QUESTIONS OR CONCERNS NO . VITAL SIGNS WT 282 LBS, HT 68 IN, BMI 42.87 INDEX, BP 163/83 MM HG, HR 64 /MIN, RR 18 /MIN, TEMP 97.0 F, OXYGEN SAT % 93%, NA INITIALS AW 0951. EXAMINATION GENERAL EXAMINATION: GENERAL ALERT,NO DISTRESS . PSYCH AFFECT NORMAL . LUNGS: LUNG SOUNDS ARE CLEAR . HEART: HEART RATE REGULAR . MUSCULOSKELETAL: MST 5/5 BILAT. LOWER EXTREMITIES . LUMBAR: TENDERNESS BILAT. SIJ . POSITIVE JENNIFER'S TESTING BILATERAL LOWER EXTREMITIES. DIAGNOSTIC TESTS REVIEWED. CT LS-SPINE 2015 . ASSESSMENTS SACROILIITIS, NOT ELSEWHERE CLASSIFIED - M46.1 (PRIMARY) TREATMENT SACROILIITIS, NOT ELSEWHERE CLASSIFIED NOTES: BILATERAL SIJ. OTHERS NOTES: SACROILIAC JOINT PAIN MATERIAL WAS PRINTED. PROCEDURE CODES FA211 ESTABILISHED PATIENT [facility] CHARGE DISPOSITION & COMMUNICATION FOLLOW UP POST (REASON: BILATERAL SIJ) ELECTRONICALLY SIGNED BY MIKEY TELLO ON 09/26/2019 AT 03:45 PM EDT DISCLAIMER : THIS IS A VISIT SUMMARY EXTRACTED FROM THE [employer] CHART. IT IS NOT A COPY OF THE [employer] PROGRESS NOTE. KAMILLA
== END ==
LOC: M PAIN 09:45
PROVIDERS: ATTEND Nurse Practitioner Family
DX: M46.1 Sacroiliitis, not elsewhere classified (principal); Z79.82 Long term (current) use of aspirin; Z79.899 Other long term (current) drug therapy; Z88.8 Allergy status to other drugs, medicaments and biological substances; Z88.7 Allergy status to serum and vaccine; Z91.018 Allergy to other foods

== ENCOUNTER → 2019-09-29 | Outpatient (CLI) | payer BC | LOC: M LABSMTC 09:33 | PROVIDERS: ATTEND Anesthesiology | DX: Z11.59 Encounter for screening for other viral diseases (principal) | CPT/HCPCS: C9803; U0003 ==

== ENCOUNTER → 2019-10-02 | Outpatient (CLI) | payer BC ==
[~2019-10-02] MED LIST changes: +BUPIVACAINE HCL 0.25% 30ML VIAL As Ordered ONE; +ISOVUE-M 300 61% 15ML VIAL As Ordered ONE; +LIDOCAINE 1% SDV 30ML VIAL As Ordered ONE; +dexameTHASONE 10MG/1ML VIAL PRES.FREE (J1100 PER 1MG) As Ordered ONE; +diazePAM 5 MG TAB As Ordered ONE; +oxyCODONE 5MG TAB As Ordered ONE
--- NOTE | 2019-10-02 14:15 | REP ---
C-arm views sacroiliac joints. CLINICAL HISTORY: Pain. Two C-arm views of bilateral sacroiliac joints performed during injection by Dr. Mabry. A needle was seen overlying each sacroiliac joint. 47 seconds of fluoroscopy time utilized. Electronically Signed by Zeeshan Tanner MD 10/03/2019 01:07 P
--- NOTE | 2019-10-04 00:26 | ECWPNPC ---
PATIENT NAME: MOON LUCAS : 1960 GENDER: MALE VISIT DATE: 10/02/2019 DISCHARGE DATE: 10/02/19 1220 VISIT LOCKED DATE TIME: PHYSICIAN: CHAIM RAI MD RESOURCE: CHAIM RAI MD REASON FOR APPOINTMENT 1. BILATERAL SIJ HISTORY OF PRESENT ILLNESS GENERAL: -. FALL RISK SCREENING: SCREENING :NO FALLS REPORTED IN THE LAST YEAR PAIN SCREENING: PATIENT HAS A COMPLAINT OF ACUTE OR CHRONIC PAIN :YES LOCATION OF PAIN:MID BACK, LOW BACK, LEFT HIP, RIGHT HIP, LEG(S), THIGH(S) INTENSITY OF PAIN (SCALE OF 1 TO 10):5 WHAT DOES YOUR PAIN FEEL LIKE:ACHING, INTERMITTENT, STABBING PAIN IS INCREASED BY:ACTIVITIES, PROLONGED STANDING PAIN IS DECREASED BY:USE OF PAIN MEDICATIONS, SITTING NURSING NOTE: -. PAIN CENTER INTAKE QUESTIONS: DO YOU HAVE A HISTORY OF MRSA? :NO DO YOU TAKE A BLOOD THINNERS? :NO DO YOU HAVE ANY BLEEDING DISORDERS? :NO ANY NEW NUMBNESS OR WEAKNESS IN YOUR LEGS OR ARMS? :NO ANY PACEMAKER,DEFIBRILLATOR, OR DORSAL COLUMN STIMULATOR? :NO DO YOU HAVE ANY RASHES OR OPEN SORES? :NO ARE YOU ALLERGIC TO IV DYE? :NO ARE YOU DIABETIC? :NO ANY NEW PROBLEMS WITH YOUR MEDICATIONS? :NO HAVE YOU RECEIVED A VACCINE IN THE PAST 30 DAYS? :NO DO YOU PLAN TO RECEIVE A VACCINE IN THE NEXT 21 DAYS? :NO ANY HISTORY OF SEIZURES? :NO ANY HISTORY OF CARDIAC ISSUES OR EVENTS? :NO DO YOU HAVE SLEEP APNEA? :NO UNKNOWN - THINKS HE MAY, NEVER BEEN TESTED ANY RECENT HEAD INJURY? :NO DO YOU HAVE ANY NEW INFECTIONS? :NO WHEN DID YOU LAST EAT? : -09/30 2099 WHEN DID YOU LAST DRINK? : -10/02 799 WHAT DID YOU LAST DRINK? : -WATER NAME OF PERSON DRIVING YOU HOME? : -JUAN DO YOU HAVE ANY OTHER QUESTIONS OR CONCERNS? : - CURRENT MEDICATIONS TAKING LISINOPRIL 5 MG TABLET 1 TAB(S) ORALLY ONCE A DAY, NOTES: 10/02 799 TAKING ATENOLOL 25 MG TABLET 1 TABLET ORALLY ONCE A DAY, NOTES: 10/02 799 TAKING ASPIRIN 81 MG TABLET 1 TABLET ORALLY ONCE A DAY, NOTES: 10/02 799 TAKING LIPITOR 20 MG TABLET 1 TABLET ORALLY ONCE A DAY, NOTES: 10/02 799 TAKING HYDROCODONE-ACETAMINOPHEN 5-325 MG TABLET 1 TABLET NEEDED ORALLY EVERY 8 HRS PRN FOR PAIN MDD4, NOTES: 09/30 1400 TAKING SALONPAS 4% 1 PATCH DAILY NEEDED, NOTES: 09/30 2100 TAKING VITAMIN D (ERGOCALCIFEROL) 01524 UNIT CAPSULE 1 CAPSULE ORALLY WEEKLY, NOTES: 09/30 08 TAKING IBUPROFEN 800 MG TABLET 1 TAB ORALLY Q6H PRN, NOTES: 10/01 08 TAKING GABAPENTIN 100 MG CAPSULE DIRECTED ORALLY THREE TIMES DAILY, NOTES: 09/28 MEDICATION LIST REVIEWED AND RECONCILED WITH THE PATIENT PAST MEDICAL HISTORY 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 RADICULAR PAIN-JANUARY 2010 MRI MULTILEVEL DJD, GRADE 1 DEGENERATIVE ANTEROLISTHESIS L4/L5, 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 WITH LEFT GREATER THAN RIGHT NEUROFORAMINAL NARROWING HYPERTENSION 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 DECEMBER 2005 OBESITY, MORBID HYPERHOMOCYSTINEMIA, MILD-12/2003-12.6 (4.3-11.4) IMPAIRED FASTING GLUCOSE HYPERLIPIDEMIA 2B VENOUS INSUFFICIENCY BILATERAL LOWER EXTREMITIES TORN ROTATOR CUFF RIGHT RIGHT KNEE TORN MENISCUS ALLERGIES TETRACYCLINE HCL: NAUSEA/VOMITING - ALLERGY HORSE SERUM: NAUSEA/VOMITING - ALLERGY SRI LANKAN LIMPETS: ANAPHYLAXIS - ALLERGY SURGICAL HISTORY RIGHT MENISCUS REPAIR TONSILLECTOMY HERNIATED UMBILICAL SURGERY JAN 2018 COLONOSCOPY AUGUST 2019 FAMILY HISTORY FATHER: , DIAGNOSED WITH UNSPECIFIED CEREBRAL ARTERY OCCLUSION WITH CEREBRAL INFARCTION, UNSPECIFIED HEART DISEASE MOTHER: , OTHER MALIGNANT NEOPLASM OF UNSPECIFIED SITE 3 SON(S) , 1 DAUGHTER(S) - HEALTHY. MOM--UTERINE CA. SOCIAL HISTORY GENERAL: TOBACCO USE ARE YOU A:NONSMOKER 09/19/2019 LATEX QUESTIONNAIRE LATEX ALLERGY : HAVE YOU EVER DEVELOPED ANY TYPE OF REACTION AFTER HANDLING LATEX PRODUCTS SUCH RUBBER GLOVES, CONDOMS, DIAPHRAGMS, BALLOONS, SOCKS, OR UNDERWEAR?NO LATEX ALLERGY : HAVE YOU EVER DEVELOPED ANY TYPE OF REACTION DURING OR AFTER DENTAL APPOINTMENT, VAGINAL/RECTAL EXAMINATION, SURGICAL PROCEDURE, OR ANY OTHER EXPOSURE?NO DATE ASKED : 09/19/2019 LATEX RISK : HAVE YOU EVER HAD ANY DIFFICULTY BREATHING OR HIVES AFTER EATING OR HANDLING ANY FRUITS, OR VEGETABLES; SUCH KIWI, BANANAS, STONE FRUITS, OR CHESTNUTSNO LATEX RISK : DO YOU HAVE A PREVIOUS PERSONAL HISTORY OF MORE THAN NINE SURGERIES, SPINA BIFIDA, OR REPEATED CATHERIZATIONS? NO LATEX RISK : ARE YOU FREQUENTLY EXPOSED TO LATEX PRODUCTS IN YOUR OCCUPATION?YES LUNG CANCER SCREENING SMOKING STATUS:NON SMOKER ALCOHOL SCREENING DID YOU HAVE A DRINK CONTAINING ALCOHOL IN THE PAST YEAR?YES HOW OFTEN DID YOU HAVE SIX OR MORE DRINKS ON ONE OCCASION IN THE PAST YEAR?NEVER (0 POINTS) HOW MANY DRINKS DID YOU HAVE ON A TYPICAL DAY WHEN YOU WERE DRINKING IN THE PAST YEAR?1 OR 2 (0 POINTS) HOW OFTEN DID YOU HAVE A DRINK CONTAINING ALCOHOL IN THE PAST YEAR?TWO TO FOUR TIMES A MONTH (2 POINTS) POINTS2 INTERPRETATIONNEGATIVE RECREATIONAL DRUG USE DRUG USE?YES HOW OFTEN AND HOW MUCH? OCC. MARIJUANA CAFFEINE CAFFEINE USE?YES HOW OFTEN AND HOW MUCH? 3 CUPS/DAY ADVENTISM [id number] MANDAEISM LANGUAGE LANGUAGES SPOKEN:CITIZEN OF [place] LEARNING BARRIERS / SPECIAL NEEDS BARRIERS TO LEARNING?NO HEARING IMPAIRED?NO NO HEARING AIDS. 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 DIET: REGULAR. EXERCISE: WALKS. MARITAL STATUS: . OTHERS AT HOME: SPOUSE. FEMALE 6 MONTH RISK ASSESSMENT FOR STD SPOUSE. NEW PATIENT PAIN DIARY TODAY'S VISIT 09/19/2019, PATIENT DESCRIBES PAIN : ACHING, BURNING, IT COMES AND GOES, STABBING, SORE, SHOOTING LEFT SIDE SCIATICA, BELT LINE VERY SORE, FROM 0-10, WHAT LEVEL IS YOUR PAIN TODAY? 5, IS THERE A CHANCE YOU COULD BE ? NO, DO YOU TAKE ANY BLOOD THINNERS? NO, DO YOU HAVE ANY RASHES OR OPEN SORES? NO, ANY CHANGE IN BOWEL OR BLADDER CONTROL? NO, ARE YOU ALLERGIC TO SHELLFISH OR IV DYE? NO, ARE YOU DIABETIC? NO, DO YOU HAVE A PACEMAKER OR DEFIBRILLATOR? NO, ANY NEW PROBLEMS WITH MEDICINES OR NEW ALLERGIES NO, ANY NEW PATTERNS OF PAIN OR NUMBNESS? NO, ANY CHANGE IN YOUR MEDICAL CONDITION? NO, HAVE YOU FALLEN IN THE LAST 6 MONTHS? NO, DO YOU USE ANY TYPE OF TOBACCO (SMOKE, SMOKELESS, CHEW, ETC.) NO, ARE YOU ABUSED, NEGLECTED, OR IN AN UNSAFE ENVIRONMENT? NO, DO YOU HAVE THOUGHTS OF HURTING YOURSELF OR SOMEONE ELSE? NO, DO YOU NEED ANY PRESCRIPTIONS? NO, DO YOU HAVE ANY OTHER QUESTIONS OR CONCERNS? NO, INTENSITY SCALE REVIEWED NUMBER. PAIN CLINIC PFS, CLERGY, PUBLIC HEALTH REFERRALS PFS REFERRAL NEEDED?NO CLERGY REFERRAL NEEDED?NO PUBLIC HEALTH REFERRAL NEEDED?NO WAS THE PROVIDER NOTIFIED OF ANY PERTINENT INFO?YES N/A HAS THE PATIENT BEEN EDUCATED REGARDING HIS/HER PLAN OF CARE?YES HAS THE PATIENT BEEN EDUCATED REGARDING PAIN, THE RISK FOR PAIN, THE IMPORTANCE OF EFFECTIVE PAIN MANAGEMENT, AND THE PAIN ASSESSMENT PROCESS?YES HOUSING: OWNS HOME. ADVANCE DIRECTIVE ADVANCE DIRECTIVE DISCUSSED WITH PATIENT:YES PT STATES HE HAS HCP. POA, AND LIVING WILL [id number] [phone] HOSPITALIZATION/MAJOR DIAGNOSTIC PROCEDURE SURGERY RELATED VITAL SIGNS WT 277.4 LBS, HT 68 IN, BMI 42.17 INDEX, BP 165/77 L ARM, REPEAT BP 144/79 R ARM, HR 56 /MIN, RR 18 /MIN, TEMP 95.6 F, OXYGEN SAT % 96%, SAFE IN ENV? (Y/N) YES, NA INITIALS TL 1039, REVIEWED BY: LATISHA. EXAMINATION GENERAL EXAMINATION: THE PATIENT IS ALERT, ORIENTED TIMES THREE AND COOPERATIVE. HEART SHOWS REGULAR RHYTHM, NO MURMURS AND NO GALLOPS. LUNGS ARE CLEAR TO AUSCULTATION. ASSESSMENTS SACROILIITIS, NOT ELSEWHERE CLASSIFIED - M46.1 SACROILIAC JOINT DYSFUNCTION - M53.3 TREATMENT SACROILIITIS, NOT ELSEWHERE CLASSIFIED [facility] FLUORO GUIDANCE (PAIN)[id number] PROCEDURES PAIN NURSING RECORD PRE-PROCEDURE IV SITE N/A, PRE-PROCEDURE ORAL MEDICATIONS VALIUM 5 MG AND OXYCODONE 10 MG GIVEN AT 1100 LAS : HEART SOUNDS REGULAR, LUNGS CLEAR BILATERALLY LAS PROCEDURE IN ROOM 1115, PHYSICIAN IN ROOM 1127, START 1133, FINISH 1143, PHYSICIAN OUT OF ROOM 1145, OUT OF ROOM 1158, STEROID DEXAMETHASONE, O2 RA, ECG NORMAL SINUS, PATIENT SHIELDED YES, SAFETY STRAP YES, PREP CHLOROPREP, IV INFUSED LACTATED RINGERS 200 ML, DRESSING TEGADERM LOC: 1. ALERT, ORIENTED RESP: 1. REGULAR, NO DYSPNEA COLOR: 1. PINK SKIN: 1. WARM, DRY POSITION: 1. PRONE VITALS: PT AMBULATED TO PROCEDURE ROOM, GAIT STEADY. PLACED ON DEPARTMENT HEAD JUNIOR COLLEGE, NOTED TO BE IN SINUS BRADYCARDIA, RATE 46-50. DR. RAI NOTIFIED, IN TO EVALUATE PATIENT. DR. RAI ORDERED AN SALINE LOCK TO BE STARTED, # 22 PLACED IN LEFT HAND 1ST ATTEMPT, NO REDNESS, SWELLING OR DRAINAGE AT SITE. 1125 153/79 48-16 95% 1130 142/91 52-16 95% 1144 149/79 43-16 93% HEART RATE 40-45, DR. RAI NOTIFIED. DR. RAI ORDERED IV OF LACTATED RINGERS TO BE HUNG. PT PLACED IN [place]. 1146 148/97 53-16 95% 1151 147/88 53-16 95% 1159 134/83 54-95% PT BACK TO RECOVERY AREA VIA STRETCHER. 1210 146/88 55-18 96% OK TO DISCHARGE PER DR. RAI. IV DISCONTINUED, SITE WITHOUT REDNESS, SWELLING OR DRAINAGE. DSD APPLIED. DISCHARGE: POST PAIN 0-2 LOW BACK, DRESSING SITE DRY AND INTACT, IV DISCONTINUED, GAIT STEADY, TEACHING COMPLETED, PATIENT ACKNOWLEDGES UNDERSTANDING YES, PATIENT DISCHARGED AT 1228 MALIA BROWN RN PN SI PRE PROCEDURE DIAGNOSIS SACROILIITIS, SACROILIAC JOINT DYSFUNCTION POST PROCEDURE DIAGNOSIS SACROILIITIS, SACROILIAC JOINT DYSFUNCTION PROCEDURE BILATERAL SACROILIAC JOINT BLOCK SURGEON DR. CHAIM RAI LOCAL SALES MANAGER NONE ANESTHESIA LOCAL PRE PROCEDURE NOTE THE PATIENT WITH HISTORY OF CHRONIC LOW BACK PAIN. I EVALUATED THE PATIENT AND REVIEWED THE CHART. I WENT OVER THE RISKS, ALTERNATIVES, AND BENEFITS ASSOCIATED WITH THIS PROCEDURE. I DISCUSSED THAT THE USE OF STEROIDS MAY CONTRIBUTE TO IMMUNOSUPPRESSION OF THE PATIENT'S BODY AGAINST INFECTIONS SUCH THE BRONSON VIRUS, COVID-19. THE PATIENT IS AWARE OF THE POTENTIAL COMPLICATIONS ASSOCIATED WITH AN INFECTION OF THIS VIRUS INCLUDING . THE PATIENT WOULD LIKE TO PROCEED AND GAVE CONSENT TO PERFORM THE PROCEDURE. THE PATIENT DENIES UNEXPLAINABLE WEIGHT LOSS, FEVER, CHILLS, OR NEW CHANGES IN URINARY OR BOWEL CONTROL. THE PATIENT IS COVID-19 NEGATIVE DESCRIPTION OF PROCEDURE THE PATIENT WAS BROUGHT TO THE PROCEDURE ROOM AND PLACED IN THE PRONE POSITION. THE LUMBOSACRAL AREA WAS CLEANED WITH CHLORAPREP SOLUTION AND DRAPED ASEPTICALLY. THE PROCEDURE WAS DONE UNDER STERILE CONDITIONS. I CHECKED LATERALITY AND THE LEVEL WHERE THE PROCEDURE WAS GOING TO BE PERFORMED WITH THE PATIENT AND THE SUPPORTING STAFF AT THE MOMENT OF THE TIME OUT IN THE PROCEDURE ROOM. UNDER FLUOROSCOPIC GUIDANCE, TARGET POINT WAS SELECTED AT THE LOWER BORDER OF THE LEFT AND RIGHT SACROILIAC JOINTS. TARGET POINT WAS SELECTED AFTER MEDIAL ROTATION AND TILT OF THE MAGNIFIER OF THE C-ARM. LIDOCAINE WAS USED TO NUMB THE SKIN AND SUBCUTANEOUS TISSUE BELOW IT. A SPINAL NEEDLE, 22-GAUGE, WAS ADVANCED UNDER FLUOROSCOPIC GUIDANCE AND FOLLOWING PATIENT FEEDBACK UNTIL THE TARGET AREA WAS TOUCHED. THE POSITION OF THE NEEDLE WAS VERIFIED WITH AP AND LATERAL VIEWS. AFTER PROPER POSITION OF THE NEEDLE WAS ACHIEVED, ISOVUE M DYE 30%, 0.25 ML, WAS INJECTED SHOWING SPREAD OF THE DYE. THEN, A SOLUTION OF 10 MG OF DEXAMETHASONE WAS INJECTED IN EACH JOINT WITH 3 ML OF BUPIVACAINE 0.125%. THERE WAS NO EVIDENCE OF BLOOD, PARESTHESIA OR CEREBROSPINAL FLUID DURING THE PROCEDURE. THE PATIENT WAS SENT TO THE RECOVERY ROOM. THE PATIENT WAS MOVING THE EXTREMITIES AND DOING WELL. THERE WAS NO COMPLICATION DURING THE PROCEDURE. FLUOROSCOPY TIME WAS 47 SECONDS POST PROCEDURE NOTE THE PATIENT USED HIS LISINOPRIL MEDICATION THIS MORNING. EVERY TIME I REACHED THE TARGETS, HIS HEART RATE WOULD DROP. CONSIDER AN IV FOR ANY FUTURE PROCEDURES. THE PROCEDURE DONE WAS DISCUSSED WITH THE PATIENT. THE PATIENT WILL BE SEEN IN A FOLLOW UP IN THE NEXT FEW WEEKS. I AM LOOKING FOR LONG LASTING PAIN RELIEF FOR THE PATIENT WITH THIS INTERVENTION. INSTRUCTIONS WERE GIVEN, QUESTIONS WERE ANSWERED, AND THE PATIENT EXPRESSED UNDERSTANDING AND AGREES WITH THE PLAN. THE PATIENT IS AWARE TO STAY HOME FOR THE NEXT WEEK, IF POSSIBLE, DUE TO COVID-19. I, JOCELYN MERINO, DOCUMENTED THE ABOVE INFORMATION ACTING A SCRIBE FOR DR. RAI. I HAVE REVIEWED THE ABOVE DOCUMENT, WRITTEN BY JOCELYN MERINO, SUGAR CANE PLANTER, AND I VERIFY THAT IT IS ACCURATE PROCEDURE CODES 11492 INJECT SACROILIAC JOINT, MODIFIERS: 50 DISPOSITION & COMMUNICATION FOLLOW UP F/UP WITH NURSE LEADER (REASON: POST TRACEY SIJ) ELECTRONICALLY SIGNED BY CHAIM RAI MD, MD ON 10/03/2019 AT 10:01 AM EDT DISCLAIMER : THIS IS A VISIT SUMMARY EXTRACTED FROM THE [employer] CHART. IT IS NOT A COPY OF THE [employer] PROGRESS NOTE. KAMILLA
== END ==
LOC: M PAIN 10:45
PROVIDERS: ATTEND Anesthesiology
DX: M46.1 Sacroiliitis, not elsewhere classified (principal); M53.3 Sacrococcygeal disorders, not elsewhere classified; I10 Essential (primary) hypertension; R73.01 Impaired fasting glucose; Z88.1 Allergy status to other antibiotic agents; Z91.09 Other allergy status, other than to drugs and biological substances; E66.01 Morbid (severe) obesity due to excess calories; Z68.41 Body mass index [BMI] 40.0-44.9, adult; Z79.82 Long term (current) use of aspirin; Z79.899 Other long term (current) drug therapy
CPT/HCPCS: G0260; J1100; Q9967

== ENCOUNTER → 2020-02-21 | Outpatient (CLI) | payer BC ==
[~2020-02-21] MED LIST changes: +ASPI-546 PO; -ASPI1TAB15 PO; -BUPIVACAINE HCL 0.25% 30ML VIAL As Ordered ONE; -ISOVUE-M 300 61% 15ML VIAL As Ordered ONE; -LIDOCAINE 1% SDV 30ML VIAL As Ordered ONE; -dexameTHASONE 10MG/1ML VIAL PRES.FREE (J1100 PER 1MG) As Ordered ONE; -diazePAM 5 MG TAB As Ordered ONE; -oxyCODONE 5MG TAB As Ordered ONE
--- NOTE | 2020-02-22 10:02 | ECWPNPC ---
PATIENT NAME: MOON LUCAS : 1960 GENDER: MALE VISIT DATE: 02/21/2020 DISCHARGE DATE: 02/21/20 1047 VISIT LOCKED DATE TIME: PHYSICIAN: SWETHA LAWSON RESOURCE: SWETHA LAWSON REASON FOR APPOINTMENT 1. POST PROCEDURE BILATERAL SIJ HISTORY OF PRESENT ILLNESS DEPRESSION SCREENING: PHQ-2 (2015 EDITION) FEELING DOWN, DEPRESSED, OR HOPELESS?NOT AT ALL TOTAL SCORE0 PAIN SCREENING: PATIENT HAS A COMPLAINT OF ACUTE OR CHRONIC PAIN :YES LOCATION OF PAIN:MID BACK, LOW BACK, LEFT HIP, RIGHT HIP, LEG(S), THIGH(S) INTENSITY OF PAIN (SCALE OF 1 TO 10):5 WHAT DOES YOUR PAIN FEEL LIKE:ACHING, INTERMITTENT, STABBING PAIN IS INCREASED BY:ACTIVITIES, PROLONGED STANDING PAIN IS DECREASED BY:USE OF PAIN MEDICATIONS, SITTING PAIN CENTER INTAKE QUESTIONS: DO YOU HAVE A HISTORY OF MRSA? :NO DO YOU TAKE A BLOOD THINNERS? :NO DO YOU HAVE ANY BLEEDING DISORDERS? :NO ANY NEW NUMBNESS OR WEAKNESS IN YOUR LEGS OR ARMS? :NO ANY PACEMAKER,DEFIBRILLATOR, OR DORSAL COLUMN STIMULATOR? :NO DO YOU HAVE ANY RASHES OR OPEN SORES? :NO ARE YOU ALLERGIC TO IV DYE? :NO ARE YOU DIABETIC? :NO ANY NEW PROBLEMS WITH YOUR MEDICATIONS? :NO HAVE YOU RECEIVED A VACCINE IN THE PAST 30 DAYS? :YES GOT THE FIRST ROUND OF SHOTS FOR THE SINGLE VAC OVER MOTH AGO DO YOU PLAN TO RECEIVE A VACCINE IN THE NEXT 21 DAYS? :YES PLAN ON GETTING THE FLU VAC. DO YOU NEED ANY PRESCRIPTION? :NO DO YOU TAKE ANY IMMUNOSUPPRESSIVE MEDICATIONS? :NO IS THERE A CHANCE YOU COULD BE ? :NO ARE YOU BREAST FEEDING? :NO GENERAL: HERE FOR FOLLOW-UP OF CHRONIC LOW BACK PAIN WITH BILATERAL LEG RADICULOPATHY/NEUROPATHY. PAIN HAS INCREASED OVER THE PAST FEW MONTHS. REVIEWED MRI OF THE LS-SPINE WHICH WAS DONE IN 2016. 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 PATIENT COMPLAINS OF SEVERE LEG BURNING AND PAIN WHEN AMBULATING. REPORTING SACRAL COCCYGEAL PAIN ESPECIALLY WHEN AMBULATING UP STAIRS. PATIENT IS LOOKING FOR A TREATMENT THAT MIGHT PROVE TO LAST LONGER IN REGARDS TO PAIN CONTROL. 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 HE IS REPORTING SYMPTOMS OF NEUROGENIC CLAUDICATION. HE ALSO MAY BENEFIT FROM SACROCOCCYGEAL BLOCKS OR DIAGNOSTIC LUMBAR BLOCKS TO CONSIDER RADIOFREQUENCY. WE WILL NEED AN UPDATED MRI TO CONSIDER TREATMENT OPTIONS FOR HIM THAT ARE MORE LONG-TERM. -. FALL RISK SCREENING: SCREENING :NO FALLS REPORTED IN THE LAST YEAR NONE NURSING NOTE: -. CURRENT MEDICATIONS TAKING LISINOPRIL 5 MG TABLET 1 TAB(S) ORALLY ONCE A DAY, NOTES: 10/02 799 TAKING ATENOLOL 25 MG TABLET 1 TABLET ORALLY ONCE A DAY, NOTES: 10/02 799 TAKING ASPIRIN 81 MG TABLET 1 TABLET ORALLY ONCE A DAY, NOTES: 10/02 799 TAKING LIPITOR 20 MG TABLET 1 TABLET ORALLY ONCE A DAY, NOTES: 10/02 799 TAKING HYDROCODONE-ACETAMINOPHEN 5-325 MG TABLET 1 TABLET NEEDED ORALLY EVERY 8 HRS PRN FOR PAIN MDD4, NOTES: 09/30 1400 TAKING SALONPAS 4% 1 PATCH DAILY NEEDED, NOTES: 09/30 2099 TAKING VITAMIN D (ERGOCALCIFEROL) 20004 UNIT CAPSULE 1 CAPSULE ORALLY WEEKLY, NOTES: 10/01 799 TAKING IBUPROFEN 800 MG TABLET 1 TAB ORALLY Q6H PRN, NOTES: 10/02 799 TAKING GABAPENTIN 100 MG CAPSULE DIRECTED ORALLY THREE TIMES DAILY, NOTES: 09/28 MEDICATION LIST REVIEWED AND RECONCILED WITH THE PATIENT PAST MEDICAL HISTORY 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 RADICULAR PAIN-JANUARY 2010 MRI MULTILEVEL DJD, GRADE 1 DEGENERATIVE ANTEROLISTHESIS L4/L5, 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 WITH LEFT GREATER THAN RIGHT NEUROFORAMINAL NARROWING HYPERTENSION 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 DECEMBER 2005 OBESITY, MORBID HYPERHOMOCYSTINEMIA, MILD-12/2003-12.6 (4.3-11.4) IMPAIRED FASTING GLUCOSE HYPERLIPIDEMIA 2B VENOUS INSUFFICIENCY BILATERAL LOWER EXTREMITIES TORN ROTATOR CUFF RIGHT RIGHT KNEE TORN MENISCUS ALLERGIES TETRACYCLINE HCL: NAUSEA/VOMITING - ALLERGY HORSE SERUM: NAUSEA/VOMITING - ALLERGY ETHIOPIAN LIMPETS: ANAPHYLAXIS - ALLERGY SURGICAL HISTORY RIGHT MENISCUS REPAIR TONSILLECTOMY HERNIATED UMBILICAL SURGERY JAN 2018 COLONOSCOPY AUGUST 2019 FAMILY HISTORY FATHER: , DIAGNOSED WITH UNSPECIFIED HEART DISEASE, UNSPECIFIED CEREBRAL ARTERY OCCLUSION WITH CEREBRAL INFARCTION MOTHER: , OTHER MALIGNANT NEOPLASM OF UNSPECIFIED SITE 3 SON(S) , 1 DAUGHTER(S) - HEALTHY. MOM--UTERINE CA. SOCIAL HISTORY GENERAL: TOBACCO USE ARE YOU A:NONSMOKER 09/19/2019 LATEX QUESTIONNAIRE LATEX ALLERGY : HAVE YOU EVER DEVELOPED ANY TYPE OF REACTION AFTER HANDLING LATEX PRODUCTS SUCH RUBBER GLOVES, CONDOMS, DIAPHRAGMS, BALLOONS, SOCKS, OR UNDERWEAR?NO LATEX ALLERGY : HAVE YOU EVER DEVELOPED ANY TYPE OF REACTION DURING OR AFTER DENTAL APPOINTMENT, VAGINAL/RECTAL EXAMINATION, SURGICAL PROCEDURE, OR ANY OTHER EXPOSURE?NO LATEX RISK : HAVE YOU EVER HAD ANY DIFFICULTY BREATHING OR HIVES AFTER EATING OR HANDLING ANY FRUITS, OR VEGETABLES; SUCH KIWI, BANANAS, STONE FRUITS, OR CHESTNUTSNO LATEX RISK : DO YOU HAVE A PREVIOUS PERSONAL HISTORY OF MORE THAN NINE SURGERIES, SPINA BIFIDA, OR REPEATED CATHERIZATIONS? NO LATEX RISK : ARE YOU FREQUENTLY EXPOSED TO LATEX PRODUCTS IN YOUR OCCUPATION?YES DATE ASKED : 02/21/2020 LUNG CANCER SCREENING SMOKING STATUS:NON SMOKER ALCOHOL SCREENING DID YOU HAVE A DRINK CONTAINING ALCOHOL IN THE PAST YEAR?YES HOW OFTEN DID YOU HAVE SIX OR MORE DRINKS ON ONE OCCASION IN THE PAST YEAR?NEVER (0 POINTS) HOW MANY DRINKS DID YOU HAVE ON A TYPICAL DAY WHEN YOU WERE DRINKING IN THE PAST YEAR?1 OR 2 (0 POINTS) HOW OFTEN DID YOU HAVE A DRINK CONTAINING ALCOHOL IN THE PAST YEAR?TWO TO FOUR TIMES A MONTH (2 POINTS) POINTS2 INTERPRETATIONNEGATIVE RECREATIONAL DRUG USE DRUG USE?YES HOW OFTEN AND HOW MUCH? OCC. MARIJUANA CAFFEINE CAFFEINE USE?YES HOW OFTEN AND HOW MUCH? 3 CUPS/DAY EVANGELICAL [id number] CONGREGATIONAL LANGUAGE LANGUAGES SPOKEN:TANZANIAN LEARNING BARRIERS / SPECIAL NEEDS BARRIERS TO LEARNING?NO HEARING IMPAIRED?NO NO HEARING AIDS. CAN'T HEAR HIGH FREQUENCY TONES VISION IMPAIRED?YES COGNITIVELY IMPAIRED?NO :CORRECTIVE LENSES READINESS TO LEARN?YES LEARNING PREFERENCES?NO LEARNING CAPABILITIES PRESENT?YES EMOTIONAL BARRIERS?NO SPECIAL DEVICES?YES :CANE OCCASSIONALLY ROAD PATCHER NEEDED?NO DOMESTIC VIOLENCE DO YOU FEEL SAFE IN YOUR ENVIRONMENT?YES OCCUPATION: SEMI-RETIRED. DIET: REGULAR. EXERCISE: WALKS. MARITAL STATUS: . OTHERS AT HOME: SPOUSE. FEMALE 6 MONTH RISK ASSESSMENT FOR STD SPOUSE. NEW PATIENT PAIN DIARY TODAY'S VISIT 09/19/2019, PATIENT DESCRIBES PAIN : ACHING, BURNING, IT COMES AND GOES, STABBING, SORE, SHOOTING LEFT SIDE SCIATICA, BELT LINE VERY SORE, FROM 0-10, WHAT LEVEL IS YOUR PAIN TODAY? 5, IS THERE A CHANCE YOU COULD BE ? NO, DO YOU TAKE ANY BLOOD THINNERS? NO, DO YOU HAVE ANY RASHES OR OPEN SORES? NO, ANY CHANGE IN BOWEL OR BLADDER CONTROL? NO, ARE YOU ALLERGIC TO SHELLFISH OR IV DYE? NO, ARE YOU DIABETIC? NO, DO YOU HAVE A PACEMAKER OR DEFIBRILLATOR? NO, ANY NEW PROBLEMS WITH MEDICINES OR NEW ALLERGIES NO, ANY NEW PATTERNS OF PAIN OR NUMBNESS? NO, ANY CHANGE IN YOUR MEDICAL CONDITION? NO, HAVE YOU FALLEN IN THE LAST 6 MONTHS? NO, DO YOU USE ANY TYPE OF TOBACCO (SMOKE, SMOKELESS, CHEW, ETC.) NO, ARE YOU ABUSED, NEGLECTED, OR IN AN UNSAFE ENVIRONMENT? NO, DO YOU HAVE THOUGHTS OF HURTING YOURSELF OR SOMEONE ELSE? NO, DO YOU NEED ANY PRESCRIPTIONS? NO, DO YOU HAVE ANY OTHER QUESTIONS OR CONCERNS? NO, INTENSITY SCALE REVIEWED NUMBER. PAIN CLINIC PFS, CLERGY, PUBLIC HEALTH REFERRALS PFS REFERRAL NEEDED?NO CLERGY REFERRAL NEEDED?NO PUBLIC HEALTH REFERRAL NEEDED?NO WAS THE PROVIDER NOTIFIED OF ANY PERTINENT INFO?YES N/A HAS THE PATIENT BEEN EDUCATED REGARDING HIS/HER PLAN OF CARE?YES HAS THE PATIENT BEEN EDUCATED REGARDING PAIN, THE RISK FOR PAIN, THE IMPORTANCE OF EFFECTIVE PAIN MANAGEMENT, AND THE PAIN ASSESSMENT PROCESS?YES HOUSING: OWNS HOME. ADVANCE DIRECTIVE ADVANCE DIRECTIVE DISCUSSED WITH PATIENT:YES PT STATES HE HAS HCP. POA, AND LIVING WILL [id number] [phone] HOSPITALIZATION/MAJOR DIAGNOSTIC PROCEDURE SURGERY RELATED REVIEW OF SYSTEMS REVIEWED BY: PROVIDER: SWETHA JENSEN . CONSTITUTIONAL: ANY CHANGE IN YOUR MEDICAL CONDITION? YES BACK PAIN INCREASED . CHILLS NO . FEVER NO . INFECTION: DO YOU HAVE NEW INFECTIONS? NO . DO YOU HAVE HISTORY OF MRSA? NO . MUSCULOSKELETAL: ANY UNUSUAL JOINT PAIN OR SWELLING NOT MENTIONED NO . GASTROENTEROLOGY: ANY NEW CHANGE IN BOWEL CONTROL? NO . GENITOURINARY: ANY NEW CHANGE IN BLADDER CONTROL? NO . IS THERE A CHANCE YOU COULD BE ? NO . HEMATOLOGY/LYMPH: DO YOU TAKE ANY BLOOD THINNERS? (FOR EXAMPLE- COUMADIN, PLAVIX, AGGRENOX, PLATEL, PRADAXA, OR XARELTO) NO . WHEN WAS YOUR LAST DOSE? DATE: TIME: . NEUROLOGY: HAVE YOU FALLEN IN THE PAST 12 MONTHS? NO . OTHER NEW NUMBNESS OR PAIN PATTERNS NOT MENTIONED NO . CARDIOLOGY: DO YOU HAVE A PACEMAKER OR DEFIBRILLATOR? NO . RESPIRATORY: HAVE YOU BEEN SICK IN THE PAST WEEK? NO . FEVER NO . FLU LIKE SYMPTOMS? NO . COUGH NO . INTEGUMENTARY: DO YOU HAVE ANY RASHES OR OPEN SORES? NO . ALLERGIC/IMMUNO: ARE YOU ALLERGIC TO IV DYE? NO . ANY NEW ALLERGIES? NO . PSYCHIATRIC: DO YOU HAVE THOUGHTS OF HURTING YOURSELF OR SOMEONE ELSE? NO . ARE YOU ABUSED, NEGLECTED, OR IN AN UNSAFE ENVIRONMENT? NO . ENDOCRINOLOGY: ARE YOU DIABETIC? NO . OTHER: DO YOU NEED ANY PRESCRIPTIONS? NO . IF YES, PLEASE LIST: ____ . ANY NEW PROBLEMS WITH YOUR MEDICATIONS? NO . WHEN DID YOU LAST EAT? ____ . WHEN DID YOU LAST DRINK? ____ . WHAT DID YOU LAST DRINK? ____ . NAME OF PERSON DRIVING YOU HOME? ____ . DO YOU HAVE ANY OTHER QUESTIONS OR CONCERNS NO . VITAL SIGNS WT 283.0 LBS, HT 68 IN, BMI 43.03 INDEX, BP 144/70 MM HG, HR 59 /MIN, RR 18 /MIN, TEMP 97.7 F, OXYGEN SAT % 92%, SAFE IN ENV? (Y/N) YES, NA INITIALS AW 0953, REVIEWED BY: FAY. EXAMINATION GENERAL EXAMINATION: GENERAL ALERT,NO DISTRESS . PSYCH AFFECT NORMAL . LUNGS: LUNG SOUNDS ARE CLEAR . HEART: HEART RATE REGULAR . MUSCULOSKELETAL: MST 5/5 BILAT. LOWER EXTREMITIES . MUSCLE STRENGTH TESTING OF THE LOWER EXTREMITIES PRODUCES LOW BACK PAIN. LUMBAR: TENDERNESS BILAT. SIJ . POSITIVE JENNIFER'S TESTING BILATERAL LOWER EXTREMITIES. DIAGNOSTIC TESTS REVIEWED. MRI LS-SPINE 2015. ASSESSMENTS OTHER CHRONIC PAIN - G89.29 (PRIMARY) SPINAL STENOSIS, LUMBAR REGION WITH NEUROGENIC CLAUDICATION - M48.062 SACROCOCCYGEAL PAIN - M53.3 TREATMENT OTHER CHRONIC PAIN [facility] MRI LUMBAR W/O CONTRAST (CPT 32321)[id number] PAIN PROCEDURE LOGDATE OF WONVNYLEM82/01/2020PROCEDURE:BILATERAL SIJAMOUNT OF PRE SEDATEVALIUM 5MG,OXYCODONE 10MGRESULT:MARKED REDUCTION IN PAIN FOR 2-3 MONTHS NOTES: JAYE HOLDER 02.20.20 PF DISCUSSED TREATMENT OPTIONS AT LENGTH WITH MOON TODAY. HE IS INTERESTED IN PROCEDURES THAT WILL GIVE HIM LONGER PERIODS OF PAIN CONTROL AND IMPROVED ACTIVITY TOLERANCE. WE DISCUSSED BRIEFLY VERTA FLEX PROCEDURE, RADIOFREQUENCY PROCEDURE. WE WILL NEED A NEW MRI OF THE LS-SPINE. I WILL ORDER THIS TODAY. FOLLOW-UP IS SCHEDULED WITH DR. RAI TO REVIEW INTERVENTIONAL TREATMENT OPTIONS AFTER REVIEWING MRI OF THE LS-SPINE. PREVENTIVE MEDICINE (MALE) PREVENTIVE WELLNESS PLAN: TODAY'S VISIT PATIENT PRESENTS TODAY FOR: SCHEDULE MRI AND SEE AFTER FOR A F/U TO SEE SWETHA AND TALK WITH DR. RAI ON WHAT KIND OF PROCUDURES WOULD WORK PROCEDURE CODES FA211 ESTABILISHED PATIENT [facility] CHARGE DISPOSITION & COMMUNICATION FOLLOW UP FOLLOW-UP WITH DR. Olsen, DISCUSS TREATMENT OPTIONS AFTER REVIEWING NEW MRI L/S SPINE. QUESTION IF HE IS CANDIDATE FOR PER TO FLEX VERSUS SACROCOCCYGEAL INJECTION VERSUS DIAGNOSTIC LUMBAR FACETS (REASON: LUMBAR SPINAL STENOSIS WITH NEUROGENIC CLAUDICATION, SACROCOCCYGEAL PAIN, LUMBAR FACET ARTHROPATHY REVIEW MRI AND DISCUSS INTERVENTIONAL OPTIONS) ELECTRONICALLY SIGNED BY MIKEY TELLO ON 02/22/2020 AT 09:05 AM EDT DISCLAIMER : THIS IS A VISIT SUMMARY EXTRACTED FROM THE [employer] CHART. IT IS NOT A COPY OF THE [employer] PROGRESS NOTE. KAMILLA
== END ==
LOC: M PAIN 09:45
PROVIDERS: ATTEND Nurse Practitioner Family
DX: G89.29 Other chronic pain (principal); M48.062 Spinal stenosis, lumbar region with neurogenic claudication; M53.3 Sacrococcygeal disorders, not elsewhere classified; I10 Essential (primary) hypertension; E66.01 Morbid (severe) obesity due to excess calories; R73.01 Impaired fasting glucose; E78.5 Hyperlipidemia, unspecified; I87.2 Venous insufficiency (chronic) (peripheral); Z79.82 Long term (current) use of aspirin; Z79.891 Long term (current) use of opiate analgesic; Z79.899 Other long term (current) drug therapy; Z88.8 Allergy status to other drugs, medicaments and biological substances; Z88.7 Allergy status to serum and vaccine; Z91.048 Other nonmedicinal substance allergy status; Z68.41 Body mass index [BMI] 40.0-44.9, adult

== ENCOUNTER → 2020-03-04 | Outpatient (CLI) | payer BC ==
--- NOTE | 2020-03-05 08:21 | REP ---
INDICATION: SPINAL STENOSIS, LUMBAR WITH NEUROGENIC CLAUDICATION. COMPARISON: Comparison MRI study of the lumbar spine March 19, 2016.. TECHNIQUE: Sagittal and axial T1 and T2-weighted scans are acquired in the usual fashion with and without fat saturation. Sequences include spin echo, turbo spin-echo, and STIR imaging sequences. FINDINGS: Lumbar vertebral body heights are preserved. No fracture or collapse is seen. Tip of the conus medullaris is normal in position and appearance a T12. There is right-sided facet hypertrophy again visible at T12-L1 level indenting the right dorsal lateral margin of the thecal sac but not compressing the conus or cauda equina. At L1-L2, there is no significant finding. At L2-L3 there is mild disc space narrowing, desiccation, and anterior osteophyte formation. There is diffuse disc bulging. Mild central canal stenosis is present. There is fatty in filtration of the filum terminale noted at this level. Minimal facet hypertrophy is present. The midline AP dimension of the thecal sac is 11.6 mm at L2-3. There is mild bilateral neural foraminal narrowing due to disc bulging. This is as somewhat more prominent than on the 2016 prior study on the right side. At the L3-4 disc level, fatty infiltration of the filum is seen. There is mild facet and ligamentum flavum hypertrophy. Canal size is borderline. There is mild discogenic spurring producing narrowing of the right neural foramen. This is unchanged. At L4-L5, there is a grade 1 spondylolisthesis again noted. This is felt to be unchanged and measures 4 mm. There is moderate to severe central canal stenosis due to this finding in association with diffuse disc bulging, moderate ligamentum flavum and advanced facet hypertrophy, and developmentally short pedicles. Midline AP dimension of the thecal sac is 7 mm. There is a small synovial cyst visible on T2 weighted and inversion recovery weighted sequences in impinging on the posterior midline of the thecal sac just below the level of the 4 5 disc. This synovial cyst measures 5 mm in diameter. It is a new finding. In addition, on the right at L4-5, there is compression of the 4th lumbar root due to right foraminal disc protrusion in combination with significant osteoarthritic facet hypertrophy. The neural foraminal impingement is unchanged. Mild neural foraminal narrowing is noted on the left unchanged at L4-5. At L5-S1, there is mild facet hypertrophy bilaterally. Minimal diffuse disc bulging is present. IMPRESSION: Mild bilateral neural foraminal narrowing at L2-3 is slightly more prominent than on the prior study. The dominant abnormality is at L4-5 where there is a grade 1 stable spondylolisthesis, moderate to severe central canal stenosis, and right-sided nerve root compression. A new finding at L4-5 is a synovial cyst impinging on the dorsal midline of the thecal sac just below the level of the 4 5 disc measuring 5 mm in diameter. There is fatty infiltration of the filum terminale. The conus is normal in position.. <Electronically signed by Kiel Merchant > 03/05/20 0784
== END ==
LOC: M RAD 16:22
PROVIDERS: ATTEND Nurse Practitioner Family
DX: M48.062 Spinal stenosis, lumbar region with neurogenic claudication (principal)

== ENCOUNTER → 2020-03-25 | Outpatient (CLI) | payer BC ==
--- NOTE | 2020-03-27 23:19 | ECWPNPC ---
PATIENT NAME: MOON LUCAS : 1960 GENDER: MALE VISIT DATE: 03/25/2020 DISCHARGE DATE: 03/25/20 1042 VISIT LOCKED DATE TIME: PHYSICIAN: SWETHA LAWSON RESOURCE: SWETHA LAWSON REASON FOR APPOINTMENT 1. REVIEW MRI RESULTS HISTORY OF PRESENT ILLNESS GENERAL: HERE FOR FOLLOW-UP OF CHRONIC LOW BACK PAIN AND BILATERAL LEG PAIN. MRI OF THE LS-SPINE THAT I HAD ORDERED AT HIS LAST VISIT IS REVIEWED. SHOWING MODERATE TO SEVERE SPINAL STENOSIS AT L4-5. CONTINUES WITH LOW BACK PAIN THAT IS AGGRAVATED AND RADIATES INTO HIS LEGS WITH NUMBNESS ESPECIALLY WITH AMBULATION. PAIN RESOLVES AT REST. DESCRIBES BURNING PAIN IN HIS FEET AND TAILBONE. REVIEWED VERTEFLEX PROCEDURE BRIEFLY AND WE'LL HAVE HIM COME IN TO TALK WITH DR. RAI. CURRENTLY USING GABAPENTIN 100 MG 2 CAPSULES IN THE MORNING AND 2 AT NIGHT. IN THE PAST HIGHER DOSES CAUSED NIGHTMARES. -. FALL RISK SCREENING: SCREENING :NO FALLS REPORTED IN THE LAST YEAR PAIN SCREENING: PATIENT HAS A COMPLAINT OF ACUTE OR CHRONIC PAIN :YES LOCATION OF PAIN:LOW BACK, LEG(S) INTENSITY OF PAIN (SCALE OF 1 TO 10):3 WHAT DOES YOUR PAIN FEEL LIKE:SHARP, STABBING DURATION:CONTINOUS, CONSTANT PAIN IS INCREASED BY:ACTIVITIES PAIN IS DECREASED BY:USE OF PAIN MEDICATIONS TREATMENT/MEDICATIONS USED TO MANAGE PAIN:NSAIDS, OPIOIDS LEVEL OF RELIEF FROM PAIN TREATMENTS IN THE PAST:25% PAIN HAS INTERFERED WITH THE FOLLOWING:BATHING/DRESSING, WALKING ABILITY, HOUSEWORK, SLEEP, TRANSPORTATION, TOILETING NURSING NOTE: -. PAIN CENTER INTAKE QUESTIONS: DO YOU HAVE A HISTORY OF MRSA? :NO DO YOU TAKE A BLOOD THINNERS? :NO DO YOU HAVE ANY BLEEDING DISORDERS? :NO ANY NEW NUMBNESS OR WEAKNESS IN YOUR LEGS OR ARMS? :NO ANY PACEMAKER,DEFIBRILLATOR, OR DORSAL COLUMN STIMULATOR? :NO DO YOU HAVE ANY RASHES OR OPEN SORES? :NO ARE YOU ALLERGIC TO IV DYE? :NO ARE YOU DIABETIC? :NO ANY NEW PROBLEMS WITH YOUR MEDICATIONS? :NO HAVE YOU RECEIVED A VACCINE IN THE PAST 30 DAYS? :NO DO YOU PLAN TO RECEIVE A VACCINE IN THE NEXT 21 DAYS? :NO DO YOU NEED ANY PRESCRIPTION? :NO DO YOU TAKE ANY IMMUNOSUPPRESSIVE MEDICATIONS? :NO IS THERE A CHANCE YOU COULD BE ? :NO ARE YOU BREAST FEEDING? :NO CURRENT MEDICATIONS TAKING LISINOPRIL 5 MG TABLET 1 TAB(S) ORALLY ONCE A DAY TAKING ATENOLOL 25 MG TABLET 1 TABLET ORALLY ONCE A DAY TAKING ASPIRIN 81 MG TABLET 1 TABLET ORALLY ONCE A DAY TAKING LIPITOR 20 MG TABLET 1 TABLET ORALLY ONCE A DAY TAKING HYDROCODONE-ACETAMINOPHEN 5-325 MG TABLET 1 TABLET NEEDED ORALLY EVERY 8 HRS PRN FOR PAIN MDD4 TAKING SALONPAS 4% 1 PATCH DAILY NEEDED TAKING VITAMIN D (ERGOCALCIFEROL) 00221 UNIT CAPSULE 1 CAPSULE ORALLY WEEKLY TAKING IBUPROFEN 800 MG TABLET 1 TAB ORALLY Q6H PRN TAKING GABAPENTIN 100 MG CAPSULE 2 TABS ORALLY TWICE DAILY MEDICATION LIST REVIEWED AND RECONCILED WITH THE PATIENT PAST MEDICAL HISTORY 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 RADICULAR PAIN-JANUARY 2010 MRI MULTILEVEL DJD, GRADE 1 DEGENERATIVE ANTEROLISTHESIS L4/L5, 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 WITH LEFT GREATER THAN RIGHT NEUROFORAMINAL NARROWING HYPERTENSION 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 DECEMBER 2005 OBESITY, MORBID HYPERHOMOCYSTINEMIA, MILD-12/2003-12.6 (4.3-11.4) IMPAIRED FASTING GLUCOSE HYPERLIPIDEMIA 2B VENOUS INSUFFICIENCY BILATERAL LOWER EXTREMITIES TORN ROTATOR CUFF RIGHT RIGHT KNEE TORN MENISCUS ALLERGIES TETRACYCLINE HCL: NAUSEA/VOMITING - ALLERGY HORSE SERUM: NAUSEA/VOMITING - ALLERGY PAKISTANI LIMPETS: ANAPHYLAXIS - ALLERGY SURGICAL HISTORY RIGHT MENISCUS REPAIR TONSILLECTOMY HERNIATED UMBILICAL SURGERY JAN 2018 COLONOSCOPY AUGUST 2019 FAMILY HISTORY FATHER: , DIAGNOSED WITH UNSPECIFIED CEREBRAL ARTERY OCCLUSION WITH CEREBRAL INFARCTION, UNSPECIFIED HEART DISEASE MOTHER: , OTHER MALIGNANT NEOPLASM OF UNSPECIFIED SITE 3 SON(S) , 1 DAUGHTER(S) - HEALTHY. MOM--UTERINE CA. SOCIAL HISTORY GENERAL: TOBACCO USE ARE YOU A:NONSMOKER 09/19/2019 LATEX QUESTIONNAIRE LATEX ALLERGY : HAVE YOU EVER DEVELOPED ANY TYPE OF REACTION AFTER HANDLING LATEX PRODUCTS SUCH RUBBER GLOVES, CONDOMS, DIAPHRAGMS, BALLOONS, SOCKS, OR UNDERWEAR?NO LATEX ALLERGY : HAVE YOU EVER DEVELOPED ANY TYPE OF REACTION DURING OR AFTER DENTAL APPOINTMENT, VAGINAL/RECTAL EXAMINATION, SURGICAL PROCEDURE, OR ANY OTHER EXPOSURE?NO DATE ASKED : 02/21/2020 LATEX RISK : HAVE YOU EVER HAD ANY DIFFICULTY BREATHING OR HIVES AFTER EATING OR HANDLING ANY FRUITS, OR VEGETABLES; SUCH KIWI, BANANAS, STONE FRUITS, OR CHESTNUTSNO LATEX RISK : DO YOU HAVE A PREVIOUS PERSONAL HISTORY OF MORE THAN NINE SURGERIES, SPINA BIFIDA, OR REPEATED CATHERIZATIONS? NO LATEX RISK : ARE YOU FREQUENTLY EXPOSED TO LATEX PRODUCTS IN YOUR OCCUPATION?YES LUNG CANCER SCREENING SMOKING STATUS:NON SMOKER ALCOHOL SCREENING DID YOU HAVE A DRINK CONTAINING ALCOHOL IN THE PAST YEAR?YES HOW OFTEN DID YOU HAVE SIX OR MORE DRINKS ON ONE OCCASION IN THE PAST YEAR?NEVER (0 POINTS) HOW MANY DRINKS DID YOU HAVE ON A TYPICAL DAY WHEN YOU WERE DRINKING IN THE PAST YEAR?1 OR 2 (0 POINTS) HOW OFTEN DID YOU HAVE A DRINK CONTAINING ALCOHOL IN THE PAST YEAR?TWO TO FOUR TIMES A MONTH (2 POINTS) POINTS2 INTERPRETATIONNEGATIVE RECREATIONAL DRUG USE DRUG USE?YES HOW OFTEN AND HOW MUCH? OCC. MARIJUANA CAFFEINE CAFFEINE USE?YES HOW OFTEN AND HOW MUCH? 3 CUPS/DAY HINDUISM [id number] CONFUCIANISM LANGUAGE LANGUAGES SPOKEN:GERMAN LEARNING BARRIERS / SPECIAL NEEDS BARRIERS TO LEARNING?NO HEARING IMPAIRED?NO NO HEARING AIDS. CAN'T HEAR HIGH FREQUENCY TONES VISION IMPAIRED?YES COGNITIVELY IMPAIRED?NO :CORRECTIVE LENSES READINESS TO LEARN?YES LEARNING PREFERENCES?NO LEARNING CAPABILITIES PRESENT?YES EMOTIONAL BARRIERS?NO SPECIAL DEVICES?YES :CANE OCCASSIONALLY RADIATION ONCOLOGY MANAGER NEEDED?NO DOMESTIC VIOLENCE DO YOU FEEL SAFE IN YOUR ENVIRONMENT?YES OCCUPATION: SEMI-RETIRED. DIET: REGULAR. EXERCISE: WALKS. MARITAL STATUS: . OTHERS AT HOME: SPOUSE. FEMALE 6 MONTH RISK ASSESSMENT FOR STD SPOUSE. TODAY'S VISIT 09/19/2019, PATIENT DESCRIBES PAIN : ACHING, BURNING, IT COMES AND GOES, STABBING, SORE, SHOOTING LEFT SIDE SCIATICA, BELT LINE VERY SORE, FROM 0-10, WHAT LEVEL IS YOUR PAIN TODAY? 5, IS THERE A CHANCE YOU COULD BE ? NO, DO YOU TAKE ANY BLOOD THINNERS? NO, DO YOU HAVE ANY RASHES OR OPEN SORES? NO, ANY CHANGE IN BOWEL OR BLADDER CONTROL? NO, ARE YOU ALLERGIC TO SHELLFISH OR IV DYE? NO, ARE YOU DIABETIC? NO, DO YOU HAVE A PACEMAKER OR DEFIBRILLATOR? NO, ANY NEW PROBLEMS WITH MEDICINES OR NEW ALLERGIES NO, ANY NEW PATTERNS OF PAIN OR NUMBNESS? NO, ANY CHANGE IN YOUR MEDICAL CONDITION? NO, HAVE YOU FALLEN IN THE LAST 6 MONTHS? NO, DO YOU USE ANY TYPE OF TOBACCO (SMOKE, SMOKELESS, CHEW, ETC.) NO, ARE YOU ABUSED, NEGLECTED, OR IN AN UNSAFE ENVIRONMENT? NO, DO YOU HAVE THOUGHTS OF HURTING YOURSELF OR SOMEONE ELSE? NO, DO YOU NEED ANY PRESCRIPTIONS? NO, DO YOU HAVE ANY OTHER QUESTIONS OR CONCERNS? NO, INTENSITY SCALE REVIEWED NUMBER. PAIN CLINIC PFS, CLERGY, PUBLIC HEALTH REFERRALS PFS REFERRAL NEEDED?NO CLERGY REFERRAL NEEDED?NO PUBLIC HEALTH REFERRAL NEEDED?NO WAS THE PROVIDER NOTIFIED OF ANY PERTINENT INFO?YES N/A HAS THE PATIENT BEEN EDUCATED REGARDING HIS/HER PLAN OF CARE?YES HAS THE PATIENT BEEN EDUCATED REGARDING PAIN, THE RISK FOR PAIN, THE IMPORTANCE OF EFFECTIVE PAIN MANAGEMENT, AND THE PAIN ASSESSMENT PROCESS?YES HOUSING: OWNS HOME. ADVANCE DIRECTIVE ADVANCE DIRECTIVE DISCUSSED WITH PATIENT:YES PT STATES HE HAS HCP. POA, AND LIVING WILL [id number] [phone] HOSPITALIZATION/MAJOR DIAGNOSTIC PROCEDURE SURGERY RELATED REVIEW OF SYSTEMS CONSTITUTIONAL: ANY RECENT FEVER NO . CHILLS NO . WEIGHT CHANGE OF UNKNOWN REASONS NO . GASTROENTEROLOGY: NEW UNEXPLAINABLE CHANGES IN BOWEL CONTROL NO . CONSTIPATION NO . GENITOURINARY: ANY NEW CHANGE IN BLADDER CONTROL? NO . NEUROLOGY: NEW ONSET DIZZINESS OR NEUROLOGICAL CHANGES NOT MENTIONED NO . NEW NUMBNESS OR PAIN PATTERNS NOT MENTIONED AND PERTINENT TO TODAY'S VISIT NO . CARDIOLOGY: NEW CHEST PRESSURE NO . NEW CHEST PAIN NO . RESPIRATORY: UNEXPLAINABLE COUGH NO . NEW SHORTNESS OF BREATH NO . VITAL SIGNS WT 287 LBS, HT 68 IN, BMI 43.63 INDEX, BP 137/87 MM HG, HR 64 /MIN, RR 18 /MIN, TEMP 96 F, OXYGEN SAT % 92%, SAFE IN ENV? (Y/N) Y, NA INITIALS VT , REVIEWED BY: EM. EXAMINATION GENERAL EXAMINATION: GENERALAWAKE,ALERT ,PLEASANT . PSYCHAFFECT NORMAL . LUNGS:LUNG HEBERT ARE CLEAR TO AUSCULTATION BILATERALLY. GOOD MOVEMENT OF AIR . HEART:S1, S2 IN A REGULAR RATE AND RHYTHM. NO SIGNIFICANT MURMURS, RUBS OR GALLOPS NOTED . ASSESSMENTS SPINAL STENOSIS, LUMBAR REGION WITH NEUROGENIC CLAUDICATION - M48.062 (PRIMARY) TREATMENT SPINAL STENOSIS, LUMBAR REGION WITH NEUROGENIC CLAUDICATION NOTES: PATIENT WILL CONTINUE GABAPENTIN 100 MG 2 CAPSULES IN THE MORNING AND NIGHT. FOLLOW-UP IS SCHEDULED WITH DR. RAI TO DISCUSS VERTI FLEX/VERSUS OTHER INTERVENTIONAL OPTIONS. FOLLOW-UP WITH NURSE PRACTITIONER IN 3 MONTHS. PROCEDURE CODES FA211 ESTABILISHED PATIENT [facility] FACILITY CHARGE DISPOSITION & COMMUNICATION FOLLOW UP 3 MONTHS/ W TECHNICAL SUPPORT ASSOCIATE-F/U DR Olsen (REASON: . FOLLOW-UP IS SCHEDULED WITH DR. RAI TO DISCUSS VERTI FLEX/VERSUS OTHER INTERVENTIONAL OPTIONS. FOLLOW-UP WITH NURSE PRACTITIONER IN 3 MONTHS.) ELECTRONICALLY SIGNED BY MIKEY TELLO ON 03/27/2020 AT 10:43 AM EST DISCLAIMER : THIS IS A VISIT SUMMARY EXTRACTED FROM THE [employer] CHART. IT IS NOT A COPY OF THE [employer] PROGRESS NOTE. KAMILLA
== END ==
LOC: M PAIN 09:30
PROVIDERS: ATTEND Nurse Practitioner Family
DX: M48.062 Spinal stenosis, lumbar region with neurogenic claudication (principal); G89.29 Other chronic pain; R73.01 Impaired fasting glucose; Z88.1 Allergy status to other antibiotic agents; Z91.038 Other insect allergy status; Z91.09 Other allergy status, other than to drugs and biological substances; E66.01 Morbid (severe) obesity due to excess calories; Z68.41 Body mass index [BMI] 40.0-44.9, adult; Z79.82 Long term (current) use of aspirin; Z79.899 Other long term (current) drug therapy

== ENCOUNTER → 2020-04-12 | Outpatient (CLI) | payer BC ==
--- NOTE | 2020-04-13 02:28 | ECWPNPC ---
PATIENT NAME: MOON LUCAS : 1960 GENDER: MALE VISIT DATE: 04/12/2020 DISCHARGE DATE: 04/12/20 1111 VISIT LOCKED DATE TIME: PHYSICIAN: CHAIM RAI MD RESOURCE: CHAIM RAI MD REASON FOR APPOINTMENT 1. DISCUSS MILD/VERTIFLEX HISTORY OF PRESENT ILLNESS FALL RISK SCREENING: SCREENING :NO FALLS REPORTED IN THE LAST YEAR GENERAL -. -. PAIN SCREENING: PATIENT HAS A COMPLAINT OF ACUTE OR CHRONIC PAIN :YES LOCATION OF PAIN:LOW BACK, LEG(S) INTENSITY OF PAIN (SCALE OF 1 TO 10):5 WHAT DOES YOUR PAIN FEEL LIKE:SHARP, STABBING DURATION:CONTINOUS, CONSTANT PAIN IS INCREASED BY:ACTIVITIES PAIN IS DECREASED BY:USE OF PAIN MEDICATIONS NURSING NOTE: -. GENERAL: 59-YEAR-OLD MALE PATIENT WITH A HISTORY OF CHRONIC LOW BACK PAIN. THE PATIENT DESCRIBES THE PAIN BURNING, SHARP AND STABBING WITH A PAIN SCORE RANGING FROM 5-8/10 DEPENDING ON PHYSICAL ACTIVITY. HE IS HAVING DIFFICULTY MOVING AROUND AND RESTING. HE IS VERY UNCOMFORTABLE. THE PATIENT IS LOOKING FOR HELP. HE IS USING MEDICATIONS AND THEY ARE NOT HELPING THAT MUCH. PATIENT DENIES UNEXPLAINABLE WEIGHT LOSS, FEVER, CHILLS, NEW CHANGES ON URINARY OR BOWEL CONTROL. PAIN CENTER INTAKE QUESTIONS: DO YOU HAVE A HISTORY OF MRSA? :NO DO YOU TAKE A BLOOD THINNERS? :NO DO YOU HAVE ANY BLEEDING DISORDERS? :NO ANY NEW NUMBNESS OR WEAKNESS IN YOUR LEGS OR ARMS? :NO ANY PACEMAKER,DEFIBRILLATOR, OR DORSAL COLUMN STIMULATOR? :NO DO YOU HAVE ANY RASHES OR OPEN SORES? :NO ARE YOU ALLERGIC TO IV DYE? :NO ARE YOU DIABETIC? :NO ANY NEW PROBLEMS WITH YOUR MEDICATIONS? :NO HAVE YOU RECEIVED A VACCINE IN THE PAST 30 DAYS? :YES IF SO WHAT VACCINE AND WHEN? FLU AND SHINGLES VACCINES 3-4 WEEKS AGO DO YOU PLAN TO RECEIVE A VACCINE IN THE NEXT 21 DAYS? :NO DO YOU NEED ANY PRESCRIPTION? :NO DO YOU TAKE ANY IMMUNOSUPPRESSIVE MEDICATIONS? :NO IS THERE A CHANCE YOU COULD BE ? :NO ARE YOU BREAST FEEDING? :NO CURRENT MEDICATIONS TAKING LISINOPRIL 5 MG TABLET 1 TAB(S) ORALLY ONCE A DAY TAKING ATENOLOL 25 MG TABLET 1 TABLET ORALLY ONCE A DAY TAKING ASPIRIN 81 MG TABLET 1 TABLET ORALLY ONCE A DAY TAKING LIPITOR 20 MG TABLET 1 TABLET ORALLY ONCE A DAY TAKING HYDROCODONE-ACETAMINOPHEN 5-325 MG TABLET 1 TABLET NEEDED ORALLY EVERY 8 HRS PRN FOR PAIN MDD4 TAKING SALONPAS 4% 1 PATCH DAILY NEEDED TAKING VITAMIN D (ERGOCALCIFEROL) 46790 UNIT CAPSULE 1 CAPSULE ORALLY WEEKLY TAKING IBUPROFEN 800 MG TABLET 1 TAB ORALLY Q6H PRN TAKING GABAPENTIN 100 MG CAPSULE 2 TABS ORALLY TWICE DAILY MEDICATION LIST REVIEWED AND RECONCILED WITH THE PATIENT PAST MEDICAL HISTORY 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 RADICULAR PAIN-JANUARY 2010 MRI MULTILEVEL DJD, GRADE 1 DEGENERATIVE ANTEROLISTHESIS L4/L5, 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 WITH LEFT GREATER THAN RIGHT NEUROFORAMINAL NARROWING HYPERTENSION 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 DECEMBER 2005 OBESITY, MORBID HYPERHOMOCYSTINEMIA, MILD-12/2003-12.6 (4.3-11.4) IMPAIRED FASTING GLUCOSE HYPERLIPIDEMIA 2B VENOUS INSUFFICIENCY BILATERAL LOWER EXTREMITIES TORN ROTATOR CUFF RIGHT RIGHT KNEE TORN MENISCUS ALLERGIES TETRACYCLINE HCL: NAUSEA/VOMITING - ALLERGY HORSE SERUM: NAUSEA/VOMITING - ALLERGY COMORAN LIMPETS: ANAPHYLAXIS - ALLERGY SURGICAL HISTORY RIGHT MENISCUS REPAIR TONSILLECTOMY HERNIATED UMBILICAL SURGERY JAN 2018 COLONOSCOPY AUGUST 2019 FAMILY HISTORY FATHER: , DIAGNOSED WITH UNSPECIFIED HEART DISEASE, UNSPECIFIED CEREBRAL ARTERY OCCLUSION WITH CEREBRAL INFARCTION MOTHER: , OTHER MALIGNANT NEOPLASM OF UNSPECIFIED SITE 3 SON(S) , 1 DAUGHTER(S) - HEALTHY. MOM--UTERINE CA. SOCIAL HISTORY GENERAL: TOBACCO USE ARE YOU A:NONSMOKER 09/19/2019 LATEX QUESTIONNAIRE LATEX ALLERGY : HAVE YOU EVER DEVELOPED ANY TYPE OF REACTION AFTER HANDLING LATEX PRODUCTS SUCH RUBBER GLOVES, CONDOMS, DIAPHRAGMS, BALLOONS, SOCKS, OR UNDERWEAR?NO LATEX ALLERGY : HAVE YOU EVER DEVELOPED ANY TYPE OF REACTION DURING OR AFTER DENTAL APPOINTMENT, VAGINAL/RECTAL EXAMINATION, SURGICAL PROCEDURE, OR ANY OTHER EXPOSURE?NO LATEX RISK : HAVE YOU EVER HAD ANY DIFFICULTY BREATHING OR HIVES AFTER EATING OR HANDLING ANY FRUITS, OR VEGETABLES; SUCH KIWI, BANANAS, STONE FRUITS, OR CHESTNUTSNO LATEX RISK : DO YOU HAVE A PREVIOUS PERSONAL HISTORY OF MORE THAN NINE SURGERIES, SPINA BIFIDA, OR REPEATED CATHERIZATIONS? NO LATEX RISK : ARE YOU FREQUENTLY EXPOSED TO LATEX PRODUCTS IN YOUR OCCUPATION?YES DATE ASKED : 02/21/2020 LUNG CANCER SCREENING SMOKING STATUS:NON SMOKER ALCOHOL SCREENING DID YOU HAVE A DRINK CONTAINING ALCOHOL IN THE PAST YEAR?YES HOW OFTEN DID YOU HAVE SIX OR MORE DRINKS ON ONE OCCASION IN THE PAST YEAR?NEVER (0 POINTS) HOW MANY DRINKS DID YOU HAVE ON A TYPICAL DAY WHEN YOU WERE DRINKING IN THE PAST YEAR?1 OR 2 (0 POINTS) HOW OFTEN DID YOU HAVE A DRINK CONTAINING ALCOHOL IN THE PAST YEAR?TWO TO FOUR TIMES A MONTH (2 POINTS) POINTS2 INTERPRETATIONNEGATIVE RECREATIONAL DRUG USE DRUG USE?YES HOW OFTEN AND HOW MUCH? OCC. MARIJUANA CAFFEINE CAFFEINE USE?YES HOW OFTEN AND HOW MUCH? 3 CUPS/DAY RELIGIOUS [id number] L[place]HER[place] LANGUAGE LANGUAGES SPOKEN:BELARUSIAN LEARNING BARRIERS / SPECIAL NEEDS CHANGE FROM LAST VISIT?NO BARRIERS TO LEARNING?NO HEARING IMPAIRED?NO NO HEARING AIDS. 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 DIET: REGULAR. EXERCISE: WALKS. MARITAL STATUS: . OTHERS AT HOME: SPOUSE. FEMALE 6 MONTH RISK ASSESSMENT FOR STD SPOUSE. PAIN CLINIC PFS, CLERGY, PUBLIC HEALTH REFERRALS PFS REFERRAL NEEDED?NO CLERGY REFERRAL NEEDED?NO PUBLIC HEALTH REFERRAL NEEDED?NO WAS THE PROVIDER NOTIFIED OF ANY PERTINENT INFO?YES N/A HAS THE PATIENT BEEN EDUCATED REGARDING HIS/HER PLAN OF CARE?YES HAS THE PATIENT BEEN EDUCATED REGARDING PAIN, THE RISK FOR PAIN, THE IMPORTANCE OF EFFECTIVE PAIN MANAGEMENT, AND THE PAIN ASSESSMENT PROCESS?YES HOUSING: OWNS HOME. ADVANCE DIRECTIVE ADVANCE DIRECTIVE DISCUSSED WITH PATIENT:YES PT STATES HE HAS HCP. POA, AND LIVING WILL [id number] [phone] HOSPITALIZATION/MAJOR DIAGNOSTIC PROCEDURE SURGERY RELATED REVIEW OF SYSTEMS CONSTITUTIONAL: ANY RECENT FEVER NO . CHILLS NO . WEIGHT CHANGE OF UNKNOWN REASONS NO . GASTROENTEROLOGY: NEW UNEXPLAINABLE CHANGES IN BOWEL CONTROL NO . CONSTIPATION NO . GENITOURINARY: ANY NEW CHANGE IN BLADDER CONTROL? NO . NEUROLOGY: NEW ONSET DIZZINESS OR NEUROLOGICAL CHANGES NOT MENTIONED NO . NEW NUMBNESS OR PAIN PATTERNS NOT MENTIONED AND PERTINENT TO TODAY'S VISIT NO . CARDIOLOGY: NEW CHEST PRESSURE NO . NEW CHEST PAIN NO . RESPIRATORY: UNEXPLAINABLE COUGH NO . NEW SHORTNESS OF BREATH NO . VITAL SIGNS WT 284.2 LBS, HT 68 IN, BMI 43.21 INDEX, BP 150/86 MM HG, HR 62 /MIN, RR 18 /MIN, TEMP 96.7 F, OXYGEN SAT % 93%, SAFE IN ENV? (Y/N) Y, NA INITIALS SC 09:57, REVIEWED BY: JSJ. EARLE RN. EXAMINATION GENERAL EXAMINATION: THE PATIENT IS ALERT, ORIENTED TIMES THREE AND COOPERATIVE. LUNGS ARE CLEAR TO AUSCULTATION. HEART SHOWS REGULAR RHYTHM, NO MURMURS AND NO GALLOPS. THE PATIENT STANDS WITH DIFFICULTY. THERE IS A LOT OF TENDERNESS IN THE LOWER BACK IN THE PARASPINAL MUSCLE GROUP AT THE FACET JOINTS. LUMBER MRI DATED 03/04/2020 SHOWS FACET ARTHROPATHY CHANGES AT L4-L5. THERE IS A SYNOVIAL CYST ON THE RIGHT SIDE. 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 Malu JARVIS RN. CLINICAL NOTES: I DISCUSSED ALTERNATIVES WITH MR. LUCAS. I WILL REQUEST AUTHORIZATION FOR BILATERAL THERAPEUTIC FACET BLOCK LUMBAR L4-L5, L5-S1 WITH ASPIRATION OF A SYNOVIAL CYST ON THE RIGHT SIDE OF L4-L5. I ALSO WOULD LIKE TO TALK TO THE RADIOLOGIST ABOUT HIS MRI. THE PATIENT REPORTS UNDERSTANDING AND AGREES WITH THE PLAN. I, JOCELYN MERINO, DOCUMENTED THE ABOVE INFORMATION ACTING A SCRIBE FOR DR. RAI. I HAVE REVIEWED THE ABOVE DOCUMENT, WRITTEN BY JOCELYN MERINO, CLINICAL NURSING COORDINATOR, AND I VERIFY THAT IT IS ACCURATE. OTHERS NOTES: FACET JOINT INJECTION MATERIAL WAS PRINTED. PROCEDURE CODES FA211 ESTABILISHED PATIENT [facility] FACILITY CHARGE [id number] OFFICE/OUTPATIENT VISIT EST DISPOSITION & COMMUNICATION FOLLOW UP REQUEST AUTH FOR BILATERAL THERAPEUTIC FACET BLOCK LUMBAR L4-L5, L5-S1 WITH ASPIRATION OF A SYNOVIAL CYST ON THE RIGHT SIDE OF L4-L5. (REASON: REQUEST AUTH FOR BILATERAL THERAPEUTIC FACET BLOCK LUMBAR L4-L5, L5-S1 WITH ASPIRATION OF A SYNOVIAL CYST ON THE RIGHT SIDE OF L4-L5. ) ELECTRONICALLY SIGNED BY CHAIM RAI MD, MD ON 04/12/2020 AT 04:57 PM EST DISCLAIMER : THIS IS A VISIT SUMMARY EXTRACTED FROM THE [employer] CHART. IT IS NOT A COPY OF THE [employer] PROGRESS NOTE. KAMILLA
== END ==
LOC: M PAIN 10:00
PROVIDERS: ATTEND Anesthesiology
DX: M47.816 Spondylosis without myelopathy or radiculopathy, lumbar region (principal); G89.29 Other chronic pain; R73.01 Impaired fasting glucose; Z88.1 Allergy status to other antibiotic agents; Z91.038 Other insect allergy status; Z91.09 Other allergy status, other than to drugs and biological substances; E66.01 Morbid (severe) obesity due to excess calories; Z68.41 Body mass index [BMI] 40.0-44.9, adult; Z79.82 Long term (current) use of aspirin; Z79.899 Other long term (current) drug therapy

== ENCOUNTER → 2020-05-25 | Outpatient (CLI) | payer BC ==
[~2020-05-25] MED LIST changes: -LISI-542 PO; +LISI-898 PO
== END ==
LOC: M LABSMTC 08:05
PROVIDERS: ATTEND Anesthesiology
DX: Z20.822 Contact with and (suspected) exposure to COVID-19 (principal)

== ENCOUNTER → 2020-05-30 | Outpatient (CLI) | payer BC ==
[~2020-05-30] MED LIST changes: +BUPIVACAINE HCL 0.25% 30ML VIAL As Ordered ONE; +ISOVUE-M 300 61% 15ML VIAL As Ordered ONE; +LIDOCAINE 1% SDV 30ML VIAL As Ordered ONE; +LISI-542 PO; -LISI-898 PO; +TRIAMCINOLONE ACETONIDE SUSP 40 MG/ML VIAL (J3301) As Ordered ONE; +diazePAM 5MG TABLET As Ordered ONE; +oxyCODONE 5MG TAB As Ordered ONE
--- NOTE | 2020-05-30 10:53 | REP ---
INDICATION: BILATERAL LUMBAR FACET. COMPARISON: None. TECHNIQUE: Four views. 100.2 seconds of fluoroscopy time is reported. FINDINGS: A sequence of 4 last image hold fluoroscopically obtained spot radiograph(s) of the lumbar spine document(s) needle position(s) and contrast injection associated with injection procedure. IMPRESSION: Procedural imaging. <Electronically signed by Kiel Merchant > 05/30/20 0463
--- NOTE | 2020-06-04 03:29 | ECWPNPC ---
PATIENT NAME: MOON LUCAS : 1960 GENDER: MALE VISIT DATE: 05/30/2020 DISCHARGE DATE: 05/30/20 1050 VISIT LOCKED DATE TIME: PHYSICIAN: CHAIM RAI MD RESOURCE: CHAIM RAI MD REASON FOR APPOINTMENT 1. BILATERAL THERAPEUTIC LUMBAR FACET BLOCK L4-L5, L5-S1 WITH ASPIRATION OR DESTRUCTION OF A SYNOVIAL CYST ON THE RIGHT SIDE OF L4-L5. HISTORY OF PRESENT ILLNESS PAIN CENTER INTAKE QUESTIONS: DO YOU HAVE A HISTORY OF MRSA? :NO DO YOU TAKE A BLOOD THINNERS? :NO DO YOU HAVE ANY BLEEDING DISORDERS? :NO ANY NEW NUMBNESS OR WEAKNESS IN YOUR LEGS OR ARMS? :NO ANY PACEMAKER,DEFIBRILLATOR, OR DORSAL COLUMN STIMULATOR? :NO DO YOU HAVE ANY RASHES OR OPEN SORES? :NO ARE YOU ALLERGIC TO IV DYE? :NO ARE YOU DIABETIC? :NO ANY NEW PROBLEMS WITH YOUR MEDICATIONS? :NO HAVE YOU RECEIVED A VACCINE IN THE PAST 30 DAYS? :NO SHINGLES VACCINE 2 MONTHS AGO DO YOU PLAN TO RECEIVE A VACCINE IN THE NEXT 21 DAYS? :NO DO YOU NEED ANY PRESCRIPTION? :NO DO YOU TAKE ANY IMMUNOSUPPRESSIVE MEDICATIONS? :NO ANY HISTORY OF SEIZURES? :NO ANY HISTORY OF CARDIAC ISSUES OR EVENTS? :NO DO YOU HAVE SLEEP APNEA? :NO ANY RECENT HEAD INJURY? :NO DO YOU HAVE ANY NEW INFECTIONS? :NO IS THERE A CHANCE YOU COULD BE ? :NO ARE YOU BREAST FEEDING? :NO WHEN DID YOU LAST EAT? : -1830 WHEN DID YOU LAST DRINK? : -0600 WHAT DID YOU LAST DRINK? : -WATER NAME OF PERSON DRIVING YOU HOME? : -CINNDY DO YOU HAVE ANY OTHER QUESTIONS OR CONCERNS? : - GENERAL: -. FALL RISK SCREENING: SCREENING :NO FALLS REPORTED IN THE LAST YEAR PAIN SCREENING: PATIENT HAS A COMPLAINT OF ACUTE OR CHRONIC PAIN :YES LOCATION OF PAIN:LOW BACK INTENSITY OF PAIN (SCALE OF 1 TO 10):5 WHAT DOES YOUR PAIN FEEL LIKE:ACHING, BURNING, CONTINOUS "MORE ON THE LEFT" NURSING NOTE: -. CURRENT MEDICATIONS TAKING LISINOPRIL 5 MG TABLET 1 TAB(S) ORALLY ONCE A DAY TAKING ATENOLOL 25 MG TABLET 1 TABLET ORALLY ONCE A DAY TAKING ASPIRIN 81 MG TABLET 1 TABLET ORALLY ONCE A DAY TAKING LIPITOR 20 MG TABLET 1 TABLET ORALLY ONCE A DAY TAKING HYDROCODONE-ACETAMINOPHEN 5-325 MG TABLET 1 TABLET NEEDED ORALLY EVERY 8 HRS PRN FOR PAIN MDD4 TAKING SALONPAS 4% 1 PATCH DAILY NEEDED TAKING VITAMIN D (ERGOCALCIFEROL) 43197 UNIT CAPSULE 1 CAPSULE ORALLY WEEKLY TAKING IBUPROFEN 800 MG TABLET 1 TAB ORALLY Q6H PRN TAKING GABAPENTIN 100 MG CAPSULE 2 TABS ORALLY TWICE DAILY, NOTES: NEEDED MEDICATION LIST REVIEWED AND RECONCILED WITH THE PATIENT PAST MEDICAL HISTORY 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 RADICULAR PAIN-JANUARY 2010 MRI MULTILEVEL DJD, GRADE 1 DEGENERATIVE ANTEROLISTHESIS L4/L5, 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 WITH LEFT GREATER THAN RIGHT NEUROFORAMINAL NARROWING HYPERTENSION 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 DECEMBER 2005 OBESITY, MORBID HYPERHOMOCYSTINEMIA, MILD-12/2003-12.6 (4.3-11.4) IMPAIRED FASTING GLUCOSE HYPERLIPIDEMIA 2B VENOUS INSUFFICIENCY BILATERAL LOWER EXTREMITIES TORN ROTATOR CUFF RIGHT RIGHT KNEE TORN MENISCUS ALLERGIES TETRACYCLINE HCL: NAUSEA/VOMITING - ALLERGY HORSE SERUM: NAUSEA/VOMITING - ALLERGY SAUDI ARABIAN LIMPETS: ANAPHYLAXIS - ALLERGY SURGICAL HISTORY RIGHT MENISCUS REPAIR TONSILLECTOMY HERNIATED UMBILICAL SURGERY JAN 2018 COLONOSCOPY AUGUST 2019 FAMILY HISTORY FATHER: , DIAGNOSED WITH UNSPECIFIED HEART DISEASE, UNSPECIFIED CEREBRAL ARTERY OCCLUSION WITH CEREBRAL INFARCTION MOTHER: , OTHER MALIGNANT NEOPLASM OF UNSPECIFIED SITE 3 SON(S) , 1 DAUGHTER(S) - HEALTHY. MOM--UTERINE CA. SOCIAL HISTORY GENERAL: TOBACCO USE ARE YOU A:NONSMOKER 01/20/1992 FORMER SMOKER LATEX QUESTIONNAIRE LATEX ALLERGY : HAVE YOU EVER DEVELOPED ANY TYPE OF REACTION AFTER HANDLING LATEX PRODUCTS SUCH RUBBER GLOVES, CONDOMS, DIAPHRAGMS, BALLOONS, SOCKS, OR UNDERWEAR?NO LATEX ALLERGY : HAVE YOU EVER DEVELOPED ANY TYPE OF REACTION DURING OR AFTER DENTAL APPOINTMENT, VAGINAL/RECTAL EXAMINATION, SURGICAL PROCEDURE, OR ANY OTHER EXPOSURE?NO DATE ASKED : 02/21/2020 LATEX RISK : HAVE YOU EVER HAD ANY DIFFICULTY BREATHING OR HIVES AFTER EATING OR HANDLING ANY FRUITS, OR VEGETABLES; SUCH KIWI, BANANAS, STONE FRUITS, OR CHESTNUTSNO LATEX RISK : DO YOU HAVE A PREVIOUS PERSONAL HISTORY OF MORE THAN NINE SURGERIES, SPINA BIFIDA, OR REPEATED CATHERIZATIONS? NO LATEX RISK : ARE YOU FREQUENTLY EXPOSED TO LATEX PRODUCTS IN YOUR OCCUPATION?YES LUNG CANCER SCREENING SMOKING STATUS:NON SMOKER ALCOHOL SCREENING DID YOU HAVE A DRINK CONTAINING ALCOHOL IN THE PAST YEAR?YES HOW OFTEN DID YOU HAVE SIX OR MORE DRINKS ON ONE OCCASION IN THE PAST YEAR?NEVER (0 POINTS) HOW MANY DRINKS DID YOU HAVE ON A TYPICAL DAY WHEN YOU WERE DRINKING IN THE PAST YEAR?1 OR 2 (0 POINTS) HOW OFTEN DID YOU HAVE A DRINK CONTAINING ALCOHOL IN THE PAST YEAR?TWO TO FOUR TIMES A MONTH (2 POINTS) POINTS2 INTERPRETATIONNEGATIVE RECREATIONAL DRUG USE DRUG USE?YES HOW OFTEN AND HOW MUCH? OCC. MARIJUANA CAFFEINE CAFFEINE USE?YES HOW OFTEN AND HOW MUCH? 3 CUPS/DAY SPIRITISM [id number] HOLINESS LANGUAGE LANGUAGES SPOKEN:GREEK LEARNING BARRIERS / SPECIAL NEEDS CHANGE FROM LAST VISIT?NO BARRIERS TO LEARNING?NO HEARING IMPAIRED?NO NO HEARING AIDS. 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 DIET: REGULAR. EXERCISE: WALKS. MARITAL STATUS: . OTHERS AT HOME: SPOUSE. FEMALE 6 MONTH RISK ASSESSMENT FOR STD SPOUSE. - PFS REFERRAL NEEDED?NO CLERGY REFERRAL NEEDED?NO PUBLIC HEALTH REFERRAL NEEDED?NO WAS THE PROVIDER NOTIFIED OF ANY PERTINENT INFO?YES N/A HAS THE PATIENT BEEN EDUCATED REGARDING HIS/HER PLAN OF CARE?YES HAS THE PATIENT BEEN EDUCATED REGARDING PAIN, THE RISK FOR PAIN, THE IMPORTANCE OF EFFECTIVE PAIN MANAGEMENT, AND THE PAIN ASSESSMENT PROCESS?YES HOUSING: OWNS HOME. ADVANCE DIRECTIVE ADVANCE DIRECTIVE DISCUSSED WITH PATIENT:YES PT STATES HE HAS HCP. POA, AND LIVING WILL [id number] [phone] HOSPITALIZATION/MAJOR DIAGNOSTIC PROCEDURE SURGERY RELATED VITAL SIGNS WT 287 LBS, HT 68 IN, BMI 43.63 INDEX, BP 124/71 MM HG, HR 66 /MIN, RR 18 /MIN, TEMP 97 F, OXYGEN SAT % 94%, SAFE IN ENV? (Y/N) YES, NA INITIALS SC 08:34, REVIEWED BY: KG. EXAMINATION GENERAL EXAMINATION: THE PATIENT IS ALERT, ORIENTED TIMES THREE AND COOPERATIVE. LUNGS ARE CLEAR TO AUSCULTATION. HEART SHOWS REGULAR RHYTHM, NO MURMURS AND NO GALLOPS. ASSESSMENTS SPONDYLOSIS WITHOUT MYELOPATHY OR RADICULOPATHY, LUMBAR REGION - M47.816 (PRIMARY) SPONDYLOSIS WITHOUT MYELOPATHY OR RADICULOPATHY, LUMBOSACRAL REGION - M47.817 TREATMENT SPONDYLOSIS WITHOUT MYELOPATHY OR RADICULOPATHY, LUMBAR REGION [facility] FACET BLOCK (PAIN)[id number] MEDICATION: VALIUM TAB 10MG ORALLY (DIAZEPAM)ELFEGO BARBOZA RN 05/30/2020 9:25:46 AM > VERIFIED. FANNIE DHILLON 05/30/2020 9:36:25 AM > GIVEN MEDICATION: OXYCODONE HCL TAB 10MG ORALLYELFEGO BARBOZA RN 05/30/2020 9:26:06 AM > VERIFIED. ALEJOFANNIE MCKINNEY 05/30/2020 9:36:44 AM > GIVEN COMPLETION OF PROCEDURAL VISIT WHEN MEETS CRITERIA SPONDYLOSIS WITHOUT MYELOPATHY OR RADICULOPATHY, LUMBOSACRAL REGION [facility] FACET BLOCK (PAIN)[id number] PROCEDURES PAIN NURSING RECORD PROCEDURE IN ROOM 0940, PHYSICIAN IN ROOM 0954, START 0957, FINISH 1025, PHYSICIAN OUT OF ROOM 1027, OUT OF ROOM 1035, ECG NORMAL SINUS, PATIENT SHIELDED YES, SAFETY STRAP YES, PREP CHLOROPREP Anat COOK RN, DRESSING TEGADERM LOC: 1. ALERT, ORIENTED FANNIE DHILLON 05/30/2020 9:48:58 AM > RESP: 1. REGULAR, NO DYSPNEA FANNIE DHILLON 05/30/2020 9:49:05 AM > COLOR: 1. PINK FANNIE DHILLON 05/30/2020 9:49:12 AM > SKIN: 1. WARM, DRY FANNIE DHILLON 05/30/2020 9:49:16 AM > POSITION: 1. PRONE FANNIE DHILLON 05/30/2020 9:49:29 AM > VITALS: 169/87 68 95% ON RA 18 RESP 0925 CARLENE BOONE 129/75 87% ON ROOM AIR PT IS HOLDING HIS BREATH DURING PROCEDURE 18 60 FOR HR 0935 0950 124/65 60 HR 90% ON ROOM AIR 18 RESPIRATIONS CARLENE BOONE POST PROCEDURE VS 134/65 60 HR 93% ON RA AND 18 FOR RESPIRATIONS NOTES Matt DHILLON RN PT IS UNCOMFORTABLE DURING PROCEDURE IT APPEARS TO BE MORE ANXIETY DRIVEN. PERHAPS ALLOWING RORE TIME FOF PRESEDATE IN THE FUTURE COMPLETION OF PROCEDURE APPOINTMENT: POST PAIN 2, DRESSING SITE DRY AND INTACT, IV N/A, GAIT STEADY, TEACHING COMPLETED, PATIENT ACKNOWLEDGES UNDERSTANDING YES, PROCEDURE APPOINTMENT COMPLETED AT 1050 PN LUMBAR FACET BLOCK THERAPEUTIC PRE PROCEDURE DIAGNOSIS LUMBAR SPONDYLOSIS, LUMBOSACRAL SPONDYLOSIS POST PROCEDURE DIAGNOSIS LUMBAR SPONDYLOSIS, LUMBOSACRAL SPONDYLOSIS PROCEDURE BILATERAL L4- L5 AND BILATERAL L5-S1 LUMBAR FACET THERAPEUTIC BLOCK WITH ATTEMPTED ASPIRATION OR DESTRUCTION OF A SYNOVIAL CYST ON THE RIGHT SIDE OF L4-L[address] CHAIM RAI ECOLOGY PROFESSOR NONE ANESTHESIA LOCAL PRE PROCEDURE NOTE THE PATIENT HAS A HISTORY OF CHRONIC LOW BACK PAIN. I EVALUATED THE PATIENT AND REVIEWED THE CHART. I WENT OVER THE RISKS, ALTERNATIVES, AND BENEFITS ASSOCIATED WITH THIS PROCEDURE. THE PATIENT WOULD LIKE TO PROCEED AND GIVES CONSENT TO PERFORM THE PROCEDURE. THE PATIENT DENIES UNEXPLAINABLE WEIGHT LOSS, FEVER, CHILLS, OR NEW CHANGES IN URINARY OR BOWEL CONTROL. THE PATIENT IS COVID-19 NEGATIVE DESCRIPTION OF PROCEDURE THE PATIENT WAS BROUGHT TO THE PROCEDURE ROOM AND PLACED IN THE PRONE POSITION. THE LUMBOSACRAL AREA WAS CLEANED WITH CHLORAPREP SOLUTION AND DRAPED ASEPTICALLY. THE PROCEDURE WAS DONE UNDER STERILE CONDITIONS. A TIMEOUT WAS PERFORMED WHERE THE CONSENTED SITE WAS VERIFIED WITH EVERYONE IN THE ROOM. UNDER FLUOROSCOPIC GUIDANCE, THE TARGET POINT WAS SELECTED AT THE RIGHT AND LEFT L4-L5 AND RIGHT AND LEFT L5-S1 FACET JOINTS. TARGET POINT WAS SELECTED AFTER LATERAL ROTATION AND TILT OF THE MAGNIFIER OF THE C-ARM. I CONFIRMED AGAIN THE SITE OF THE TARGET. LIDOCAINE 0.5% WAS USED TO NUMB THE SKIN AND THE SUBCUTANEOUS TISSUE BELOW IT. SPINAL NEEDLES, 22-GAUGE, WERE ADVANCED UNDER FLUOROSCOPIC GUIDANCE AND FOLLOWING PATIENT FEEDBACK UNTIL THE TARGETS WERE TOUCHED. THE POSITION OF THE NEEDLES WAS VERIFIED WITH AP AND LATERAL VIEWS. AFTER PROPER POSITION OF THE NEEDLES WAS ACHIEVED, ISOVUE-M DYE 30%, 0.1 ML, WAS INJECTED SHOWING ADEQUATE SPREAD OF THE DYE. KENALOG 10 MG WAS INJECTED AT EACH SITE. THEN, A SOLUTION OF 1.0 ML OF BUPIVACAINE 0.125% OF WAS USED TO FLUSH EACH SITE. I ATTEMPTED TO ASPIRATE THE CYST BUT I WAS NOT ABLE TO. THE MEDICATION WAS VERIFIED WITH THE NURSE. THERE WAS NO EVIDENCE OF BLOOD, PARESTHESIA OR CEREBROSPINAL FLUID DURING THE PROCEDURE. THE PATIENT WAS SENT TO THE RECOVERY ROOM. THE PATIENT WAS MOVING THE EXTREMITIES AND DOING WELL. THERE WERE NO COMPLICATIONS DURING THE PROCEDURE. ESTIMATED BLOOD LOSS WAS LESS THAN 5 ML. FLUOROSCOPY TIME WAS 1 MINUTE 40 SECONDS POST PROCEDURE NOTE THE PATIENT WILL BE SEEN IN A FOLLOW UP IN THE NEXT FEW WEEKS. I AM LOOKING FOR LONG LASTING RELIEF FOR THE PATIENT WITH THIS INTERVENTION. INSTRUCTIONS WERE GIVEN, QUESTIONS WERE ANSWERED, AND THE PATIENT EXPRESSED UNDERSTANDING AND AGREES WITH THE PLAN. I, JOCELYN MERINO, DOCUMENTED THE ABOVE INFORMATION ACTING A SCRIBE FOR DR. RAI. I HAVE REVIEWED THE ABOVE DOCUMENT, WRITTEN BY JOCELYN MERINO, DRILLER MACHINE, AND I VERIFY THAT IT IS ACCURATE PROCEDURE CODES 93200 INJ PARAVERT F JNT L/S 1 LEV, MODIFIERS: 50 [id number] INJ PARAVERT F JNT L/S 2 LEV, MODIFIERS: 50 DISPOSITION & COMMUNICATION FOLLOW UP FOLLOW UP WITH NARROW FABRIC LOOM FIXER (REASON: POST BILATERAL THERAPEUTIC LUMBAR FACET BLOCK L4-L5, L5-S1) ELECTRONICALLY SIGNED BY CHAIM RAI MD, ON 06/03/2020 AT 02:34 PM EST DISCLAIMER : THIS IS A VISIT SUMMARY EXTRACTED FROM THE [employer] CHART. IT IS NOT A COPY OF THE [employer] PROGRESS NOTE. KAMILLA
== END ==
LOC: M PAIN 08:30
PROVIDERS: ATTEND Anesthesiology
DX: M47.816 Spondylosis without myelopathy or radiculopathy, lumbar region (principal); M47.817 Spondylosis without myelopathy or radiculopathy, lumbosacral region; I10 Essential (primary) hypertension; E66.01 Morbid (severe) obesity due to excess calories; R73.01 Impaired fasting glucose; E78.5 Hyperlipidemia, unspecified; I87.2 Venous insufficiency (chronic) (peripheral); Z87.891 Personal history of nicotine dependence; Z68.41 Body mass index [BMI] 40.0-44.9, adult; Z88.8 Allergy status to other drugs, medicaments and biological substances; Z91.048 Other nonmedicinal substance allergy status
CPT/HCPCS: 64493; 64494; J3301; Q9967

== ENCOUNTER → 2020-06-13 | Outpatient (CLI) | payer BC ==
[~2020-06-13] MED LIST changes: -BUPIVACAINE HCL 0.25% 30ML VIAL As Ordered ONE; -ISOVUE-M 300 61% 15ML VIAL As Ordered ONE; -LIDOCAINE 1% SDV 30ML VIAL As Ordered ONE; -LISI-542 PO; +LISI-898 PO; -TRIAMCINOLONE ACETONIDE SUSP 40 MG/ML VIAL (J3301) As Ordered ONE; -diazePAM 5MG TABLET As Ordered ONE; -oxyCODONE 5MG TAB As Ordered ONE
--- NOTE | 2020-06-16 23:37 | ECWPNPC ---
PATIENT NAME: MOON LUCAS : 1960 GENDER: MALE VISIT DATE: 06/13/2020 DISCHARGE DATE: 06/13/2052 VISIT LOCKED DATE TIME: PHYSICIAN: SWETHA LAWSON RESOURCE: SWETHA LAWSON REASON FOR APPOINTMENT 1. POST BILATERAL THERAPEUTIC FACET BLOCK HISTORY OF PRESENT ILLNESS GENERAL: HERE FOR POST PROCEDURE F/U.HAD BILATERAL L4/5,L5/S1 LFBT ON 05/30/20.REPORTING MARKED REDUCTION IN PAIN THAT CONTINUES TODAY. -. FALL RISK SCREENING: SCREENING :NO FALLS REPORTED IN THE LAST YEAR PAIN SCREENING: PATIENT HAS A COMPLAINT OF ACUTE OR CHRONIC PAIN :YES LOCATION OF PAIN:LOW BACK INTENSITY OF PAIN (SCALE OF 1 TO 10):3 WHAT DOES YOUR PAIN FEEL LIKE:BURNING DURATION:INTERMITTENT PAIN IS INCREASED BY:ACTIVITIES PAIN IS DECREASED BY:USE OF PAIN MEDICATIONS NURSING NOTE: -. PAIN CENTER INTAKE QUESTIONS: DO YOU HAVE A HISTORY OF MRSA? :NO DO YOU TAKE A BLOOD THINNERS? :NO DO YOU HAVE ANY BLEEDING DISORDERS? :NO ANY NEW NUMBNESS OR WEAKNESS IN YOUR LEGS OR ARMS? :NO ANY PACEMAKER,DEFIBRILLATOR, OR DORSAL COLUMN STIMULATOR? :NO DO YOU HAVE ANY RASHES OR OPEN SORES? :NO ARE YOU ALLERGIC TO IV DYE? :NO ARE YOU DIABETIC? :NO ANY NEW PROBLEMS WITH YOUR MEDICATIONS? :NO HAVE YOU RECEIVED A VACCINE IN THE PAST 30 DAYS? :NO DO YOU PLAN TO RECEIVE A VACCINE IN THE NEXT 21 DAYS? :NO DO YOU NEED ANY PRESCRIPTION? :NO DO YOU TAKE ANY IMMUNOSUPPRESSIVE MEDICATIONS? :NO IS THERE A CHANCE YOU COULD BE ? :NO ARE YOU BREAST FEEDING? :NO CURRENT MEDICATIONS TAKING LISINOPRIL 5 MG TABLET 1 TAB(S) ORALLY ONCE A DAY TAKING ATENOLOL 25 MG TABLET 1 TABLET ORALLY ONCE A DAY TAKING ASPIRIN 81 MG TABLET 1 TABLET ORALLY ONCE A DAY TAKING LIPITOR 20 MG TABLET 1 TABLET ORALLY ONCE A DAY TAKING HYDROCODONE-ACETAMINOPHEN 5-325 MG TABLET 1 TABLET NEEDED ORALLY EVERY 8 HRS PRN FOR PAIN MDD4 TAKING SALONPAS 4% 1 PATCH DAILY NEEDED TAKING VITAMIN D (ERGOCALCIFEROL) 99496 UNIT CAPSULE 1 CAPSULE ORALLY WEEKLY TAKING IBUPROFEN 800 MG TABLET 1 TAB ORALLY Q6H PRN TAKING GABAPENTIN 100 MG CAPSULE 2 TABS ORALLY TWICE DAILY, NOTES: NEEDED MEDICATION LIST REVIEWED AND RECONCILED WITH THE PATIENT PAST MEDICAL HISTORY HYPERTENSION 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 DECEMBER 2005 OBESITY, MORBID HYPERHOMOCYSTINEMIA, MILD-12/2003-12.6 (4.3-11.4) IMPAIRED FASTING GLUCOSE HYPERLIPIDEMIA 2B VENOUS INSUFFICIENCY BILATERAL LOWER EXTREMITIES 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 RADICULAR PAIN-JANUARY 2010 MRI MULTILEVEL DJD, GRADE 1 DEGENERATIVE ANTEROLISTHESIS L4/L5, 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 WITH LEFT GREATER THAN RIGHT NEUROFORAMINAL NARROWING TORN ROTATOR CUFF RIGHT RIGHT KNEE TORN MENISCUS ALLERGIES TETRACYCLINE HCL: NAUSEA/VOMITING - ALLERGY HORSE SERUM: NAUSEA/VOMITING - ALLERGY MACEDONIAN LIMPETS: ANAPHYLAXIS - ALLERGY SOCIAL HISTORY GENERAL: TOBACCO USE ARE YOU A:NONSMOKER 01/20/1992 FORMER SMOKER LATEX QUESTIONNAIRE LATEX ALLERGY : HAVE YOU EVER DEVELOPED ANY TYPE OF REACTION AFTER HANDLING LATEX PRODUCTS SUCH RUBBER GLOVES, CONDOMS, DIAPHRAGMS, BALLOONS, SOCKS, OR UNDERWEAR?NO LATEX ALLERGY : HAVE YOU EVER DEVELOPED ANY TYPE OF REACTION DURING OR AFTER DENTAL APPOINTMENT, VAGINAL/RECTAL EXAMINATION, SURGICAL PROCEDURE, OR ANY OTHER EXPOSURE?NO LATEX RISK : HAVE YOU EVER HAD ANY DIFFICULTY BREATHING OR HIVES AFTER EATING OR HANDLING ANY FRUITS, OR VEGETABLES; SUCH KIWI, BANANAS, STONE FRUITS, OR CHESTNUTSNO LATEX RISK : DO YOU HAVE A PREVIOUS PERSONAL HISTORY OF MORE THAN NINE SURGERIES, SPINA BIFIDA, OR REPEATED CATHERIZATIONS? NO LATEX RISK : ARE YOU FREQUENTLY EXPOSED TO LATEX PRODUCTS IN YOUR OCCUPATION?YES DATE ASKED : 06/13/2020 ALCOHOL USE: YES. LUNG CANCER SCREENING SMOKING STATUS:NON SMOKER ALCOHOL SCREENING DID YOU HAVE A DRINK CONTAINING ALCOHOL IN THE PAST YEAR?YES HOW OFTEN DID YOU HAVE SIX OR MORE DRINKS ON ONE OCCASION IN THE PAST YEAR?NEVER (0 POINTS) HOW MANY DRINKS DID YOU HAVE ON A TYPICAL DAY WHEN YOU WERE DRINKING IN THE PAST YEAR?1 OR 2 (0 POINTS) HOW OFTEN DID YOU HAVE A DRINK CONTAINING ALCOHOL IN THE PAST YEAR?TWO TO FOUR TIMES A MONTH (2 POINTS) POINTS2 INTERPRETATIONNEGATIVE RECREATIONAL DRUG USE DRUG USE?YES HOW OFTEN AND HOW MUCH? OCC. MARIJUANA CAFFEINE CAFFEINE USE?YES HOW OFTEN AND HOW MUCH? 3 CUPS/DAY YAZDANISM [id number] ALEVISM LANGUAGE LANGUAGES SPOKEN:MONEGASQUE LEARNING BARRIERS / SPECIAL NEEDS CHANGE FROM LAST VISIT?NO BARRIERS TO LEARNING?NO HEARING IMPAIRED?NO NO HEARING AIDS. 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 DIET: REGULAR. EXERCISE: WALKS. MARITAL STATUS: . OTHERS AT HOME: SPOUSE. FEMALE 6 MONTH RISK ASSESSMENT FOR STD SPOUSE. - PFS REFERRAL NEEDED?NO CLERGY REFERRAL NEEDED?NO PUBLIC HEALTH REFERRAL NEEDED?NO WAS THE PROVIDER NOTIFIED OF ANY PERTINENT INFO?YES N/A HAS THE PATIENT BEEN EDUCATED REGARDING HIS/HER PLAN OF CARE?YES HAS THE PATIENT BEEN EDUCATED REGARDING PAIN, THE RISK FOR PAIN, THE IMPORTANCE OF EFFECTIVE PAIN MANAGEMENT, AND THE PAIN ASSESSMENT PROCESS?YES HOUSING: OWNS HOME. ADVANCE DIRECTIVE ADVANCE DIRECTIVE DISCUSSED WITH PATIENT:YES PT STATES HE HAS HCP. POA, AND LIVING WILL [id number] [phone] REVIEW OF SYSTEMS CONSTITUTIONAL: ANY RECENT FEVER NO . CHILLS NO . WEIGHT CHANGE OF UNKNOWN REASONS NO . GASTROENTEROLOGY: NEW UNEXPLAINABLE CHANGES IN BOWEL CONTROL NO . CONSTIPATION NO . GENITOURINARY: ANY NEW CHANGE IN BLADDER CONTROL? NO . NEUROLOGY: NEW ONSET DIZZINESS OR NEUROLOGICAL CHANGES NOT MENTIONED NO . NEW NUMBNESS OR PAIN PATTERNS NOT MENTIONED AND PERTINENT TO TODAY'S VISIT NO . CARDIOLOGY: NEW CHEST PRESSURE NO . NEW CHEST PAIN NO . RESPIRATORY: UNEXPLAINABLE COUGH NO . NEW SHORTNESS OF BREATH NO . VITAL SIGNS WT 288 LBS, HT 68 IN, BMI 43.79 INDEX, BP 150/86 MM HG, HR 74 /MIN, RR 18 /MIN, TEMP 98 F, OXYGEN SAT % 92%, SAFE IN ENV? (Y/N) YEST.TRIP MARTÍNEZ. EXAMINATION GENERAL EXAMINATION: GENERALAWAKE,ALERT ,PLEASANT . PSYCHAFFECT NORMAL . LUNGS:LUNG HEBERT ARE CLEAR TO AUSCULTATION BILATERALLY. GOOD MOVEMENT OF AIR . HEART:S1, S2 IN A REGULAR RATE AND RHYTHM. NO SIGNIFICANT MURMURS, RUBS OR GALLOPS NOTED . ASSESSMENTS OTHER CHRONIC PAIN - G89.29 (PRIMARY) SPONDYLOSIS WITHOUT MYELOPATHY OR RADICULOPATHY, LUMBAR REGION - M47.816 TREATMENT OTHER CHRONIC PAIN PAIN PROCEDURE LOGDATE OF [id number]/28/2021PROCEDURE:BILATERAL THERAPEUTIC LUMBAR FACET BLOCK L4-L5,L5-P1HIXHZY OF PRE SEDATEPRESEDATE: VALIUM 10MG; OXYCODONE HCL 10 MGRESULT:MARKED REDUCTION IN PAIN CONTINUES TODAY/ PROCEDURE CODES FA211 ESTABILISHED PATIENT [facility] CHARGE DISPOSITION & COMMUNICATION FOLLOW UP 3 MONTHS (REASON: LOW BACK PAIN) ELECTRONICALLY SIGNED BY MIKEY TELLO ON 06/16/2020 AT 06:24 PM EST DISCLAIMER : THIS IS A VISIT SUMMARY EXTRACTED FROM THE [employer] CHART. IT IS NOT A COPY OF THE [employer] PROGRESS NOTE. MTDD
== END ==
LOC: M PAIN 09:00
PROVIDERS: ATTEND Nurse Practitioner Family
DX: M47.816 Spondylosis without myelopathy or radiculopathy, lumbar region (principal); G89.29 Other chronic pain; R73.01 Impaired fasting glucose; Z87.891 Personal history of nicotine dependence; Z88.1 Allergy status to other antibiotic agents; Z91.038 Other insect allergy status; Z91.09 Other allergy status, other than to drugs and biological substances; E66.01 Morbid (severe) obesity due to excess calories; Z68.41 Body mass index [BMI] 40.0-44.9, adult; Z79.82 Long term (current) use of aspirin; Z79.899 Other long term (current) drug therapy

== ENCOUNTER → 2020-09-12 | Outpatient (CLI) | payer BC ==
--- NOTE | 2020-09-14 06:18 | ECWPNPC ---
PATIENT NAME: MOON LUCAS : 1960 GENDER: MALE VISIT DATE: 09/12/2020 DISCHARGE DATE: 09/12/20937 VISIT LOCKED DATE TIME: PHYSICIAN: SWETHA LAWSON RESOURCE: SWETHA LAWSON REASON FOR APPOINTMENT 1. F/U HISTORY OF PRESENT ILLNESS DEPRESSION SCREENING: PHQ-2 (2015 EDITION) LITTLE INTEREST OR PLEASURE IN DOING THINGS?NOT AT ALL FEELING DOWN, DEPRESSED, OR HOPELESS?NOT AT ALL TOTAL SCORE0 GENERAL: HERE FOR F/U OF CHRONIC LOW BACK PAIN.CONTINUES TO DO WELL SINCE BILATERAL LFBT 05/30/20.HAS NOT NEEDED PAIN MEDICATION SINCE PROCEDURE. -. FALL RISK SCREENING: SCREENING : NO FALLS REPORTED IN THE LAST YEAR. PAIN SCREENING: PATIENT HAS A COMPLAINT OF ACUTE OR CHRONIC PAIN :YES LOCATION OF PAIN:LOW BACK INTENSITY OF PAIN (SCALE OF 1 TO 10):2 WHAT DOES YOUR PAIN FEEL LIKE:INTERMITTENT DURATION:ONLY WITH SPECIFIC ACTIVITIES, INTERMITTENT PAIN IS INCREASED BY:ACTIVITIES PAIN IS DECREASED BY:USE OF PAIN MEDICATIONS NURSING NOTE: -. PAIN CENTER INTAKE QUESTIONS: DO YOU HAVE A HISTORY OF MRSA? :NO DO YOU TAKE A BLOOD THINNERS? :NO DO YOU HAVE ANY BLEEDING DISORDERS? :NO ANY NEW NUMBNESS OR WEAKNESS IN YOUR LEGS OR ARMS? :NO ANY PACEMAKER,DEFIBRILLATOR, OR DORSAL COLUMN STIMULATOR? :NO DO YOU HAVE ANY RASHES OR OPEN SORES? :NO ARE YOU ALLERGIC TO IV DYE? :NO ARE YOU DIABETIC? :NO ANY NEW PROBLEMS WITH YOUR MEDICATIONS? :NO HAVE YOU RECEIVED A VACCINE IN THE PAST 30 DAYS? :NO DO YOU PLAN TO RECEIVE A VACCINE IN THE NEXT 21 DAYS? :NO DO YOU NEED ANY PRESCRIPTION? :NO DO YOU TAKE ANY IMMUNOSUPPRESSIVE MEDICATIONS? :NO IS THERE A CHANCE YOU COULD BE ? :NO ARE YOU BREAST FEEDING? :NO CURRENT MEDICATIONS TAKING LISINOPRIL 5 MG TABLET 1 TAB(S) ORALLY ONCE A DAY TAKING ATENOLOL 25 MG TABLET 1 TABLET ORALLY ONCE A DAY TAKING ASPIRIN 81 MG TABLET 1 TABLET ORALLY ONCE A DAY TAKING LIPITOR 20 MG TABLET 1 TABLET ORALLY ONCE A DAY TAKING HYDROCODONE-ACETAMINOPHEN 5-325 MG TABLET 1 TABLET NEEDED ORALLY EVERY 8 HRS PRN FOR PAIN MDD4 TAKING SALONPAS 4% 1 PATCH DAILY NEEDED TAKING VITAMIN D (ERGOCALCIFEROL) 65756 UNIT CAPSULE 1 CAPSULE ORALLY WEEKLY TAKING GABAPENTIN 100 MG CAPSULE 2 TABS ORALLY TWICE DAILY, NOTES: NEEDED TAKING IBUPROFEN 800 MG TABLET 1 TAB ORALLY Q6H PRN MEDICATION LIST REVIEWED AND RECONCILED WITH THE PATIENT PAST MEDICAL HISTORY HYPERTENSION 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 DECEMBER 2005 OBESITY, MORBID HYPERHOMOCYSTINEMIA, MILD-12/2003-12.6 (4.3-11.4) IMPAIRED FASTING GLUCOSE HYPERLIPIDEMIA 2B VENOUS INSUFFICIENCY BILATERAL LOWER EXTREMITIES 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 RADICULAR PAIN-JANUARY 2010 MRI MULTILEVEL DJD, GRADE 1 DEGENERATIVE ANTEROLISTHESIS L4/L5, 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 WITH LEFT GREATER THAN RIGHT NEUROFORAMINAL NARROWING TORN ROTATOR CUFF RIGHT RIGHT KNEE TORN MENISCUS ALLERGIES TETRACYCLINE HCL: NAUSEA/VOMITING - ALLERGY HORSE SERUM: NAUSEA/VOMITING - ALLERGY PUERTO RICAN LIMPETS: ANAPHYLAXIS - ALLERGY SOCIAL HISTORY GENERAL: TOBACCO USE ARE YOU A:NONSMOKER 01/20/1992 FORMER SMOKER LATEX QUESTIONNAIRE LATEX ALLERGY : HAVE YOU EVER DEVELOPED ANY TYPE OF REACTION AFTER HANDLING LATEX PRODUCTS SUCH RUBBER GLOVES, CONDOMS, DIAPHRAGMS, BALLOONS, SOCKS, OR UNDERWEAR?NO LATEX ALLERGY : HAVE YOU EVER DEVELOPED ANY TYPE OF REACTION DURING OR AFTER DENTAL APPOINTMENT, VAGINAL/RECTAL EXAMINATION, SURGICAL PROCEDURE, OR ANY OTHER EXPOSURE?NO LATEX RISK : HAVE YOU EVER HAD ANY DIFFICULTY BREATHING OR HIVES AFTER EATING OR HANDLING ANY FRUITS, OR VEGETABLES; SUCH KIWI, BANANAS, STONE FRUITS, OR CHESTNUTSNO LATEX RISK : DO YOU HAVE A PREVIOUS PERSONAL HISTORY OF MORE THAN NINE SURGERIES, SPINA BIFIDA, OR REPEATED CATHERIZATIONS? NO LATEX RISK : ARE YOU FREQUENTLY EXPOSED TO LATEX PRODUCTS IN YOUR OCCUPATION?YES DATE ASKED : 09/12/2020 ALCOHOL USE: YES. LUNG CANCER SCREENING SMOKING STATUS:NON SMOKER ALCOHOL SCREENING DID YOU HAVE A DRINK CONTAINING ALCOHOL IN THE PAST YEAR?YES HOW OFTEN DID YOU HAVE SIX OR MORE DRINKS ON ONE OCCASION IN THE PAST YEAR?NEVER (0 POINTS) HOW MANY DRINKS DID YOU HAVE ON A TYPICAL DAY WHEN YOU WERE DRINKING IN THE PAST YEAR?1 OR 2 (0 POINTS) HOW OFTEN DID YOU HAVE A DRINK CONTAINING ALCOHOL IN THE PAST YEAR?TWO TO FOUR TIMES A MONTH (2 POINTS) POINTS2 INTERPRETATIONNEGATIVE RECREATIONAL DRUG USE DRUG USE?YES HOW OFTEN AND HOW MUCH? OCC. MARIJUANA CAFFEINE CAFFEINE USE?YES HOW OFTEN AND HOW MUCH? 3 CUPS/DAY JAIN [id number] MORAVIAN LANGUAGE LANGUAGES SPOKEN:ARMENIAN LEARNING BARRIERS / SPECIAL NEEDS CHANGE FROM LAST VISIT?NO BARRIERS TO LEARNING?NO HEARING IMPAIRED?NO NO HEARING AIDS. CAN'T HEAR HIGH FREQUENCY TONES VISION IMPAIRED?YES :CORRECTIVE LENSES COGNITIVELY IMPAIRED?NO READINESS TO LEARN?YES LEARNING PREFERENCES?NO LEARNING CAPABILITIES PRESENT?YES EMOTIONAL BARRIERS?NO SPECIAL DEVICES?YES :CANE OCCASSIONALLY MEDICAL DIAGNOSTIC RADIOGRAPHER NEEDED?NO DOMESTIC VIOLENCE DO YOU FEEL SAFE IN YOUR ENVIRONMENT?YES OCCUPATION: SEMI-RETIRED. DIET: REGULAR. EXERCISE: WALKS. MARITAL STATUS: . OTHERS AT HOME: SPOUSE. FEMALE 6 MONTH RISK ASSESSMENT FOR STD SPOUSE. - PFS REFERRAL NEEDED?NO CLERGY REFERRAL NEEDED?NO PUBLIC HEALTH REFERRAL NEEDED?NO WAS THE PROVIDER NOTIFIED OF ANY PERTINENT INFO?YES N/A HAS THE PATIENT BEEN EDUCATED REGARDING HIS/HER PLAN OF CARE?YES HAS THE PATIENT BEEN EDUCATED REGARDING PAIN, THE RISK FOR PAIN, THE IMPORTANCE OF EFFECTIVE PAIN MANAGEMENT, AND THE PAIN ASSESSMENT PROCESS?YES HOUSING: OWNS HOME. ADVANCE DIRECTIVE ADVANCE DIRECTIVE DISCUSSED WITH PATIENT:YES PT STATES HE HAS HCP. POA, AND LIVING WILL [id number] [phone] REVIEW OF SYSTEMS CONSTITUTIONAL: ANY RECENT FEVER NO . CHILLS NO . WEIGHT CHANGE OF UNKNOWN REASONS NO . GASTROENTEROLOGY: NEW UNEXPLAINABLE CHANGES IN BOWEL CONTROL NO . CONSTIPATION NO . GENITOURINARY: ANY NEW CHANGE IN BLADDER CONTROL? NO . NEUROLOGY: NEW ONSET DIZZINESS OR NEUROLOGICAL CHANGES NOT MENTIONED NO . NEW NUMBNESS OR PAIN PATTERNS NOT MENTIONED AND PERTINENT TO TODAY'S VISIT NO . CARDIOLOGY: NEW CHEST PRESSURE NO . PATIENT DENIES NO . RESPIRATORY: UNEXPLAINABLE COUGH NO . NEW SHORTNESS OF BREATH NO . VITAL SIGNS WT 293.8 LBS, HT 68 IN, BMI 44.67 INDEX, BP 149/81 MM HG, HR 62 /MIN, RR 18 /MIN, TEMP 96.0 F, OXYGEN SAT % 90%, SAFE IN ENV? (Y/N) YES, NA INITIALS AW 0914T.TRIP MARTÍNEZ. EXAMINATION GENERAL EXAMINATION: GENERALAWAKE,ALERT ,PLEASANT . PSYCHAFFECT NORMAL . LUNGS:LUNG HEBERT ARE CLEAR TO AUSCULTATION BILATERALLY. GOOD MOVEMENT OF AIR . HEART:S1, S2 IN A REGULAR RATE AND RHYTHM. NO SIGNIFICANT MURMURS, RUBS OR GALLOPS NOTED . ASSESSMENTS SPONDYLOSIS WITHOUT MYELOPATHY OR RADICULOPATHY, LUMBAR REGION - M47.816 (PRIMARY) TREATMENT SPONDYLOSIS WITHOUT MYELOPATHY OR RADICULOPATHY, LUMBAR REGION NOTES: CONTINUE HOME EXCERSISE AND STRETCHING. PROCEDURE CODES FA211 ESTABILISHED PATIENT [facility] CHARGE DISPOSITION & COMMUNICATION FOLLOW UP 3 MONTHS (REASON: LOW BACK PAIN/ RESPONDS WELL TO LFBT) ELECTRONICALLY SIGNED BY MIKEY TELLO ON 09/13/2020 AT 02:18 PM EDT DISCLAIMER : THIS IS A VISIT SUMMARY EXTRACTED FROM THE [employer]? CHART. IT IS NOT A COPY OF THE [employer] PROGRESS NOTE. KAMILLA
== END ==
LOC: M PAIN 09:00
PROVIDERS: ATTEND Nurse Practitioner Family
DX: M47.816 Spondylosis without myelopathy or radiculopathy, lumbar region (principal); G89.29 Other chronic pain; R73.01 Impaired fasting glucose; Z87.891 Personal history of nicotine dependence; Z88.1 Allergy status to other antibiotic agents; Z91.038 Other insect allergy status; E66.01 Morbid (severe) obesity due to excess calories; Z68.41 Body mass index [BMI] 40.0-44.9, adult; Z79.82 Long term (current) use of aspirin; Z79.899 Other long term (current) drug therapy

== ENCOUNTER → 2020-09-26 | Outpatient (REF) | payer BC | LOC: M LAB REF 19:01 | PROVIDERS: ATTEND Surgery | DX: L72.11 Pilar cyst (principal) ==

== ENCOUNTER → 2020-11-08 | Outpatient (CLI) | payer BC ==
--- NOTE | 2020-11-08 23:21 | ECWPNPC ---
PATIENT NAME: MOON LUCAS : 1960 GENDER: MALE VISIT DATE: 11/08/2020 DISCHARGE DATE: 11/08/20930 VISIT LOCKED DATE TIME: PHYSICIAN: SWETHA LAWSON RESOURCE: SWETHA LAWSON REASON FOR APPOINTMENT 1. INCREASED PAIN/WANTS PROCEDURE HISTORY OF PRESENT ILLNESS GENERAL: HERE FOR FOLLOW-UP OF CHRONIC LOW BACK PAIN. PAIN HAS INCREASED OVER THE PAST MONTH. RESPONDS WELL TO LUMBAR FACET BLOCK THERAPEUTIC. LAST INJECTION WAS IN MAY SO HE HAD GREATER THAN 80% REDUCTION FOR 5 MONTHS POST PROCEDURE. PAIN IS AGGRAVATED BY LIFTING OR BENDING. -. FALL RISK SCREENING: SCREENING : NO FALLS REPORTED IN THE LAST YEAR. PAIN SCREENING: PATIENT HAS A COMPLAINT OF ACUTE OR CHRONIC PAIN :YES LOCATION OF PAIN:LOW BACK INTENSITY OF PAIN (SCALE OF 1 TO 10):5 WHAT DOES YOUR PAIN FEEL LIKE:CONTINOUS, SORE, SHOOTING DURATION:ONLY WITH SPECIFIC ACTIVITIES, INTERMITTENT PAIN IS INCREASED BY:ACTIVITIES PAIN IS DECREASED BY:USE OF PAIN MEDICATIONS, OTHERS PATCHES NURSING NOTE: -. PAIN CENTER INTAKE QUESTIONS: DO YOU HAVE A HISTORY OF MRSA? :NO DO YOU TAKE A BLOOD THINNERS? :NO ASPIRIN 81 MG DO YOU HAVE ANY BLEEDING DISORDERS? :NO ANY NEW NUMBNESS OR WEAKNESS IN YOUR LEGS OR ARMS? :NO BOTH FEET IS BURNING ANY PACEMAKER,DEFIBRILLATOR, OR DORSAL COLUMN STIMULATOR? :NO DO YOU HAVE ANY RASHES OR OPEN SORES? :NO ARE YOU ALLERGIC TO IV DYE? :NO ARE YOU DIABETIC? :NO ANY NEW PROBLEMS WITH YOUR MEDICATIONS? :NO HAVE YOU RECEIVED A VACCINE IN THE PAST 30 DAYS? :NO DO YOU PLAN TO RECEIVE A VACCINE IN THE NEXT 21 DAYS? :NO DO YOU NEED ANY PRESCRIPTION? :NO DO YOU TAKE ANY IMMUNOSUPPRESSIVE MEDICATIONS? :NO IS THERE A CHANCE YOU COULD BE ? :NO ARE YOU BREAST FEEDING? :NO CURRENT MEDICATIONS TAKING LISINOPRIL 5 MG TABLET 1 TAB(S) ORALLY ONCE A DAY TAKING ATENOLOL 25 MG TABLET 1 TABLET ORALLY ONCE A DAY TAKING ASPIRIN 81 MG TABLET 1 TABLET ORALLY ONCE A DAY TAKING LIPITOR 20 MG TABLET 1 TABLET ORALLY ONCE A DAY TAKING HYDROCODONE-ACETAMINOPHEN 5-325 MG TABLET 1 TABLET NEEDED ORALLY EVERY 8 HRS PRN FOR PAIN MDD4 TAKING SALONPAS 4% 1 PATCH DAILY NEEDED TAKING VITAMIN D (ERGOCALCIFEROL) 52990 UNIT CAPSULE 1 CAPSULE ORALLY WEEKLY TAKING GABAPENTIN 100 MG CAPSULE 2 TABS ORALLY TWICE DAILY, NOTES: NEEDED TAKING IBUPROFEN 800 MG TABLET 1 TAB ORALLY Q6H PRN MEDICATION LIST REVIEWED AND RECONCILED WITH THE PATIENT PAST MEDICAL HISTORY HYPERTENSION 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 DECEMBER 2005 OBESITY, MORBID HYPERHOMOCYSTINEMIA, MILD-12/2003-12.6 (4.3-11.4) IMPAIRED FASTING GLUCOSE HYPERLIPIDEMIA 2B VENOUS INSUFFICIENCY BILATERAL LOWER EXTREMITIES 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 RADICULAR PAIN-JANUARY 2010 MRI MULTILEVEL DJD, GRADE 1 DEGENERATIVE ANTEROLISTHESIS L4/L5, 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 WITH LEFT GREATER THAN RIGHT NEUROFORAMINAL NARROWING TORN ROTATOR CUFF RIGHT RIGHT KNEE TORN MENISCUS ALLERGIES TETRACYCLINE HCL: NAUSEA/VOMITING - ALLERGY HORSE SERUM: NAUSEA/VOMITING - ALLERGY PALESTINIAN LIMPETS: ANAPHYLAXIS - ALLERGY SOCIAL HISTORY GENERAL: TOBACCO USE ARE YOU A:NONSMOKER 01/20/1992 FORMER SMOKER LATEX QUESTIONNAIRE LATEX ALLERGY : HAVE YOU EVER DEVELOPED ANY TYPE OF REACTION AFTER HANDLING LATEX PRODUCTS SUCH RUBBER GLOVES, CONDOMS, DIAPHRAGMS, BALLOONS, SOCKS, OR UNDERWEAR?NO LATEX ALLERGY : HAVE YOU EVER DEVELOPED ANY TYPE OF REACTION DURING OR AFTER DENTAL APPOINTMENT, VAGINAL/RECTAL EXAMINATION, SURGICAL PROCEDURE, OR ANY OTHER EXPOSURE?NO LATEX RISK : HAVE YOU EVER HAD ANY DIFFICULTY BREATHING OR HIVES AFTER EATING OR HANDLING ANY FRUITS, OR VEGETABLES; SUCH KIWI, BANANAS, STONE FRUITS, OR CHESTNUTSNO LATEX RISK : DO YOU HAVE A PREVIOUS PERSONAL HISTORY OF MORE THAN NINE SURGERIES, SPINA BIFIDA, OR REPEATED CATHERIZATIONS? NO LATEX RISK : ARE YOU FREQUENTLY EXPOSED TO LATEX PRODUCTS IN YOUR OCCUPATION?YES DATE ASKED : 11/08/2020 ALCOHOL USE: YES. LUNG CANCER SCREENING SMOKING STATUS:NON SMOKER ALCOHOL SCREENING DID YOU HAVE A DRINK CONTAINING ALCOHOL IN THE PAST YEAR?YES HOW OFTEN DID YOU HAVE SIX OR MORE DRINKS ON ONE OCCASION IN THE PAST YEAR?NEVER (0 POINTS) HOW MANY DRINKS DID YOU HAVE ON A TYPICAL DAY WHEN YOU WERE DRINKING IN THE PAST YEAR?1 OR 2 (0 POINTS) HOW OFTEN DID YOU HAVE A DRINK CONTAINING ALCOHOL IN THE PAST YEAR?TWO TO FOUR TIMES A MONTH (2 POINTS) POINTS2 INTERPRETATIONNEGATIVE RECREATIONAL DRUG USE DRUG USE?YES HOW OFTEN AND HOW MUCH? OCC. MARIJUANA CAFFEINE CAFFEINE USE?YES HOW OFTEN AND HOW MUCH? 3 CUPS/DAY MU-ISM [id number] ANABAPTISM LANGUAGE LANGUAGES SPOKEN:LITHUANIAN LEARNING BARRIERS / SPECIAL NEEDS CHANGE FROM LAST VISIT?NO BARRIERS TO LEARNING?NO HEARING IMPAIRED?NO NO HEARING AIDS. CAN'T HEAR HIGH FREQUENCY TONES VISION IMPAIRED?YES :CORRECTIVE LENSES COGNITIVELY IMPAIRED?NO READINESS TO LEARN?YES LEARNING PREFERENCES?NO LEARNING CAPABILITIES PRESENT?YES EMOTIONAL BARRIERS?NO SPECIAL DEVICES?YES :CANE OCCASSIONALLY FOOD SPECIALIST NEEDED?NO DOMESTIC VIOLENCE DO YOU FEEL SAFE IN YOUR ENVIRONMENT?YES OCCUPATION: SEMI-RETIRED. DIET: REGULAR. EXERCISE: WALKS. MARITAL STATUS: . OTHERS AT HOME: SPOUSE. FEMALE 6 MONTH RISK ASSESSMENT FOR STD SPOUSE. - PFS REFERRAL NEEDED?NO CLERGY REFERRAL NEEDED?NO PUBLIC HEALTH REFERRAL NEEDED?NO WAS THE PROVIDER NOTIFIED OF ANY PERTINENT INFO?YES N/A HAS THE PATIENT BEEN EDUCATED REGARDING HIS/HER PLAN OF CARE?YES HAS THE PATIENT BEEN EDUCATED REGARDING PAIN, THE RISK FOR PAIN, THE IMPORTANCE OF EFFECTIVE PAIN MANAGEMENT, AND THE PAIN ASSESSMENT PROCESS?YES HOUSING: OWNS HOME. ADVANCE DIRECTIVE ADVANCE DIRECTIVE DISCUSSED WITH PATIENT:YES PT STATES HE HAS HCP. POA, AND LIVING WILL [id number] [phone] REVIEW OF SYSTEMS CONSTITUTIONAL: ANY RECENT FEVER NO . CHILLS NO . WEIGHT CHANGE OF UNKNOWN REASONS NO . GASTROENTEROLOGY: NEW UNEXPLAINABLE CHANGES IN BOWEL CONTROL NO . CONSTIPATION NO . GENITOURINARY: ANY NEW CHANGE IN BLADDER CONTROL? NO . NEUROLOGY: NEW ONSET DIZZINESS OR NEUROLOGICAL CHANGES NOT MENTIONED NO . NEW NUMBNESS OR PAIN PATTERNS NOT MENTIONED AND PERTINENT TO TODAY'S VISIT NO . CARDIOLOGY: NEW CHEST PRESSURE NO . PATIENT DENIES NO . RESPIRATORY: UNEXPLAINABLE COUGH NO . NEW SHORTNESS OF BREATH NO . VITAL SIGNS WT 301 LBS, HT 68 IN, BMI 45.76 INDEX, BP 154/76 MM HG, HR 50 /MIN, RR 18 /MIN, TEMP 97.2 F, OXYGEN SAT % 90%, SAFE IN ENV? (Y/N) YEST.TRIP MARTÍNEZ. EXAMINATION GENERAL EXAMINATION: GENERALAWAKE,ALERT ,PLEAASANT . PSYCHAFFECT NORMAL . LUNGS:LUNG HEBERT ARE CLEAR TO AUSCULTATION BILATERALLY. GOOD MOVEMENT OF AIR . HEART:S1, S2 IN A REGULAR RATE AND RHYTHM. NO SIGNIFICANT MURMURS, RUBS OR GALLOPS NOTED . LUMBAR:PALPATION:TENDER OVER BILAT. L4/5-L5/S1 LUMBAR FACETS WITH FACET LOADING.. ASSESSMENTS SPONDYLOSIS WITHOUT MYELOPATHY OR RADICULOPATHY, LUMBAR REGION - M47.816 (PRIMARY) TREATMENT SPONDYLOSIS WITHOUT MYELOPATHY OR RADICULOPATHY, LUMBAR REGION MEDICATION: PAIN OXYCODONE HCL TAB 10MG ORALLY (ORDERED FOR 11/22/2020) MEDICATION: PAIN VALIUM TAB 10MG ORALLY (DIAZEPAM) (ORDERED FOR 11/22/2020) NOTES: BILATERAL THERAPEUTIC LUMBAR FACET BLOCK L4-5, L5-S1 PRINTED AND REVIEWED PRE PROCEDURE INFORMATION, PATIENT VERBALIZED UNDERSTANDING SHAGGY MARTÍNEZ. PROCEDURE CODES FA211 ESTABILISHED PATIENT [facility] CHARGE DISPOSITION & COMMUNICATION FOLLOW UP POSTPROCEDURE (REASON: BILATERAL THERAPEUTIC LUMBAR FACET BLOCK L4-5, L5-S1) ELECTRONICALLY SIGNED BY MIKEY TELLO ON 11/08/2020 AT 10:37 AM EDT DISCLAIMER : THIS IS A VISIT SUMMARY EXTRACTED FROM THE [employer] CHART. IT IS NOT A COPY OF THE [employer] PROGRESS NOTE. KAMILLA
== END ==
LOC: M PAIN 09:00
PROVIDERS: ATTEND Nurse Practitioner Family
DX: M47.816 Spondylosis without myelopathy or radiculopathy, lumbar region (principal); G89.29 Other chronic pain; Z87.891 Personal history of nicotine dependence; Z88.1 Allergy status to other antibiotic agents; Z91.038 Other insect allergy status; Z91.09 Other allergy status, other than to drugs and biological substances; E66.01 Morbid (severe) obesity due to excess calories; Z68.42 Body mass index [BMI] 45.0-49.9, adult; Z79.82 Long term (current) use of aspirin; Z79.899 Other long term (current) drug therapy

== ENCOUNTER → 2020-12-02 | Outpatient (CLI) | payer BC | LOC: M LABSMTC 11:03 | PROVIDERS: ATTEND Anesthesiology | DX: Z01.812 Encounter for preprocedural laboratory examination (principal); Z20.822 Contact with and (suspected) exposure to COVID-19 ==

== ENCOUNTER → 2020-12-05 | Outpatient (CLI) | payer BC ==
[~2020-12-05] MED LIST changes: +BUPIVACAINE HCL 0.25% 30ML VIAL As Ordered ONE; +ISOVUE-M 300 61% 15ML VIAL As Ordered ONE; +LIDOCAINE 1% SDV 30ML VIAL As Ordered ONE; +TRIAMCINOLONE ACETONIDE SUSP 40 MG/ML VIAL (J3301) As Ordered ONE; +diazePAM 5MG TABLET As Ordered ONE; +oxyCODONE 5MG TAB As Ordered ONE
--- NOTE | 2020-12-05 13:26 | REP ---
INDICATION: LUMBAR FACET BLOCK. COMPARISON: 05/30/2020. TECHNIQUE: Two views lower lumbar spine. FINDINGS: Two needles are seen along the lower right lumbar facet joints and also left lower lumbar facet joints. IMPRESSION: 37 seconds of fluoroscopy time was utilized. <Electronically signed by Zesehan Tanner > 12/05/20 [id number]
--- NOTE | 2020-12-11 01:42 | ECWPNPC ---
PATIENT NAME: MOON LUCAS : 1960 GENDER: MALE VISIT DATE: 12/05/2020 DISCHARGE DATE: 12/05/20 1018 VISIT LOCKED DATE TIME: PHYSICIAN: CHAIM RAI MD RESOURCE: CHAIM RAI MD REASON FOR APPOINTMENT 1. BILATERAL THERAPEUTIC LUMBAR FACET BLOCK L4-5, L5-S1 HISTORY OF PRESENT ILLNESS GENERAL: - -. FALL RISK SCREENING: SCREENING : NO FALLS REPORTED IN THE LAST YEAR . PAIN SCREENING: PATIENT HAS A COMPLAINT OF ACUTE OR CHRONIC PAIN :YES LOCATION OF PAIN:LOW BACK, LEG(S), THIGH(S), ANKLE(S) BOTH BUTTOCKS INTENSITY OF PAIN (SCALE OF 1 TO 10):6 WHAT DOES YOUR PAIN FEEL LIKE:ACHING, CONTINOUS, SHARP, TENDER, SORE, SHOOTING DURATION:CONTINOUS, CONSTANT, AWAKENS FROM SLEEP PAIN IS INCREASED BY:ACTIVITIES, PROLONGED STANDING, OTHERS PROLONGED SITTING PAIN IS DECREASED BY:OTHERS HEAT, SALON PAS, HOT SHOWERS, INJECTIONS PAIN HAS INTERFERED WITH THE FOLLOWING: EVERYTHING NURSING NOTE: - -. PAIN CENTER INTAKE QUESTIONS: DO YOU HAVE A HISTORY OF MRSA? :NO DO YOU TAKE A BLOOD THINNERS? :NO DO YOU HAVE ANY BLEEDING DISORDERS? :NO ANY NEW NUMBNESS OR WEAKNESS IN YOUR LEGS OR ARMS? :NO ANY PACEMAKER,DEFIBRILLATOR, OR DORSAL COLUMN STIMULATOR? :NO DO YOU HAVE ANY RASHES OR OPEN SORES? :NO ARE YOU ALLERGIC TO IV DYE? :NO ARE YOU DIABETIC? :NO ANY NEW PROBLEMS WITH YOUR MEDICATIONS? :NO HAVE YOU RECEIVED A VACCINE IN THE PAST 30 DAYS? :NO DO YOU PLAN TO RECEIVE A VACCINE IN THE NEXT 21 DAYS? :NO DO YOU TAKE ANY IMMUNOSUPPRESSIVE MEDICATIONS? :NO ANY HISTORY OF SEIZURES? :NO ANY HISTORY OF CARDIAC ISSUES OR EVENTS? :NO DO YOU HAVE ANY KIDNEY OR LIVER DISEASE? :NO DO YOU HAVE SLEEP APNEA? :NO ANY RECENT HEAD INJURY? :NO DO YOU HAVE ANY NEW INFECTIONS? :NO IS THERE A CHANCE YOU COULD BE ? :NO ARE YOU BREAST FEEDING? :NO WHEN DID YOU LAST EAT? : -12/04/20 @ 1930 WHEN DID YOU LAST DRINK? : -12/05/20@ 0600 WHAT DID YOU LAST DRINK? : - NAME OF PERSON DRIVING YOU HOME? : JUAN- DO YOU HAVE ANY OTHER QUESTIONS OR CONCERNS? : NONE CURRENT MEDICATIONS TAKING LISINOPRIL 5 MG TABLET 1 TAB(S) ORALLY ONCE A DAY TAKING ATENOLOL 25 MG TABLET 1 TABLET ORALLY ONCE A DAY TAKING ASPIRIN 81 MG TABLET 1 TABLET ORALLY ONCE A DAY TAKING LIPITOR 20 MG TABLET 1 TABLET ORALLY ONCE A DAY TAKING HYDROCODONE-ACETAMINOPHEN 5-325 MG TABLET 1 TABLET NEEDED ORALLY EVERY 8 HRS PRN FOR PAIN MDD4 TAKING SALONPAS 4% 1 PATCH DAILY NEEDED TAKING VITAMIN D (ERGOCALCIFEROL) 41897 UNIT CAPSULE 1 CAPSULE ORALLY WEEKLY TAKING IBUPROFEN 800 MG TABLET 1 TAB ORALLY Q6H PRN NOT-TAKING GABAPENTIN 100 MG CAPSULE 2 TABS ORALLY TWICE DAILY, NOTES: NEEDED MEDICATION LIST REVIEWED AND RECONCILED WITH THE PATIENT PAST MEDICAL HISTORY HYPERTENSION 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 DECEMBER 2005 OBESITY, MORBID HYPERHOMOCYSTINEMIA, MILD-12/2003-12.6 (4.3-11.4) IMPAIRED FASTING GLUCOSE HYPERLIPIDEMIA 2B VENOUS INSUFFICIENCY BILATERAL LOWER EXTREMITIES 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 RADICULAR PAIN-JANUARY 2010 MRI MULTILEVEL DJD, GRADE 1 DEGENERATIVE ANTEROLISTHESIS L4/L5, 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 WITH LEFT GREATER THAN RIGHT NEUROFORAMINAL NARROWING TORN ROTATOR CUFF RIGHT RIGHT KNEE TORN MENISCUS FIOBROID CYST BACK OF HEAD-09/26/20 ALLERGIES TETRACYCLINE HCL: NAUSEA/VOMITING - ALLERGY HORSE SERUM: NAUSEA/VOMITING - ALLERGY TURKISH LIMPETS: ANAPHYLAXIS - ALLERGY SURGICAL HISTORY RIGHT MENISCUS REPAIR TONSILLECTOMY HERNIATED UMBILICAL SURGERY JAN 2018 COLONOSCOPY AUGUST 2019 FIBROID CYST REMOVED FROM HEAD-DR. OTERO 09/26/20 SOCIAL HISTORY GENERAL: TOBACCO USE ARE YOU A:NONSMOKER 01/20/1992 FORMER SMOKER LATEX QUESTIONNAIRE LATEX ALLERGY : HAVE YOU EVER DEVELOPED ANY TYPE OF REACTION AFTER HANDLING LATEX PRODUCTS SUCH RUBBER GLOVES, CONDOMS, DIAPHRAGMS, BALLOONS, SOCKS, OR UNDERWEAR?NO LATEX ALLERGY : HAVE YOU EVER DEVELOPED ANY TYPE OF REACTION DURING OR AFTER DENTAL APPOINTMENT, VAGINAL/RECTAL EXAMINATION, SURGICAL PROCEDURE, OR ANY OTHER EXPOSURE?NO LATEX RISK : HAVE YOU EVER HAD ANY DIFFICULTY BREATHING OR HIVES AFTER EATING OR HANDLING ANY FRUITS, OR VEGETABLES; SUCH KIWI, BANANAS, STONE FRUITS, OR CHESTNUTSNO LATEX RISK : DO YOU HAVE A PREVIOUS PERSONAL HISTORY OF MORE THAN NINE SURGERIES, SPINA BIFIDA, OR REPEATED CATHERIZATIONS? NO LATEX RISK : ARE YOU FREQUENTLY EXPOSED TO LATEX PRODUCTS IN YOUR OCCUPATION?YES DATE ASKED : 12/04/2020 ALCOHOL USE: YES. LUNG CANCER SCREENING SMOKING STATUS:NON SMOKER ALCOHOL SCREENING DID YOU HAVE A DRINK CONTAINING ALCOHOL IN THE PAST YEAR?YES HOW OFTEN DID YOU HAVE A DRINK CONTAINING ALCOHOL IN THE PAST YEAR?TWO TO FOUR TIMES A MONTH (2 POINTS) HOW MANY DRINKS DID YOU HAVE ON A TYPICAL DAY WHEN YOU WERE DRINKING IN THE PAST YEAR?1 OR 2 (0 POINTS) HOW OFTEN DID YOU HAVE SIX OR MORE DRINKS ON ONE OCCASION IN THE PAST YEAR?NEVER (0 POINTS) POINTS2 INTERPRETATIONNEGATIVE RECREATIONAL DRUG USE DRUG USE?YES HOW OFTEN AND HOW MUCH? OCC. MARIJUANA CAFFEINE CAFFEINE USE?YES HOW OFTEN AND HOW MUCH? 3 CUPS/DAY [employer] [id number] TENRIISM LANGUAGE LANGUAGES SPOKEN:MAURITIAN LEARNING BARRIERS / SPECIAL NEEDS CHANGE FROM LAST VISIT?NO BARRIERS TO LEARNING?NO HEARING IMPAIRED?NO NO HEARING AIDS. 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 DIET: REGULAR. EXERCISE: WALKS. MARITAL STATUS: . OTHERS AT HOME: SPOUSE. FEMALE 6 MONTH RISK ASSESSMENT FOR STD SPOUSE. - PFS REFERRAL NEEDED?NO CLERGY REFERRAL NEEDED?NO PUBLIC HEALTH REFERRAL NEEDED?NO HAS THE PATIENT BEEN EDUCATED REGARDING HIS/HER PLAN OF CARE?YES HAS THE PATIENT BEEN EDUCATED REGARDING PAIN, THE RISK FOR PAIN, THE IMPORTANCE OF EFFECTIVE PAIN MANAGEMENT, AND THE PAIN ASSESSMENT PROCESS?YES HOUSING: OWNS HOME. ADVANCE DIRECTIVE ADVANCE DIRECTIVE DISCUSSED WITH PATIENT:YES PT STATES HE HAS HCP. POA, AND LIVING WILL [id number] [phone] HOSPITALIZATION/MAJOR DIAGNOSTIC PROCEDURE SURGERY RELATED VITAL SIGNS WT 295.6 LBS, WT-KG 134.08 KG, HT 68 IN, BMI 44.94 INDEX, BP 139/82 MM HG, HR 65 /MIN, RR 18 /MIN, TEMP 97 F, OXYGEN SAT % 94%, SAFE IN ENV? (Y/N) Y, NA INITIALS HI 08:49, REVIEWED BY: ANTONIO. EXAMINATION GENERAL: A HISTORY AND PHYSICAL EXAM ON THE PATIENT WAS DONE ON 11/08/2020(DATE OF ORIGINAL ASSESSMENT) IN PREPARATION OF SURGERY/PROCEDURE. I HAVE NOW REASSESSED THIS PATIENT'S HEALTH STATUS AND PERFORMED AN UPDATED EXAM TODAY. ALL CHANGES IN THE PATIENT'S HISTORY, PHYSICAL EXAM, PRE-EXISTING CONDITONS, AND INDICATIONS/CONTRAINDICATIONS TO THE PLANNED PROCEDURE AND ANESTHESIA ARE DOCUMENTED AND EVALUATED BELOW. I ATTEST TO THE ADEQUACY AND APPROPRIATENESS OF MY ASSESSMENT, AND CONFIRM THE NECESSITY FOR THE PLANNED PROCEDURE. THE PATIENT IS ALERT, ORIENTED TIMES THREE AND COOPERATIVE. LUNGS ARE CLEAR TO AUSCULTATION. HEART SHOWS REGULAR RHYTHM, NO MURMURS AND NO GALLOPS. ASSESSMENTS SPONDYLOSIS WITHOUT MYELOPATHY OR RADICULOPATHY, LUMBAR REGION - M47.816 (PRIMARY) TREATMENT SPONDYLOSIS WITHOUT MYELOPATHY OR RADICULOPATHY, LUMBAR REGION SMC FACET BLOCK (PAIN)[id number] COMPLETION OF PROCEDURAL VISIT WHEN MEETS [id number],TOM 12/05/2020 12:29:17 PM > CRITERIA MET AT 1008 MEDICATION: PAIN OXYCODONE HCL TAB 10MG [id number],JIGNA 12/05/2020 8:42:27 AM > VERIFIED. DIONISIOERNIE 12/05/2020 8:46:21 AM > ADMINISTERED MEDICATION: PAIN VALIUM TAB 10MG ORALLY (DIAZEPAM)[id number],JIGNA 12/05/2020 8:42:41 AM > VERIFIED. ERNIE NICHOLE 12/05/2020 8:46:48 AM > ADMINISTERED PROCEDURES PAIN NURSING RECORD PROCEDURE IN ROOM 0920, PHYSICIAN IN ROOM 0944, START 0949, FINISH 0956, PHYSICIAN OUT OF ROOM 0958, OUT OF ROOM 1002, ECG NORMAL SINUS, PATIENT SHIELDED NO, SAFETY STRAP YES, PREP JO NICHOLE RN, DRESSING JASKARAN RAI LOC: IN ROOM 0920, PHYSICIAN IN ROOM 0944, START 0949, FINISH 0956, PHYSICIAN OUT OF ROOM 0958, OUT OF ROOM 1002, ECG NORMAL SINUS, PATIENT SHIELDED NO, SAFETY STRAP YES, PREP JO NICHOLE RN, DRESSING TEGKATIA RAI RESP: 1. ALERT, ORIENTEDDIONISIO TOM 12/05/2020 9:28:52 AM > COLOR: 1. PINKDIONISIOERNIE 12/05/2020 9:29:05 AM > SKIN: 1. WARM, DRYDIONISIOERNIE 12/05/2020 9:29:14 AM > POSITION: 1. DIONISIO RENNER TOM 12/05/2020 9:29:22 AM > VITALS: 0945 - HR 66, 159/87, 94%, R14 1000 - HR 62, 139/84, 89%, R 14 PATIENT ENCOURAGED TO TAKE DEEP BREATHS 1008 EXIT VITALS - HR 65, 139/82, 97% R14 PAIN 3/10 PN LUMBAR FACET BLOCK THERAPEUTIC PRE PROCEDURE DIAGNOSIS LUMBAR SPONDYLOSIS, LUMBOSACRAL SPONDYLOSIS POST PROCEDURE DIAGNOSIS LUMBAR SPONDYLOSIS, LUMBOSACRAL SPONDYLOSIS PROCEDURE BILATERAL L4-L5 AND BILATERAL L5-S1 LUMBAR FACET THERAPEUTIC BLOCK SURGEON DR. CHAIM RAI BRAND LEADER NONE ANESTHESIA LOCAL PRE PROCEDURE NOTE THE PATIENT HAS A HISTORY OF CHRONIC LOW BACK PAIN. I EVALUATED THE PATIENT AND REVIEWED THE CHART. I WENT OVER THE RISKS, ALTERNATIVES, AND BENEFITS ASSOCIATED WITH THIS PROCEDURE. THE PATIENT WOULD LIKE TO PROCEED AND GIVES CONSENT TO PERFORM THE PROCEDURE. THE PATIENT DENIES UNEXPLAINABLE WEIGHT LOSS, FEVER, CHILLS, OR NEW CHANGES IN URINARY OR BOWEL CONTROL. THE PATIENT IS COVID-19 NEGATIVE DESCRIPTION OF PROCEDURE THE PATIENT WAS BROUGHT TO THE PROCEDURE ROOM AND PLACED IN THE PRONE POSITION. THE LUMBOSACRAL AREA WAS CLEANED WITH CHLORAPREP SOLUTION AND DRAPED ASEPTICALLY. THE PROCEDURE WAS DONE UNDER STERILE CONDITIONS. A TIMEOUT WAS PERFORMED WHERE THE CONSENTED SITE WAS VERIFIED WITH EVERYONE IN THE ROOM. UNDER FLUOROSCOPIC GUIDANCE, THE TARGET POINT WAS SELECTED AT THE RIGHT AND LEFT L4-L5 AND RIGHT AND LEFT L5-S1 FACET JOINTS. TARGET POINT WAS SELECTED AFTER LATERAL ROTATION AND TILT OF THE MAGNIFIER OF THE C-ARM. I CONFIRMED AGAIN THE SITE OF TARGET. LIDOCAINE 0.5% WAS USED TO NUMB THE SKIN AND THE SUBCUTANEOUS TISSUE BELOW IT. SPINAL NEEDLES, 22-GAUGE, WERE ADVANCED UNDER FLUOROSCOPIC GUIDANCE AND FOLLOWING PATIENT FEEDBACK UNTIL THE TARGETS WERE TOUCHED. THE POSITION OF THE NEEDLES WAS VERIFIED WITH AP AND LATERAL VIEWS. AFTER PROPER POSITION OF THE NEEDLES WAS ACHIEVED, ISOVUE-M DYE 30%, 0.1 ML, WAS INJECTED SHOWING ADEQUATE SPREAD OF THE DYE. KENALOG 10 MG WAS INJECTED AT EACH SITE. THEN, A SOLUTION OF 1.0 ML OF BUPIVACAINE 0.125% OF WAS USED TO FLUSH EACH SITE. THE MEDICATION WAS VERIFIED WITH THE NURSE. THERE WAS NO EVIDENCE OF BLOOD, PARESTHESIA OR CEREBROSPINAL FLUID DURING THE PROCEDURE. THE PATIENT WAS SENT TO THE RECOVERY ROOM. THE PATIENT WAS MOVING THE EXTREMITIES AND DOING WELL. THERE WERE NO COMPLICATIONS DURING THE PROCEDURE. ESTIMATED BLOOD LOSS WAS LESS THAN 5 ML. FLUOROSCOPY TIME WAS 37 SECONDS POST PROCEDURE NOTE IN THE FURTURE, WE CAN CONSIDER GIVING HIM BENADRYL BEFORE THE PROCEDURE. DEPENDING ON THE RESULTS, WE CAN CONSIDER WORKING WITH HIS FACETS. THE PATIENT WILL BE SEEN IN A FOLLOW UP IN THE NEXT FEW WEEKS. I AM LOOKING FOR LONG LASTING RELIEF FOR THE PATIENT WITH THIS INTERVENTION. INSTRUCTIONS WERE GIVEN, QUESTIONS WERE ANSWERED, AND THE PATIENT EXPRESSED UNDERSTANDING AND AGREES WITH THE PLAN. I, JOCELYN MERINO, DOCUMENTED THE ABOVE INFORMATION ACTING A SCRIBE FOR DR. RAI. I HAVE REVIEWED THE ABOVE DOCUMENT, WRITTEN BY JOCELYN MERINO, PET CAREGIVER, AND I VERIFY THAT IT IS ACCURATE VISIT CODES PROCEDURE CODES 33519 INJ PARAVERT F JNT L/S 1 LEV, MODIFIERS: 50 [id number] INJ PARAVERT F JNT L/S 2 LEV, MODIFIERS: 50 DISPOSITION & COMMUNICATION FOLLOW UP FOLLOW UP WITH ELECTRICAL LINE WORKER (REASON: POST BILATERAL THERAPEUTIC LUMBAR FACET BLOCK L4-L5, L5-S1) ELECTRONICALLY SIGNED BY CHAIM RAI MD, MD ON 12/10/2020 AT 12:00 PM EDT DISCLAIMER : THIS IS A VISIT SUMMARY EXTRACTED FROM THE [employer] CHART. IT IS NOT A COPY OF THE [employer] PROGRESS NOTE. MTDD
== END ==
LOC: M PAIN 08:30
PROVIDERS: ATTEND Anesthesiology
DX: M47.816 Spondylosis without myelopathy or radiculopathy, lumbar region (principal); Z87.891 Personal history of nicotine dependence; Z88.1 Allergy status to other antibiotic agents; Z91.038 Other insect allergy status; E66.01 Morbid (severe) obesity due to excess calories; Z68.41 Body mass index [BMI] 40.0-44.9, adult; Z79.82 Long term (current) use of aspirin; Z79.899 Other long term (current) drug therapy
CPT/HCPCS: 64493; 64494; J3301; Q9967

== ENCOUNTER → 2020-12-19 | Outpatient (CLI) | payer BC ==
[~2020-12-19] MED LIST changes: -BUPIVACAINE HCL 0.25% 30ML VIAL As Ordered ONE; -ISOVUE-M 300 61% 15ML VIAL As Ordered ONE; -LIDOCAINE 1% SDV 30ML VIAL As Ordered ONE; -TRIAMCINOLONE ACETONIDE SUSP 40 MG/ML VIAL (J3301) As Ordered ONE; -diazePAM 5MG TABLET As Ordered ONE; -oxyCODONE 5MG TAB As Ordered ONE
--- NOTE | 2020-12-29 23:49 | ECWPNPC ---
PATIENT NAME: MOON LUCAS : 1960 GENDER: MALE VISIT DATE: 12/19/2020 DISCHARGE DATE: 12/19/20 1008 VISIT LOCKED DATE TIME: PHYSICIAN: CHAIM RAI MD RESOURCE: CHAIM RAI MD REASON FOR APPOINTMENT 1. POST BILATERAL THERAPEUTIC LUMBAR FACET BLOCK L4-5, L5-S1/MED [id number] HISTORY OF PRESENT ILLNESS GENERAL: 60-YEAR-OLD MALE PATIENT WITH A HISTORY OF CHRONIC LOW BACK PAIN. THE PATIENT HAD A BILATERAL FACET BLOCK AT L4-L5, L5-S1. HE IS DOING VERY WELL. RIGHT NOW, HE HAS SOME ACHINESS AND OCCASIONAL PAIN THAT GOES FROM 2-4/10. HE NOTICED THAT HIS PAIN GETS WORSE WITH PROLONG WALKING. OTHERWISE, HE IS DOING WELL. HE FEELS THAT THE PROCEDURE WAS A SUCCESS. FALL RISK SCREENING: SCREENING : NO FALLS REPORTED IN THE LAST YEAR. PAIN SCREENING: PATIENT HAS A COMPLAINT OF ACUTE OR CHRONIC PAIN :YES LOCATION OF PAIN:LOW BACK INTENSITY OF PAIN (SCALE OF 1 TO 10):2 WHAT DOES YOUR PAIN FEEL LIKE:ACHING, STABBING DURATION:ALL DAY, INTERMITTENT PAIN IS INCREASED BY:PROLONGED STANDING PROLONGED WALKING PAIN IS DECREASED BY:OTHERS PROCEDURES NURSING NOTE: -. PAIN CENTER INTAKE QUESTIONS: DO YOU HAVE A HISTORY OF MRSA? :NO DO YOU TAKE A BLOOD THINNERS? :NO DO YOU HAVE ANY BLEEDING DISORDERS? :NO ANY NEW NUMBNESS OR WEAKNESS IN YOUR LEGS OR ARMS? :NO TINGLING IN FEET IF WALKING LONG DISTANCES ANY PACEMAKER,DEFIBRILLATOR, OR DORSAL COLUMN STIMULATOR? :NO DO YOU HAVE ANY RASHES OR OPEN SORES? :NO ARE YOU ALLERGIC TO IV DYE? :NO ARE YOU DIABETIC? :NO ANY NEW PROBLEMS WITH YOUR MEDICATIONS? :NO HAVE YOU RECEIVED A VACCINE IN THE PAST 30 DAYS? :NO DO YOU PLAN TO RECEIVE A VACCINE IN THE NEXT 21 DAYS? :NO DO YOU NEED ANY PRESCRIPTION? :NO DO YOU TAKE ANY IMMUNOSUPPRESSIVE MEDICATIONS? :NO DO YOU HAVE ANY KIDNEY OR LIVER DISEASE? :NO IS THERE A CHANCE YOU COULD BE ? :NO ARE YOU BREAST FEEDING? :NO CURRENT MEDICATIONS TAKING LISINOPRIL 5 MG TABLET 1 TAB(S) ORALLY ONCE A DAY TAKING ATENOLOL 25 MG TABLET 1 TABLET ORALLY ONCE A DAY TAKING ASPIRIN 81 MG TABLET 1 TABLET ORALLY ONCE A DAY TAKING LIPITOR 20 MG TABLET 1 TABLET ORALLY ONCE A DAY TAKING HYDROCODONE-ACETAMINOPHEN 5-325 MG TABLET 1 TABLET NEEDED ORALLY EVERY 8 HRS PRN FOR PAIN MDD4, NOTES: NONE RECENTLY TAKING SALONPAS 4% 1 PATCH DAILY NEEDED TAKING VITAMIN D (ERGOCALCIFEROL) 33405 UNIT CAPSULE 1 CAPSULE ORALLY WEEKLY TAKING IBUPROFEN 800 MG TABLET 1 TAB ORALLY Q6H PRN NOT-TAKING GABAPENTIN 100 MG CAPSULE 2 TABS ORALLY TWICE DAILY, NOTES: NEEDED MEDICATION LIST REVIEWED AND RECONCILED WITH THE PATIENT PAST MEDICAL HISTORY HYPERTENSION 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 DECEMBER 2005 OBESITY, MORBID HYPERHOMOCYSTINEMIA, MILD-12/2003-12.6 (4.3-11.4) IMPAIRED FASTING GLUCOSE HYPERLIPIDEMIA 2B VENOUS INSUFFICIENCY BILATERAL LOWER EXTREMITIES 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 RADICULAR PAIN-JANUARY 2010 MRI MULTILEVEL DJD, GRADE 1 DEGENERATIVE ANTEROLISTHESIS L4/L5, 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 WITH LEFT GREATER THAN RIGHT NEUROFORAMINAL NARROWING TORN ROTATOR CUFF RIGHT RIGHT KNEE TORN MENISCUS FIOBROID CYST BACK OF HEAD-09/26/20 ALLERGIES TETRACYCLINE HCL: NAUSEA/VOMITING - ALLERGY HORSE SERUM: NAUSEA/VOMITING - ALLERGY ST HELENIAN LIMPETS: ANAPHYLAXIS - ALLERGY SOCIAL HISTORY GENERAL: TOBACCO USE ARE YOU A:NONSMOKER 01/20/1992 FORMER SMOKER LATEX QUESTIONNAIRE LATEX ALLERGY : HAVE YOU EVER DEVELOPED ANY TYPE OF REACTION AFTER HANDLING LATEX PRODUCTS SUCH RUBBER GLOVES, CONDOMS, DIAPHRAGMS, BALLOONS, SOCKS, OR UNDERWEAR?NO LATEX ALLERGY : HAVE YOU EVER DEVELOPED ANY TYPE OF REACTION DURING OR AFTER DENTAL APPOINTMENT, VAGINAL/RECTAL EXAMINATION, SURGICAL PROCEDURE, OR ANY OTHER EXPOSURE?NO LATEX RISK : HAVE YOU EVER HAD ANY DIFFICULTY BREATHING OR HIVES AFTER EATING OR HANDLING ANY FRUITS, OR VEGETABLES; SUCH KIWI, BANANAS, STONE FRUITS, OR CHESTNUTSNO LATEX RISK : DO YOU HAVE A PREVIOUS PERSONAL HISTORY OF MORE THAN NINE SURGERIES, SPINA BIFIDA, OR REPEATED CATHERIZATIONS? NO LATEX RISK : ARE YOU FREQUENTLY EXPOSED TO LATEX PRODUCTS IN YOUR OCCUPATION?YES DATE ASKED : 12/04/2020 ALCOHOL USE: YES. LUNG CANCER SCREENING SMOKING STATUS:NON SMOKER ALCOHOL SCREENING DID YOU HAVE A DRINK CONTAINING ALCOHOL IN THE PAST YEAR?YES HOW OFTEN DID YOU HAVE A DRINK CONTAINING ALCOHOL IN THE PAST YEAR?TWO TO FOUR TIMES A MONTH (2 POINTS) HOW MANY DRINKS DID YOU HAVE ON A TYPICAL DAY WHEN YOU WERE DRINKING IN THE PAST YEAR?1 OR 2 (0 POINTS) HOW OFTEN DID YOU HAVE SIX OR MORE DRINKS ON ONE OCCASION IN THE PAST YEAR?NEVER (0 POINTS) POINTS2 INTERPRETATIONNEGATIVE RECREATIONAL DRUG USE DRUG USE?YES HOW OFTEN AND HOW MUCH? OCC. MARIJUANA CAFFEINE CAFFEINE USE?YES HOW OFTEN AND HOW MUCH? 3 CUPS/DAY BAHAI [id number] HINDUISM LANGUAGE LANGUAGES SPOKEN:YAKUT LEARNING BARRIERS / SPECIAL NEEDS CHANGE FROM LAST VISIT?NO BARRIERS TO LEARNING?NO HEARING IMPAIRED?NO NO HEARING AIDS. 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 DIET: REGULAR. EXERCISE: WALKS. MARITAL STATUS: . OTHERS AT HOME: SPOUSE. FEMALE 6 MONTH RISK ASSESSMENT FOR STD SPOUSE. - PFS REFERRAL NEEDED?NO CLERGY REFERRAL NEEDED?NO PUBLIC HEALTH REFERRAL NEEDED?NO HAS THE PATIENT BEEN EDUCATED REGARDING HIS/HER PLAN OF CARE?YES HAS THE PATIENT BEEN EDUCATED REGARDING PAIN, THE RISK FOR PAIN, THE IMPORTANCE OF EFFECTIVE PAIN MANAGEMENT, AND THE PAIN ASSESSMENT PROCESS?YES HOUSING: OWNS HOME. ADVANCE DIRECTIVE ADVANCE DIRECTIVE DISCUSSED WITH PATIENT:YES PT STATES HE HAS HCP. POA, AND LIVING WILL [id number] [phone] REVIEW OF SYSTEMS CONSTITUTIONAL: ANY RECENT FEVER NO . CHILLS NO . WEIGHT CHANGE OF UNKNOWN REASONS NO . GASTROENTEROLOGY: NEW UNEXPLAINABLE CHANGES IN BOWEL CONTROL NO . CONSTIPATION NO . GENITOURINARY: ANY NEW CHANGE IN BLADDER CONTROL? NO . NEUROLOGY: NEW ONSET DIZZINESS OR NEUROLOGICAL CHANGES NOT MENTIONED NO . NEW NUMBNESS OR PAIN PATTERNS NOT MENTIONED AND PERTINENT TO TODAY'S VISIT NO . CARDIOLOGY: NEW CHEST PRESSURE NO . PATIENT DENIES NO . RESPIRATORY: UNEXPLAINABLE COUGH NO . NEW SHORTNESS OF BREATH NO . VITAL SIGNS WT 295.6 LBS, WT-KG 134.08 KG, HT 68 IN, BMI 44.94 INDEX, BP 199/113 MM HG, REPEAT BP 160/92 MANUAL, HR 68 /MIN, RR 18 /MIN, TEMP 97.5 F, OXYGEN SAT % 93%, SAFE IN ENV? (Y/N) YES, NA INITIALS AW 0946, REVIEWED BY: APLET NURSE KNOW ABOUT BPPATIENT REPORTS SKIPPING BLOOD PRESSURE MEDICATION THE PAST 2 DAYS. PATIENT REMINDED IMPORTANCE OF TAKING BLOOD PRESSURE MEDICATION CONSISTENTLY AND TO REPORT TO AN ER IF HE NOTICES HE HAS A HEADACHE OR RACING HEART RATE FOLLOWING MISSING A BLOOD PRESSURE DOSE. PATIENT IN AGREEMENT. -Ila POLLARD RN. EXAMINATION GENERAL: THE PATIENT IS ALERT, ORIENTED TIMES THREE AND COOPERATIVE. MRI OF THE LUMBAR SPINE DATED 03/04/2020 SHOWS FACET ARTHROPATHY CHANGES. THERE IS A SYNOVIAL CYST AT L4-L5. ASSESSMENTS OTHER CHRONIC PAIN - G89.29 (PRIMARY) LUMBAR SPONDYLOSIS - M47.816 LUMBAR FACET ARTHROPATHY - M47.816 TREATMENT OTHER CHRONIC PAIN PAIN PROCEDURE [id number] OF PROCEDURE1PROCEDURE:BILATERAL THERAPEUTIC LUMBAR FACET BLOCK L4-L5, L5-X0NAAKEX OF PRE SEDATEOXYCODONE 10MG, VALIUM 10MGRESULT:WORKED WELL LUMBAR SPONDYLOSIS CLINICAL NOTES: I DISCUSSED ALTERNATIVES WITH MR. LUCAS. I FEEL THAT LONG THIS IS LASTING AT LEAST 3 MONTHS, WE SHOULD CONTINUE DOING IT. THE PATIENT IS HAPPY WITH THE RESULT. I OFFERED THE PATIENT THE POSSIBILITY OF USING IV SEDATION BUT THE PATIENT WOULD LIKE TO CONTINUE WITH THE MEDICATION BY MOUTH. IF THE PAIN COMES BACK BEFORE 3 MONTHS, WE CAN DO DIAGNOSTIC TESTS TO CONSIDER RADIOFREQUENCY. THE PATIENT REPORTS UNDERSTANDING AND AGREES WITH THE PLAN. I, JOCELYN MERINO, DOCUMENTED THE ABOVE INFORMATION ACTING A SCRIBE FOR DR. RAI. I HAVE REVIEWED THE ABOVE DOCUMENT, WRITTEN BY JOCELYN MERINO, RAT POISONER, AND I VERIFY THAT IT IS ACCURATE. VISIT CODES PROCEDURE CODES FA211 ESTABILISHED PATIENT [facility] CHARGE [id number] OFFICE/OUTPATIENT VISIT EST DISPOSITION & COMMUNICATION FOLLOW UP NEXT AVAILABLE (REASON: LOW BACK PAIN) ELECTRONICALLY SIGNED BY CHAIM RAI MD, MD ON 12/29/2020 AT 07:16 PM EDT DISCLAIMER : THIS IS A VISIT SUMMARY EXTRACTED FROM THE [employer] CHART. IT IS NOT A COPY OF THE [employer] PROGRESS NOTE. JEROMED
== END ==
LOC: M PAIN 09:45
PROVIDERS: ATTEND Anesthesiology
DX: G89.29 Other chronic pain (principal); M47.816 Spondylosis without myelopathy or radiculopathy, lumbar region; Z87.891 Personal history of nicotine dependence; Z88.1 Allergy status to other antibiotic agents; Z91.038 Other insect allergy status; E66.01 Morbid (severe) obesity due to excess calories; Z68.41 Body mass index [BMI] 40.0-44.9, adult; Z79.82 Long term (current) use of aspirin; Z79.899 Other long term (current) drug therapy

== ENCOUNTER → 2021-04-15 | Outpatient (CLI) | payer BC ==
[~2021-04-15] MED LIST changes: -LISI-898 PO; +LISI5TAB11 PO
== END ==
LOC: M PAIN 10:00
PROVIDERS: ATTEND Anesthesiology
DX: M47.816 Spondylosis without myelopathy or radiculopathy, lumbar region (principal); I10 Essential (primary) hypertension; E66.01 Morbid (severe) obesity due to excess calories; R73.01 Impaired fasting glucose; I87.2 Venous insufficiency (chronic) (peripheral); M51.36 Other intervertebral disc degeneration, lumbar region; Z68.42 Body mass index [BMI] 45.0-49.9, adult; Z79.82 Long term (current) use of aspirin; Z79.899 Other long term (current) drug therapy; Z88.8 Allergy status to other drugs, medicaments and biological substances; Z91.048 Other nonmedicinal substance allergy status
CPT/HCPCS: 76000; G0463

== ENCOUNTER → 2021-05-07 | Outpatient (REF) | payer BC ==
[2021-05-08 12:17] LABS: LYMPHOCYTES 17 % (16-44); MONOCYTES 7 % (0-5); NEUTROPHILS 76 % (28-66); PLATELET ESTIMATE NORMAL (NORMAL)
[2021-05-08 12:19] LABS: ANISOCYTOSIS 1+
== END ==
LOC: M LAB REF 11:47
PROVIDERS: ATTEND Family Medicine
DX: R71.8 Other abnormality of red blood cells (principal)

== ENCOUNTER → 2021-05-08 | Outpatient (CLI) | payer BC ==
[~2021-05-08] MED LIST changes: +LISI-898 PO; -LISI5TAB11 PO
== END ==
LOC: M PAIN 11:45
PROVIDERS: ATTEND Anesthesiology
DX: M79.18 Myalgia, other site (principal); I10 Essential (primary) hypertension; E66.01 Morbid (severe) obesity due to excess calories; Z68.42 Body mass index [BMI] 45.0-49.9, adult; R73.01 Impaired fasting glucose; E78.5 Hyperlipidemia, unspecified; I87.2 Venous insufficiency (chronic) (peripheral); M51.16 Intervertebral disc disorders with radiculopathy, lumbar region; Z79.82 Long term (current) use of aspirin; Z79.899 Other long term (current) drug therapy; Z88.8 Allergy status to other drugs, medicaments and biological substances; Z91.048 Other nonmedicinal substance allergy status; J30.89 Other allergic rhinitis

== ENCOUNTER → 2021-05-16 | Outpatient (CLI) | payer BC ==
[~2021-05-16] MED LIST changes: -LISI-898 PO; +LISI5TAB11 PO
== END ==
LOC: M LABSMTC 13:00
PROVIDERS: ATTEND Anesthesiology
DX: Z01.812 Encounter for preprocedural laboratory examination (principal); Z20.822 Contact with and (suspected) exposure to COVID-19

== ENCOUNTER → 2021-05-19 | Outpatient (CLI) | payer BC ==
[~2021-05-19] MED LIST changes: +BUPIVACAINE HCL 0.25% 10ML VIAL As Ordered ONE; +BUPIVACAINE HCL 0.25% 30ML VIAL As Ordered ONE; +TRIAMCINOLONE ACETONIDE SUSP 40 MG/ML VIAL (J3301) As Ordered ONE; +diazePAM 5MG TABLET As Ordered ONE; +oxyCODONE 5MG TAB As Ordered ONE
== END ==
LOC: M PAIN 08:30
PROVIDERS: ATTEND Anesthesiology
DX: M79.18 Myalgia, other site (principal); I10 Essential (primary) hypertension; E66.01 Morbid (severe) obesity due to excess calories; R73.01 Impaired fasting glucose; E78.5 Hyperlipidemia, unspecified; I87.2 Venous insufficiency (chronic) (peripheral); M51.16 Intervertebral disc disorders with radiculopathy, lumbar region; Z79.891 Long term (current) use of opiate analgesic; Z79.899 Other long term (current) drug therapy; Z68.42 Body mass index [BMI] 45.0-49.9, adult; Z88.8 Allergy status to other drugs, medicaments and biological substances
CPT/HCPCS: 20552; J3301

== ENCOUNTER 2021-09-27 18:59 | Inpatient (IN) | payer BC ==
[~2021-09-27] VITALS: Ht 172.7 cm; Wt 121.0 kg
[~2021-09-27 18:59] MED LIST changes: -BUPIVACAINE HCL 0.25% 10ML VIAL As Ordered ONE; -BUPIVACAINE HCL 0.25% 30ML VIAL As Ordered ONE; +HEPARIN SOD (PORCINE) 5000UNITS/ML 1ML VIAL/SYRINGE SC SCH; -TRIAMCINOLONE ACETONIDE SUSP 40 MG/ML VIAL (J3301) As Ordered ONE; -diazePAM 5MG TABLET As Ordered ONE; -oxyCODONE 5MG TAB As Ordered ONE
[2021-09-27] MEDS ORDERED: TAMS1CAP17 PO (19:33)
[2021-09-27] MEDS ORDERED: ONDA8TAB8 PO (19:33)
[2021-09-27] MEDS ORDERED: CEPH500C PO (19:33)
[2021-09-27] MEDS ORDERED: METOCLOPRAMIDE INJ 10MG/2ML VIAL (J2765 PER 1) IV ONE (20:05)
[2021-09-27] MEDS ORDERED: MORPHINE 4 MG/ML 1ML VIAL/SYRINGE IV ONE ×2 (20:05→22:55)
[2021-09-27] MEDS ORDERED: HALOPERIDOL 5MG/ML VIAL (J1630 PER 1) IV ONE (20:10)
[2021-09-27 20:11] LABS: BASO # 0.1 10^3/uL (0.0-0.2); BASO % 0.4 % (0.0-1.0); EOS # 0.3 10^3/uL (0.0-0.5); EOS % 2.2 % (0.0-3.0); HEMATOCRIT 62.1 % (42.0-52.0); LYMPH # 0.9 10^3/uL (1.5-5.0); LYMPH % 6.9 % (24.0-44.0); MEAN CORPUSCULAR HEMOGLOBIN 32.1 pg (27.0-33.0); MEAN CORPUSCULAR HGB CONC 31.9 g/dl (32.0-36.5); MEAN CORPUSCULAR VOLUME 100.6 fl (80.0-96.0); MONO # 1.2 10^3/uL (0.0-0.8); MONO % 9.3 % (2.0-8.0); NEUTROPHILS # 10.1 10^3/uL (1.5-8.5); NEUTROPHILS % 80.6 % (36.0-66.0); PLATELET COUNT, AUTOMATED 195 10^3/uL (150-450); RED BLOOD COUNT 6.17 10^6/uL (4.30-6.10); WHITE BLOOD COUNT 12.5 10^3/uL (4.0-10.0)
[2021-09-27 20:15] LABS: HEMOGLOBIN 19.8 g/dl (13.5-17.5)
[2021-09-27 20:46] VITALS: O2SAT 91
[2021-09-27 20:46] LABS: ALT/SGPT 2579 U/L (12-78); BILIRUBIN,DIRECT 0.4 MG/DL (0.0-0.2); BILIRUBIN,TOTAL 0.9 MG/DL (0.2-1.0); LIPASE 323 U/L (73-393); TOTAL PROTEIN 7.3 GM/DL (6.4-8.2)
[2021-09-27 21:02] LABS: ABG BASE EXCESS -5.2 (-2.0-2.0); ABG HCO3 23.2 MEQ/L (22.0-26.0); ABG PARTIAL PRESSURE CO2 54.4 mmHg (35.0-45.0); ABG PARTIAL PRESSURE O2 99.3 mmHg (75.0-100.0); ABG STANDARD HCO3 20.3 MEQ/L (22.0-26.0); ABG TOTAL CO2 24.9 MEQ/L (23.0-31.0)
[2021-09-27 21:04] LABS: ABG pH (ARTERIAL) 7.248 UNITS (7.350-7.450)
[2021-09-27] MEDS ORDERED: CALCIUM GLUCONATE 1,000 MG in D5W MINI-BAG PLUS 100 ML IV ONE (21:35)
[2021-09-27] MEDS ORDERED: NS 1,000 ML IV ONE (21:35)
[2021-09-27] MEDS ORDERED: HYDR-4514 PO (22:08)
[2021-09-27] MEDS ORDERED: NS 1,000 ML IV SCH (22:25)
[2021-09-27 22:29] LABS: INR 1.32; PROTHROMBIN TIME 16.8 SECONDS (12.7-14.5)
[2021-09-27 22:30] LABS: PARTIAL THROMBOPLASTIN TIME 37.2 SECONDS (25.9-37.0)
[2021-09-27] MEDS ORDERED: cefTRIAXone SOD 2 GM in D5W MINI-BAG PLUS 50 ML IV ONE (22:45)
[2021-09-27 22:49] LABS: CK-MB VALUE MASS 24.6 NG/ML (<3.6); MB/CK RELATIVE INDEX 4.89 (< OR =4)
[2021-09-27 22:50] LABS: CK-MB VALUE MASS 22.7 NG/ML (<3.6); MB/CK RELATIVE INDEX 4.9 (< OR =4)
[2021-09-27] MEDS ORDERED: med rec comment (22:51)
[2021-09-27] MEDS ORDERED: HOME MED LIST COMPLETE! XX SCH (22:55)
[2021-09-27] MEDS ORDERED: fentaNYL 100 MCG/2 ML INJECTION IV ONE (23:25)
[2021-09-27] MEDS ORDERED: HALOPERIDOL 5MG/ML VIAL (J1630 PER 1) IM ONE (23:40)
[2021-09-27] MEDS: NS 1,000 ML IV SCH (23:45)
[2021-09-27 23:55] LABS: ACETAMINOPHEN LEVEL < 2.0 UG/ML (10.0-30.0); SALICYLATE LEVEL < 1.7 MG/DL (5.0-30.0)
[2021-09-28] VITALS (118 sets, daily range): BP systolic 76–186; BP diastolic 45–102
[2021-09-28] MEDS ORDERED: HALOPERIDOL 5MG/ML VIAL (J1630 PER 1) IV ONE (00:25)
[2021-09-28] MEDS: fentaNYL 100 MCG/2 ML INJECTION IV PRN ×2 (00:51→23:22)
[2021-09-28 01:07] LABS: AMPHETAMINES LEVEL URINE NEGATIVE (NEGATIVE); BARBITURATES URINE NEGATIVE (NEGATIVE); BENZODIAZEPINES URINE NEGATIVE (NEGATIVE); CANNABINOIDS URINE POSITIVE (NEGATIVE); COCAINE METABOLITE URINE NEGATIVE (NEGATIVE); METHADONE URINE NEGATIVE (NEGATIVE); OPIATES URINE POSITIVE (NEGATIVE); PHENCYCLIDINE URINE NEGATIVE (NEGATIVE)
[2021-09-28 03:27] LABS: BILIRUBIN,TOTAL 0.5 MG/DL (0.2-1.0); CALCIUM LEVEL 8.7 MG/DL (8.8-10.2); CREATININE FOR GFR 6.87 MG/DL (0.70-1.30); GLOMERULAR FILTRATION RATE 8.7 (>49); MAGNESIUM LEVEL 2.5 MG/DL (1.8-2.4); POTASSIUM SERUM 6.5 MEQ/L (3.5-5.1); TOTAL PROTEIN 7.1 GM/DL (6.4-8.2)
[2021-09-28] MEDS ORDERED: HumuLIN R (REGULAR) INSULIN (NovoLIN R) **100U/ML** PER UNIT IV STA (03:29)
[2021-09-28] MEDS ORDERED: DEXTROSE 50% 50 ML SYRINGE IV STA (03:29)
[2021-09-28] MEDS ORDERED: CALCIUM GLUCONATE 1,000 MG in D5W MINI-BAG PLUS 100 ML IV ONE (03:30)
[2021-09-28] MEDS ORDERED: DEXTROSE 50% 50 ML SYRINGE IV PRN (03:35)
[2021-09-28] MEDS ORDERED: NS 1,000 ML IV ONE ×4 (03:35→06:00)
[2021-09-28] MEDS ORDERED: GLUCAGON INJ 1MG VIAL SC PRN (03:35)
[2021-09-28] MEDS ORDERED: GLUCOSE 4GM CHEW TABLET PO PRN (03:35)
[2021-09-28] MEDS ORDERED: DEXTROSE 50% 50 ML SYRINGE IV ONE (04:30)
[2021-09-28] MEDS: NS 1,000 ML IV SCH ×2 (04:45→14:37)
[2021-09-28] MEDS ORDERED: PIPERACILLIN/TAZOBACTAM SOD 2.25 GM in D5W MINI-BAG PLUS 50 ML IV SCH (07:00)
[2021-09-28 07:39] LABS: VENOUS HCO3 26.6 MEQ/L (23.0-27.0); VENOUS O2 SATURATION 72.7 % (60.0-80.0); VENOUS PARTIAL PRESSURE CO2 100.5 mmHg (38.0-50.0); VENOUS PARTIAL PRESSURE O2 51.5 mmHg (30.0-50.0); VENOUS STANDARD HCO3 17.6 MEQ/L; VENOUS TOTAL CO2 29.7 MEQ/L (24.0-28.0)
[2021-09-28 07:40] LABS: VENOUS PH 7.041 UNITS (7.330-7.430)
[2021-09-28] MEDS: HEPARIN SOD (PORCINE) 5000UNITS/ML 1ML VIAL/SYRINGE SC SCH ×2 (07:43→15:48)
[2021-09-28 07:46] LABS: HEMATOCRIT 60.9 % (42.0-52.0); HEMOGLOBIN 18.7 g/dl (13.5-17.5); MEAN CORPUSCULAR HEMOGLOBIN 31.7 pg (27.0-33.0); MEAN CORPUSCULAR HGB CONC 30.7 g/dl (32.0-36.5); MEAN CORPUSCULAR VOLUME 103.2 fl (80.0-96.0); PLATELET COUNT, AUTOMATED 175 10^3/uL (150-450); WHITE BLOOD COUNT 15.1 10^3/uL (4.0-10.0)
[2021-09-28] MEDS: PANTOPRAZOLE 40MG VIAL IV SCH (08:00)
[2021-09-28] MEDS ORDERED: ETOMIDATE INJ 20MG/10ML VIAL IV STA (08:14)
[2021-09-28] MEDS ORDERED: ROCURONIUM BROMIDE 50 MG/5 ML VIAL IV SCH (08:15)
[2021-09-28] MEDS ORDERED: REFRIGERATOR IV KEYS XX PRN (08:55)
[2021-09-28] MEDS ORDERED: VASOPRESSIN INJ 20 UNITS in NS 500 ML IV SCH (09:00)
[2021-09-28] MEDS: MIDAZOLAM HCL 100 MG in D5W 80 ML IV SCH ×2 (09:00→22:01)
[2021-09-28] MEDS ORDERED: NOREPINEPHRINE BITARTRATE 8 MG in D5W 500 ML IV SCH (09:00)
[2021-09-28] MEDS ORDERED: NOREPINEPHRINE BITARTRATE 8 MG in D5W 492 ML IV SCH (09:00)
[2021-09-28] MEDS ORDERED: SODIUM CHLORIDE 0.9% INJ 10 ML SYR IV PRN (10:45)
[2021-09-28 10:48] LABS: ALBUMIN 2.5 GM/DL (3.2-5.2); BILIRUBIN,TOTAL 0.9 MG/DL (0.2-1.0); CALCIUM LEVEL 7.5 MG/DL (8.8-10.2); CREATININE FOR GFR 6.71 MG/DL (0.70-1.30); MAGNESIUM LEVEL 2.5 MG/DL (1.8-2.4); POTASSIUM SERUM 6.3 MEQ/L (3.5-5.1); TOTAL PROTEIN 6.9 GM/DL (6.4-8.2)
[2021-09-28] MEDS ORDERED: MIDAZOLAM INJ 2MG/2ML VIAL (J2250 PER 1MG) IV STA ×3 (10:50→13:00)
[2021-09-28] MEDS ORDERED: MIDAZOLAM INJ 2MG/2ML VIAL (J2250 PER 1MG) As Ordered ONE ×5 (10:54→13:01)
[2021-09-28] MEDS ORDERED: VANCOMYCIN HCL 1,000 MG, VIAL MATE ADAPTER 1 EACH in NS 250 ML IV ONE (11:00)
[2021-09-28] MEDS: IPRATROPIUM 0.5MG/ALBUTEROL 2.5MG INH SOL UD 3ML (DUONEB) NEB SCH ×3 (11:16→20:22)
[2021-09-28 11:17] LABS: TOTAL PROTEIN,RANDOM URINE 242.6 MG/DL (0.0-12.0)
[2021-09-28] MEDS: INSULIN LISPRO (NovoLOG) PER UNIT SC SCH ×2 (12:00→18:00)
[2021-09-28] MEDS ORDERED: HEPARIN SOD (PORCINE) 5000UNITS/ML 1ML VIAL/SYRINGE IV PRN (12:05)
[2021-09-28] MEDS ORDERED: HEPARIN SOD (PORCINE) 5000UNITS/ML 1ML VIAL/SYRINGE IV ONE (12:45)
[2021-09-28 12:50] LABS: HEMATOCRIT 61.9 % (42.0-52.0); MEAN CORPUSCULAR HEMOGLOBIN 31.2 pg (27.0-33.0); MEAN CORPUSCULAR HGB CONC 30.7 g/dl (32.0-36.5); MEAN CORPUSCULAR VOLUME 101.6 fl (80.0-96.0); PLATELET COUNT, AUTOMATED 201 10^3/uL (150-450); RED BLOOD COUNT 6.09 10^6/uL (4.30-6.10); WHITE BLOOD COUNT 13.5 10^3/uL (4.0-10.0)
[2021-09-28] MEDS ORDERED: HEPARIN 100 UNIT/ML *20ML* SYRINGE CRRT INFUSION CRRT SCH (13:00)
[2021-09-28 13:23] LABS: ALBUMIN 2.5 GM/DL (3.2-5.2); BILIRUBIN,TOTAL 0.9 MG/DL (0.2-1.0); CALCIUM LEVEL 7.5 MG/DL (8.8-10.2); CREATININE FOR GFR 6.74 MG/DL (0.70-1.30); GLOMERULAR FILTRATION RATE 8.9 (>49); POTASSIUM SERUM 6.7 MEQ/L (3.5-5.1); TOTAL PROTEIN 6.8 GM/DL (6.4-8.2)
[2021-09-28] MEDS ORDERED: CALCIUM GLUCONATE 1,000MG/10ML VIAL (100MG/ML) (J0610) As Ordered ONE (14:11)
[2021-09-28] MEDS ORDERED: CALCIUM GLUCONATE 1,000 MG in D5W MINI-BAG PLUS 100 ML IV STA (14:17)
[2021-09-28 14:22] LABS: ABG BASE EXCESS -8.3 (-2.0-2.0); ABG HCO3 18.8 MEQ/L (22.0-26.0); ABG O2 SATURATION 95.1 % (95.0-99.0); ABG PARTIAL PRESSURE CO2 44.1 mmHg (35.0-45.0); ABG PARTIAL PRESSURE O2 86.1 mmHg (75.0-100.0); ABG TOTAL CO2 20.2 MEQ/L (23.0-31.0); ABG pH (ARTERIAL) 7.248 UNITS (7.350-7.450)
[2021-09-28] MEDS: HEPARIN DRIP 25,000 UNITS in IV 1 EA IV SCH (14:28)
[2021-09-28] MEDS: NOREPINEPHRINE BITARTRATE 8 MG in D5W 492 ML IV SCH ×2 (14:31→18:42)
[2021-09-28] MEDS: CHLORHEXIDINE GLUCONATE 0.12 % 15ML UDC (PERIDEX ORAL RINSE) MT SCH ×2 (15:48→21:20)
[2021-09-28] MEDS: VASOPRESSIN INJ 20 UNITS in NS 499 ML IV SCH (17:00)
[2021-09-28] MEDS: PIPERACILLIN/TAZOBACTAM SOD 4.5 GM in D5W MINI-BAG PLUS 50 ML IV SCH (17:00)
[2021-09-28 18:23] LABS: HEMATOCRIT 58.8 % (42.0-52.0); HEMOGLOBIN 18.4 g/dl (13.5-17.5); MEAN CORPUSCULAR HEMOGLOBIN 31.2 pg (27.0-33.0); MEAN CORPUSCULAR HGB CONC 31.3 g/dl (32.0-36.5); MEAN CORPUSCULAR VOLUME 99.7 fl (80.0-96.0); PLATELET COUNT, AUTOMATED 180 10^3/uL (150-450); WHITE BLOOD COUNT 14.8 10^3/uL (4.0-10.0)
[2021-09-28 18:55] LABS: ALBUMIN 2.3 GM/DL (3.2-5.2); BILIRUBIN,TOTAL 0.6 MG/DL (0.2-1.0); CALCIUM LEVEL 7.2 MG/DL (8.8-10.2); CREATININE FOR GFR 6.4 MG/DL (0.70-1.30); GLOMERULAR FILTRATION RATE 9.5 (>49); MAGNESIUM LEVEL 2.1 MG/DL (1.8-2.4); PHOSPHORUS LEVEL 8.1 MG/DL (2.5-4.9); POTASSIUM SERUM 5.4 MEQ/L (3.5-5.1); TOTAL PROTEIN 6.2 GM/DL (6.4-8.2)
[2021-09-28 18:58] LABS: MAGNESIUM LEVEL 2.3 MG/DL (1.8-2.4)
[2021-09-28 19:12] LABS: PHOSPHORUS LEVEL 9.6 MG/DL (2.5-4.9)
[2021-09-28] MEDS ORDERED: VANCOMYCIN HCL 1,000 MG, VIAL MATE ADAPTER 1 EACH in NS 250 ML IV SCH (21:00)
[2021-09-28 22:55] LABS: ABG BASE EXCESS -3.7 (-2.0-2.0); ABG HCO3 23.7 MEQ/L (22.0-26.0); ABG O2 SATURATION 93.4 % (95.0-99.0); ABG PARTIAL PRESSURE CO2 50.7 mmHg (35.0-45.0); ABG PARTIAL PRESSURE O2 76.3 mmHg (75.0-100.0); ABG STANDARD HCO3 21.4 MEQ/L (22.0-26.0); ABG TOTAL CO2 25.3 MEQ/L (23.0-31.0); ABG pH (ARTERIAL) 7.288 UNITS (7.350-7.450)
[2021-09-28] MEDS ORDERED: cefTRIAXone SOD 2 GM in D5W MINI-BAG PLUS 50 ML IV SCH (23:00)
[2021-09-28 23:02] LABS: HEMATOCRIT 57.3 % (42.0-52.0); HEMOGLOBIN 18.5 g/dl (13.5-17.5); MEAN CORPUSCULAR HEMOGLOBIN 31.7 pg (27.0-33.0); MEAN CORPUSCULAR HGB CONC 32.3 g/dl (32.0-36.5); MEAN CORPUSCULAR VOLUME 98.3 fl (80.0-96.0); PLATELET COUNT, AUTOMATED 148 10^3/uL (150-450); RED BLOOD COUNT 5.83 10^6/uL (4.30-6.10); WHITE BLOOD COUNT 14.6 10^3/uL (4.0-10.0)
[2021-09-28] MEDS ORDERED: NOREPINEPHRINE 4 MG/4 ML AMP As Ordered ONE (23:58)
[2021-09-29] VITALS (93 sets, daily range): BP systolic 79–143; BP diastolic 50–85
[2021-09-29] MEDS: PIPERACILLIN/TAZOBACTAM SOD 4.5 GM in D5W MINI-BAG PLUS 50 ML IV SCH ×3 (00:04→19:04)
[2021-09-29] MEDS: INSULIN LISPRO (NovoLOG) PER UNIT SC SCH ×4 (00:20→18:39)
[2021-09-29] MEDS: VASOPRESSIN INJ 20 UNITS in NS 499 ML IV SCH ×3 (00:24→17:28)
[2021-09-29 01:10] LABS: ALBUMIN 2.5 GM/DL (3.2-5.2); BILIRUBIN,TOTAL 0.7 MG/DL (0.2-1.0); CALCIUM LEVEL 7.2 MG/DL (8.8-10.2); CREATININE FOR GFR 4.48 MG/DL (0.70-1.30); GLOMERULAR FILTRATION RATE 14.3 (>49); MAGNESIUM LEVEL 1.8 MG/DL (1.8-2.4); POTASSIUM SERUM 4.5 MEQ/L (3.5-5.1); TOTAL PROTEIN 5.6 GM/DL (6.4-8.2)
[2021-09-29] MEDS: NOREPINEPHRINE BITARTRATE 8 MG in D5W 492 ML IV SCH ×3 (02:34→21:03)
[2021-09-29] MEDS: fentaNYL 100 MCG/2 ML INJECTION IV PRN ×2 (02:50→05:09)
[2021-09-29 05:39] LABS: ABG BASE EXCESS -4.2 (-2.0-2.0); ABG O2 SATURATION 87.9 % (95.0-99.0); ABG PARTIAL PRESSURE CO2 54.8 mmHg (35.0-45.0); ABG STANDARD HCO3 20.8 MEQ/L (22.0-26.0); ABG TOTAL CO2 25.7 MEQ/L (23.0-31.0); ABG pH (ARTERIAL) 7.259 UNITS (7.350-7.450)
[2021-09-29 06:07] LABS: HEMATOCRIT 56.3 % (42.0-52.0); HEMOGLOBIN 18.2 g/dl (13.5-17.5); MEAN CORPUSCULAR HEMOGLOBIN 31.7 pg (27.0-33.0); MEAN CORPUSCULAR HGB CONC 32.3 g/dl (32.0-36.5); MEAN CORPUSCULAR VOLUME 98.1 fl (80.0-96.0); PLATELET COUNT, AUTOMATED 166 10^3/uL (150-450); RED BLOOD COUNT 5.74 10^6/uL (4.30-6.10); WHITE BLOOD COUNT 12.9 10^3/uL (4.0-10.0)
[2021-09-29 06:49] LABS: ALBUMIN 2.2 GM/DL (3.2-5.2); BILIRUBIN,TOTAL 0.6 MG/DL (0.2-1.0); CALCIUM LEVEL 7.2 MG/DL (8.8-10.2); CREATININE FOR GFR 5.34 MG/DL (0.70-1.30); GLOMERULAR FILTRATION RATE 11.7 (>49); MAGNESIUM LEVEL 2.1 MG/DL (1.8-2.4); POTASSIUM SERUM 4.9 MEQ/L (3.5-5.1); TOTAL PROTEIN 5.5 GM/DL (6.4-8.2)
[2021-09-29] MEDS: IPRATROPIUM 0.5MG/ALBUTEROL 2.5MG INH SOL UD 3ML (DUONEB) NEB SCH ×4 (07:43→19:35)
[2021-09-29] MEDS ORDERED: CISATRACURIUM 10MG/ML 20 ML VIAL IV STA (08:15)
[2021-09-29] MEDS: PANTOPRAZOLE 40MG VIAL IV SCH (08:47)
[2021-09-29] MEDS: CISATRACURIUM 200 MG in NS 480 ML IV SCH ×2 (08:49→19:47)
[2021-09-29] MEDS: CHLORHEXIDINE GLUCONATE 0.12 % 15ML UDC (PERIDEX ORAL RINSE) MT SCH ×2 (08:50→20:13)
[2021-09-29] MEDS ORDERED: PANTOPRAZOLE 40MG VIAL IV SCH (09:00)
[2021-09-29] MEDS: VANCOMYCIN HCL 1,000 MG, VIAL MATE ADAPTER 1 EACH in NS 250 ML IV SCH (12:47)
[2021-09-29] MEDS: MIDAZOLAM HCL 100 MG in D5W 80 ML IV SCH (14:18)
[2021-09-29] MEDS: HEPARIN DRIP 25,000 UNITS in IV 1 EA IV SCH (17:27)
[2021-09-29 17:51] LABS: HEMATOCRIT 54.3 % (42.0-52.0); HEMOGLOBIN 17.4 g/dl (13.5-17.5); MEAN CORPUSCULAR HEMOGLOBIN 31.1 pg (27.0-33.0); MEAN CORPUSCULAR VOLUME 97.1 fl (80.0-96.0); PLATELET COUNT, AUTOMATED 108 10^3/uL (150-450); RED BLOOD COUNT 5.59 10^6/uL (4.30-6.10); WHITE BLOOD COUNT 10.4 10^3/uL (4.0-10.0)
[2021-09-29 18:08] LABS: CALCIUM LEVEL 5.5 MG/DL (8.8-10.2); CREATININE FOR GFR 2.91 MG/DL (0.70-1.30); GLOMERULAR FILTRATION RATE 23.5 (>49); MAGNESIUM LEVEL 1.7 MG/DL (1.8-2.4); PHOSPHORUS LEVEL 3.2 MG/DL (2.5-4.9); POTASSIUM SERUM 3.5 MEQ/L (3.5-5.1)
[2021-09-29] MEDS: CALCIUM GLUCONATE 1,000 MG in NS 100 ML IV SCH ×2 (18:41→20:13)
[2021-09-29] MEDS ORDERED: MAG SULF 1GM/100ML (MAG RUN) 1 GM in IV 1 EA IV ONE (19:00)
[2021-09-29] MEDS: KCL 20MEQ IN 100ML SWI (KRUN) 20 MEQ in IV 1 EA IV SCH ×4 (19:03→20:13)
[2021-09-29 23:39] LABS: CALCIUM LEVEL 7.2 MG/DL (8.8-10.2); CREATININE FOR GFR 3.12 MG/DL (0.70-1.30); GLOMERULAR FILTRATION RATE 21.7 (>49); HEMOGLOBIN 17.8 g/dl (13.5-17.5); MAGNESIUM LEVEL 2.3 MG/DL (1.8-2.4); MEAN CORPUSCULAR HEMOGLOBIN 31.9 pg (27.0-33.0); MEAN CORPUSCULAR HGB CONC 32.4 g/dl (32.0-36.5); MEAN CORPUSCULAR VOLUME 98.6 fl (80.0-96.0); PHOSPHORUS LEVEL 3.8 MG/DL (2.5-4.9); PLATELET COUNT, AUTOMATED 109 10^3/uL (150-450); RED BLOOD COUNT 5.58 10^6/uL (4.30-6.10); WHITE BLOOD COUNT 9.7 10^3/uL (4.0-10.0)
[2021-09-30] VITALS (88 sets, daily range): BP systolic 89–157; BP diastolic 48–87
[2021-09-30] MEDS ORDERED: CALCIUM GLUCONATE 1,000 MG in D5W MINI-BAG PLUS 100 ML IV SCH ×2
[2021-09-30] MEDS: INSULIN LISPRO (NovoLOG) PER UNIT SC SCH ×4 (00:17→18:30)
[2021-09-30] MEDS: VANCOMYCIN HCL 1,000 MG, VIAL MATE ADAPTER 1 EACH in NS 250 ML IV SCH (00:18)
[2021-09-30] MEDS: CALCIUM GLUCONATE 1,000 MG, VIAL MATE ADAPTER 1 EACH in NS 100 ML IV SCH ×4 (01:01→09:17)
[2021-09-30] MEDS: VASOPRESSIN INJ 20 UNITS in NS 499 ML IV SCH ×2 (02:42→11:15)
[2021-09-30] MEDS: PIPERACILLIN/TAZOBACTAM SOD 4.5 GM in D5W MINI-BAG PLUS 50 ML IV SCH ×3 (03:13→18:29)
[2021-09-30] MEDS ORDERED: POTASSIUM PHOSPHATE INJ 15 MMOL in D5W 250 ML IV ONE (04:00)
[2021-09-30 05:19] LABS: ABG BASE EXCESS -5.7 (-2.0-2.0); ABG HCO3 20.3 MEQ/L (22.0-26.0); ABG O2 SATURATION 93.9 % (95.0-99.0); ABG PARTIAL PRESSURE CO2 41.3 mmHg (35.0-45.0); ABG PARTIAL PRESSURE O2 76.7 mmHg (75.0-100.0); ABG STANDARD HCO3 19.8 MEQ/L (22.0-26.0); ABG TOTAL CO2 21.5 MEQ/L (23.0-31.0); ABG pH (ARTERIAL) 7.309 UNITS (7.350-7.450)
[2021-09-30 05:27] LABS: HEMATOCRIT 54.1 % (42.0-52.0); HEMOGLOBIN 17.5 g/dl (13.5-17.5); MEAN CORPUSCULAR HEMOGLOBIN 31.9 pg (27.0-33.0); MEAN CORPUSCULAR HGB CONC 32.3 g/dl (32.0-36.5); MEAN CORPUSCULAR VOLUME 98.5 fl (80.0-96.0); PLATELET COUNT, AUTOMATED 110 10^3/uL (150-450); RED BLOOD COUNT 5.49 10^6/uL (4.30-6.10); WHITE BLOOD COUNT 8.8 10^3/uL (4.0-10.0)
[2021-09-30 05:48] LABS: CALCIUM LEVEL 7.5 MG/DL (8.8-10.2); CREATININE FOR GFR 2.56 MG/DL (0.70-1.30); GLOMERULAR FILTRATION RATE 27.2 (>49); MAGNESIUM LEVEL 2.4 MG/DL (1.8-2.4); POTASSIUM SERUM 5.6 MEQ/L (3.5-5.1)
[2021-09-30 06:07] LABS: BILIRUBIN,TOTAL 0.9 MG/DL (0.2-1.0); CREATININE FOR GFR 2.68 MG/DL (0.70-1.30); GLOMERULAR FILTRATION RATE 25.8 (>49); MAGNESIUM LEVEL 2.3 MG/DL (1.8-2.4); POTASSIUM SERUM 5.5 MEQ/L (3.5-5.1); TOTAL PROTEIN 5.1 GM/DL (6.4-8.2)
[2021-09-30] MEDS: MIDAZOLAM HCL 100 MG in D5W 80 ML IV SCH ×2 (06:49→17:41)
[2021-09-30] MEDS: IPRATROPIUM 0.5MG/ALBUTEROL 2.5MG INH SOL UD 3ML (DUONEB) NEB SCH ×4 (07:13→20:01)
[2021-09-30] MEDS: CISATRACURIUM 200 MG in NS 480 ML IV SCH (07:21)
[2021-09-30] MEDS: CHLORHEXIDINE GLUCONATE 0.12 % 15ML UDC (PERIDEX ORAL RINSE) MT SCH ×2 (08:01→21:25)
[2021-09-30] MEDS: PANTOPRAZOLE 40MG VIAL IV SCH (08:01)
[2021-09-30] MEDS: NOREPINEPHRINE BITARTRATE 8 MG in D5W 492 ML IV SCH (09:19)
[2021-09-30] MEDS: FUROSEMIDE injection 250 MG in D5W 225 ML IV SCH ×3 (09:26→21:25)
[2021-09-30] MEDS: LACRILUBE (AKWA TEARS) OPHTH OINT 3.5 GM OU SCH ×3 (09:27→21:26)
[2021-09-30] MEDS: fentaNYL 100 MCG/2 ML INJECTION IV PRN ×2 (09:37→23:57)
[2021-09-30] MEDS ORDERED: MIDAZOLAM 5MG/ML 1ML VIAL (J2250 PER 1MG) As Ordered ONE (09:41)
[2021-09-30] MEDS ORDERED: MIDAZOLAM HCL 100 MG in D5W 80 ML IV SCH (09:45)
[2021-09-30 09:53] LABS: HEPATITIS B SURFACE ANTIGEN NEGATIVE (NEGATIVE)
[2021-09-30] MEDS ORDERED: MIDAZOLAM 5MG/ML 1ML VIAL (J2250 PER 1MG) IV ONE (10:15)
[2021-09-30 10:19] LABS: HEPATITIS B CORE ANTIBODY IGM NEGATIVE (NEGATIVE); HEPATITIS C VIRUS ABY INDEX 0.1 INDEX (<0.8)
[2021-09-30] MEDS: MIDAZOLAM INJ 2MG/2ML VIAL (J2250 PER 1MG) IV PRN ×2 (11:15→14:06)
[2021-09-30] MEDS ORDERED: fentaNYL 100 MCG/2 ML INJECTION IV ONE (11:20)
[2021-09-30 11:40] LABS: HEMOGLOBIN 17.1 g/dl (13.5-17.5); MEAN CORPUSCULAR HEMOGLOBIN 31.1 pg (27.0-33.0); MEAN CORPUSCULAR HGB CONC 31.7 g/dl (32.0-36.5); MEAN CORPUSCULAR VOLUME 98.4 fl (80.0-96.0); PLATELET COUNT, AUTOMATED 102 10^3/uL (150-450); RED BLOOD COUNT 5.49 10^6/uL (4.30-6.10); WHITE BLOOD COUNT 8.8 10^3/uL (4.0-10.0)
[2021-09-30 11:59] LABS: CALCIUM LEVEL 7.5 MG/DL (8.8-10.2); CREATININE FOR GFR 2.38 MG/DL (0.70-1.30); GLOMERULAR FILTRATION RATE 29.6 (>49); MAGNESIUM LEVEL 2.4 MG/DL (1.8-2.4); PHOSPHORUS LEVEL 3.5 MG/DL (2.5-4.9)
[2021-09-30] MEDS: CALCIUM GLUCONATE 1,000 MG in NS 100 ML IV SCH ×2 (12:13→14:39)
[2021-09-30] MEDS: fentaNYL CITRATE 1,000 MCG in NS 80 ML IV SCH ×2 (12:35→21:30)
[2021-09-30] MEDS: HEPARIN DRIP 25,000 UNITS in IV 1 EA IV SCH (16:56)
[2021-09-30 17:23] LABS: HEMATOCRIT 52.6 % (42.0-52.0); HEMOGLOBIN 17.1 g/dl (13.5-17.5); MEAN CORPUSCULAR HEMOGLOBIN 32.2 pg (27.0-33.0); MEAN CORPUSCULAR HGB CONC 32.5 g/dl (32.0-36.5); MEAN CORPUSCULAR VOLUME 99.1 fl (80.0-96.0); PLATELET COUNT, AUTOMATED 105 10^3/uL (150-450); RED BLOOD COUNT 5.31 10^6/uL (4.30-6.10)
[2021-09-30 17:47] LABS: CALCIUM LEVEL 7.6 MG/DL (8.8-10.2); CREATININE FOR GFR 2.12 MG/DL (0.70-1.30); GLOMERULAR FILTRATION RATE 33.9 (>49); MAGNESIUM LEVEL 2.5 MG/DL (1.8-2.4); PHOSPHORUS LEVEL 2.5 MG/DL (2.5-4.9); POTASSIUM SERUM 4.4 MEQ/L (3.5-5.1)
[2021-09-30] MEDS ORDERED: CALCIUM GLUCONATE 1,000 MG in NS 100 ML IV ONE ×2 (20:00→23:15)
[2021-09-30 23:02] LABS: HEMATOCRIT 53.3 % (42.0-52.0); HEMOGLOBIN 17.2 g/dl (13.5-17.5); MEAN CORPUSCULAR HEMOGLOBIN 31.7 pg (27.0-33.0); MEAN CORPUSCULAR HGB CONC 32.3 g/dl (32.0-36.5); MEAN CORPUSCULAR VOLUME 98.2 fl (80.0-96.0); PLATELET COUNT, AUTOMATED 121 10^3/uL (150-450); RED BLOOD COUNT 5.43 10^6/uL (4.30-6.10); WHITE BLOOD COUNT 9.5 10^3/uL (4.0-10.0)
[2021-09-30 23:55] LABS: CALCIUM LEVEL 7.5 MG/DL (8.8-10.2); CREATININE FOR GFR 1.98 MG/DL (0.70-1.30); GLOMERULAR FILTRATION RATE 36.6 (>49); MAGNESIUM LEVEL 2.3 MG/DL (1.8-2.4); PHOSPHORUS LEVEL 2.6 MG/DL (2.5-4.9); POTASSIUM SERUM 4.9 MEQ/L (3.5-5.1)
[2021-10-01] VITALS (94 sets, daily range): BP systolic 77–145; BP diastolic 46–94
[2021-10-01] MEDS: MIDAZOLAM INJ 2MG/2ML VIAL (J2250 PER 1MG) IV PRN ×4 (00:17→06:31)
[2021-10-01] MEDS: fentaNYL 100 MCG/2 ML INJECTION IV PRN ×2 (02:18→07:51)
[2021-10-01] MEDS: FUROSEMIDE injection 250 MG in D5W 225 ML IV SCH ×4 (03:07→20:59)
[2021-10-01] MEDS: PIPERACILLIN/TAZOBACTAM SOD 4.5 GM in D5W MINI-BAG PLUS 50 ML IV SCH ×3 (03:17→18:45)
[2021-10-01] MEDS: MIDAZOLAM HCL 100 MG in D5W 80 ML IV SCH ×3 (03:19→23:44)
[2021-10-01] MEDS ORDERED: IPRATROPIUM 0.5MG/ALBUTEROL 2.5MG INH SOL UD 3ML (DUONEB) NEB ONE (04:00)
[2021-10-01 05:24] LABS: ABG BASE EXCESS -2.7 (-2.0-2.0); ABG HCO3 23.4 MEQ/L (22.0-26.0); ABG O2 SATURATION 96.7 % (95.0-99.0); ABG PARTIAL PRESSURE CO2 45.1 mmHg (35.0-45.0); ABG PARTIAL PRESSURE O2 94.5 mmHg (75.0-100.0); ABG STANDARD HCO3 22.2 MEQ/L (22.0-26.0); ABG TOTAL CO2 24.8 MEQ/L (23.0-31.0); ABG pH (ARTERIAL) 7.333 UNITS (7.350-7.450)
[2021-10-01 05:44] LABS: HEMATOCRIT 54.6 % (42.0-52.0); HEMOGLOBIN 17.3 g/dl (13.5-17.5); MEAN CORPUSCULAR HEMOGLOBIN 31.4 pg (27.0-33.0); MEAN CORPUSCULAR HGB CONC 31.7 g/dl (32.0-36.5); MEAN CORPUSCULAR VOLUME 99.1 fl (80.0-96.0); PLATELET COUNT, AUTOMATED 122 10^3/uL (150-450); RED BLOOD COUNT 5.51 10^6/uL (4.30-6.10); WHITE BLOOD COUNT 11.9 10^3/uL (4.0-10.0)
[2021-10-01 06:07] LABS: ALBUMIN 2.1 GM/DL (3.2-5.2); BILIRUBIN,TOTAL 1.1 MG/DL (0.2-1.0); CALCIUM LEVEL 7.9 MG/DL (8.8-10.2); CREATININE FOR GFR 1.78 MG/DL (0.70-1.30); CREATININE FOR GFR 1.8 MG/DL (0.70-1.30); GLOMERULAR FILTRATION RATE 40.9 (>49); GLOMERULAR FILTRATION RATE 41.4 (>49); MAGNESIUM LEVEL 2.4 MG/DL (1.8-2.4); PHOSPHORUS LEVEL 3.3 MG/DL (2.5-4.9); TOTAL PROTEIN 5.8 GM/DL (6.4-8.2)
[2021-10-01] MEDS: CALCIUM GLUCONATE 1,000 MG, VIAL MATE ADAPTER 1 EACH in NS 100 ML IV SCH ×2 (06:10→07:51)
[2021-10-01] MEDS: INSULIN LISPRO (NovoLOG) PER UNIT SC SCH ×4 (06:26→17:48)
[2021-10-01] MEDS: IPRATROPIUM 0.5MG/ALBUTEROL 2.5MG INH SOL UD 3ML (DUONEB) NEB SCH ×4 (07:36→19:32)
[2021-10-01] MEDS: fentaNYL CITRATE 1,000 MCG in NS 80 ML IV SCH ×2 (07:50→17:50)
[2021-10-01] MEDS: NOREPINEPHRINE BITARTRATE 8 MG in D5W 492 ML IV SCH ×2 (07:52→09:00)
[2021-10-01] MEDS: HEPARIN DRIP 25,000 UNITS in IV 1 EA IV SCH (08:39)
[2021-10-01] MEDS: PANTOPRAZOLE 40MG VIAL IV SCH (09:26)
[2021-10-01] MEDS: CHLORHEXIDINE GLUCONATE 0.12 % 15ML UDC (PERIDEX ORAL RINSE) MT SCH ×2 (09:26→20:14)
[2021-10-01] MEDS: LACRILUBE (AKWA TEARS) OPHTH OINT 3.5 GM OU SCH ×3 (09:26→21:00)
[2021-10-01] MEDS ORDERED: SODIUM CHLORIDE 0.9% INJ 10 ML SYR IV PRN (11:00)
[2021-10-01 11:13] LABS: HEMATOCRIT 54.9 % (42.0-52.0); HEMOGLOBIN 17.6 g/dl (13.5-17.5); MEAN CORPUSCULAR HEMOGLOBIN 32.1 pg (27.0-33.0); MEAN CORPUSCULAR HGB CONC 32.1 g/dl (32.0-36.5); PLATELET COUNT, AUTOMATED 112 10^3/uL (150-450); RED BLOOD COUNT 5.49 10^6/uL (4.30-6.10); WHITE BLOOD COUNT 13.3 10^3/uL (4.0-10.0)
[2021-10-01 11:35] LABS: CALCIUM LEVEL 8.1 MG/DL (8.8-10.2); CREATININE FOR GFR 1.8 MG/DL (0.70-1.30); GLOMERULAR FILTRATION RATE 40.9 (>49); MAGNESIUM LEVEL 2.5 MG/DL (1.8-2.4); PHOSPHORUS LEVEL 3.4 MG/DL (2.5-4.9)
[2021-10-01] MEDS ORDERED: CALCIUM GLUCONATE 1,000 MG, VIAL MATE ADAPTER 1 EACH in NS 100 ML IV ONE ×2 (13:00→17:10)
[2021-10-01] MEDS ORDERED: LORazepam 2 MG/ML VIAL IV STA (14:46)
[2021-10-01] MEDS: BISACODYL 10 MG SUPP PR STA ×2 (15:06→18:14)
[2021-10-01] MEDS ORDERED: METOPROLOL 5 MG/5 ML VIAL IV STA (15:22)
[2021-10-01] MEDS ORDERED: MIDAZOLAM INJ 2MG/2ML VIAL (J2250 PER 1MG) IV PRN (17:00)
[2021-10-01 17:01] LABS: HEMATOCRIT 54.8 % (42.0-52.0); HEMOGLOBIN 17.5 g/dl (13.5-17.5); MEAN CORPUSCULAR HEMOGLOBIN 32.1 pg (27.0-33.0); MEAN CORPUSCULAR HGB CONC 31.9 g/dl (32.0-36.5); MEAN CORPUSCULAR VOLUME 100.4 fl (80.0-96.0); PLATELET COUNT, AUTOMATED 112 10^3/uL (150-450); RED BLOOD COUNT 5.46 10^6/uL (4.30-6.10); WHITE BLOOD COUNT 12.7 10^3/uL (4.0-10.0)
[2021-10-01 17:29] LABS: CREATININE FOR GFR 1.51 MG/DL (0.70-1.30); GLOMERULAR FILTRATION RATE 50.1 (>49); POTASSIUM SERUM 5.3 MEQ/L (3.5-5.1)
[2021-10-01 17:30] LABS: CALCIUM LEVEL 8.1 MG/DL (8.8-10.2); MAGNESIUM LEVEL 2.7 MG/DL (1.8-2.4); PHOSPHORUS LEVEL 3.2 MG/DL (2.5-4.9)
[2021-10-01] MEDS: VASOPRESSIN INJ 20 UNITS in NS 499 ML IV SCH (18:14)
[2021-10-01] MEDS: propofoL 1,000 MG in IV 1 EA IV SCH (21:32)
[2021-10-01] MEDS ORDERED: CISATRACURIUM 10MG/ML 20 ML VIAL IV STA (22:02)
[2021-10-01] MEDS ORDERED: CISATRACURIUM 200 MG in NS 480 ML IV STA (22:28)
[2021-10-01] MEDS ORDERED: CISATRACURIUM 200 MG in NS 480 ML IV SCH ×2 (22:40)
[2021-10-01] MEDS: CISATRACURIUM 200 MG in NS 480 ML IV SCH (23:11)
[2021-10-01 23:19] LABS: HEMATOCRIT 53.8 % (42.0-52.0); HEMOGLOBIN 17.1 g/dl (13.5-17.5); MEAN CORPUSCULAR HGB CONC 31.8 g/dl (32.0-36.5); MEAN CORPUSCULAR VOLUME 100.7 fl (80.0-96.0); PLATELET COUNT, AUTOMATED 115 10^3/uL (150-450); RED BLOOD COUNT 5.34 10^6/uL (4.30-6.10); WHITE BLOOD COUNT 14.5 10^3/uL (4.0-10.0)
[2021-10-01 23:55] LABS: CREATININE FOR GFR 1.51 MG/DL (0.70-1.30); GLOMERULAR FILTRATION RATE 50.1 (>49); MAGNESIUM LEVEL 2.5 MG/DL (1.8-2.4); PHOSPHORUS LEVEL 3.3 MG/DL (2.5-4.9); POTASSIUM SERUM 5.2 MEQ/L (3.5-5.1)
[2021-10-02] VITALS (94 sets, daily range): BP systolic 93–137; BP diastolic 47–92
[2021-10-02] MEDS: CALCIUM GLUCONATE 1,000 MG in NS 100 ML IV SCH ×2 (00:07→01:15)
[2021-10-02] MEDS: HEPARIN DRIP 25,000 UNITS in IV 1 EA IV SCH ×2 (00:24→17:20)
[2021-10-02] MEDS: VASOPRESSIN INJ 20 UNITS in NS 499 ML IV SCH ×6 (01:20→18:05)
[2021-10-02] MEDS: PIPERACILLIN/TAZOBACTAM SOD 4.5 GM in D5W MINI-BAG PLUS 50 ML IV SCH ×3 (02:40→19:10)
[2021-10-02] MEDS: propofoL 1,000 MG in IV 1 EA IV SCH ×4 (02:56→20:53)
[2021-10-02] MEDS: FUROSEMIDE injection 250 MG in D5W 225 ML IV SCH ×4 (02:58→21:28)
[2021-10-02] MEDS: CISATRACURIUM 200 MG in NS 480 ML IV SCH ×4 (03:53→17:45)
[2021-10-02 04:47] LABS: ABG BASE EXCESS -3.1 (-2.0-2.0); ABG HCO3 23.5 MEQ/L (22.0-26.0); ABG O2 SATURATION 95.8 % (95.0-99.0); ABG PARTIAL PRESSURE CO2 47.4 mmHg (35.0-45.0); ABG STANDARD HCO3 21.9 MEQ/L (22.0-26.0); ABG TOTAL CO2 24.9 MEQ/L (23.0-31.0); ABG pH (ARTERIAL) 7.313 UNITS (7.350-7.450)
[2021-10-02 04:53] LABS: HEMATOCRIT 53.4 % (42.0-52.0); HEMOGLOBIN 16.9 g/dl (13.5-17.5); MEAN CORPUSCULAR HEMOGLOBIN 31.7 pg (27.0-33.0); MEAN CORPUSCULAR HGB CONC 31.6 g/dl (32.0-36.5); MEAN CORPUSCULAR VOLUME 100.2 fl (80.0-96.0); PLATELET COUNT, AUTOMATED 101 10^3/uL (150-450); RED BLOOD COUNT 5.33 10^6/uL (4.30-6.10)
[2021-10-02] MEDS: NOREPINEPHRINE BITARTRATE 8 MG in D5W 492 ML IV SCH ×3 (04:53→23:42)
[2021-10-02 05:26] LABS: ALBUMIN 2.1 GM/DL (3.2-5.2); CALCIUM LEVEL 7.7 MG/DL (8.8-10.2); CREATININE FOR GFR 1.6 MG/DL (0.70-1.30); GLOMERULAR FILTRATION RATE 46.9 (>49); TOTAL PROTEIN 5.9 GM/DL (6.4-8.2)
[2021-10-02 05:35] LABS: CALCIUM LEVEL 8.1 MG/DL (8.8-10.2); CREATININE FOR GFR 1.6 MG/DL (0.70-1.30); GLOMERULAR FILTRATION RATE 46.9 (>49); MAGNESIUM LEVEL 2.4 MG/DL (1.8-2.4); PHOSPHORUS LEVEL 3.8 MG/DL (2.5-4.9)
[2021-10-02] MEDS: INSULIN LISPRO (NovoLOG) PER UNIT SC SCH ×4 (05:41→18:00)
[2021-10-02 05:45] LABS: PERCENT SATURATION 12.7 % (19.7-50.0); THYROID STIMULATING HORMONE 0.661 uIU/ML (0.358-3.740)
[2021-10-02] MEDS ORDERED: CALCIUM GLUCONATE 1,000 MG, VIAL MATE ADAPTER 1 EACH in NS 100 ML IV ONE ×2 (06:00→16:55)
[2021-10-02] MEDS: IPRATROPIUM 0.5MG/ALBUTEROL 2.5MG INH SOL UD 3ML (DUONEB) NEB SCH ×4 (07:21→20:05)
[2021-10-02] MEDS ORDERED: BISACODYL 10 MG SUPP PR ONE ×2 (07:40→18:10)
[2021-10-02] MEDS: CHLORHEXIDINE GLUCONATE 0.12 % 15ML UDC (PERIDEX ORAL RINSE) MT SCH (08:13)
[2021-10-02] MEDS: PANTOPRAZOLE 40MG VIAL IV SCH (08:13)
[2021-10-02] MEDS: fentaNYL CITRATE 1,000 MCG in NS 80 ML IV SCH (08:38)
[2021-10-02] MEDS: MIDAZOLAM HCL 100 MG in D5W 80 ML IV SCH ×2 (09:34→19:44)
[2021-10-02] MEDS: LACRILUBE (AKWA TEARS) OPHTH OINT 3.5 GM OU SCH ×2 (09:34→15:29)
[2021-10-02 11:08] LABS: HEMATOCRIT 52.9 % (42.0-52.0); HEMOGLOBIN 16.6 g/dl (13.5-17.5); MEAN CORPUSCULAR HEMOGLOBIN 31.6 pg (27.0-33.0); MEAN CORPUSCULAR HGB CONC 31.4 g/dl (32.0-36.5); MEAN CORPUSCULAR VOLUME 100.8 fl (80.0-96.0); PLATELET COUNT, AUTOMATED 100 10^3/uL (150-450); RED BLOOD COUNT 5.25 10^6/uL (4.30-6.10); WHITE BLOOD COUNT 12.8 10^3/uL (4.0-10.0)
[2021-10-02] MEDS: CALCIUM GLUCONATE 1,000 MG, VIAL MATE ADAPTER 1 EACH in NS 100 ML IV SCH ×2 (11:24→12:30)
[2021-10-02 11:34] LABS: FOLATE 7.3 NG/ML (>5.4)
[2021-10-02 11:50] LABS: CALCIUM LEVEL 7.4 MG/DL (8.8-10.2); CREATININE FOR GFR 1.64 MG/DL (0.70-1.30); GLOMERULAR FILTRATION RATE 45.5 (>49); MAGNESIUM LEVEL 2.5 MG/DL (1.8-2.4); PHOSPHORUS LEVEL 3.3 MG/DL (2.5-4.9)
[2021-10-02 16:48] LABS: HEMATOCRIT 52.8 % (42.0-52.0); HEMOGLOBIN 16.4 g/dl (13.5-17.5); MEAN CORPUSCULAR HEMOGLOBIN 31.4 pg (27.0-33.0); MEAN CORPUSCULAR HGB CONC 31.1 g/dl (32.0-36.5); RED BLOOD COUNT 5.23 10^6/uL (4.30-6.10); WHITE BLOOD COUNT 12.5 10^3/uL (4.0-10.0)
[2021-10-02 16:54] LABS: PLATELET COUNT, AUTOMATED 88 10^3/uL (150-450)
[2021-10-02] MEDS ORDERED: CALCIUM GLUCONATE 1,000MG/10ML VIAL (100MG/ML) (J0610) As Ordered ONE (17:05)
[2021-10-02 17:26] LABS: CREATININE FOR GFR 1.76 MG/DL (0.70-1.30); MAGNESIUM LEVEL 2.4 MG/DL (1.8-2.4); PHOSPHORUS LEVEL 3.7 MG/DL (2.5-4.9); POTASSIUM SERUM 4.8 MEQ/L (3.5-5.1)
[2021-10-02] MEDS ORDERED: ARGATROBAN 250 MG in D5W 247.5 ML IV SCH (22:00)
[2021-10-02 23:16] LABS: HEMATOCRIT 52.1 % (42.0-52.0); HEMOGLOBIN 16.5 g/dl (13.5-17.5); MEAN CORPUSCULAR HEMOGLOBIN 31.9 pg (27.0-33.0); MEAN CORPUSCULAR HGB CONC 31.7 g/dl (32.0-36.5); MEAN CORPUSCULAR VOLUME 100.6 fl (80.0-96.0); RED BLOOD COUNT 5.18 10^6/uL (4.30-6.10); WHITE BLOOD COUNT 12.3 10^3/uL (4.0-10.0)
[2021-10-02 23:20] LABS: PLATELET COUNT, AUTOMATED 79 10^3/uL (150-450)
[2021-10-02 23:54] LABS: CALCIUM LEVEL 8.4 MG/DL (8.8-10.2); CREATININE FOR GFR 1.78 MG/DL (0.70-1.30); GLOMERULAR FILTRATION RATE 41.4 (>49); MAGNESIUM LEVEL 2.3 MG/DL (1.8-2.4); PHOSPHORUS LEVEL 3.8 MG/DL (2.5-4.9); POTASSIUM SERUM 4.8 MEQ/L (3.5-5.1)
[2021-10-03] VITALS (77 sets, daily range): BP systolic 96–142; BP diastolic 50–92
[2021-10-03] MEDS: LACRILUBE (AKWA TEARS) OPHTH OINT 3.5 GM OU SCH ×4 (00:10→20:20)
[2021-10-03] MEDS: CHLORHEXIDINE GLUCONATE 0.12 % 15ML UDC (PERIDEX ORAL RINSE) MT SCH ×3 (00:10→20:20)
[2021-10-03] MEDS ORDERED: CALCIUM GLUCONATE 1,000 MG, VIAL MATE ADAPTER 1 EACH in NS 100 ML IV ONE (01:00)
[2021-10-03] MEDS: VASOPRESSIN INJ 20 UNITS in NS 499 ML IV SCH ×3 (02:08→17:40)
[2021-10-03] MEDS: PIPERACILLIN/TAZOBACTAM SOD 4.5 GM in D5W MINI-BAG PLUS 50 ML IV SCH ×3 (02:10→20:03)
[2021-10-03] MEDS: FUROSEMIDE injection 250 MG in D5W 225 ML IV SCH ×4 (03:31→22:10)
[2021-10-03] MEDS: MIDAZOLAM HCL 100 MG in D5W 80 ML IV SCH ×3 (03:50→23:14)
[2021-10-03] MEDS: fentaNYL CITRATE 1,000 MCG in NS 80 ML IV SCH ×2 (04:48→11:50)
[2021-10-03 05:44] LABS: ABG BASE EXCESS -2.1 (-2.0-2.0); ABG HCO3 24.6 MEQ/L (22.0-26.0); ABG O2 SATURATION 95.4 % (95.0-99.0); ABG PARTIAL PRESSURE CO2 48.6 mmHg (35.0-45.0); ABG PARTIAL PRESSURE O2 78.4 mmHg (75.0-100.0); ABG STANDARD HCO3 22.7 MEQ/L (22.0-26.0); ABG TOTAL CO2 26.1 MEQ/L (23.0-31.0); ABG pH (ARTERIAL) 7.322 UNITS (7.350-7.450)
[2021-10-03 05:45] LABS: HEMOGLOBIN 16.6 g/dl (13.5-17.5); MEAN CORPUSCULAR HEMOGLOBIN 31.7 pg (27.0-33.0); MEAN CORPUSCULAR HGB CONC 31.3 g/dl (32.0-36.5); MEAN CORPUSCULAR VOLUME 101.1 fl (80.0-96.0); RED BLOOD COUNT 5.24 10^6/uL (4.30-6.10); WHITE BLOOD COUNT 13.8 10^3/uL (4.0-10.0)
[2021-10-03 05:46] LABS: PLATELET COUNT, AUTOMATED 75 10^3/uL (150-450)
[2021-10-03 06:25] LABS: MAGNESIUM LEVEL 2.2 MG/DL (1.8-2.4); PHOSPHORUS LEVEL 3.4 MG/DL (2.5-4.9)
[2021-10-03 06:54] LABS: ALBUMIN 2.1 GM/DL (3.2-5.2); BILIRUBIN,TOTAL 1.2 MG/DL (0.2-1.0); CALCIUM LEVEL 8.6 MG/DL (8.8-10.2); CREATININE FOR GFR 1.82 MG/DL (0.70-1.30); GLOMERULAR FILTRATION RATE 40.4 (>49); POTASSIUM SERUM 4.6 MEQ/L (3.5-5.1); TOTAL PROTEIN 6.1 GM/DL (6.4-8.2)
[2021-10-03] MEDS: IPRATROPIUM 0.5MG/ALBUTEROL 2.5MG INH SOL UD 3ML (DUONEB) NEB SCH ×4 (07:10→19:29)
[2021-10-03] MEDS: INSULIN LISPRO (NovoLOG) PER UNIT SC SCH ×5 (07:26→23:44)
[2021-10-03] MEDS: propofoL 1,000 MG in IV 1 EA IV SCH ×3 (08:25→18:43)
[2021-10-03] MEDS: PANTOPRAZOLE 40MG VIAL IV SCH (08:25)
[2021-10-03] MEDS: CISATRACURIUM 200 MG in NS 480 ML IV SCH ×7 (09:43→22:38)
[2021-10-03] MEDS: NOREPINEPHRINE BITARTRATE 8 MG in D5W 492 ML IV SCH ×2 (09:43→11:51)
[2021-10-03] MEDS: HEPARIN DRIP 25,000 UNITS in IV 1 EA IV SCH (09:50)
[2021-10-03 11:46] LABS: HEMATOCRIT 52.4 % (42.0-52.0); HEMOGLOBIN 16.5 g/dl (13.5-17.5); MEAN CORPUSCULAR HEMOGLOBIN 31.7 pg (27.0-33.0); MEAN CORPUSCULAR HGB CONC 31.5 g/dl (32.0-36.5); MEAN CORPUSCULAR VOLUME 100.8 fl (80.0-96.0); WHITE BLOOD COUNT 13.9 10^3/uL (4.0-10.0)
[2021-10-03 11:51] LABS: PLATELET COUNT, AUTOMATED 68 10^3/uL (150-450)
[2021-10-03 12:13] LABS: CALCIUM LEVEL 8.3 MG/DL (8.8-10.2); CREATININE FOR GFR 1.79 MG/DL (0.70-1.30); GLOMERULAR FILTRATION RATE 41.2 (>49); MAGNESIUM LEVEL 2.2 MG/DL (1.8-2.4); PHOSPHORUS LEVEL 3.3 MG/DL (2.5-4.9); POTASSIUM SERUM 4.1 MEQ/L (3.5-5.1)
[2021-10-03] MEDS ORDERED: CALCIUM GLUCONATE 1,000 MG in NS 100 ML IV ONE ×2 (12:20→18:00)
[2021-10-03 13:51] LABS: INR 1.11; PROTHROMBIN TIME 14.7 SECONDS (12.7-14.5)
[2021-10-03 13:52] LABS: PARTIAL THROMBOPLASTIN TIME 76.2 SECONDS (25.9-37.0)
[2021-10-03 13:54] LABS: D-DIMER QUANT 2376.61 ng/ml (<500)
[2021-10-03 17:39] LABS: HEMATOCRIT 51.6 % (42.0-52.0); HEMOGLOBIN 16.1 g/dl (13.5-17.5); MEAN CORPUSCULAR HEMOGLOBIN 31.6 pg (27.0-33.0); MEAN CORPUSCULAR HGB CONC 31.2 g/dl (32.0-36.5); MEAN CORPUSCULAR VOLUME 101.4 fl (80.0-96.0); RED BLOOD COUNT 5.09 10^6/uL (4.30-6.10); WHITE BLOOD COUNT 13.3 10^3/uL (4.0-10.0)
[2021-10-03 17:41] LABS: PLATELET COUNT, AUTOMATED 65 10^3/uL (150-450)
[2021-10-03 17:44] LABS: CALCIUM LEVEL 8.9 MG/DL (8.8-10.2); CREATININE FOR GFR 1.69 MG/DL (0.70-1.30); MAGNESIUM LEVEL 2.2 MG/DL (1.8-2.4); PHOSPHORUS LEVEL 3.5 MG/DL (2.5-4.9); POTASSIUM SERUM 4.2 MEQ/L (3.5-5.1)
[2021-10-03] MEDS ORDERED: ARGATROBAN 50 MG in IV 1 EA IV SCH (18:00)
[2021-10-03] MEDS: ARGATROBAN 250 MG in D5W 247.5 ML IV SCH (22:08)
[2021-10-03 23:17] LABS: HEMATOCRIT 50.8 % (42.0-52.0); HEMOGLOBIN 15.8 g/dl (13.5-17.5); MEAN CORPUSCULAR HEMOGLOBIN 31.7 pg (27.0-33.0); MEAN CORPUSCULAR HGB CONC 31.1 g/dl (32.0-36.5); MEAN CORPUSCULAR VOLUME 101.8 fl (80.0-96.0); RED BLOOD COUNT 4.99 10^6/uL (4.30-6.10)
[2021-10-03 23:18] LABS: PLATELET COUNT, AUTOMATED 61 10^3/uL (150-450)
[2021-10-03 23:38] LABS: CALCIUM LEVEL 8.7 MG/DL (8.8-10.2); CREATININE FOR GFR 1.77 MG/DL (0.70-1.30); GLOMERULAR FILTRATION RATE 41.7 (>49); MAGNESIUM LEVEL 2.2 MG/DL (1.8-2.4); PHOSPHORUS LEVEL 3.5 MG/DL (2.5-4.9); POTASSIUM SERUM 4.2 MEQ/L (3.5-5.1)
[2021-10-04] VITALS (60 sets, daily range): BP systolic 86–261; BP diastolic 46–261
[2021-10-04] MEDS: NOREPINEPHRINE BITARTRATE 8 MG in D5W 492 ML IV SCH ×2 (00:59→22:38)
[2021-10-04] MEDS: VASOPRESSIN INJ 20 UNITS in NS 499 ML IV SCH ×3 (00:59→16:52)
[2021-10-04] MEDS: fentaNYL CITRATE 1,000 MCG in NS 80 ML IV SCH ×2 (01:36→19:03)
[2021-10-04] MEDS: PIPERACILLIN/TAZOBACTAM SOD 4.5 GM in D5W MINI-BAG PLUS 50 ML IV SCH ×3 (02:15→18:35)
[2021-10-04] MEDS: CISATRACURIUM 200 MG in NS 480 ML IV SCH ×6 (02:54→23:53)
[2021-10-04] MEDS: FUROSEMIDE injection 250 MG in D5W 225 ML IV SCH ×2 (04:28→10:46)
[2021-10-04 05:17] LABS: HEMATOCRIT 50.4 % (42.0-52.0); HEMOGLOBIN 15.6 g/dl (13.5-17.5); MEAN CORPUSCULAR HEMOGLOBIN 31.5 pg (27.0-33.0); MEAN CORPUSCULAR VOLUME 101.8 fl (80.0-96.0); PLATELET COUNT, AUTOMATED 62 10^3/uL (150-450); RED BLOOD COUNT 4.95 10^6/uL (4.30-6.10); WHITE BLOOD COUNT 11.3 10^3/uL (4.0-10.0)
[2021-10-04 05:42] LABS: ABG BASE EXCESS -3.1 (-2.0-2.0); ABG HCO3 23.9 MEQ/L (22.0-26.0); ABG O2 SATURATION 95.1 % (95.0-99.0); ABG PARTIAL PRESSURE CO2 49.5 mmHg (35.0-45.0); ABG PARTIAL PRESSURE O2 78.8 mmHg (75.0-100.0); ABG STANDARD HCO3 21.9 MEQ/L (22.0-26.0); ABG TOTAL CO2 25.4 MEQ/L (23.0-31.0); ABG pH (ARTERIAL) 7.301 UNITS (7.350-7.450)
[2021-10-04 05:44] LABS: ALBUMIN 1.9 GM/DL (3.2-5.2); CALCIUM LEVEL 8.3 MG/DL (8.8-10.2); CREATININE FOR GFR 1.71 MG/DL (0.70-1.30); GLOMERULAR FILTRATION RATE 43.4 (>49); MAGNESIUM LEVEL 2.2 MG/DL (1.8-2.4); POTASSIUM SERUM 4.1 MEQ/L (3.5-5.1); TOTAL PROTEIN 6.8 GM/DL (6.4-8.2)
[2021-10-04] MEDS: INSULIN LISPRO (NovoLOG) PER UNIT SC SCH ×4 (05:48→23:52)
[2021-10-04] MEDS ORDERED: CALCIUM GLUCONATE 1,000 MG in D5W MINI-BAG PLUS 100 ML IV ONE ×3 (06:00)
[2021-10-04] MEDS: IPRATROPIUM 0.5MG/ALBUTEROL 2.5MG INH SOL UD 3ML (DUONEB) NEB SCH ×4 (07:44→19:59)
[2021-10-04] MEDS: PANTOPRAZOLE 40MG VIAL IV SCH (09:01)
[2021-10-04] MEDS: CHLORHEXIDINE GLUCONATE 0.12 % 15ML UDC (PERIDEX ORAL RINSE) MT SCH ×2 (09:01→20:38)
[2021-10-04] MEDS: MIRALAX *UNIT DOSE* 17GM PACKET PO SCH (09:03)
[2021-10-04] MEDS: LACRILUBE (AKWA TEARS) OPHTH OINT 3.5 GM OU SCH ×3 (09:04→21:34)
[2021-10-04] MEDS: MIDAZOLAM HCL 100 MG in D5W 80 ML IV SCH ×2 (09:06→19:03)
[2021-10-04] MEDS ORDERED: ALBUTEROL SULFATE 2.5 MG/0.5 ML INH NEB SOLN NEB ONE (09:45)
[2021-10-04 11:15] LABS: HEMATOCRIT 51.2 % (42.0-52.0); HEMOGLOBIN 15.9 g/dl (13.5-17.5); MEAN CORPUSCULAR HEMOGLOBIN 31.4 pg (27.0-33.0); MEAN CORPUSCULAR HGB CONC 31.1 g/dl (32.0-36.5); RED BLOOD COUNT 5.07 10^6/uL (4.30-6.10); WHITE BLOOD COUNT 12.4 10^3/uL (4.0-10.0)
[2021-10-04 11:18] LABS: PLATELET COUNT, AUTOMATED 64 10^3/uL (150-450)
[2021-10-04 12:14] LABS: CALCIUM LEVEL 8.1 MG/DL (8.8-10.2); CREATININE FOR GFR 1.62 MG/DL (0.70-1.30); GLOMERULAR FILTRATION RATE 46.2 (>49); MAGNESIUM LEVEL 2.2 MG/DL (1.8-2.4); PHOSPHORUS LEVEL 2.8 MG/DL (2.5-4.9); POTASSIUM SERUM 4.2 MEQ/L (3.5-5.1)
[2021-10-04] MEDS ORDERED: SODIUM CHLORIDE 0.9% INJ 10 ML SYR IV PRN (12:40)
[2021-10-04] MEDS: propofoL 1,000 MG in IV 1 EA IV SCH ×2 (13:00→18:35)
[2021-10-04 17:49] LABS: HEMATOCRIT 50.7 % (42.0-52.0); HEMOGLOBIN 15.9 g/dl (13.5-17.5); MEAN CORPUSCULAR HEMOGLOBIN 31.8 pg (27.0-33.0); MEAN CORPUSCULAR HGB CONC 31.4 g/dl (32.0-36.5); MEAN CORPUSCULAR VOLUME 101.4 fl (80.0-96.0); WHITE BLOOD COUNT 14.4 10^3/uL (4.0-10.0)
[2021-10-04 17:50] LABS: PLATELET COUNT, AUTOMATED 77 10^3/uL (150-450)
[2021-10-04 18:41] LABS: CALCIUM LEVEL 7.8 MG/DL (8.8-10.2); CREATININE FOR GFR 1.89 MG/DL (0.70-1.30); GLOMERULAR FILTRATION RATE 38.7 (>49); MAGNESIUM LEVEL 2.2 MG/DL (1.8-2.4); PHOSPHORUS LEVEL 3.7 MG/DL (2.5-4.9); POTASSIUM SERUM 4.6 MEQ/L (3.5-5.1)
[2021-10-04] MEDS ORDERED: CALCIUM GLUCONATE 1,000 MG in NS 100 ML IV ONE (20:00)
[2021-10-04] MEDS: SENNA 8.6 MG TAB (SENOKOT) PO SCH (20:37)
[2021-10-04] MEDS: ARGATROBAN 250 MG in D5W 247.5 ML IV SCH (22:40)
[2021-10-04 23:14] LABS: HEMATOCRIT 50.5 % (42.0-52.0); HEMOGLOBIN 15.6 g/dl (13.5-17.5); MEAN CORPUSCULAR HEMOGLOBIN 31.5 pg (27.0-33.0); MEAN CORPUSCULAR HGB CONC 30.9 g/dl (32.0-36.5); MEAN CORPUSCULAR VOLUME 101.8 fl (80.0-96.0); PLATELET COUNT, AUTOMATED 81 10^3/uL (150-450); RED BLOOD COUNT 4.96 10^6/uL (4.30-6.10)
[2021-10-04 23:37] LABS: CALCIUM LEVEL 8.5 MG/DL (8.8-10.2); CREATININE FOR GFR 1.97 MG/DL (0.70-1.30); GLOMERULAR FILTRATION RATE 36.9 (>49); MAGNESIUM LEVEL 2.3 MG/DL (1.8-2.4); PHOSPHORUS LEVEL 3.1 MG/DL (2.5-4.9); POTASSIUM SERUM 4.1 MEQ/L (3.5-5.1)
[2021-10-05] VITALS (60 sets, daily range): BP systolic 79–149; BP diastolic 33–99
[2021-10-05] MEDS: PIPERACILLIN/TAZOBACTAM SOD 4.5 GM in D5W MINI-BAG PLUS 50 ML IV SCH ×3 (02:21→18:33)
[2021-10-05] MEDS: VASOPRESSIN INJ 20 UNITS in NS 499 ML IV SCH ×2 (02:22→08:28)
[2021-10-05 05:01] LABS: HEMOGLOBIN 15.9 g/dl (13.5-17.5); MEAN CORPUSCULAR HEMOGLOBIN 32.2 pg (27.0-33.0); MEAN CORPUSCULAR HGB CONC 31.8 g/dl (32.0-36.5); MEAN CORPUSCULAR VOLUME 101.2 fl (80.0-96.0); RED BLOOD COUNT 4.94 10^6/uL (4.30-6.10)
[2021-10-05] MEDS: CISATRACURIUM 200 MG in NS 480 ML IV SCH ×2 (05:02→08:29)
[2021-10-05] MEDS: MIDAZOLAM HCL 100 MG in D5W 80 ML IV SCH ×3 (05:06→23:01)
[2021-10-05 05:24] LABS: BILIRUBIN,TOTAL 0.7 MG/DL (0.2-1.0); CALCIUM LEVEL 8.4 MG/DL (8.8-10.2); CREATININE FOR GFR 1.97 MG/DL (0.70-1.30); GLOMERULAR FILTRATION RATE 36.9 (>49); MAGNESIUM LEVEL 2.2 MG/DL (1.8-2.4); PHOSPHORUS LEVEL 2.8 MG/DL (2.5-4.9); POTASSIUM SERUM 3.8 MEQ/L (3.5-5.1); TOTAL PROTEIN 7.3 GM/DL (6.4-8.2)
[2021-10-05 05:34] LABS: PLATELET COUNT, AUTOMATED 80 10^3/uL (150-450)
[2021-10-05 05:44] LABS: ABG BASE EXCESS -5.4 (-2.0-2.0); ABG HCO3 21.1 MEQ/L (22.0-26.0); ABG PARTIAL PRESSURE CO2 44.7 mmHg (35.0-45.0); ABG PARTIAL PRESSURE O2 72.2 mmHg (75.0-100.0); ABG TOTAL CO2 22.5 MEQ/L (23.0-31.0); ABG pH (ARTERIAL) 7.292 UNITS (7.350-7.450)
[2021-10-05] MEDS: INSULIN LISPRO (NovoLOG) PER UNIT SC SCH ×3 (06:00→18:00)
[2021-10-05] MEDS: IPRATROPIUM 0.5MG/ALBUTEROL 2.5MG INH SOL UD 3ML (DUONEB) NEB SCH ×4 (07:59→21:32)
[2021-10-05] MEDS: CHLORHEXIDINE GLUCONATE 0.12 % 15ML UDC (PERIDEX ORAL RINSE) MT SCH ×2 (09:18→21:41)
[2021-10-05] MEDS: PANTOPRAZOLE 40MG VIAL IV SCH (09:18)
[2021-10-05] MEDS: MIRALAX *UNIT DOSE* 17GM PACKET PO SCH (09:18)
[2021-10-05] MEDS: LACRILUBE (AKWA TEARS) OPHTH OINT 3.5 GM OU SCH ×3 (09:18→21:41)
[2021-10-05 09:54] LABS: ABG BASE EXCESS -3.5 (-2.0-2.0); ABG HCO3 21.1 MEQ/L (22.0-26.0); ABG O2 SATURATION 94.4 % (95.0-99.0); ABG PARTIAL PRESSURE CO2 37.3 mmHg (35.0-45.0); ABG PARTIAL PRESSURE O2 69.2 mmHg (75.0-100.0); ABG STANDARD HCO3 21.5 MEQ/L (22.0-26.0); ABG TOTAL CO2 22.3 MEQ/L (23.0-31.0); ABG pH (ARTERIAL) 7.371 UNITS (7.350-7.450)
[2021-10-05 10:16] LABS: VENOUS BASE EXCESS -4.8 (-2.0-2.0); VENOUS HCO3 21.9 MEQ/L (23.0-27.0); VENOUS O2 SATURATION 71.7 % (60.0-80.0); VENOUS PARTIAL PRESSURE CO2 46.3 mmHg (38.0-50.0); VENOUS PH 7.293 UNITS (7.330-7.430); VENOUS STANDARD HCO3 19.9 MEQ/L; VENOUS TOTAL CO2 23.3 MEQ/L (24.0-28.0)
[2021-10-05 11:34] LABS: HEMATOCRIT 49.2 % (42.0-52.0); HEMOGLOBIN 15.7 g/dl (13.5-17.5); MEAN CORPUSCULAR HEMOGLOBIN 31.8 pg (27.0-33.0); MEAN CORPUSCULAR HGB CONC 31.9 g/dl (32.0-36.5); MEAN CORPUSCULAR VOLUME 99.6 fl (80.0-96.0); RED BLOOD COUNT 4.94 10^6/uL (4.30-6.10); WHITE BLOOD COUNT 11.4 10^3/uL (4.0-10.0)
[2021-10-05 11:36] LABS: PLATELET COUNT, AUTOMATED 84 10^3/uL (150-450)
[2021-10-05 12:17] LABS: CALCIUM LEVEL 8.4 MG/DL (8.8-10.2); CREATININE FOR GFR 1.95 MG/DL (0.70-1.30); GLOMERULAR FILTRATION RATE 37.3 (>49); MAGNESIUM LEVEL 2.2 MG/DL (1.8-2.4); PHOSPHORUS LEVEL 2.4 MG/DL (2.5-4.9); POTASSIUM SERUM 3.9 MEQ/L (3.5-5.1)
[2021-10-05] MEDS ORDERED: CALCIUM GLUCONATE 1,000 MG in NS 100 ML IV ONE ×2 (13:00→18:00)
[2021-10-05] MEDS: propofoL 1,000 MG in IV 1 EA IV SCH ×2 (13:15→18:48)
[2021-10-05] MEDS: BISACODYL 10 MG SUPP PR SCH (13:45)
[2021-10-05] MEDS: MIDODRINE 5 MG TAB PO SCH ×2 (13:45→16:58)
[2021-10-05] MEDS ORDERED: KCL 20MEQ IN 100ML SWI (KRUN) 20 MEQ in IV 1 EA IV ONE ×2 (14:00)
[2021-10-05] MEDS: fentaNYL CITRATE 1,000 MCG in NS 80 ML IV SCH (14:46)
[2021-10-05] MEDS ORDERED: POTASSIUM PHOSPHATE INJ 15 MMOL in D5W 250 ML IV ONE (15:00)
[2021-10-05 17:29] LABS: HEMOGLOBIN 15.7 g/dl (13.5-17.5); MEAN CORPUSCULAR HEMOGLOBIN 32.3 pg (27.0-33.0); MEAN CORPUSCULAR HGB CONC 32.7 g/dl (32.0-36.5); MEAN CORPUSCULAR VOLUME 98.8 fl (80.0-96.0); RED BLOOD COUNT 4.86 10^6/uL (4.30-6.10); WHITE BLOOD COUNT 9.9 10^3/uL (4.0-10.0)
[2021-10-05 17:31] LABS: PLATELET COUNT, AUTOMATED 86 10^3/uL (150-450)
[2021-10-05] MEDS: NYSTATIN 500,000 U/5 ML SUSP UDC PO SCH (18:32)
[2021-10-05 18:37] LABS: CALCIUM LEVEL 8.6 MG/DL (8.8-10.2); CREATININE FOR GFR 2.18 MG/DL (0.70-1.30); GLOMERULAR FILTRATION RATE 32.8 (>49); MAGNESIUM LEVEL 2.4 MG/DL (1.8-2.4); PHOSPHORUS LEVEL 3.1 MG/DL (2.5-4.9); POTASSIUM SERUM 4.1 MEQ/L (3.5-5.1)
[2021-10-05] MEDS ORDERED: NOREPINEPHRINE BITARTRATE 8 MG in D5W 492 ML IV SCH (18:45)
[2021-10-05] MEDS: SENNA 8.6 MG TAB (SENOKOT) PO SCH (21:41)
[2021-10-05 23:24] LABS: HEMATOCRIT 48.8 % (42.0-52.0); HEMOGLOBIN 15.8 g/dl (13.5-17.5); MEAN CORPUSCULAR HEMOGLOBIN 31.7 pg (27.0-33.0); MEAN CORPUSCULAR HGB CONC 32.4 g/dl (32.0-36.5); PLATELET COUNT, AUTOMATED 97 10^3/uL (150-450); RED BLOOD COUNT 4.98 10^6/uL (4.30-6.10); WHITE BLOOD COUNT 11.5 10^3/uL (4.0-10.0)
[2021-10-06] VITALS (35 sets, daily range): BP systolic 80–166; BP diastolic 51–89
[2021-10-06] MEDS ORDERED: CALCIUM GLUCONATE 1,000 MG in D5W MINI-BAG PLUS 100 ML IV ONE ×2
[2021-10-06] MEDS: NYSTATIN 500,000 U/5 ML SUSP UDC PO SCH ×4 (00:34→18:49)
[2021-10-06] MEDS: NOREPINEPHRINE BITARTRATE 8 MG in D5W 492 ML IV SCH (00:35)
[2021-10-06 00:39] LABS: CALCIUM LEVEL 8.2 MG/DL (8.8-10.2); CREATININE FOR GFR 2.31 MG/DL (0.70-1.30); GLOMERULAR FILTRATION RATE 30.7 (>49); MAGNESIUM LEVEL 2.3 MG/DL (1.8-2.4); PHOSPHORUS LEVEL 2.3 MG/DL (2.5-4.9); POTASSIUM SERUM 3.8 MEQ/L (3.5-5.1)
[2021-10-06] MEDS: propofoL 1,000 MG in IV 1 EA IV SCH ×4 (01:00→23:12)
[2021-10-06] MEDS: ARGATROBAN 250 MG in D5W 247.5 ML IV SCH (01:48)
[2021-10-06] MEDS ORDERED: KCL 20MEQ IN 100ML SWI (KRUN) 20 MEQ in IV 1 EA IV ONE ×6 (02:00→19:00)
[2021-10-06] MEDS: PIPERACILLIN/TAZOBACTAM SOD 4.5 GM in D5W MINI-BAG PLUS 50 ML IV SCH (03:17)
[2021-10-06] MEDS ORDERED: POTASSIUM PHOSPHATE INJ 30 MMOL in D5W 500 ML IV ONE ×2 (04:00→21:00)
[2021-10-06 04:56] LABS: HEMATOCRIT 49.5 % (42.0-52.0); HEMOGLOBIN 16.1 g/dl (13.5-17.5); MEAN CORPUSCULAR HEMOGLOBIN 31.3 pg (27.0-33.0); MEAN CORPUSCULAR HGB CONC 32.5 g/dl (32.0-36.5); MEAN CORPUSCULAR VOLUME 96.1 fl (80.0-96.0); PLATELET COUNT, AUTOMATED 113 10^3/uL (150-450); RED BLOOD COUNT 5.15 10^6/uL (4.30-6.10); WHITE BLOOD COUNT 11.2 10^3/uL (4.0-10.0)
[2021-10-06 05:44] LABS: ABG BASE EXCESS -2.9 (-2.0-2.0); ABG O2 SATURATION 87.4 % (95.0-99.0); ABG PARTIAL PRESSURE CO2 26.9 mmHg (35.0-45.0); ABG PARTIAL PRESSURE O2 50.2 mmHg (75.0-100.0); ABG STANDARD HCO3 21.8 MEQ/L (22.0-26.0); ABG TOTAL CO2 19.8 MEQ/L (23.0-31.0); ABG pH (ARTERIAL) 7.466 UNITS (7.350-7.450)
[2021-10-06 05:50] LABS: ALBUMIN 2.2 GM/DL (3.2-5.2); BILIRUBIN,TOTAL 0.9 MG/DL (0.2-1.0); CALCIUM LEVEL 9.1 MG/DL (8.8-10.2); CREATININE FOR GFR 2.36 MG/DL (0.70-1.30); GLOMERULAR FILTRATION RATE 29.9 (>49); MAGNESIUM LEVEL 2.4 MG/DL (1.8-2.4); PHOSPHORUS LEVEL 2.7 MG/DL (2.5-4.9); POTASSIUM SERUM 4.2 MEQ/L (3.5-5.1); TOTAL PROTEIN 6.8 GM/DL (6.4-8.2)
[2021-10-06] MEDS: INSULIN LISPRO (NovoLOG) PER UNIT SC SCH ×4 (05:59→18:00)
[2021-10-06] MEDS: fentaNYL CITRATE 1,000 MCG in NS 80 ML IV SCH (07:02)
[2021-10-06] MEDS: IPRATROPIUM 0.5MG/ALBUTEROL 2.5MG INH SOL UD 3ML (DUONEB) NEB SCH ×4 (07:42→19:11)
[2021-10-06] MEDS: PANTOPRAZOLE 40MG VIAL IV SCH (08:27)
[2021-10-06] MEDS: MIDODRINE 5 MG TAB PO SCH ×3 (08:28→16:11)
[2021-10-06] MEDS: MIRALAX *UNIT DOSE* 17GM PACKET PO SCH (08:28)
[2021-10-06] MEDS: CHLORHEXIDINE GLUCONATE 0.12 % 15ML UDC (PERIDEX ORAL RINSE) MT SCH ×2 (08:28→20:19)
[2021-10-06] MEDS: LACRILUBE (AKWA TEARS) OPHTH OINT 3.5 GM OU SCH ×3 (08:29→20:21)
[2021-10-06] MEDS: MIDAZOLAM HCL 100 MG in D5W 80 ML IV SCH ×2 (09:00→17:07)
[2021-10-06] MEDS ORDERED: SODIUM CHLORIDE 0.9% INJ 10 ML SYR IV PRN (11:10)
[2021-10-06 12:16] LABS: HEMATOCRIT 50.6 % (42.0-52.0); HEMOGLOBIN 16.5 g/dl (13.5-17.5); MEAN CORPUSCULAR HEMOGLOBIN 31.1 pg (27.0-33.0); MEAN CORPUSCULAR HGB CONC 32.6 g/dl (32.0-36.5); MEAN CORPUSCULAR VOLUME 95.5 fl (80.0-96.0); PLATELET COUNT, AUTOMATED 116 10^3/uL (150-450); WHITE BLOOD COUNT 11.7 10^3/uL (4.0-10.0)
[2021-10-06 12:34] LABS: CALCIUM LEVEL 8.4 MG/DL (8.8-10.2); CREATININE FOR GFR 2.62 MG/DL (0.70-1.30); GLOMERULAR FILTRATION RATE 26.5 (>49); MAGNESIUM LEVEL 2.5 MG/DL (1.8-2.4); PHOSPHORUS LEVEL 2.8 MG/DL (2.5-4.9); POTASSIUM SERUM 3.8 MEQ/L (3.5-5.1)
[2021-10-06] MEDS: BISACODYL 10 MG SUPP PR SCH (12:40)
[2021-10-06] MEDS ORDERED: CALCIUM GLUCONATE 1,000 MG in NS MINI-BAG PLUS 100 ML IV SCH (13:40)
[2021-10-06 17:41] LABS: HEMATOCRIT 47.9 % (42.0-52.0); MEAN CORPUSCULAR HEMOGLOBIN 31.8 pg (27.0-33.0); MEAN CORPUSCULAR HGB CONC 33.4 g/dl (32.0-36.5); MEAN CORPUSCULAR VOLUME 95.2 fl (80.0-96.0); PLATELET COUNT, AUTOMATED 119 10^3/uL (150-450); RED BLOOD COUNT 5.03 10^6/uL (4.30-6.10)
[2021-10-06 18:03] LABS: CALCIUM LEVEL 8.6 MG/DL (8.8-10.2); CREATININE FOR GFR 2.28 MG/DL (0.70-1.30); GLOMERULAR FILTRATION RATE 31.1 (>49); MAGNESIUM LEVEL 2.4 MG/DL (1.8-2.4); PHOSPHORUS LEVEL 2.1 MG/DL (2.5-4.9); POTASSIUM SERUM 3.8 MEQ/L (3.5-5.1)
[2021-10-06] MEDS: SENNA 8.6 MG TAB (SENOKOT) PO SCH (20:20)
[2021-10-06] MEDS: fentaNYL 100 MCG/2 ML INJECTION IV PRN (21:13)
[2021-10-06 23:33] LABS: HEMOGLOBIN 15.4 g/dl (13.5-17.5); MEAN CORPUSCULAR HEMOGLOBIN 31.5 pg (27.0-33.0); MEAN CORPUSCULAR HGB CONC 33.5 g/dl (32.0-36.5); MEAN CORPUSCULAR VOLUME 94.1 fl (80.0-96.0); PLATELET COUNT, AUTOMATED 120 10^3/uL (150-450); RED BLOOD COUNT 4.89 10^6/uL (4.30-6.10); WHITE BLOOD COUNT 11.2 10^3/uL (4.0-10.0)
[2021-10-06 23:50] LABS: CALCIUM LEVEL 8.6 MG/DL (8.8-10.2); CREATININE FOR GFR 2.2 MG/DL (0.70-1.30); GLOMERULAR FILTRATION RATE 32.4 (>49); MAGNESIUM LEVEL 2.3 MG/DL (1.8-2.4); POTASSIUM SERUM 4.1 MEQ/L (3.5-5.1)
[2021-10-06] MEDS ORDERED: CALCIUM GLUCONATE 1,000 MG, VIAL MATE ADAPTER 1 EACH in NS 100 ML IV ONE (23:50)
[2021-10-07] VITALS (39 sets, daily range): BP systolic 87–156; BP diastolic 49–84
[2021-10-07 00:03] LABS: PHOSPHORUS LEVEL 2.8 MG/DL (2.5-4.9)
[2021-10-07] MEDS: propofoL 1,000 MG in IV 1 EA IV SCH ×6 (01:09→22:13)
[2021-10-07] MEDS: NYSTATIN 500,000 U/5 ML SUSP UDC PO SCH ×4 (01:57→18:09)
[2021-10-07] MEDS: MIDAZOLAM HCL 100 MG in D5W 80 ML IV SCH ×3 (02:32→20:18)
[2021-10-07] MEDS: fentaNYL CITRATE 1,000 MCG in NS 80 ML IV SCH ×2 (03:09→19:23)
[2021-10-07 05:11] LABS: HEMATOCRIT 47.5 % (42.0-52.0); HEMOGLOBIN 15.8 g/dl (13.5-17.5); MEAN CORPUSCULAR HEMOGLOBIN 31.3 pg (27.0-33.0); MEAN CORPUSCULAR HGB CONC 33.3 g/dl (32.0-36.5); MEAN CORPUSCULAR VOLUME 94.2 fl (80.0-96.0); PLATELET COUNT, AUTOMATED 122 10^3/uL (150-450); RED BLOOD COUNT 5.04 10^6/uL (4.30-6.10); WHITE BLOOD COUNT 13.8 10^3/uL (4.0-10.0)
[2021-10-07 05:34] LABS: CALCIUM LEVEL 8.8 MG/DL (8.8-10.2); CREATININE FOR GFR 2.15 MG/DL (0.70-1.30); GLOMERULAR FILTRATION RATE 33.3 (>49); MAGNESIUM LEVEL 2.3 MG/DL (1.8-2.4); PHOSPHORUS LEVEL 2.5 MG/DL (2.5-4.9); POTASSIUM SERUM 3.9 MEQ/L (3.5-5.1)
[2021-10-07 05:38] LABS: ALBUMIN 2.2 GM/DL (3.2-5.2); BILIRUBIN,TOTAL 0.7 MG/DL (0.2-1.0); CALCIUM LEVEL 8.5 MG/DL (8.8-10.2); CREATININE FOR GFR 2.18 MG/DL (0.70-1.30); GLOMERULAR FILTRATION RATE 32.8 (>49); POTASSIUM SERUM 3.8 MEQ/L (3.5-5.1); TOTAL PROTEIN 6.4 GM/DL (6.4-8.2)
[2021-10-07] MEDS ORDERED: KCL 20MEQ IN 100ML SWI (KRUN) 20 MEQ in IV 1 EA IV ONE ×2 (05:55)
[2021-10-07] MEDS: INSULIN LISPRO (NovoLOG) PER UNIT SC SCH ×4 (06:00→18:00)
[2021-10-07] MEDS: IPRATROPIUM 0.5MG/ALBUTEROL 2.5MG INH SOL UD 3ML (DUONEB) NEB SCH ×4 (07:13→21:03)
[2021-10-07] MEDS: PANTOPRAZOLE 40MG VIAL IV SCH (08:24)
[2021-10-07] MEDS: CHLORHEXIDINE GLUCONATE 0.12 % 15ML UDC (PERIDEX ORAL RINSE) MT SCH ×2 (08:25→20:20)
[2021-10-07] MEDS ORDERED: MIDODRINE 5 MG TAB FT PRN (08:25)
[2021-10-07] MEDS: LACRILUBE (AKWA TEARS) OPHTH OINT 3.5 GM OU SCH ×3 (08:25→20:21)
[2021-10-07] MEDS: MIRALAX *UNIT DOSE* 17GM PACKET PO SCH (09:00)
[2021-10-07] MEDS: BISACODYL 10 MG SUPP PR SCH (09:00)
[2021-10-07] MEDS: ALPRAZolam 0.5 MG TAB PO SCH ×2 (10:13→20:21)
[2021-10-07] MEDS: QUEtiapine FUMARATE 25 MG TAB NG SCH ×2 (10:13→20:21)
[2021-10-07 10:52] LABS: HEMOGLOBIN 15.7 g/dl (13.5-17.5); MEAN CORPUSCULAR HEMOGLOBIN 31.6 pg (27.0-33.0); MEAN CORPUSCULAR HGB CONC 33.4 g/dl (32.0-36.5); MEAN CORPUSCULAR VOLUME 94.6 fl (80.0-96.0); PLATELET COUNT, AUTOMATED 133 10^3/uL (150-450); RED BLOOD COUNT 4.97 10^6/uL (4.30-6.10); WHITE BLOOD COUNT 19.3 10^3/uL (4.0-10.0)
[2021-10-07 11:12] LABS: CALCIUM LEVEL 8.5 MG/DL (8.8-10.2); CREATININE FOR GFR 2.15 MG/DL (0.70-1.30); GLOMERULAR FILTRATION RATE 33.3 (>49); MAGNESIUM LEVEL 2.2 MG/DL (1.8-2.4); POTASSIUM SERUM 4.2 MEQ/L (3.5-5.1)
[2021-10-07] MEDS ORDERED: POTASSIUM PHOSPHATE INJ 30 MMOL in D5W 250 ML IV ONE (14:00)
[2021-10-07 14:40] LABS: CLOSTRIDIUM DIFFICILE PCR NEGATIVE (NEGATIVE)
[2021-10-07 16:13] LABS: HEMATOCRIT 45.7 % (42.0-52.0); HEMOGLOBIN 15.1 g/dl (13.5-17.5); MEAN CORPUSCULAR HEMOGLOBIN 31.1 pg (27.0-33.0); MEAN CORPUSCULAR VOLUME 94.2 fl (80.0-96.0); PLATELET COUNT, AUTOMATED 133 10^3/uL (150-450); RED BLOOD COUNT 4.85 10^6/uL (4.30-6.10); WHITE BLOOD COUNT 20.9 10^3/uL (4.0-10.0)
[2021-10-07 16:58] LABS: CALCIUM LEVEL 7.8 MG/DL (8.8-10.2); CREATININE FOR GFR 2.34 MG/DL (0.70-1.30); GLOMERULAR FILTRATION RATE 30.2 (>49); MAGNESIUM LEVEL 2.1 MG/DL (1.8-2.4); POTASSIUM SERUM 4.5 MEQ/L (3.5-5.1)
[2021-10-07] MEDS: SENNA 8.6 MG TAB (SENOKOT) PO SCH (20:21)
[2021-10-07] MEDS ORDERED: IPRATROPIUM 0.5MG/ALBUTEROL 2.5MG INH SOL UD 3ML (DUONEB) NEB PRN (21:10)
[2021-10-08] VITALS (42 sets, daily range): BP systolic 81–143; BP diastolic 48–82
[2021-10-08] MEDS: NYSTATIN 500,000 U/5 ML SUSP UDC PO SCH ×5 (00:07→23:48)
[2021-10-08] MEDS: IPRATROPIUM 0.5MG/ALBUTEROL 2.5MG INH SOL UD 3ML (DUONEB) NEB SCH ×6 (00:27→19:11)
[2021-10-08] MEDS: propofoL 1,000 MG in IV 1 EA IV SCH ×5 (01:21→21:03)
[2021-10-08 05:32] LABS: BASO # 0.1 10^3/uL (0.0-0.2); BASO % 0.5 % (0.0-1.0); EOS # 0.2 10^3/uL (0.0-0.5); HEMATOCRIT 41.6 % (42.0-52.0); HEMOGLOBIN 13.8 g/dl (13.5-17.5); LYMPH % 4.9 % (24.0-44.0); MEAN CORPUSCULAR HEMOGLOBIN 31.8 pg (27.0-33.0); MEAN CORPUSCULAR HGB CONC 33.2 g/dl (32.0-36.5); MEAN CORPUSCULAR VOLUME 95.9 fl (80.0-96.0); MONO # 1.5 10^3/uL (0.0-0.8); MONO % 7.6 % (2.0-8.0); NEUTROPHILS # 16.2 10^3/uL (1.5-8.5); NEUTROPHILS % 82.2 % (36.0-66.0); PLATELET COUNT, AUTOMATED 164 10^3/uL (150-450); RED BLOOD COUNT 4.34 10^6/uL (4.30-6.10); WHITE BLOOD COUNT 19.7 10^3/uL (4.0-10.0)
[2021-10-08] MEDS: INSULIN LISPRO (NovoLOG) PER UNIT SC SCH ×5 (05:37→23:49)
[2021-10-08 05:58] LABS: ALBUMIN 1.9 GM/DL (3.2-5.2); BILIRUBIN,TOTAL 0.7 MG/DL (0.2-1.0); CALCIUM LEVEL 8.1 MG/DL (8.8-10.2); CREATININE FOR GFR 3.33 MG/DL (0.70-1.30); GLOMERULAR FILTRATION RATE 20.1 (>49); POTASSIUM SERUM 4.6 MEQ/L (3.5-5.1); TOTAL PROTEIN 6.1 GM/DL (6.4-8.2)
[2021-10-08] MEDS: MIDAZOLAM HCL 100 MG in D5W 80 ML IV SCH (06:14)
[2021-10-08 08:41] LABS: ABG BASE EXCESS -0.6 (-2.0-2.0); ABG HCO3 22.4 MEQ/L (22.0-26.0); ABG O2 SATURATION 94.7 % (95.0-99.0); ABG PARTIAL PRESSURE O2 71.9 mmHg (75.0-100.0); ABG STANDARD HCO3 23.9 MEQ/L (22.0-26.0); ABG TOTAL CO2 23.3 MEQ/L (23.0-31.0); ABG pH (ARTERIAL) 7.462 UNITS (7.350-7.450)
[2021-10-08] MEDS: MIRALAX *UNIT DOSE* 17GM PACKET PO SCH (09:00)
[2021-10-08] MEDS: METOCLOPRAMIDE INJ 10MG/2ML VIAL (J2765 PER 1) IV SCH ×2 (09:06→17:11)
[2021-10-08] MEDS: PANTOPRAZOLE 40MG VIAL IV SCH (09:06)
[2021-10-08] MEDS: CHLORHEXIDINE GLUCONATE 0.12 % 15ML UDC (PERIDEX ORAL RINSE) MT SCH ×2 (09:07→20:06)
[2021-10-08] MEDS: LACRILUBE (AKWA TEARS) OPHTH OINT 3.5 GM OU SCH ×3 (09:07→20:05)
[2021-10-08 11:08] LABS: ABG BASE EXCESS -2.5 (-2.0-2.0); ABG HCO3 22.6 MEQ/L (22.0-26.0); ABG O2 SATURATION 94.3 % (95.0-99.0); ABG PARTIAL PRESSURE CO2 40.4 mmHg (35.0-45.0); ABG PARTIAL PRESSURE O2 78.1 mmHg (75.0-100.0); ABG STANDARD HCO3 22.3 MEQ/L (22.0-26.0); ABG TOTAL CO2 23.9 MEQ/L (23.0-31.0); ABG pH (ARTERIAL) 7.366 UNITS (7.350-7.450)
[2021-10-08] MEDS: fentaNYL CITRATE 1,000 MCG in NS 80 ML IV SCH (16:16)
[2021-10-08] MEDS ORDERED: [UNRECOGNIZED DRUG - OTHER] IV SCH ×8 (18:00)
[2021-10-08] MEDS ORDERED: SODIUM ACETATE IV SCH ×8 (18:00)
[2021-10-08] MEDS ORDERED: SODIUM CHLORIDE IV SCH ×8 (18:00)
[2021-10-08] MEDS: SENNA 8.6 MG TAB (SENOKOT) PO SCH (20:06)
[2021-10-09] VITALS (36 sets, daily range): BP systolic 96–172; BP diastolic 51–86
[2021-10-09] MEDS: IPRATROPIUM 0.5MG/ALBUTEROL 2.5MG INH SOL UD 3ML (DUONEB) NEB SCH ×6 (00:49→20:38)
[2021-10-09] MEDS: METOCLOPRAMIDE INJ 10MG/2ML VIAL (J2765 PER 1) IV SCH ×3 (00:51→18:30)
[2021-10-09] MEDS: propofoL 1,000 MG in IV 1 EA IV SCH ×2 (01:27→06:01)
[2021-10-09] MEDS: MIDAZOLAM INJ 2MG/2ML VIAL (J2250 PER 1MG) IV PRN ×2 (02:17→21:14)
[2021-10-09] MEDS ORDERED: SODIUM CHLORIDE 0.9% 1000ML IV PRN (05:05)
[2021-10-09] MEDS: NYSTATIN 500,000 U/5 ML SUSP UDC PO SCH ×3 (05:43→18:26)
[2021-10-09] MEDS: INSULIN LISPRO (NovoLOG) PER UNIT SC SCH ×2 (05:44→13:48)
[2021-10-09 07:56] LABS: BASO # 0.1 10^3/uL (0.0-0.2); BASO % 0.7 % (0.0-1.0); EOS # 0.2 10^3/uL (0.0-0.5); EOS % 1.4 % (0.0-3.0); HEMATOCRIT 38.1 % (42.0-52.0); HEMOGLOBIN 12.2 g/dl (13.5-17.5); LYMPH # 0.7 10^3/uL (1.5-5.0); LYMPH % 4.5 % (24.0-44.0); MEAN CORPUSCULAR HEMOGLOBIN 31.6 pg (27.0-33.0); MEAN CORPUSCULAR VOLUME 98.7 fl (80.0-96.0); MONO # 1.2 10^3/uL (0.0-0.8); MONO % 7.6 % (2.0-8.0); NEUTROPHILS # 12.3 10^3/uL (1.5-8.5); NEUTROPHILS % 81.6 % (36.0-66.0); PLATELET COUNT, AUTOMATED 209 10^3/uL (150-450); RED BLOOD COUNT 3.86 10^6/uL (4.30-6.10); WHITE BLOOD COUNT 15.1 10^3/uL (4.0-10.0)
[2021-10-09 08:25] LABS: ALBUMIN 1.7 GM/DL (3.2-5.2); BILIRUBIN,TOTAL 0.4 MG/DL (0.2-1.0); CREATININE FOR GFR 4.18 MG/DL (0.70-1.30); GLOMERULAR FILTRATION RATE 15.5 (>49); PHOSPHORUS LEVEL 8.5 MG/DL (2.5-4.9); POTASSIUM SERUM 4.7 MEQ/L (3.5-5.1); TOTAL PROTEIN 5.9 GM/DL (6.4-8.2)
[2021-10-09] MEDS: CHLORHEXIDINE GLUCONATE 0.12 % 15ML UDC (PERIDEX ORAL RINSE) MT SCH ×2 (08:54→20:33)
[2021-10-09] MEDS: PANTOPRAZOLE 40MG VIAL IV SCH (08:55)
[2021-10-09] MEDS: LACRILUBE (AKWA TEARS) OPHTH OINT 3.5 GM OU SCH ×3 (08:55→20:33)
[2021-10-09 08:59] LABS: ABG BASE EXCESS -4.3 (-2.0-2.0); ABG HCO3 21.6 MEQ/L (22.0-26.0); ABG O2 SATURATION 93.7 % (95.0-99.0); ABG PARTIAL PRESSURE CO2 42.6 mmHg (35.0-45.0); ABG PARTIAL PRESSURE O2 72.7 mmHg (75.0-100.0); ABG STANDARD HCO3 20.8 MEQ/L (22.0-26.0); ABG TOTAL CO2 22.9 MEQ/L (23.0-31.0); ABG pH (ARTERIAL) 7.322 UNITS (7.350-7.450)
[2021-10-09] MEDS ORDERED: FAT EMULSION IV 250 ML IV ONE (18:00)
[2021-10-09] MEDS ORDERED: SODIUM CHLORIDE 23.4% INJ 200 MEQ, SODIUM ACETATE INJ 40 MEQ, POTASSIUM CHLORIDE INJ 20... IV SCH ×6 (18:00)
[2021-10-09] MEDS: SENNA 8.6 MG TAB (SENOKOT) PO SCH (20:33)
[2021-10-10] VITALS (36 sets, daily range): BP systolic 94–179; BP diastolic 51–89
[2021-10-10] MEDS: IPRATROPIUM 0.5MG/ALBUTEROL 2.5MG INH SOL UD 3ML (DUONEB) NEB SCH ×5 (00:06→16:03)
[2021-10-10] MEDS: NYSTATIN 500,000 U/5 ML SUSP UDC PO SCH ×4 (00:15→17:28)
[2021-10-10] MEDS: METOCLOPRAMIDE INJ 10MG/2ML VIAL (J2765 PER 1) IV SCH ×3 (00:15→17:27)
[2021-10-10] MEDS: propofoL 1,000 MG in IV 1 EA IV SCH (01:12)
[2021-10-10] MEDS: MIDAZOLAM INJ 2MG/2ML VIAL (J2250 PER 1MG) IV PRN ×7 (01:18→18:41)
[2021-10-10] MEDS: fentaNYL 100 MCG/2 ML INJECTION IV PRN ×4 (02:10→22:28)
[2021-10-10 05:46] LABS: ABG HCO3 20.2 MEQ/L (22.0-26.0); ABG O2 SATURATION 94.3 % (95.0-99.0); ABG PARTIAL PRESSURE CO2 37.9 mmHg (35.0-45.0); ABG PARTIAL PRESSURE O2 72.9 mmHg (75.0-100.0); ABG STANDARD HCO3 20.3 MEQ/L (22.0-26.0); ABG TOTAL CO2 21.3 MEQ/L (23.0-31.0); ABG pH (ARTERIAL) 7.344 UNITS (7.350-7.450)
[2021-10-10 05:59] LABS: BASO # 0.1 10^3/uL (0.0-0.2); BASO % 0.8 % (0.0-1.0); EOS # 0.2 10^3/uL (0.0-0.5); EOS % 1.7 % (0.0-3.0); HEMATOCRIT 40.7 % (42.0-52.0); LYMPH # 0.7 10^3/uL (1.5-5.0); LYMPH % 5.6 % (24.0-44.0); MEAN CORPUSCULAR HEMOGLOBIN 31.1 pg (27.0-33.0); MEAN CORPUSCULAR HGB CONC 31.9 g/dl (32.0-36.5); MEAN CORPUSCULAR VOLUME 97.4 fl (80.0-96.0); MONO # 1.1 10^3/uL (0.0-0.8); MONO % 8.4 % (2.0-8.0); NEUTROPHILS # 10.6 10^3/uL (1.5-8.5); NEUTROPHILS % 79.5 % (36.0-66.0); PLATELET COUNT, AUTOMATED 268 10^3/uL (150-450); RED BLOOD COUNT 4.18 10^6/uL (4.30-6.10); WHITE BLOOD COUNT 13.3 10^3/uL (4.0-10.0)
[2021-10-10 06:39] LABS: ALBUMIN 1.8 GM/DL (3.2-5.2); BILIRUBIN,TOTAL 0.6 MG/DL (0.2-1.0); CALCIUM LEVEL 7.9 MG/DL (8.8-10.2); GLOMERULAR FILTRATION RATE 16.3 (>49); PHOSPHORUS LEVEL 4.7 MG/DL (2.5-4.9); POTASSIUM SERUM 4.3 MEQ/L (3.5-5.1); TOTAL PROTEIN 6.2 GM/DL (6.4-8.2)
[2021-10-10] MEDS: CHLORHEXIDINE GLUCONATE 0.12 % 15ML UDC (PERIDEX ORAL RINSE) MT SCH ×2 (10:38→22:27)
[2021-10-10] MEDS: PANTOPRAZOLE 40MG VIAL IV SCH (10:39)
[2021-10-10] MEDS: LACRILUBE (AKWA TEARS) OPHTH OINT 3.5 GM OU SCH ×3 (10:39→22:27)
[2021-10-10] MEDS: HEPARIN SOD (PORCINE) 5000UNITS/ML 1ML VIAL/SYRINGE SQ SCH ×3 (10:40→22:28)
[2021-10-10] MEDS: SENNA 8.6 MG TAB (SENOKOT) PO SCH (21:00)
[2021-10-11] VITALS (38 sets, daily range): BP systolic 101–146; BP diastolic 55–88
[2021-10-11] MEDS: IPRATROPIUM 0.5MG/ALBUTEROL 2.5MG INH SOL UD 3ML (DUONEB) NEB SCH ×7 (00:17→19:26)
[2021-10-11] MEDS: MIDAZOLAM INJ 2MG/2ML VIAL (J2250 PER 1MG) IV PRN ×5 (00:33→22:44)
[2021-10-11] MEDS: METOCLOPRAMIDE INJ 10MG/2ML VIAL (J2765 PER 1) IV SCH ×3 (00:33→17:12)
[2021-10-11] MEDS: NYSTATIN 500,000 U/5 ML SUSP UDC PO SCH ×4 (00:34→18:32)
[2021-10-11] MEDS: fentaNYL 100 MCG/2 ML INJECTION IV PRN ×5 (05:36→21:01)
[2021-10-11 05:58] LABS: ABG BASE EXCESS -3.2 (-2.0-2.0); ABG HCO3 20.6 MEQ/L (22.0-26.0); ABG O2 SATURATION 94.8 % (95.0-99.0); ABG PARTIAL PRESSURE CO2 33.6 mmHg (35.0-45.0); ABG STANDARD HCO3 21.8 MEQ/L (22.0-26.0); ABG TOTAL CO2 21.7 MEQ/L (23.0-31.0); ABG pH (ARTERIAL) 7.406 UNITS (7.350-7.450)
[2021-10-11] MEDS: HEPARIN SOD (PORCINE) 5000UNITS/ML 1ML VIAL/SYRINGE SQ SCH ×3 (06:37→22:45)
[2021-10-11 06:57] LABS: BASO # 0.1 10^3/uL (0.0-0.2); BASO % 0.9 % (0.0-1.0); EOS # 0.2 10^3/uL (0.0-0.5); EOS % 1.6 % (0.0-3.0); HEMATOCRIT 41.9 % (42.0-52.0); HEMOGLOBIN 13.4 g/dl (13.5-17.5); LYMPH % 9.1 % (24.0-44.0); MEAN CORPUSCULAR HEMOGLOBIN 31.4 pg (27.0-33.0); MEAN CORPUSCULAR VOLUME 98.1 fl (80.0-96.0); MONO # 1.1 10^3/uL (0.0-0.8); MONO % 9.6 % (2.0-8.0); NEUTROPHILS # 8.6 10^3/uL (1.5-8.5); NEUTROPHILS % 75.8 % (36.0-66.0); PLATELET COUNT, AUTOMATED 336 10^3/uL (150-450); RED BLOOD COUNT 4.27 10^6/uL (4.30-6.10); WHITE BLOOD COUNT 11.3 10^3/uL (4.0-10.0)
[2021-10-11 07:56] LABS: ALBUMIN 1.8 GM/DL (3.2-5.2); BILIRUBIN,TOTAL 0.5 MG/DL (0.2-1.0); CREATININE FOR GFR 3.93 MG/DL (0.70-1.30); GLOMERULAR FILTRATION RATE 16.6 (>49); PHOSPHORUS LEVEL 3.4 MG/DL (2.5-4.9); POTASSIUM SERUM 4.3 MEQ/L (3.5-5.1); TOTAL PROTEIN 6.8 GM/DL (6.4-8.2)
[2021-10-11] MEDS: ACETAMINOPHEN 325 MG/10.15 ML UDC GT PRN ×2 (08:28→17:04)
[2021-10-11] MEDS ORDERED: METOPROLOL 5 MG/5 ML VIAL IV PRN (08:40)
[2021-10-11] MEDS: CHLORHEXIDINE GLUCONATE 0.12 % 15ML UDC (PERIDEX ORAL RINSE) MT SCH ×2 (10:33→20:08)
[2021-10-11] MEDS: LACRILUBE (AKWA TEARS) OPHTH OINT 3.5 GM OU SCH ×3 (10:34→21:00)
[2021-10-11] MEDS: D5W 1,000 ML IV SCH ×2 (10:34→18:32)
[2021-10-11] MEDS: PANTOPRAZOLE 40MG VIAL IV SCH (10:34)
[2021-10-11] MEDS: SENNA 8.6 MG TAB (SENOKOT) PO SCH (20:08)
[2021-10-12] VITALS (26 sets, daily range): BP systolic 101–138; BP diastolic 50–92
[2021-10-12] MEDS: IPRATROPIUM 0.5MG/ALBUTEROL 2.5MG INH SOL UD 3ML (DUONEB) NEB SCH ×6 (00:09→19:07)
[2021-10-12] MEDS: NYSTATIN 500,000 U/5 ML SUSP UDC PO SCH ×5 (01:31→23:02)
[2021-10-12] MEDS: METOCLOPRAMIDE INJ 10MG/2ML VIAL (J2765 PER 1) IV SCH ×3 (01:31→16:40)
[2021-10-12] MEDS: MIDAZOLAM INJ 2MG/2ML VIAL (J2250 PER 1MG) IV PRN ×6 (03:00→23:17)
[2021-10-12] MEDS: D5W 1,000 ML IV SCH ×2 (03:00→10:50)
[2021-10-12 04:02] LABS: BASO # 0.1 10^3/uL (0.0-0.2); BASO % 0.8 % (0.0-1.0); EOS # 0.2 10^3/uL (0.0-0.5); EOS % 2.3 % (0.0-3.0); HEMATOCRIT 40.9 % (42.0-52.0); HEMOGLOBIN 12.9 g/dl (13.5-17.5); LYMPH # 1.1 10^3/uL (1.5-5.0); LYMPH % 10.2 % (24.0-44.0); MEAN CORPUSCULAR HGB CONC 31.5 g/dl (32.0-36.5); MEAN CORPUSCULAR VOLUME 98.3 fl (80.0-96.0); MONO # 1.1 10^3/uL (0.0-0.8); MONO % 10.5 % (2.0-8.0); NEUTROPHILS # 7.8 10^3/uL (1.5-8.5); NEUTROPHILS % 73.8 % (36.0-66.0); PLATELET COUNT, AUTOMATED 350 10^3/uL (150-450); RED BLOOD COUNT 4.16 10^6/uL (4.30-6.10); WHITE BLOOD COUNT 10.5 10^3/uL (4.0-10.0)
[2021-10-12 04:21] LABS: ALBUMIN 1.8 GM/DL (3.2-5.2); BILIRUBIN,TOTAL 0.5 MG/DL (0.2-1.0); CALCIUM LEVEL 8.1 MG/DL (8.8-10.2); CREATININE FOR GFR 3.69 MG/DL (0.70-1.30); GLOMERULAR FILTRATION RATE 17.9 (>49); PHOSPHORUS LEVEL 3.8 MG/DL (2.5-4.9); POTASSIUM SERUM 3.9 MEQ/L (3.5-5.1); TOTAL PROTEIN 6.6 GM/DL (6.4-8.2)
[2021-10-12 05:43] LABS: ABG BASE EXCESS -5.6 (-2.0-2.0); ABG HCO3 18.9 MEQ/L (22.0-26.0); ABG O2 SATURATION 96.3 % (95.0-99.0); ABG PARTIAL PRESSURE O2 87.3 mmHg (75.0-100.0); ABG STANDARD HCO3 19.9 MEQ/L (22.0-26.0); ABG TOTAL CO2 19.9 MEQ/L (23.0-31.0); ABG pH (ARTERIAL) 7.362 UNITS (7.350-7.450)
[2021-10-12] MEDS: HEPARIN SOD (PORCINE) 5000UNITS/ML 1ML VIAL/SYRINGE SQ SCH ×3 (06:46→23:02)
[2021-10-12] MEDS: PANTOPRAZOLE 40MG VIAL IV SCH (08:37)
[2021-10-12] MEDS: CHLORHEXIDINE GLUCONATE 0.12 % 15ML UDC (PERIDEX ORAL RINSE) MT SCH ×2 (08:37→20:08)
[2021-10-12] MEDS: LACRILUBE (AKWA TEARS) OPHTH OINT 3.5 GM OU SCH ×3 (08:38→20:08)
[2021-10-12] MEDS ORDERED: NEOSPORIN OINT 0.9 GM PKT TOP ONE (09:30)
[2021-10-12] MEDS: FLUCONAZOLE 100 MG in IV 1 EA IV SCH (10:50)
[2021-10-12] MEDS: fentaNYL 100 MCG/2 ML INJECTION IV PRN ×3 (14:04→23:18)
[2021-10-12] MEDS ORDERED: VANCOMYCIN HCL 1,000 MG, VIAL MATE ADAPTER 1 EACH in NS 250 ML IV ONE (15:00)
[2021-10-12] MEDS ORDERED: PIPERACILLIN/TAZOBACTAM SOD 2.25 GM in D5W MINI-BAG PLUS 50 ML IV SCH (16:00)
[2021-10-12] MEDS: SENNA 8.6 MG TAB (SENOKOT) PO SCH (20:08)
[2021-10-12] MEDS: PIPERACILLIN/TAZOBACTAM SOD 2.25 GM in D5W MINI-BAG PLUS 50 ML IV SCH (23:03)
[2021-10-13] VITALS (15 sets, daily range): BP systolic 102–134; BP diastolic 58–79
[2021-10-13] MEDS: IPRATROPIUM 0.5MG/ALBUTEROL 2.5MG INH SOL UD 3ML (DUONEB) NEB SCH ×6 (00:26→19:15)
[2021-10-13] MEDS: MIDAZOLAM INJ 2MG/2ML VIAL (J2250 PER 1MG) IV PRN (00:48)
[2021-10-13] MEDS: METOCLOPRAMIDE INJ 10MG/2ML VIAL (J2765 PER 1) IV SCH ×3 (00:48→16:55)
[2021-10-13 04:59] LABS: BASO # 0.1 10^3/uL (0.0-0.2); BASO % 0.9 % (0.0-1.0); EOS # 0.3 10^3/uL (0.0-0.5); EOS % 3.1 % (0.0-3.0); HEMOGLOBIN 13.1 g/dl (13.5-17.5); LYMPH # 1.2 10^3/uL (1.5-5.0); LYMPH % 11.6 % (24.0-44.0); MEAN CORPUSCULAR HEMOGLOBIN 30.6 pg (27.0-33.0); MEAN CORPUSCULAR VOLUME 95.8 fl (80.0-96.0); MONO # 1.1 10^3/uL (0.0-0.8); MONO % 10.1 % (2.0-8.0); NEUTROPHILS # 7.6 10^3/uL (1.5-8.5); NEUTROPHILS % 72.2 % (36.0-66.0); PLATELET COUNT, AUTOMATED 355 10^3/uL (150-450); RED BLOOD COUNT 4.28 10^6/uL (4.30-6.10); WHITE BLOOD COUNT 10.5 10^3/uL (4.0-10.0)
[2021-10-13 05:23] LABS: ALBUMIN 1.7 GM/DL (3.2-5.2); BILIRUBIN,TOTAL 0.4 MG/DL (0.2-1.0); CREATININE FOR GFR 3.29 MG/DL (0.70-1.30); GLOMERULAR FILTRATION RATE 20.4 (>49); PHOSPHORUS LEVEL 3.1 MG/DL (2.5-4.9); POTASSIUM SERUM 3.8 MEQ/L (3.5-5.1); TOTAL PROTEIN 7.7 GM/DL (6.4-8.2)
[2021-10-13 06:06] LABS: ABG BASE EXCESS -1.7 (-2.0-2.0); ABG HCO3 23.3 MEQ/L (22.0-26.0); ABG O2 SATURATION 94.5 % (95.0-99.0); ABG PARTIAL PRESSURE CO2 40.6 mmHg (35.0-45.0); ABG PARTIAL PRESSURE O2 72.1 mmHg (75.0-100.0); ABG TOTAL CO2 24.6 MEQ/L (23.0-31.0); ABG pH (ARTERIAL) 7.377 UNITS (7.350-7.450)
[2021-10-13] MEDS: NYSTATIN 500,000 U/5 ML SUSP UDC PO SCH ×3 (06:32→16:55)
[2021-10-13] MEDS: D5W 1,000 ML IV SCH ×2 (06:32→16:56)
[2021-10-13] MEDS: HEPARIN SOD (PORCINE) 5000UNITS/ML 1ML VIAL/SYRINGE SQ SCH ×3 (06:32→22:32)
[2021-10-13] MEDS: LACRILUBE (AKWA TEARS) OPHTH OINT 3.5 GM OU SCH ×3 (08:57→20:23)
[2021-10-13] MEDS: PANTOPRAZOLE 40MG VIAL IV SCH (08:57)
[2021-10-13] MEDS: PIPERACILLIN/TAZOBACTAM SOD 2.25 GM in D5W MINI-BAG PLUS 50 ML IV SCH ×2 (08:57→16:55)
[2021-10-13] MEDS: CHLORHEXIDINE GLUCONATE 0.12 % 15ML UDC (PERIDEX ORAL RINSE) MT SCH (08:57)
[2021-10-13 10:15] LABS: ABG BASE EXCESS -2.2 (-2.0-2.0); ABG HCO3 22.2 MEQ/L (22.0-26.0); ABG O2 SATURATION 97.5 % (95.0-99.0); ABG PARTIAL PRESSURE CO2 37.3 mmHg (35.0-45.0); ABG PARTIAL PRESSURE O2 96.2 mmHg (75.0-100.0); ABG STANDARD HCO3 22.6 MEQ/L (22.0-26.0); ABG TOTAL CO2 23.4 MEQ/L (23.0-31.0); ABG pH (ARTERIAL) 7.393 UNITS (7.350-7.450)
[2021-10-13] MEDS: FLUCONAZOLE 100 MG in IV 1 EA IV SCH (11:13)
[2021-10-13 11:52] LABS: ABG BASE EXCESS -2.2 (-2.0-2.0); ABG HCO3 25.2 MEQ/L (22.0-26.0); ABG O2 SATURATION 96.2 % (95.0-99.0); ABG PARTIAL PRESSURE CO2 54.4 mmHg (35.0-45.0); ABG PARTIAL PRESSURE O2 93.1 mmHg (75.0-100.0); ABG STANDARD HCO3 22.6 MEQ/L (22.0-26.0); ABG TOTAL CO2 26.9 MEQ/L (23.0-31.0); ABG pH (ARTERIAL) 7.284 UNITS (7.350-7.450)
[2021-10-13 14:34] LABS: ABG BASE EXCESS -2.2 (-2.0-2.0); ABG HCO3 22.2 MEQ/L (22.0-26.0); ABG O2 SATURATION 92.9 % (95.0-99.0); ABG PARTIAL PRESSURE CO2 37.2 mmHg (35.0-45.0); ABG PARTIAL PRESSURE O2 66.5 mmHg (75.0-100.0); ABG STANDARD HCO3 22.5 MEQ/L (22.0-26.0); ABG TOTAL CO2 23.3 MEQ/L (23.0-31.0); ABG pH (ARTERIAL) 7.393 UNITS (7.350-7.450)
[2021-10-13] MEDS ORDERED: VANCOMYCIN INTERMITTENT/PULSE DOSING BY CLINICAL PHARMACIST PER DOSING PROTOCOL XX SCH (14:35)
[2021-10-13] MEDS ORDERED: VANCOMYCIN HCL 1,000 MG, VIAL MATE ADAPTER 1 EACH in NS 250 ML IV ONE (15:00)
[2021-10-13] MEDS ORDERED: VANCOMYCIN HCL 750 MG, VIAL MATE ADAPTER 1 EACH in NS 250 ML IV ONE (16:00)
[2021-10-13] MEDS: SENNA 8.6 MG TAB (SENOKOT) PO SCH (20:23)
[2021-10-14] VITALS (11 sets, daily range): BP systolic 106–143; BP diastolic 63–94
[2021-10-14] MEDS: IPRATROPIUM 0.5MG/ALBUTEROL 2.5MG INH SOL UD 3ML (DUONEB) NEB SCH ×7 (00:11→23:58)
[2021-10-14] MEDS: PIPERACILLIN/TAZOBACTAM SOD 2.25 GM in D5W MINI-BAG PLUS 50 ML IV SCH ×2 (00:24→07:48)
[2021-10-14] MEDS: NYSTATIN 500,000 U/5 ML SUSP UDC PO SCH ×2 (00:24→06:34)
[2021-10-14] MEDS: fentaNYL 100 MCG/2 ML INJECTION IV PRN (00:25)
[2021-10-14] MEDS: METOCLOPRAMIDE INJ 10MG/2ML VIAL (J2765 PER 1) IV SCH ×2 (01:59→08:00)
[2021-10-14 05:51] LABS: ABG BASE EXCESS -3.7 (-2.0-2.0); ABG HCO3 22.7 MEQ/L (22.0-26.0); ABG O2 SATURATION 98.8 % (95.0-99.0); ABG PARTIAL PRESSURE CO2 46.2 mmHg (35.0-45.0); ABG PARTIAL PRESSURE O2 149.5 mmHg (75.0-100.0); ABG STANDARD HCO3 21.4 MEQ/L (22.0-26.0); ABG TOTAL CO2 24.1 MEQ/L (23.0-31.0); ABG pH (ARTERIAL) 7.309 UNITS (7.350-7.450)
[2021-10-14] MEDS: HEPARIN SOD (PORCINE) 5000UNITS/ML 1ML VIAL/SYRINGE SQ SCH ×3 (06:34→21:30)
[2021-10-14 07:33] LABS: BASO # 0.1 10^3/uL (0.0-0.2); EOS # 0.3 10^3/uL (0.0-0.5); EOS % 3.7 % (0.0-3.0); HEMATOCRIT 41.7 % (42.0-52.0); HEMOGLOBIN 13.1 g/dl (13.5-17.5); LYMPH % 11.1 % (24.0-44.0); MEAN CORPUSCULAR HEMOGLOBIN 31.5 pg (27.0-33.0); MEAN CORPUSCULAR HGB CONC 31.4 g/dl (32.0-36.5); MEAN CORPUSCULAR VOLUME 100.2 fl (80.0-96.0); MONO % 10.5 % (2.0-8.0); NEUTROPHILS # 6.6 10^3/uL (1.5-8.5); NEUTROPHILS % 72.3 % (36.0-66.0); PLATELET COUNT, AUTOMATED 349 10^3/uL (150-450); RED BLOOD COUNT 4.16 10^6/uL (4.30-6.10); WHITE BLOOD COUNT 9.1 10^3/uL (4.0-10.0)
[2021-10-14] MEDS: LACRILUBE (AKWA TEARS) OPHTH OINT 3.5 GM OU SCH ×3 (08:00→21:00)
[2021-10-14] MEDS: PANTOPRAZOLE 40MG VIAL IV SCH (08:00)
[2021-10-14 08:08] LABS: ALBUMIN 1.9 GM/DL (3.2-5.2); BILIRUBIN,TOTAL 0.4 MG/DL (0.2-1.0); CALCIUM LEVEL 9.2 MG/DL (8.8-10.2); CREATININE FOR GFR 3.13 MG/DL (0.70-1.30); GLOMERULAR FILTRATION RATE 21.6 (>49); PHOSPHORUS LEVEL 5.4 MG/DL (2.5-4.9); POTASSIUM SERUM 4.1 MEQ/L (3.5-5.1); TOTAL PROTEIN 7.9 GM/DL (6.4-8.2); VANCOMYCIN RANDOM 22.5 UG/ML
[2021-10-14 10:15] LABS: ABG BASE EXCESS -3.7 (-2.0-2.0); ABG HCO3 23.3 MEQ/L (22.0-26.0); ABG O2 SATURATION 93.8 % (95.0-99.0); ABG PARTIAL PRESSURE CO2 49.6 mmHg (35.0-45.0); ABG PARTIAL PRESSURE O2 71.9 mmHg (75.0-100.0); ABG STANDARD HCO3 21.3 MEQ/L (22.0-26.0); ABG TOTAL CO2 24.8 MEQ/L (23.0-31.0); ABG pH (ARTERIAL) 7.289 UNITS (7.350-7.450)
[2021-10-14] MEDS ORDERED: VANCOMYCIN HCL 750 MG, VIAL MATE ADAPTER 1 EACH in NS 250 ML IV SCH (12:00)
[2021-10-14] MEDS: FLUCONAZOLE 100 MG TAB PO SCH (12:38)
[2021-10-14] MEDS ORDERED: SODIUM CHLORIDE NASAL 0.65% SPRAY BTL (OCEAN) PRN (15:30)
[2021-10-14] MEDS: SENNA 8.6 MG TAB (SENOKOT) PO SCH (21:00)
[2021-10-15] VITALS (7 sets, daily range): BP systolic 112–142; BP diastolic 70–81
[2021-10-15] MEDS: IPRATROPIUM 0.5MG/ALBUTEROL 2.5MG INH SOL UD 3ML (DUONEB) NEB SCH ×5 (05:39→20:03)
[2021-10-15] MEDS: HEPARIN SOD (PORCINE) 5000UNITS/ML 1ML VIAL/SYRINGE SQ SCH ×3 (06:50→21:07)
[2021-10-15] MEDS: FLUCONAZOLE 100 MG TAB PO SCH (08:55)
[2021-10-15] MEDS: PANTOPRAZOLE 40MG TAB (PROTONIX) PO SCH (08:56)
[2021-10-15] MEDS: LACRILUBE (AKWA TEARS) OPHTH OINT 3.5 GM OU SCH ×3 (09:00→20:23)
[2021-10-15 09:16] LABS: BASO # 0.1 10^3/uL (0.0-0.2); BASO % 0.8 % (0.0-1.0); EOS # 0.3 10^3/uL (0.0-0.5); EOS % 3.6 % (0.0-3.0); HEMATOCRIT 44.5 % (42.0-52.0); HEMOGLOBIN 14.2 g/dl (13.5-17.5); LYMPH # 1.2 10^3/uL (1.5-5.0); LYMPH % 16.1 % (24.0-44.0); MEAN CORPUSCULAR HEMOGLOBIN 31.6 pg (27.0-33.0); MEAN CORPUSCULAR HGB CONC 31.9 g/dl (32.0-36.5); MEAN CORPUSCULAR VOLUME 98.9 fl (80.0-96.0); MONO # 0.7 10^3/uL (0.0-0.8); MONO % 10.1 % (2.0-8.0); NEUTROPHILS # 4.9 10^3/uL (1.5-8.5); NEUTROPHILS % 68.6 % (36.0-66.0); PLATELET COUNT, AUTOMATED 393 10^3/uL (150-450); WHITE BLOOD COUNT 7.2 10^3/uL (4.0-10.0)
[2021-10-15 09:57] LABS: ALBUMIN 2.3 GM/DL (3.2-5.2); BILIRUBIN,TOTAL 0.5 MG/DL (0.2-1.0); CALCIUM LEVEL 9.6 MG/DL (8.8-10.2); CREATININE FOR GFR 2.5 MG/DL (0.70-1.30); PHOSPHORUS LEVEL 3.6 MG/DL (2.5-4.9); POTASSIUM SERUM 3.9 MEQ/L (3.5-5.1); TOTAL PROTEIN 7.7 GM/DL (6.4-8.2)
[2021-10-15 10:03] LABS: ABG HCO3 23.5 MEQ/L (22.0-26.0); ABG O2 SATURATION 89.8 % (95.0-99.0); ABG PARTIAL PRESSURE CO2 42.9 mmHg (35.0-45.0); ABG PARTIAL PRESSURE O2 58.2 mmHg (75.0-100.0); ABG STANDARD HCO3 22.6 MEQ/L (22.0-26.0); ABG TOTAL CO2 24.8 MEQ/L (23.0-31.0); ABG pH (ARTERIAL) 7.357 UNITS (7.350-7.450)
[2021-10-15] MEDS: VANCOMYCIN HCL 500 MG in D5W MINI-BAG PLUS 100 ML IV SCH (16:06)
[2021-10-15] MEDS: SENNA 8.6 MG TAB (SENOKOT) PO SCH (20:13)
[2021-10-16] VITALS (9 sets, daily range): BP systolic 119–166; BP diastolic 26–94
[2021-10-16] MEDS: IPRATROPIUM 0.5MG/ALBUTEROL 2.5MG INH SOL UD 3ML (DUONEB) NEB SCH ×6 (00:21→19:50)
[2021-10-16 03:58] LABS: BASO # 0.1 10^3/uL (0.0-0.2); BASO % 1.1 % (0.0-1.0); EOS # 0.2 10^3/uL (0.0-0.5); EOS % 3.2 % (0.0-3.0); HEMATOCRIT 40.9 % (42.0-52.0); HEMOGLOBIN 12.9 g/dl (13.5-17.5); LYMPH % 13.8 % (24.0-44.0); MEAN CORPUSCULAR HEMOGLOBIN 31.2 pg (27.0-33.0); MEAN CORPUSCULAR HGB CONC 31.5 g/dl (32.0-36.5); MEAN CORPUSCULAR VOLUME 98.8 fl (80.0-96.0); MONO # 0.8 10^3/uL (0.0-0.8); MONO % 10.1 % (2.0-8.0); NEUTROPHILS # 5.2 10^3/uL (1.5-8.5); NEUTROPHILS % 70.9 % (36.0-66.0); PLATELET COUNT, AUTOMATED 374 10^3/uL (150-450); RED BLOOD COUNT 4.14 10^6/uL (4.30-6.10); WHITE BLOOD COUNT 7.4 10^3/uL (4.0-10.0)
[2021-10-16 04:21] LABS: ALBUMIN 2.2 GM/DL (3.2-5.2); BILIRUBIN,TOTAL 0.5 MG/DL (0.2-1.0); C REACTIVE PROTEIN QUANTITATIV 2.9 MG/DL (0.00-0.30); CALCIUM LEVEL 9.3 MG/DL (8.8-10.2); CREATININE FOR GFR 2.33 MG/DL (0.70-1.30); GLOMERULAR FILTRATION RATE 30.4 (>49); MAGNESIUM LEVEL 2.1 MG/DL (1.8-2.4); PHOSPHORUS LEVEL 4.3 MG/DL (2.5-4.9); POTASSIUM SERUM 3.8 MEQ/L (3.5-5.1)
[2021-10-16 04:24] LABS: ERYTHROCYTE SEDIMENTATION RATE 83 mm/hr (0-20)
[2021-10-16] MEDS: HEPARIN SOD (PORCINE) 5000UNITS/ML 1ML VIAL/SYRINGE SQ SCH ×3 (05:43→20:35)
[2021-10-16] MEDS: LACRILUBE (AKWA TEARS) OPHTH OINT 3.5 GM OU SCH ×3 (09:24→22:46)
[2021-10-16] MEDS: PANTOPRAZOLE 40MG TAB (PROTONIX) PO SCH (10:06)
[2021-10-16] MEDS: FLUCONAZOLE 100 MG TAB PO SCH (10:06)
[2021-10-16] MEDS: VANCOMYCIN HCL 500 MG in D5W MINI-BAG PLUS 100 ML IV SCH (14:04)
[2021-10-16] MEDS: SANTYL OINT 30GM TOP SCH (15:02)
[2021-10-16] MEDS: SENNA 8.6 MG TAB (SENOKOT) PO SCH (20:34)
[2021-10-16] MEDS: NYSTATIN 500,000 U/5 ML SUSP UDC SS SCH (20:34)
[2021-10-17] VITALS: BP 125/64
[2021-10-17] MEDS: IPRATROPIUM 0.5MG/ALBUTEROL 2.5MG INH SOL UD 3ML (DUONEB) NEB SCH ×7 (03:31→23:14)
[2021-10-17 03:53] LABS: BASO # 0.1 10^3/uL (0.0-0.2); BASO % 1.2 % (0.0-1.0); EOS # 0.3 10^3/uL (0.0-0.5); EOS % 3.8 % (0.0-3.0); HEMATOCRIT 42.9 % (42.0-52.0); HEMOGLOBIN 13.5 g/dl (13.5-17.5); LYMPH # 1.2 10^3/uL (1.5-5.0); LYMPH % 17.3 % (24.0-44.0); MEAN CORPUSCULAR HEMOGLOBIN 31.3 pg (27.0-33.0); MEAN CORPUSCULAR HGB CONC 31.5 g/dl (32.0-36.5); MEAN CORPUSCULAR VOLUME 99.3 fl (80.0-96.0); MONO # 0.6 10^3/uL (0.0-0.8); MONO % 9.4 % (2.0-8.0); NEUTROPHILS # 4.6 10^3/uL (1.5-8.5); NEUTROPHILS % 67.9 % (36.0-66.0); PLATELET COUNT, AUTOMATED 399 10^3/uL (150-450); RED BLOOD COUNT 4.32 10^6/uL (4.30-6.10); WHITE BLOOD COUNT 6.8 10^3/uL (4.0-10.0)
[2021-10-17 04:00] VITALS: BP 130/84
[2021-10-17 04:38] LABS: ALBUMIN 2.4 GM/DL (3.2-5.2); BILIRUBIN,TOTAL 0.4 MG/DL (0.2-1.0); CALCIUM LEVEL 8.7 MG/DL (8.8-10.2); CREATININE FOR GFR 2.31 MG/DL (0.70-1.30); GLOMERULAR FILTRATION RATE 30.7 (>49); MAGNESIUM LEVEL 1.9 MG/DL (1.8-2.4); POTASSIUM SERUM 3.9 MEQ/L (3.5-5.1); TOTAL PROTEIN 7.1 GM/DL (6.4-8.2)
[2021-10-17] MEDS: HEPARIN SOD (PORCINE) 5000UNITS/ML 1ML VIAL/SYRINGE SQ SCH ×3 (05:16→21:44)
[2021-10-17 06:41] LABS: VANCOMYCIN RANDOM 15.8 UG/ML
[2021-10-17 07:43] VITALS: BP 130/82
[2021-10-17] MEDS ORDERED: VANCOMYCIN HCL 750 MG, VIAL MATE ADAPTER 1 EACH in NS 250 ML IV SCH (08:00)
[2021-10-17] MEDS: NYSTATIN 500,000 U/5 ML SUSP UDC SS SCH ×3 (08:55→16:12)
[2021-10-17] MEDS: LACRILUBE (AKWA TEARS) OPHTH OINT 3.5 GM OU SCH ×3 (08:56→21:00)
[2021-10-17] MEDS: METOPROLOL TART 12.5 MG PER 1/2 TAB PO SCH ×2 (08:56→21:44)
[2021-10-17] MEDS: PANTOPRAZOLE 40MG TAB (PROTONIX) PO SCH (08:56)
[2021-10-17] MEDS: SANTYL OINT 30GM TOP SCH ×2 (08:57→18:40)
[2021-10-17] MEDS: NS 0.45% 1,000 ML IV SCH (11:47)
[2021-10-17 15:54] VITALS: BP 132/81
[2021-10-17 17:42] VITALS: BP 124/83
[2021-10-17] MEDS: SENNA 8.6 MG TAB (SENOKOT) PO SCH (21:44)
[2021-10-18] MEDS: NS 0.45% 1,000 ML IV SCH ×3 (00:41→16:35)
[2021-10-18] MEDS: IPRATROPIUM 0.5MG/ALBUTEROL 2.5MG INH SOL UD 3ML (DUONEB) NEB SCH ×6 (03:01→23:30)
[2021-10-18 06:00] VITALS: BP 123/84
[2021-10-18] MEDS: HEPARIN SOD (PORCINE) 5000UNITS/ML 1ML VIAL/SYRINGE SQ SCH ×3 (06:17→21:00)
[2021-10-18 06:41] LABS: BASO # 0.1 10^3/uL (0.0-0.2); BASO % 1.1 % (0.0-1.0); EOS # 0.2 10^3/uL (0.0-0.5); EOS % 3.4 % (0.0-3.0); HEMATOCRIT 44.2 % (42.0-52.0); HEMOGLOBIN 13.3 g/dl (13.5-17.5); LYMPH # 1.3 10^3/uL (1.5-5.0); LYMPH % 20.6 % (24.0-44.0); MEAN CORPUSCULAR HEMOGLOBIN 29.8 pg (27.0-33.0); MEAN CORPUSCULAR HGB CONC 30.1 g/dl (32.0-36.5); MEAN CORPUSCULAR VOLUME 98.9 fl (80.0-96.0); MONO # 0.7 10^3/uL (0.0-0.8); MONO % 11.6 % (2.0-8.0); NEUTROPHILS # 3.9 10^3/uL (1.5-8.5); NEUTROPHILS % 62.8 % (36.0-66.0); PLATELET COUNT, AUTOMATED 354 10^3/uL (150-450); RED BLOOD COUNT 4.47 10^6/uL (4.30-6.10); WHITE BLOOD COUNT 6.1 10^3/uL (4.0-10.0)
[2021-10-18 07:01] LABS: ALBUMIN 2.5 GM/DL (3.2-5.2); BILIRUBIN,TOTAL 0.5 MG/DL (0.2-1.0); CALCIUM LEVEL 9.4 MG/DL (8.8-10.2); CREATININE FOR GFR 2.18 MG/DL (0.70-1.30); GLOMERULAR FILTRATION RATE 32.8 (>49); MAGNESIUM LEVEL 1.8 MG/DL (1.8-2.4); TOTAL PROTEIN 7.3 GM/DL (6.4-8.2)
[2021-10-18] MEDS: LACRILUBE (AKWA TEARS) OPHTH OINT 3.5 GM OU SCH ×4 (09:00→20:59)
[2021-10-18] MEDS: SANTYL OINT 30GM TOP SCH (10:17)
[2021-10-18] MEDS: METOPROLOL TART 12.5 MG PER 1/2 TAB PO SCH ×2 (10:18→21:00)
[2021-10-18] MEDS: PANTOPRAZOLE 40MG TAB (PROTONIX) PO SCH (10:19)
[2021-10-18] MEDS: SENNA 8.6 MG TAB (SENOKOT) PO SCH (21:00)
[2021-10-19] MEDS: NS 0.45% 1,000 ML IV SCH (02:37)
[2021-10-19] MEDS: IPRATROPIUM 0.5MG/ALBUTEROL 2.5MG INH SOL UD 3ML (DUONEB) NEB SCH ×5 (03:25→19:35)
[2021-10-19 06:00] VITALS: BP 116/75
[2021-10-19 06:37] LABS: BASO # 0.1 10^3/uL (0.0-0.2); EOS # 0.3 10^3/uL (0.0-0.5); EOS % 4.8 % (0.0-3.0); HEMATOCRIT 36.9 % (42.0-52.0); HEMOGLOBIN 12.1 g/dl (13.5-17.5); LYMPH # 1.3 10^3/uL (1.5-5.0); LYMPH % 22.2 % (24.0-44.0); MEAN CORPUSCULAR HGB CONC 32.8 g/dl (32.0-36.5); MEAN CORPUSCULAR VOLUME 97.6 fl (80.0-96.0); MONO # 0.6 10^3/uL (0.0-0.8); MONO % 9.9 % (2.0-8.0); NEUTROPHILS # 3.6 10^3/uL (1.5-8.5); NEUTROPHILS % 61.4 % (36.0-66.0); PLATELET COUNT, AUTOMATED 352 10^3/uL (150-450); RED BLOOD COUNT 3.78 10^6/uL (4.30-6.10); WHITE BLOOD COUNT 5.9 10^3/uL (4.0-10.0)
[2021-10-19] MEDS: HEPARIN SOD (PORCINE) 5000UNITS/ML 1ML VIAL/SYRINGE SQ SCH ×3 (06:41→22:42)
[2021-10-19 06:54] LABS: ALBUMIN 2.4 GM/DL (3.2-5.2); BILIRUBIN,TOTAL 0.5 MG/DL (0.2-1.0); CALCIUM LEVEL 8.8 MG/DL (8.8-10.2); CREATININE FOR GFR 2.01 MG/DL (0.70-1.30); MAGNESIUM LEVEL 1.8 MG/DL (1.8-2.4); POTASSIUM SERUM 3.9 MEQ/L (3.5-5.1); TOTAL PROTEIN 6.8 GM/DL (6.4-8.2)
[2021-10-19] MEDS: PANTOPRAZOLE 40MG TAB (PROTONIX) PO SCH (08:26)
[2021-10-19] MEDS: LACRILUBE (AKWA TEARS) OPHTH OINT 3.5 GM OU SCH ×4 (08:27→21:27)
[2021-10-19] MEDS: SANTYL OINT 30GM TOP SCH (08:27)
[2021-10-19] MEDS: METOPROLOL TART 12.5 MG PER 1/2 TAB PO SCH (08:27)
[2021-10-19 16:00] VITALS: BP 123/81
[2021-10-19] MEDS: METOPROLOL TART 25 MG TABLET PO SCH ×2 (16:30→21:00)
[2021-10-19] MEDS: SENNA 8.6 MG TAB (SENOKOT) PO SCH (21:27)
[2021-10-20] MEDS: IPRATROPIUM 0.5MG/ALBUTEROL 2.5MG INH SOL UD 3ML (DUONEB) NEB SCH ×6 (04:00→19:09)
[2021-10-20 06:00] VITALS: BP 111/65
[2021-10-20 06:24] LABS: BASO # 0.1 10^3/uL (0.0-0.2); BASO % 1.3 % (0.0-1.0); EOS # 0.2 10^3/uL (0.0-0.5); EOS % 3.7 % (0.0-3.0); HEMATOCRIT 40.2 % (42.0-52.0); HEMOGLOBIN 12.6 g/dl (13.5-17.5); LYMPH # 1.1 10^3/uL (1.5-5.0); MEAN CORPUSCULAR HEMOGLOBIN 31.3 pg (27.0-33.0); MEAN CORPUSCULAR HGB CONC 31.3 g/dl (32.0-36.5); MEAN CORPUSCULAR VOLUME 99.8 fl (80.0-96.0); MONO # 0.6 10^3/uL (0.0-0.8); MONO % 10.8 % (2.0-8.0); NEUTROPHILS # 3.4 10^3/uL (1.5-8.5); NEUTROPHILS % 63.3 % (36.0-66.0); RED BLOOD COUNT 4.03 10^6/uL (4.30-6.10); WHITE BLOOD COUNT 5.4 10^3/uL (4.0-10.0)
[2021-10-20] MEDS: HEPARIN SOD (PORCINE) 5000UNITS/ML 1ML VIAL/SYRINGE SQ SCH ×3 (06:33→21:42)
[2021-10-20 07:02] LABS: ALBUMIN 2.5 GM/DL (3.2-5.2); BILIRUBIN,TOTAL 0.4 MG/DL (0.2-1.0); CALCIUM LEVEL 8.8 MG/DL (8.8-10.2); CREATININE FOR GFR 1.9 MG/DL (0.70-1.30); GLOMERULAR FILTRATION RATE 38.4 (>49); MAGNESIUM LEVEL 1.7 MG/DL (1.8-2.4); TOTAL PROTEIN 7.8 GM/DL (6.4-8.2)
[2021-10-20] MEDS: LACRILUBE (AKWA TEARS) OPHTH OINT 3.5 GM OU SCH ×3 (09:00→21:00)
[2021-10-20] MEDS: PANTOPRAZOLE 40MG TAB (PROTONIX) PO SCH (09:22)
[2021-10-20] MEDS: METOPROLOL TART 25 MG TABLET PO SCH ×3 (09:22→21:00)
[2021-10-20] MEDS: SANTYL OINT 30GM TOP SCH (09:23)
[2021-10-20] MEDS ORDERED: LIDOCAINE 5% OINT 30GM TUBE TOP SCH (13:55)
[2021-10-20] MEDS: SENNA 8.6 MG TAB (SENOKOT) PO SCH (21:00)
[2021-10-21] MEDS: IPRATROPIUM 0.5MG/ALBUTEROL 2.5MG INH SOL UD 3ML (DUONEB) NEB SCH ×6 (03:57→19:01)
[2021-10-21] MEDS: HEPARIN SOD (PORCINE) 5000UNITS/ML 1ML VIAL/SYRINGE SQ SCH ×3 (05:36→21:11)
[2021-10-21 06:00] VITALS: BP 111/76
[2021-10-21 06:01] LABS: BASO # 0.1 10^3/uL (0.0-0.2); EOS # 0.3 10^3/uL (0.0-0.5); HEMATOCRIT 37.4 % (42.0-52.0); HEMOGLOBIN 11.8 g/dl (13.5-17.5); LYMPH # 1.2 10^3/uL (1.5-5.0); MEAN CORPUSCULAR HGB CONC 31.6 g/dl (32.0-36.5); MEAN CORPUSCULAR VOLUME 98.2 fl (80.0-96.0); MONO # 0.7 10^3/uL (0.0-0.8); MONO % 12.8 % (2.0-8.0); NEUTROPHILS # 2.9 10^3/uL (1.5-8.5); NEUTROPHILS % 56.4 % (36.0-66.0); PLATELET COUNT, AUTOMATED 301 10^3/uL (150-450); RED BLOOD COUNT 3.81 10^6/uL (4.30-6.10); WHITE BLOOD COUNT 5.2 10^3/uL (4.0-10.0)
[2021-10-21 06:40] LABS: ALBUMIN 2.4 GM/DL (3.2-5.2); BILIRUBIN,TOTAL 0.4 MG/DL (0.2-1.0); CALCIUM LEVEL 9.2 MG/DL (8.8-10.2); CREATININE FOR GFR 1.86 MG/DL (0.70-1.30); GLOMERULAR FILTRATION RATE 39.4 (>49); MAGNESIUM LEVEL 1.7 MG/DL (1.8-2.4); POTASSIUM SERUM 3.7 MEQ/L (3.5-5.1); TOTAL PROTEIN 7.1 GM/DL (6.4-8.2)
[2021-10-21] MEDS ORDERED: MAGNESIUM OXIDE 400MG TAB (MAG-OX) PO ONE (07:20)
[2021-10-21] MEDS: LACRILUBE (AKWA TEARS) OPHTH OINT 3.5 GM OU SCH ×3 (09:00→21:12)
[2021-10-21] MEDS: PANTOPRAZOLE 40MG TAB (PROTONIX) PO SCH (09:02)
[2021-10-21] MEDS: SANTYL OINT 30GM TOP SCH (09:03)
[2021-10-21] MEDS: METOPROLOL TART 25 MG TABLET PO SCH ×3 (09:06→21:00)
[2021-10-21] MEDS ORDERED: LIDOCAINE 5% OINT 30GM TUBE TOP ONE (13:55)
[2021-10-21 19:47] VITALS: BP 117/82
[2021-10-21] MEDS: SENNA 8.6 MG TAB (SENOKOT) PO SCH (21:06)
[2021-10-22] MEDS: IPRATROPIUM 0.5MG/ALBUTEROL 2.5MG INH SOL UD 3ML (DUONEB) NEB SCH ×6 (04:00→18:50)
[2021-10-22] MEDS: HEPARIN SOD (PORCINE) 5000UNITS/ML 1ML VIAL/SYRINGE SQ SCH ×3 (05:58→20:29)
[2021-10-22 06:00] VITALS: BP 108/77
[2021-10-22 06:15] LABS: BASO # 0.1 10^3/uL (0.0-0.2); BASO % 1.1 % (0.0-1.0); EOS # 0.2 10^3/uL (0.0-0.5); EOS % 4.1 % (0.0-3.0); HEMATOCRIT 37.1 % (42.0-52.0); HEMOGLOBIN 12.1 g/dl (13.5-17.5); LYMPH # 1.1 10^3/uL (1.5-5.0); LYMPH % 25.4 % (24.0-44.0); MEAN CORPUSCULAR HEMOGLOBIN 31.8 pg (27.0-33.0); MEAN CORPUSCULAR HGB CONC 32.6 g/dl (32.0-36.5); MEAN CORPUSCULAR VOLUME 97.4 fl (80.0-96.0); MONO # 0.6 10^3/uL (0.0-0.8); MONO % 12.5 % (2.0-8.0); NEUTROPHILS # 2.5 10^3/uL (1.5-8.5); NEUTROPHILS % 56.2 % (36.0-66.0); PLATELET COUNT, AUTOMATED 280 10^3/uL (150-450); RED BLOOD COUNT 3.81 10^6/uL (4.30-6.10); WHITE BLOOD COUNT 4.4 10^3/uL (4.0-10.0)
[2021-10-22 06:41] LABS: ALBUMIN 2.4 GM/DL (3.2-5.2); BILIRUBIN,TOTAL 0.4 MG/DL (0.2-1.0); CREATININE FOR GFR 1.8 MG/DL (0.70-1.30); GLOMERULAR FILTRATION RATE 40.9 (>49); MAGNESIUM LEVEL 1.6 MG/DL (1.8-2.4); POTASSIUM SERUM 3.8 MEQ/L (3.5-5.1); TOTAL PROTEIN 6.3 GM/DL (6.4-8.2)
[2021-10-22] MEDS: PANTOPRAZOLE 40MG TAB (PROTONIX) PO SCH (08:57)
[2021-10-22] MEDS: METOPROLOL TART 25 MG TABLET PO SCH ×3 (08:58→20:28)
[2021-10-22] MEDS: LACRILUBE (AKWA TEARS) OPHTH OINT 3.5 GM OU SCH ×3 (09:00→20:26)
[2021-10-22] MEDS: SANTYL OINT 30GM TOP SCH (09:54)
[2021-10-22] MEDS: SENNA 8.6 MG TAB (SENOKOT) PO SCH (20:27)
[2021-10-23 06:00] VITALS: BP 117/79
[2021-10-23] MEDS: HEPARIN SOD (PORCINE) 5000UNITS/ML 1ML VIAL/SYRINGE SQ SCH ×2 (06:00→13:36)
[2021-10-23] MEDS: IPRATROPIUM 0.5MG/ALBUTEROL 2.5MG INH SOL UD 3ML (DUONEB) NEB SCH ×3 (07:20→15:14)
[2021-10-23] MEDS: LACRILUBE (AKWA TEARS) OPHTH OINT 3.5 GM OU SCH ×2 (09:00→15:02)
[2021-10-23 09:01] VITALS: BP 117/79
[2021-10-23] MEDS: METOPROLOL TART 25 MG TABLET PO SCH ×2 (09:01→15:25)
[2021-10-23] MEDS: SANTYL OINT 30GM TOP SCH (09:01)
[2021-10-23] MEDS: PANTOPRAZOLE 40MG TAB (PROTONIX) PO SCH (09:01)
[2021-10-23] MEDS ORDERED: COMBAER6 INH (15:18)
[2021-10-23] MEDS ORDERED: OMEP40CA4 PO (15:18)
[2021-10-23] MEDS ORDERED: SANT250O8 TOP (15:18)
[2021-10-23] MEDS ORDERED: METO1TAB87 PO (15:18)
== END 2021-10-23 16:28 | disposition home or self-care (01) | DRG 720 ==
LOC: M ED 18:59 → M ED INP 09-28 01:03 → ENRESERV 09-28 08:21 → M ICU 09-28 08:25 → M PCU 10-16 09:50 → M MSPAV 10-17 17:42
PROVIDERS: ADMIT Family Medicine; ATTEND Internal Medicine
PROC: B246ZZZ Ultrasonography of Right and Left Heart (ICD-10-PCS; 2021-09-28)
PROC: 0BH17EZ Insertion of Endotracheal Airway into Trachea, Via Natural or Artificial Opening (ICD-10-PCS; 2021-09-28)
PROC: 02HV33Z Insertion of Infusion Device into Superior Vena Cava, Percutaneous Approach (ICD-10-PCS; 2021-09-28)
PROC: 05HN33Z Insertion of Infusion Device into Left Internal Jugular Vein, Percutaneous Approach (ICD-10-PCS; 2021-09-28)
PROC: 05HM33Z Insertion of Infusion Device into Right Internal Jugular Vein, Percutaneous Approach (ICD-10-PCS; 2021-09-28)
PROC: 04HK33Z Insertion of Infusion Device into Right Femoral Artery, Percutaneous Approach (ICD-10-PCS; 2021-09-28)
PROC: B246ZZZ Ultrasonography of Right and Left Heart (ICD-10-PCS; principal; 2021-10-03)
PROC: 5A1955Z Respiratory Ventilation, Greater than 96 Consecutive Hours (ICD-10-PCS; 2021-10-05)
PROC: 5A1D90Z Performance of Urinary Filtration, Continuous, Greater than 18 hours Per Day (ICD-10-PCS; 2021-10-08)
PROC: 0JB90ZZ Excision of Buttock Subcutaneous Tissue and Fascia, Open Approach (ICD-10-PCS; 2021-10-20)
DX: A41.9 Sepsis, unspecified organism (principal); N17.0 Acute kidney failure with tubular necrosis; K72.00 Acute and subacute hepatic failure without coma; I21.A1 Myocardial infarction type 2; J96.21 Acute and chronic respiratory failure with hypoxia; R57.0 Cardiogenic shock; E87.4 Mixed disorder of acid-base balance; E72.20 Disorder of urea cycle metabolism, unspecified; G72.81 Critical illness myopathy; J69.0 Pneumonitis due to inhalation of food and vomit; R65.21 Severe sepsis with septic shock; J96.22 Acute and chronic respiratory failure with hypercapnia; I47.2 Ventricular tachycardia; L89.320 Pressure ulcer of left buttock, unstageable; E87.2 Acidosis; I11.0 Hypertensive heart disease with heart failure; I27.20 Pulmonary hypertension, unspecified; D68.59 Other primary thrombophilia; I50.812 Chronic right heart failure; E87.1 Hypo-osmolality and hyponatremia; E87.5 Hyperkalemia; E66.2 Morbid (severe) obesity with alveolar hypoventilation; Z68.42 Body mass index [BMI] 45.0-49.9, adult; D75.1 Secondary polycythemia; E83.51 Hypocalcemia; E87.70 Fluid overload, unspecified; I47.1 Supraventricular tachycardia; I48.91 Unspecified atrial fibrillation; I48.92 Unspecified atrial flutter; E78.5 Hyperlipidemia, unspecified; K21.9 Gastro-esophageal reflux disease without esophagitis; M54.9 Dorsalgia, unspecified; G89.29 Other chronic pain; N13.6 Pyonephrosis; R74.01 Elevation of levels of liver transaminase levels; E87.6 Hypokalemia; K20.90 Esophagitis, unspecified without bleeding; Z20.822 Contact with and (suspected) exposure to COVID-19; Z79.82 Long term (current) use of aspirin; Z79.899 Other long term (current) drug therapy; Z88.1 Allergy status to other antibiotic agents; D72.829 Elevated white blood cell count, unspecified; R73.9 Hyperglycemia, unspecified; K59.00 Constipation, unspecified; E87.0 Hyperosmolality and hypernatremia; B37.0 Candidal stomatitis; N12 Tubulo-interstitial nephritis, not specified as acute or chronic; T80.212A Local infection due to central venous catheter, initial encounter

== ENCOUNTER → 2021-10-28 | Outpatient (CLI) | payer BC ==
[~2021-10-28] MED LIST changes: +CEPH500C PO; +COMBAER6 INH; -HEPARIN SOD (PORCINE) 5000UNITS/ML 1ML VIAL/SYRINGE SC SCH; +HYDR-4514 PO; +METO1TAB87 PO; +OMEP40CA4 PO; +ONDA8TAB8 PO; +SANT250O8 TOP; +TAMS1CAP17 PO; +med rec comment
== END ==
LOC: M SLEEP 20:00
PROVIDERS: ATTEND Internal Medicine Pulmonary Disease
DX: G47.33 Obstructive sleep apnea (adult) (pediatric) (principal); I27.20 Pulmonary hypertension, unspecified

== ENCOUNTER → 2021-12-31 | Outpatient (REF) | payer BC | LOC: M LAB REF 11:32 | PROVIDERS: ATTEND Family Medicine | DX: I12.9 Hypertensive chronic kidney disease with stage 1 through stage 4 chronic kidney disease, or unspecified chronic kidney disease (principal); N18.9 Chronic kidney disease, unspecified ==

== ENCOUNTER → 2022-02-18 | Outpatient (CLI) | payer BC | LOC: M PAIN 13:15 | PROVIDERS: ATTEND Anesthesiology | DX: M48.061 Spinal stenosis, lumbar region without neurogenic claudication (principal); M51.16 Intervertebral disc disorders with radiculopathy, lumbar region; G89.29 Other chronic pain; I10 Essential (primary) hypertension; Z87.891 Personal history of nicotine dependence; Z88.1 Allergy status to other antibiotic agents; Z88.8 Allergy status to other drugs, medicaments and biological substances; Z91.038 Other insect allergy status; Z79.899 Other long term (current) drug therapy ==

== ENCOUNTER → 2022-03-25 | Outpatient (CLI) | payer BC | LOC: M PAIN 14:00 | PROVIDERS: ATTEND Anesthesiology | DX: M51.16 Intervertebral disc disorders with radiculopathy, lumbar region (principal); G89.29 Other chronic pain; I10 Essential (primary) hypertension; Z87.891 Personal history of nicotine dependence; Z88.1 Allergy status to other antibiotic agents; Z91.038 Other insect allergy status; Z79.01 Long term (current) use of anticoagulants; Z79.899 Other long term (current) drug therapy ==

== ENCOUNTER → 2022-04-08 | Outpatient (CLI) | payer BC | LOC: M PLAIMG 13:56 | PROVIDERS: ATTEND Anesthesiology | DX: M51.16 Intervertebral disc disorders with radiculopathy, lumbar region (principal); M47.816 Spondylosis without myelopathy or radiculopathy, lumbar region; M48.061 Spinal stenosis, lumbar region without neurogenic claudication ==

== ENCOUNTER → 2022-04-09 | Outpatient (CLI) | payer BC | LOC: M CARPUL 10:11 | PROVIDERS: ATTEND Internal Medicine Pulmonary Disease | DX: Z87.891 Personal history of nicotine dependence (principal) ==

== ENCOUNTER → 2022-04-30 | Outpatient (CLI) | payer BC | LOC: M PAIN 14:45 → M TMPAIN 14:45 | PROVIDERS: ATTEND Anesthesiology | DX: M48.061 Spinal stenosis, lumbar region without neurogenic claudication (principal); L98.429 Non-pressure chronic ulcer of back with unspecified severity; I25.10 Atherosclerotic heart disease of native coronary artery without angina pectoris; I10 Essential (primary) hypertension; Z87.891 Personal history of nicotine dependence; Z88.1 Allergy status to other antibiotic agents; Z88.8 Allergy status to other drugs, medicaments and biological substances; Z91.038 Other insect allergy status; Z79.01 Long term (current) use of anticoagulants; Z79.899 Other long term (current) drug therapy ==

== ENCOUNTER → 2022-08-19 | Outpatient (CLI) | payer BC | LOC: M PAIN 11:00 | PROVIDERS: ATTEND Anesthesiology | DX: M48.062 Spinal stenosis, lumbar region with neurogenic claudication (principal); M51.16 Intervertebral disc disorders with radiculopathy, lumbar region; I10 Essential (primary) hypertension; E66.01 Morbid (severe) obesity due to excess calories; R73.01 Impaired fasting glucose; E78.5 Hyperlipidemia, unspecified; I87.2 Venous insufficiency (chronic) (peripheral); Z87.891 Personal history of nicotine dependence; Z68.35 Body mass index [BMI] 35.0-35.9, adult; Z79.01 Long term (current) use of anticoagulants; Z79.899 Other long term (current) drug therapy; Z88.8 Allergy status to other drugs, medicaments and biological substances; Z91.048 Other nonmedicinal substance allergy status ==

== ENCOUNTER → 2022-09-07 | Outpatient (REF) | payer BC | LOC: M SFHCWOUN 13:21 | PROVIDERS: ATTEND Surgery | DX: L81.9 Disorder of pigmentation, unspecified (principal) ==

== ENCOUNTER → 2022-09-25 | Outpatient (CLI) | payer BC | LOC: M PAIN 15:45 | PROVIDERS: ATTEND Anesthesiology | DX: M48.062 Spinal stenosis, lumbar region with neurogenic claudication (principal); M51.16 Intervertebral disc disorders with radiculopathy, lumbar region; I10 Essential (primary) hypertension; Z87.891 Personal history of nicotine dependence; Z88.1 Allergy status to other antibiotic agents; Z88.8 Allergy status to other drugs, medicaments and biological substances; Z91.038 Other insect allergy status; Z79.01 Long term (current) use of anticoagulants; Z79.899 Other long term (current) drug therapy ==

== ENCOUNTER → 2022-10-30 | Outpatient (CLI) | payer BC ==
[~2022-10-30] MED LIST changes: +ISOVUE-M 300 61% 15ML VIAL As Ordered ONE; +LIDOCAINE 1% SDV 30ML VIAL As Ordered ONE; +diazePAM 5MG TABLET As Ordered ONE; +methylPREDNISolone SUSP 40MG/ML 1ML VIAL (DEPO MEDROL) As Ordered ONE; +oxyCODONE 5MG TAB As Ordered ONE
== END ==
LOC: M PAIN 09:30
PROVIDERS: ATTEND Anesthesiology
DX: M51.17 Intervertebral disc disorders with radiculopathy, lumbosacral region (principal); G89.29 Other chronic pain; I10 Essential (primary) hypertension; Z87.891 Personal history of nicotine dependence; Z88.1 Allergy status to other antibiotic agents; Z91.038 Other insect allergy status; Z79.01 Long term (current) use of anticoagulants; Z79.899 Other long term (current) drug therapy
CPT/HCPCS: 62323; J1030; Q9967

== ENCOUNTER → 2022-12-01 | Outpatient (CLI) | payer BC ==
[~2022-12-01] MED LIST changes: -ISOVUE-M 300 61% 15ML VIAL As Ordered ONE; -LIDOCAINE 1% SDV 30ML VIAL As Ordered ONE; -diazePAM 5MG TABLET As Ordered ONE; -methylPREDNISolone SUSP 40MG/ML 1ML VIAL (DEPO MEDROL) As Ordered ONE; -oxyCODONE 5MG TAB As Ordered ONE
== END ==
LOC: M PAIN 09:15
PROVIDERS: ATTEND Nurse Practitioner Family
DX: M25.511 Pain in right shoulder (principal); G89.29 Other chronic pain; I10 Essential (primary) hypertension; Z87.891 Personal history of nicotine dependence; Z88.1 Allergy status to other antibiotic agents; Z91.038 Other insect allergy status; Z79.01 Long term (current) use of anticoagulants; Z79.899 Other long term (current) drug therapy

== ENCOUNTER → 2022-12-24 | Outpatient (CLI) | payer BC | LOC: M RAD 09:54 | PROVIDERS: ATTEND Orthopaedic Surgery | DX: M54.6 Pain in thoracic spine (principal); M54.2 Cervicalgia; M75.91 Shoulder lesion, unspecified, right shoulder; M19.011 Primary osteoarthritis, right shoulder | CPT/HCPCS: 78315; A9503 ==

== ENCOUNTER → 2022-12-25 | Outpatient (CLI) | payer BC | LOC: M PAIN 13:45 | PROVIDERS: ATTEND Nurse Practitioner Family | DX: M25.511 Pain in right shoulder (principal); G89.29 Other chronic pain; I10 Essential (primary) hypertension; E66.01 Morbid (severe) obesity due to excess calories; R73.01 Impaired fasting glucose; E78.5 Hyperlipidemia, unspecified; I87.2 Venous insufficiency (chronic) (peripheral); M47.816 Spondylosis without myelopathy or radiculopathy, lumbar region; Z87.891 Personal history of nicotine dependence; Z79.01 Long term (current) use of anticoagulants; Z79.899 Other long term (current) drug therapy; Z88.8 Allergy status to other drugs, medicaments and biological substances; Z91.048 Other nonmedicinal substance allergy status; Z68.33 Body mass index [BMI] 33.0-33.9, adult ==

== ENCOUNTER → 2023-04-23 | Outpatient (CLI) | payer BC ==
[2023-04-23 13:33] LABS: BASO % 0.6 % (0.0-1.0); EOS # 0.2 10^3/uL (0.0-0.5); EOS % 2.9 % (0.0-3.0); HEMATOCRIT 48.2 % (42.0-52.0); HEMOGLOBIN 15.7 g/dl (13.5-17.5); LYMPH # 1.7 10^3/uL (1.5-5.0); LYMPH % 27.2 % (24.0-44.0); MEAN CORPUSCULAR HEMOGLOBIN 31.9 pg (27.0-33.0); MEAN CORPUSCULAR HGB CONC 32.6 g/dl (32.0-36.5); MONO # 0.6 10^3/uL (0.0-0.8); MONO % 10.3 % (2.0-8.0); NEUTROPHILS # 3.6 10^3/uL (1.5-8.5); NEUTROPHILS % 58.4 % (36.0-66.0); PLATELET COUNT, AUTOMATED 209 10^3/uL (150-450); RED BLOOD COUNT 4.92 10^6/uL (4.30-6.10); WHITE BLOOD COUNT 6.2 10^3/uL (4.0-10.0)
[2023-04-23 13:50] LABS: INR 1.05; PROTHROMBIN TIME 13.4 SECONDS (12.5-14.5)
[2023-04-23 14:10] LABS: ALBUMIN 3.9 G/DL (3.2-5.2); ALKALINE PHOSPHATASE 55 U/L (46-116); ALT/SGPT 34 U/L (7.0-40); AST/SGOT 21 U/L (<34); BILIRUBIN,TOTAL 0.5 MG/DL (0.3-1.2); BLOOD UREA NITROGEN 27 MG/DL (9-23); CALCIUM LEVEL 9.3 MG/DL (8.3-10.6); CARBON DIOXIDE LEVEL 28 MMOL/L (20-31); CHLORIDE LEVEL 106 MMOL/L (98-107); CHOLESTEROL LEVEL 173 MG/DL (<200); CHOLESTEROL RISK RATIO 2.42 (<5); CREATININE FOR GFR 1.14 MG/DL (0.70-1.30); GLOMERULAR FILTRATION RATE > 60.0 (>49); GLUCOSE, FASTING 96 MG/DL (74-106); HDL CHOLESTEROL 71.2 MG/DL (>40); LDL CHOLESTEROL 86.4 MG/DL (<100); NON-HDL-C 101.8 MG/DL; POTASSIUM SERUM 4.3 MMOL/L (3.5-5.1); SODIUM LEVEL 142 MMOL/L (136-145); TOTAL PROTEIN 6.9 G/DL (5.7-8.2); TRIGLYCERIDES LEVEL 77 MG/DL (<150)
== END ==
LOC: M PLALAB 09:56
PROVIDERS: ATTEND Internal Medicine Cardiovascular Disease
DX: I50.42 Chronic combined systolic (congestive) and diastolic (congestive) heart failure (principal); R94.31 Abnormal electrocardiogram [ECG] [EKG]; I48.3 Typical atrial flutter; I34.0 Nonrheumatic mitral (valve) insufficiency; I11.0 Hypertensive heart disease with heart failure

== ENCOUNTER → 2023-04-27 | Outpatient (CLI) | payer BC | LOC: M PAIN 14:45 | PROVIDERS: ATTEND Nurse Practitioner Family | DX: M51.16 Intervertebral disc disorders with radiculopathy, lumbar region (principal); G89.29 Other chronic pain; Z80.8 Family history of malignant neoplasm of other organs or systems; Z80.49 Family history of malignant neoplasm of other genital organs; Z87.891 Personal history of nicotine dependence; Z88.1 Allergy status to other antibiotic agents; Z88.8 Allergy status to other drugs, medicaments and biological substances; Z91.038 Other insect allergy status; Z79.01 Long term (current) use of anticoagulants; Z79.899 Other long term (current) drug therapy ==

== ENCOUNTER → 2023-09-22 | Outpatient (CLI) | payer BC ==
[~2023-09-22] MED LIST changes: +ONDA-284 PO; -ONDA8TAB8 PO
== END ==
LOC: M PAIN 16:00
PROVIDERS: ATTEND Anesthesiology
DX: M48.061 Spinal stenosis, lumbar region without neurogenic claudication (principal); M51.16 Intervertebral disc disorders with radiculopathy, lumbar region; G89.29 Other chronic pain; I10 Essential (primary) hypertension; E66.01 Morbid (severe) obesity due to excess calories; R73.01 Impaired fasting glucose; E78.2 Mixed hyperlipidemia; I87.2 Venous insufficiency (chronic) (peripheral); M47.26 Other spondylosis with radiculopathy, lumbar region; Z87.891 Personal history of nicotine dependence; Z79.01 Long term (current) use of anticoagulants; Z79.899 Other long term (current) drug therapy; Z88.8 Allergy status to other drugs, medicaments and biological substances; Z91.048 Other nonmedicinal substance allergy status; Z68.35 Body mass index [BMI] 35.0-35.9, adult

== ENCOUNTER → 2024-02-01 | Outpatient (CLI) | payer BC ==
[~2024-02-01] MED LIST changes: +ISOVUE-M 300 61% 15ML VIAL As Ordered ONE; +LIDOCAINE 1% SDV 30ML VIAL As Ordered ONE; +dexAMETHasone 10MG/1ML VIAL PRES.FREE As Ordered ONE; +diazePAM 5MG TABLET As Ordered ONE; +oxyCODONE 5MG TAB As Ordered ONE
== END ==
LOC: M PAIN 11:00
PROVIDERS: ATTEND Anesthesiology
DX: M51.16 Intervertebral disc disorders with radiculopathy, lumbar region (principal); I10 Essential (primary) hypertension; R73.01 Impaired fasting glucose; E78.2 Mixed hyperlipidemia; I87.2 Venous insufficiency (chronic) (peripheral); M47.816 Spondylosis without myelopathy or radiculopathy, lumbar region; Z87.891 Personal history of nicotine dependence; Z79.01 Long term (current) use of anticoagulants; Z79.899 Other long term (current) drug therapy; Z88.8 Allergy status to other drugs, medicaments and biological substances; Z91.048 Other nonmedicinal substance allergy status
CPT/HCPCS: 62323; J1100; Q9967

== ENCOUNTER → 2024-03-06 | Outpatient (CLI) | payer BC ==
[~2024-03-06] MED LIST changes: -ISOVUE-M 300 61% 15ML VIAL As Ordered ONE; -LIDOCAINE 1% SDV 30ML VIAL As Ordered ONE; -dexAMETHasone 10MG/1ML VIAL PRES.FREE As Ordered ONE; -diazePAM 5MG TABLET As Ordered ONE; -oxyCODONE 5MG TAB As Ordered ONE
== END ==
LOC: M PAIN 11:15
PROVIDERS: ATTEND Nurse Practitioner Family
DX: M79.18 Myalgia, other site (principal); M51.16 Intervertebral disc disorders with radiculopathy, lumbar region; G89.29 Other chronic pain; I10 Essential (primary) hypertension; E66.01 Morbid (severe) obesity due to excess calories; R73.01 Impaired fasting glucose; E78.2 Mixed hyperlipidemia; I87.2 Venous insufficiency (chronic) (peripheral); Z87.891 Personal history of nicotine dependence; Z79.01 Long term (current) use of anticoagulants; Z79.899 Other long term (current) drug therapy; Z88.8 Allergy status to other drugs, medicaments and biological substances; Z91.048 Other nonmedicinal substance allergy status; Z68.35 Body mass index [BMI] 35.0-35.9, adult

== ENCOUNTER → 2024-04-14 | Outpatient (CLI) | payer BC | LOC: M PLAIMG 06:36 | PROVIDERS: ATTEND Nurse Practitioner Family | DX: M79.18 Myalgia, other site (principal); M46.1 Sacroiliitis, not elsewhere classified; M65.95 Unspecified synovitis and tenosynovitis, thigh ==

== ENCOUNTER → 2024-05-09 | Outpatient (CLI) | payer BC | LOC: M PAIN 12:45 | PROVIDERS: ATTEND Anesthesiology | DX: G57.02 Lesion of sciatic nerve, left lower limb (principal); I10 Essential (primary) hypertension; E66.01 Morbid (severe) obesity due to excess calories; R73.01 Impaired fasting glucose; E78.2 Mixed hyperlipidemia; I87.2 Venous insufficiency (chronic) (peripheral); M47.816 Spondylosis without myelopathy or radiculopathy, lumbar region; L89.329 Pressure ulcer of left buttock, unspecified stage; Z79.01 Long term (current) use of anticoagulants; Z79.899 Other long term (current) drug therapy; Z87.891 Personal history of nicotine dependence; Z88.8 Allergy status to other drugs, medicaments and biological substances; Z91.048 Other nonmedicinal substance allergy status; Z68.35 Body mass index [BMI] 35.0-35.9, adult | CPT/HCPCS: 76000; G0463 ==

== ENCOUNTER → 2024-05-19 | Outpatient (CLI) | payer BC ==
[~2024-05-19] MED LIST changes: +ISOVUE-M 300 61% 15ML VIAL As Ordered ONE; +LIDOCAINE 1% SDV 30ML VIAL As Ordered ONE; +TRIAMCINOLONE ACETONIDE SUSP 40MG/ML 1ML VIAL As Ordered ONE; +diazePAM 5MG TABLET As Ordered ONE; +diphenhydrAMINE 25MG CAP As Ordered ONE; +oxyCODONE 5MG TAB As Ordered ONE
== END ==
LOC: M PAIN 14:30
PROVIDERS: ATTEND Anesthesiology
DX: G57.02 Lesion of sciatic nerve, left lower limb (principal); G89.29 Other chronic pain; M54.50 Low back pain, unspecified; M79.18 Myalgia, other site; I10 Essential (primary) hypertension; E78.2 Mixed hyperlipidemia; M47.816 Spondylosis without myelopathy or radiculopathy, lumbar region; Z87.891 Personal history of nicotine dependence; Z79.01 Long term (current) use of anticoagulants; Z79.899 Other long term (current) drug therapy; Z88.8 Allergy status to other drugs, medicaments and biological substances; Z91.048 Other nonmedicinal substance allergy status
CPT/HCPCS: 20552; 77002; J0665; J3301; Q9967

== ENCOUNTER → 2024-12-18 | Outpatient (CLI) | payer MEDICARE ==
[~2024-12-18] MED LIST changes: -ISOVUE-M 300 61% 15ML VIAL As Ordered ONE; -LIDOCAINE 1% SDV 30ML VIAL As Ordered ONE; -TRIAMCINOLONE ACETONIDE SUSP 40MG/ML 1ML VIAL As Ordered ONE; -diazePAM 5MG TABLET As Ordered ONE; -diphenhydrAMINE 25MG CAP As Ordered ONE; -oxyCODONE 5MG TAB As Ordered ONE
== END ==
LOC: M PLAIMG 09:14
PROVIDERS: ATTEND Physician Assistant
DX: I50.42 Chronic combined systolic (congestive) and diastolic (congestive) heart failure (principal)